=== PATIENT | male | born 1945 | race Caucasian/White ===

== ENCOUNTER → 2020-06-23 08:32 | Outpatient (BNVA) | payer MEDICARE, SELFPAY | PROVIDERS: PCP Internal Medicine; Visit Provider Internal Medicine | DX: Z95.2 Presence of prosthetic heart valve (principal); Z51.81 Encounter for therapeutic drug level monitoring; Z79.01 Long term (current) use of anticoagulants | CPT/HCPCS: 85610; 99211 ==

== ENCOUNTER 2020-06-25 12:04 | Outpatient (REF) | payer MEDICARE, SELFPAY ==
[2020-06-25 13:25] LABS: MANUAL DIFF FLAG NO
[2020-06-25 13:31] LABS: Basophils Percent Auto 0.4 % (0-2); Eosinophils Absolute Auto 0.3 X10*3/uL (0.0-0.4); Eosinophils Percent Auto 3.4 % (0-4); Hematocrit 48.7 % (42-52); Hemoglobin 14.9 g/dl (14.0-18.0); Imm Gran Abs Auto 0.03 X10*3/uL (0.00-0.03); Imm Gran Pct Auto 0.4 % (0.0-0.4); Lymphocytes Percent Auto 12.5 % (20-40); Mean Corpuscular HGB Conc 30.6 g/dl (31.0-36.0); Mean Corpuscular Hemoglobin 27.3 pg (27.0-33.0); Mean Corpuscular Volume 89.4 fL (80-98); Mean Platelet Volume 9.7 fL (9.4-12.4); Monocytes Absolute Auto 0.5 X10*3/uL (0.1-1.2); Monocytes Percent Auto 6.7 % (2-11); Neutrophils Absolute Auto 5.8 X10*3/uL (2.0-8.3); Neutrophils Percent Auto 76.6 % (45-73); Platelet Count 197 X10*3/uL (160-400); Red Blood Count 5.45 X10*6/uL (4.60-5.80); Red Cell Distribution Width 16.2 % (11.0-16.0); White Blood Count 7.6 X10*3/uL (4.8-10.8)
[2020-06-25 14:00] LABS: Alanine Aminotransferase 10 U/L (0-40); Albumin Level 3.8 g/dL (3.5-5.0); Alkaline Phosphatase 84 U/L (39-117); Anion Gap 11 (12-20); Aspartate Amino Transferase 16 U/L (5-37); Bilirubin Total 0.5 mg/dL (0.0-1.0); Blood Urea Nitrogen 23 mg/dL (9-16); Calcium 8.8 mg/dL (8.4-10.2); Carbon Dioxide 26 mmol/L (22-29); Chloride 102 mmol/L (96-108); Estimated Glomerular Filt Rate 45; Glucose Random 116 mg/dL (60-115); Potassium 4.6 mmol/l (3.3-5.1); Sodium 134 mmol/L (135-145); Total Protein 8.7 g/dL (6.5-8.0)
[2020-06-25 14:24] LABS: Free T4 (Free Thyroxine) 0.82 ng/dL (0.71-1.85)
[2020-06-25 14:30] LABS: Estimated Average Glucose 131 mg/dL; Hemoglobin A1c % 6.2 %
== END 2020-06-25 12:05 | disposition home or self-care (01) ==
LOC: HO.LAB 12:04
PROVIDERS: PCP Internal Medicine; Visit Provider Internal Medicine
DX: R60.0 Localized edema (principal); N18.9 Chronic kidney disease, unspecified; E11.9 Type 2 diabetes mellitus without complications
CPT/HCPCS: 36415; 80053; 83036; 84439; 85025

== ENCOUNTER → 2020-07-07 08:12 | Outpatient (BNVA) | payer MEDICARE, SELFPAY | PROVIDERS: PCP Internal Medicine; Visit Provider Internal Medicine | DX: Z95.2 Presence of prosthetic heart valve (principal); Z79.01 Long term (current) use of anticoagulants; Z51.81 Encounter for therapeutic drug level monitoring | CPT/HCPCS: 85610; 99211 ==

== ENCOUNTER → 2020-07-28 14:06 | Outpatient (BNVA) | payer MEDICARE, SELFPAY | PROVIDERS: PCP Internal Medicine; Referring Provider Internal Medicine; Visit Provider Internal Medicine Cardiovascular Disease | DX: I47.2 Ventricular tachycardia (principal); I25.10 Atherosclerotic heart disease of native coronary artery without angina pectoris; Z45.02 Encounter for adjustment and management of automatic implantable cardiac defibrillator; I25.5 Ischemic cardiomyopathy; I50.22 Chronic systolic (congestive) heart failure; I35.0 Nonrheumatic aortic (valve) stenosis; Z79.899 Other long term (current) drug therapy | CPT/HCPCS: 93005; 99212 ==

== ENCOUNTER → 2020-08-04 08:10 | Outpatient (BNVA) | payer MEDICARE, SELFPAY | PROVIDERS: PCP Internal Medicine; Visit Provider Internal Medicine | DX: Z95.2 Presence of prosthetic heart valve (principal); Z51.81 Encounter for therapeutic drug level monitoring; Z79.01 Long term (current) use of anticoagulants | CPT/HCPCS: 85610; 99211 ==

== ENCOUNTER → 2020-09-01 07:58 | Outpatient (BNVA) | payer MEDICARE, SELFPAY | PROVIDERS: PCP Internal Medicine; Visit Provider Internal Medicine | DX: Z95.2 Presence of prosthetic heart valve (principal); Z79.01 Long term (current) use of anticoagulants; Z51.81 Encounter for therapeutic drug level monitoring | CPT/HCPCS: 85610; 99211 ==

== ENCOUNTER → 2020-09-07 08:53 | Outpatient (BNVA) | payer MEDICARE, SELFPAY | PROVIDERS: PCP Internal Medicine; Referring Provider Internal Medicine; Visit Provider Internal Medicine Cardiovascular Disease | DX: I47.2 Ventricular tachycardia (principal); I25.5 Ischemic cardiomyopathy; I50.22 Chronic systolic (congestive) heart failure; Z79.899 Other long term (current) drug therapy; Z45.02 Encounter for adjustment and management of automatic implantable cardiac defibrillator | CPT/HCPCS: 99212 ==

== ENCOUNTER → 2020-09-27 08:19 | Outpatient (BNVA) | payer MEDICARE, BC, SELFPAY | PROVIDERS: PCP Internal Medicine; Visit Provider Internal Medicine | DX: Z95.2 Presence of prosthetic heart valve (principal); Z51.81 Encounter for therapeutic drug level monitoring; Z79.01 Long term (current) use of anticoagulants | CPT/HCPCS: 85610; 99211 ==

== ENCOUNTER → 2020-11-01 08:01 | Outpatient (BNVA) | payer MEDICARE, SELFPAY | PROVIDERS: PCP Internal Medicine; Visit Provider Internal Medicine | DX: Z95.2 Presence of prosthetic heart valve (principal); Z51.81 Encounter for therapeutic drug level monitoring; Z79.01 Long term (current) use of anticoagulants | CPT/HCPCS: 85610; 99211 ==

== ENCOUNTER → 2020-11-29 08:06 | Outpatient (BNVA) | payer MEDICARE, SELFPAY | PROVIDERS: PCP Internal Medicine; Visit Provider Internal Medicine | DX: Z95.2 Presence of prosthetic heart valve (principal); Z51.81 Encounter for therapeutic drug level monitoring; Z79.01 Long term (current) use of anticoagulants | CPT/HCPCS: 85610; 99211 ==

== ENCOUNTER 2020-12-22 09:07 | Outpatient (REF) | payer MEDICARE, BC, SELFPAY ==
[2020-12-22 10:31] LABS: MANUAL DIFF FLAG NO
[2020-12-22 10:58] LABS: Basophils Percent Auto 0.5 % (0-2); Eosinophils Absolute Auto 0.3 X10*3/uL (0.0-0.4); Eosinophils Percent Auto 4.3 % (0-4); Hemoglobin 15.6 g/dl (14.0-18.0); Imm Gran Abs Auto 0.03 X10*3/uL (0.00-0.03); Imm Gran Pct Auto 0.5 % (0.0-0.4); Lymphocytes Absolute Auto 0.9 X10*3/uL (1.2-4.9); Lymphocytes Percent Auto 14.1 % (20-40); Mean Corpuscular HGB Conc 31.2 g/dl (31.0-36.0); Mean Corpuscular Volume 89.6 fL (80-98); Monocytes Absolute Auto 0.5 X10*3/uL (0.1-1.2); Monocytes Percent Auto 7.3 % (2-11); Neutrophils Absolute Auto 4.8 X10*3/uL (2.0-8.3); Neutrophils Percent Auto 73.3 % (45-73); Platelet Count 189 X10*3/uL (160-400); Red Blood Count 5.58 X10*6/uL (4.60-5.80); Red Cell Distribution Width 14.7 % (11.0-16.0); White Blood Count 6.6 X10*3/uL (4.8-10.8)
[2020-12-22 11:07] LABS: Estimated Average Glucose 134 mg/dL; Hemoglobin A1c % 6.3 %
[2020-12-22 11:27] LABS: Alanine Aminotransferase 14 U/L (0-40); Albumin Level 3.7 g/dL (3.5-5.0); Alkaline Phosphatase 86 U/L (39-117); Anion Gap 11 (12-20); Aspartate Amino Transferase 21 U/L (5-37); Bilirubin Total 0.7 mg/dL (0.0-1.0); Blood Urea Nitrogen 22 mg/dL (9-16); Carbon Dioxide 24 mmol/L (22-29); Chloride 104 mmol/L (96-108); Cholesterol 210 mg/dL; Estimated Glomerular Filt Rate 41; Glucose Fasting 102 mg/dL (60-99); HDL Cholesterol 34 mg/dL; LDL Cholesterol Calculated 152 mg/dl; Potassium 5.2 mmol/L (3.3-5.1); Sodium 134 mmol/L (135-145); Total Protein 8.4 g/dL (6.5-8.0); Triglycerides 121 mg/dL
[2020-12-22 11:44] LABS: Creatinine Urine 117.27 mg/dL
[2020-12-22 12:00] LABS: Microalbum/Creatinine Ratio Ur 469.8 ug/mg cr
== END 2020-12-22 09:08 | disposition home or self-care (01) ==
LOC: HO.10HDL 09:07
PROVIDERS: Visit Provider Internal Medicine
DX: E11.22 Type 2 diabetes mellitus with diabetic chronic kidney disease (principal); N18.9 Chronic kidney disease, unspecified; E78.00 Pure hypercholesterolemia, unspecified; I42.9 Cardiomyopathy, unspecified
CPT/HCPCS: 36415; 80053; 80061; 82043; 83036; 85025

== ENCOUNTER 2020-12-30 12:19 | Outpatient (REF) | payer MEDICARE, BC, SELFPAY ==
[2020-12-30 13:25] LABS: MANUAL DIFF FLAG NO
[2020-12-30 13:29] LABS: Basophils Percent Auto 0.6 % (0-2); Eosinophils Absolute Auto 0.3 X10*3/uL (0.0-0.4); Eosinophils Percent Auto 4.8 % (0-4); Hematocrit 50.1 % (42-52); Hemoglobin 15.5 g/dl (14.0-18.0); Imm Gran Abs Auto 0.02 X10*3/uL (0.00-0.03); Imm Gran Pct Auto 0.3 % (0.0-0.4); Lymphocytes Absolute Auto 0.9 X10*3/uL (1.2-4.9); Lymphocytes Percent Auto 13.4 % (20-40); Mean Corpuscular HGB Conc 30.9 g/dl (31.0-36.0); Mean Corpuscular Hemoglobin 27.5 pg (27.0-33.0); Mean Corpuscular Volume 88.8 fL (80-98); Mean Platelet Volume 9.7 fL (9.4-12.4); Monocytes Absolute Auto 0.5 X10*3/uL (0.1-1.2); Monocytes Percent Auto 7.1 % (2-11); Neutrophils Absolute Auto 5.1 X10*3/uL (2.0-8.3); Neutrophils Percent Auto 73.8 % (45-73); Platelet Count 185 X10*3/uL (160-400); Red Blood Count 5.64 X10*6/uL (4.60-5.80); Red Cell Distribution Width 14.6 % (11.0-16.0); White Blood Count 6.9 X10*3/uL (4.8-10.8)
[2020-12-30 14:00] LABS: Alanine Aminotransferase 10 U/L (0-40); Albumin Level 3.7 g/dL (3.5-5.0); Alkaline Phosphatase 93 U/L (39-117); Anion Gap 13 (12-20); Aspartate Amino Transferase 20 U/L (5-37); Bilirubin Total 0.4 mg/dL (0.0-1.0); Blood Urea Nitrogen 25 mg/dL (9-16); Calcium 8.9 mg/dL (8.4-10.2); Carbon Dioxide 22 mmol/L (22-29); Chloride 106 mmol/L (96-108); Cholesterol 211 mg/dL; Estimated Glomerular Filt Rate 45; Glucose Random 103 mg/dL (60-115); Potassium 4.7 mmol/L (3.3-5.1); Sodium 136 mmol/L (135-145); Total Protein 8.6 g/dL (6.5-8.0)
[2020-12-30 14:02] LABS: Estimated Average Glucose 134 mg/dL; Hemoglobin A1c % 6.3 %
[2020-12-30 14:21] LABS: Free T4 (Free Thyroxine) 0.85 ng/dL (0.71-1.85); Thyroid Stimulating Hormone 3.99 uIU/mL (0.32-4.0)
[2020-12-30 14:24] LABS: Creatinine Urine 104.99 mg/dL; Microalbum/Creatinine Ratio Ur 460.9 ug/mg cr
== END 2020-12-30 12:20 | disposition home or self-care (01) ==
LOC: HO.10HDL 12:19
PROVIDERS: PCP Internal Medicine; Visit Provider Internal Medicine
DX: E11.22 Type 2 diabetes mellitus with diabetic chronic kidney disease (principal); N18.9 Chronic kidney disease, unspecified; I42.9 Cardiomyopathy, unspecified
CPT/HCPCS: 36415; 80053; 82043; 82465; 83036; 84439; 84443; 85025

== ENCOUNTER → 2021-01-03 07:55 | Outpatient (BNVA) | payer MEDICARE, BC, SELFPAY | PROVIDERS: PCP Internal Medicine; Visit Provider Internal Medicine | DX: Z95.2 Presence of prosthetic heart valve (principal); Z79.01 Long term (current) use of anticoagulants; Z51.81 Encounter for therapeutic drug level monitoring | CPT/HCPCS: 85610; 99211 ==

== ENCOUNTER → 2021-01-31 08:03 | Outpatient (BNVA) | payer MEDICARE, BC, SELFPAY | PROVIDERS: PCP Internal Medicine; Visit Provider Internal Medicine | DX: Z95.2 Presence of prosthetic heart valve (principal); Z51.81 Encounter for therapeutic drug level monitoring; Z79.01 Long term (current) use of anticoagulants | CPT/HCPCS: 85610; 99211 ==

== ENCOUNTER → 2021-02-28 08:01 | Outpatient (BNVA) | payer MEDICARE, BC, SELFPAY | PROVIDERS: PCP Internal Medicine; Visit Provider Internal Medicine | DX: Z95.2 Presence of prosthetic heart valve (principal); Z51.81 Encounter for therapeutic drug level monitoring; Z79.01 Long term (current) use of anticoagulants | CPT/HCPCS: 85610; 99211 ==

== ENCOUNTER → 2021-03-28 07:59 | Outpatient (BNVA) | payer MEDICARE, BC, SELFPAY | PROVIDERS: PCP Internal Medicine; Visit Provider Internal Medicine | DX: Z95.2 Presence of prosthetic heart valve (principal); Z51.81 Encounter for therapeutic drug level monitoring; Z79.01 Long term (current) use of anticoagulants | CPT/HCPCS: 85610; 99211 ==

== ENCOUNTER → 2021-04-27 07:57 | Outpatient (BNVA) | payer MEDICARE, BC, SELFPAY | PROVIDERS: PCP Internal Medicine; Visit Provider Internal Medicine | DX: Z95.2 Presence of prosthetic heart valve (principal); Z51.81 Encounter for therapeutic drug level monitoring; Z79.01 Long term (current) use of anticoagulants | CPT/HCPCS: 85610; 99211 ==

== ENCOUNTER → 2021-05-25 08:08 | Outpatient (BNVA) | payer MEDICARE, BC, SELFPAY | PROVIDERS: PCP Internal Medicine; Visit Provider Internal Medicine | DX: Z95.2 Presence of prosthetic heart valve (principal); Z19.1 Hormone sensitive malignancy status; Z79.01 Long term (current) use of anticoagulants | CPT/HCPCS: 85610; 99211 ==

== ENCOUNTER → 2021-06-22 08:13 | Outpatient (BNVA) | payer MEDICARE, BC, SELFPAY | PROVIDERS: PCP Internal Medicine; Visit Provider Internal Medicine | DX: Z95.2 Presence of prosthetic heart valve (principal); Z51.81 Encounter for therapeutic drug level monitoring; Z79.01 Long term (current) use of anticoagulants | CPT/HCPCS: 85610; 99211 ==

== ENCOUNTER → 2021-07-20 08:20 | Outpatient (BNVA) | payer MEDICARE, BC, SELFPAY | PROVIDERS: PCP Internal Medicine; Visit Provider Internal Medicine | DX: Z95.2 Presence of prosthetic heart valve (principal); Z51.81 Encounter for therapeutic drug level monitoring; Z79.01 Long term (current) use of anticoagulants | CPT/HCPCS: 85610; 99211 ==

== ENCOUNTER → 2021-08-17 08:01 | Outpatient (BNVA) | payer MEDICARE, BC, SELFPAY | PROVIDERS: PCP Internal Medicine; Visit Provider Internal Medicine | DX: Z95.2 Presence of prosthetic heart valve (principal); Z51.81 Encounter for therapeutic drug level monitoring; Z79.01 Long term (current) use of anticoagulants | CPT/HCPCS: 85610; 99211 ==

== ENCOUNTER → 2021-08-29 12:34 | Outpatient (BNVA) | payer MEDICARE, BC, SELFPAY | PROVIDERS: PCP Internal Medicine; Referring Provider Internal Medicine; Visit Provider Nurse Practitioner Family | DX: Z45.02 Encounter for adjustment and management of automatic implantable cardiac defibrillator (principal); I25.5 Ischemic cardiomyopathy; I50.22 Chronic systolic (congestive) heart failure; I47.2 Ventricular tachycardia; I25.10 Atherosclerotic heart disease of native coronary artery without angina pectoris; I35.0 Nonrheumatic aortic (valve) stenosis; Z95.1 Presence of aortocoronary bypass graft; Z79.01 Long term (current) use of anticoagulants | CPT/HCPCS: 99212 ==

== ENCOUNTER → 2021-09-14 07:59 | Outpatient (BNVA) | payer MEDICARE, BC, SELFPAY | PROVIDERS: PCP Internal Medicine; Visit Provider Internal Medicine | DX: Z95.2 Presence of prosthetic heart valve (principal); Z51.81 Encounter for therapeutic drug level monitoring; Z79.01 Long term (current) use of anticoagulants | CPT/HCPCS: 85610; 99211 ==

== ENCOUNTER 2021-09-21 13:02 | Observation (INO) | payer MEDICARE, BC, SELFPAY ==
--- NOTE | ~2021-09-21 | XR_ITS ---
EXAMINATION: XR CHEST CLINICAL INFORMATION: Syncope COMPARISON: Chest 07/24/2019 TECHNIQUE: 2 views of the chest were obtained. FINDINGS: The lungs are well-expanded with patchy opacity in the left lung base likely combination of parenchymal scarring and atelectasis unchanged since 07/24/2019. Rest of lungs are expanded. The heart size is borderline enlarged. There is increased vascularity but no charly congestion suspected. There are dual pacer electrodes in right atrium and right ventricle. No gross bony abnormality seen. XR/XR chest 2V IMPRESSION: Chronic left lower lobe parenchymal changes. No acute pneumonic process seen. Borderline cardiomegaly with prominent perivascular but no congestion. No change in dual pacer electrodes.
--- NOTE | ~2021-09-21 | CT_ITS ---
EXAMINATION: CT HEAD WITHOUT CONTRAST CLINICAL INFORMATION: Syncope. Rule out stroke. COMPARISON: None TECHNIQUE: Contiguous axial imaging was performed from the skull base to vertex without intravenous administration of contrast. This CT examination was performed using dose optimization techniques as appropriate, variously including the following: *Automated exposure control *Adjustment of mA and/or kV according to patient size (this includes techniques or standardized protocols for targeted exams where dose is matched to indication/reason for exam; i.e. extremities or head) *Use of iterative reconstruction technique DLP: 805 mGy-cm FINDINGS: There is no evidence of an extra-axial collection. There is no evidence of intra-axial or extra-axial hemorrhage. The ventricles and extra-axial CSF spaces are prominent compatible with generalized atrophy. There is nonspecific periventricular white matter disease. No mass, mass effect or infarct is seen. Review at bone windows is normal. No skull fracture is seen. Visualized paranasal sinuses, mastoid air cells and middle ears are clear. CT/CT head/brain wo con IMPRESSION: No acute intracranial findings. Nonspecific periventricular white matter disease and mild generalized atrophy. Findings were communicated to Dr. Zamudio by telephone on 07/22/2022 at 1:30 PM.
--- NOTE | ~2021-09-21 | CT_ITS ---
EXAMINATION: CT CHEST WITHOUT CONTRAST CLINICAL INFORMATION: Question of infiltrate COMPARISON: Chest radiograph earlier today September [address] chest 11/07/2018 TECHNIQUE: Multidetector volumetric CT imaging of the chest was done. Axial MIP volume rendering provided. Sagittal and coronal reformatted images were obtained. This CT examination was performed using dose optimization techniques as appropriate, variously including the following: *Automated exposure control *Adjustment of mA and/or kV according to patient size (this includes techniques or standardized protocols for targeted exams where dose is matched to indication/reason for exam; i.e. extremities or head) *Use of iterative reconstruction technique DLP: 322 mGy-cm FINDINGS: LUNGS: Again seen are chronic changes in the lungs with some subpleural reticular change and honeycombing along with some traction bronchiectasis most marked in the lower lobes. Compared to the prior study from 11/07/2018, findings have progressed minimally. No new areas of infiltrate are seen. No suspicious lung masses are present. MEDIASTINUM: Again seen is a left chest wall pacemaker. One lead is present in the right atria. The other extends medially across the midline with its tip in the right ventricle, but not at the apex. A third lead is epicardial in position. Unchanged calcification is present involving the pericardium. PLEURA: There is no pleural effusion. No pleural mass or thickening. AXILLA: No lymphadenopathy. UPPER ABDOMEN: Layering gallstones are present the largest measuring 1.6 cm. No evidence of cholecystitis. OSSEOUS STRUCTURES: Minimal degenerative changes present in the spine. No bony destructive lesions. CT/CT chest wo con IMPRESSION: Chronic pulmonary changes as described above. No acute new superimposed infiltrate is seen. Fleischner guidelines were followed.
--- NOTE | 2021-09-21 13:08 | ECG_ITS ---
Test Reason : Syncope Blood Pressure : / mmHG Vent. Rate : 080 BPM Atrial Rate : 080 BPM P-R Int : 000 ms QRS Dur : 164 ms QT Int : 468 ms P-R-T Axes : 052 -42 029 degrees QTc Int : 539 ms Ventricular-paced rhythm Probable sinus rhythm Abnormal ECG When compared with ECG of 11-JUN-2017 11:22, No significant changes seen Referred By: Mark Zamudio Electronically Signed By:MARISEL MERCADO
--- NOTE | 2021-09-21 13:09 | ED.GENADULT ---
HPI - General Adult General Chief complaint: Syncope Stated complaint: STROKE ALERT Time Seen by Provider: 09/21/21 13:07 Source: patient and old records reviewed History of Present Illness HPI narrative: Patient with a history of artificial heart valve on warfarin therapy, with ischemic cardiomyopathy, with nonsustained ventricular tachycardia, with history of coronary artery bypass graft surgery, and biventricular ICD. He presents today with syncopal episode. Unclear duration. He was apparently found at a bar by other patrons slumped over the bar and unresponsive. He was unresponsive on EMS arrival. Heart rate during the unresponsive episode was approximately 100 and paste. Blood pressure has been low for EMS with a maximum pressure of 100. Unknown blood pressure during unresponsive time. Per EMS he suddenly became normally responsive approximately 5 minutes after their arrival. No focal neuro deficits. The patient self denies complaints and states ?just get me out of here?. He has no prior admissions to this hospital. He denies chest pain or palpitations. He denies recent illness. Related Data Home Medications Medication Instructions Recorded Confirmed metoprolol succinate 25 mg 12.5 mg PO BEDTIME 09/21/21 09/21/21 tablet,extended release 24 hr warfarin 2.5 mg tablet 2.5 mg PO SUTUWETHFR@1800 09/21/21 09/21/21 warfarin 2.5 mg tablet 5 mg PO MOSA@1800 09/21/21 09/21/21 Previous Rx's Medication Instructions Recorded sacubitril 24 mg-valsartan 26 mg 1 tab PO BID 60 Days #120 tab 06/21/21 tablet Allergies Allergy/AdvReac Type Severity Reaction Status Date / Time indomethacin [From INDOCIN] Allergy Mild HEADACHES Verified 09/14/21 08:10 Review of Systems Constitutional: Comments: Denies weakness numbness or paresthesias. Cardiovascular: Comments: No chest pain or palpitations Respiratory: Comments: No dyspnea or cough Gastrointestinal: Comments: No nausea vomiting or diarrhea Musculoskeletal: Comments: No musculoskeletal injuries Integumentary/Breasts: Skin/Breast: Reports non-healing lesions Comments: No rash Neurologic: Comments: No focal neuro deficit FOR[facility]LY [facility], [facility] Past Medical History Medical History Aortic stenosis Biventricular ICD (implantable cardioverter-defibrillator) in place CAD (coronary artery disease) Chronic HFrEF (heart failure with reduced ejection fraction) CKD (chronic kidney disease) Diabetes mellitus Ischemic cardiomyopathy Surgical History History of appendectomy Hx of CABG Hx of knee surgery Hx of tonsillectomy S/P CABG x 1 Family History Family History Father Colon cancer Mother No problems noted. Social History Social History Alcohol intake: never Patient Tobacco Use Status: Never used Tobacco Use of substances other than those prescribed or required for medical reasons: No Advance Directives: Yes Advance Directives Information Provided: Yes Advance Directives on File: No Physical Exam Vital Signs: Vital Signs: Last Vital Signs Temp 97.6 F 09/21/21 16:20 Pulse 76 09/21/21 17:46 Resp 20 09/21/21 17:46 BP 100/58 L 09/21/21 17:46 Pulse Ox 98 09/21/21 16:20 BMI result Body Mass Index 33.9 Const: Other: Awake alert no acute distress Eyes: Other: Pupils equal round reactive to light. Extraocular muscles intact. Resp: Other: No respiratory distress. Clear and equal bilaterally Cardio: Other: Regular rate and rhythm GI: Other: Soft nontender nondistended Skin: Other: Warm pink and dry without rash Neuro: Other: Awake alert. Oriented x3. No focal neuro deficit. NIHSS score of 0 Cerebellar exam, [id number] is normal without ataxia. NIH Stroke Scale Internal: Initial- Upon Arrival Level of Consciousness: Alert Level of Consciousness Questions: Answers both questions correctly Level of Consciousness Commands: Performs both tasks correctly Best Gaze: Normal Visual: No visual loss Facial Palsy: Normal Motor Arm (Right): No drift Motor Arm (Left): No drift Motor Leg (Right): No drift Motor Leg (Left): No drift Limb Ataxia: Absent Sensory: Normal Best Language: No aphasia Dysarthia: Normal Extinction and Inattention: No abnormality Score: 0 Course Course Course Narrative: Syncope and patient with valvular disease on Coumadin with cardiomyopathy No evidence of focal neuro deficit or stroke. Dysrhythmia Hypotension Alcohol intoxication Anemia On monitor patient shows paced rhythm. Patient is hypotensive at 70/40 however. This is likely the etiology of his syncopal event. Will treat with IV fluids. 500 cc at a time as patient is at high risk for fluid overload. Would for source of hypotension such as dehydration and sepsis. No obvious infectious process clinically. Await labs 3:28 p.m. Chest x-ray shows no acute abnormalities. CBC shows normal white count and normal hemoglobin. Chemistry significant for creatinine of 1.64 which is close to patient's baseline. Lactic acid is 3.7 however. Troponin 1. Is 55.2. Eyes discussed case with his who is an RN. She states that he is close to his baseline but still slurring his speech and seemed more fatigued than normal. No prodromes prior to this event that she is aware of as he was in his usual state of health today. Await urinalysis. Source of hypotension still unclear. At the moment no evidence of infection or sepsis. 5:[address] Cordero. Bedside ultrasound shows somewhat diminished wall motion abnormalities with probable aortic stenosis. Formal ultrasound will be done as an inpatient. 6:[address] shows no obvious pneumonias. No other significant acute abnormalities. 7:38 p.m.. Urinalysis shows no signs of infection. Blood pressure has remained stable over the past hour. Will hospitalized for further treatment Repeat lactic acid of 2.5 showing some improvement. Medical Decision Making Lab Data Result diagrams: 09/21/21 14:16 09/21/21 14:05 Labs: Lab Results 09/21/21 09/21/21 09/21/21 Range/Units 14:05 14:16 14:16 WBC 7.0 (4.8-10.8) X10*3/uL RBC 5.11 (4.60-5.80) X10*6/uL Hgb 14.7 (14.0-18.0) g/dl Hct 46.7 (42.0-52.0) % MCV 91.4 (80.0-98.0) fL MCH 28.8 (27.0-33.0) pg MCHC 31.5 (31.0-36.0) g/dl RDW 14.3 (11.0-16.0) % Plt Count 164 (160-400) X10*3/uL MPV 9.8 (9.4-12.4) fL Immature Gran % (Auto) 0.3 (0.0-0.4) % Neut % (Auto) 80.4 H (45-73) % Lymph % (Auto) 9.7 L (20-40) % Lynn % (Auto) 7.0 (2-11) % Eos % (Auto) 2.3 (0-4) % Baso % (Auto) 0.3 (0-2) % Lymph # (Auto) 0.7 L (1.2-4.9) X10*3/uL Lynn # (Auto) 0.5 (0.1-1.2) X10*3/uL Eos # (Auto) 0.2 (0.0-0.4) X10*3/uL Baso # (Auto) 0.0 (0.0-0.2) X10*3/uL Abs Immat Gran (auto) 0.02 (0.00-0.03) X10*3/uL Absolute Neuts (auto) 5.6 (2.0-8.3) x10*3/uL Absolute Nucleated RBC 0.000 (0.0-0.012) X10*3/uL Nucleated RBC % (auto) 0.0 (0.0-0.2) /100WBC PT 33.5 H (9.9-13.0) SEC INR 2.9 H (0.9-1.1) D-Dimer High Sensitivty 490 NG/ML Sodium 135 (135-145) mmol/L Potassium 4.2 (3.3-5.1) mmol/L Chloride 108 (96-108) mmol/L Carbon Dioxide 18 L (22-29) mmol/L Anion Gap 13 (12-20) BUN 22 H (9-16) mg/dL Creatinine 1.64 H (0.5-1.4) mg/dL Estim Creat Clear Calc 40.7 Estimated GFR 41 Random Glucose 117 H (60-115) mg/dL Lactic Acid (0.5-2.0) mmol/L Lactic Acid F/U @ 2Hr (0.5-2.0) mmol/L Calcium 8.8 (8.4-10.2) mg/dL Total Bilirubin 0.6 (0.0-1.0) mg/dL AST 18 (5-37) U/L ALT 12 (0-40) U/L Alkaline Phosphatase 87 (39-117) U/L Ammonia (13-55) umol/L Troponin I High Sens (<3.5-35.0) ng/L Total Protein 8.1 H (6.5-8.0) g/dL Albumin 3.5 (3.5-5.0) g/dL Urine Color Urine Appearance Urine pH (5.0-8.0) Ur Specific Elton (1.005-1.025) Urine Protein (NEG-TRACE) MG/DL Urine Glucose (UA) (NEG) MG/DL Urine Ketones (NEG) MG/DL Urine Blood (NEG) Urine Nitrite (NEG) Ur Leukocyte Esterase (NEG) Urine RBC (0) /HPF Urine WBC (0-4) /HPF Ur Squamous Epith Cells /LPF Urine Bacteria /LPF Hyaline Casts /LPF Granular Casts /LPF Urine Mucus /LPF Urine Opiates Screen (Not Detect) Urine Fentanyl Screen (Not Detect) Ur Barbiturates Screen (Not Detect) Ur Phencyclidine Scrn (Not Detect) Ur Amphetamines Screen (Not Detect) U Benzodiazepines Scrn (Not Detect) Urine Cocaine Screen (Not Detect) U Marijuana (THC) Screen (Not Detect) Ethyl Alcohol mg/dL COVID-19 (DEEPAK) (Negative) COVID-19 Clin Com 09/21/21 09/21/21 09/21/21 Range/Units 14:16 14:16 14:16 WBC (4.8-10.8) X10*3/uL RBC (4.60-5.80) X10*6/uL Hgb (14.0-18.0) g/dl Hct (42.0-52.0) % MCV (80.0-98.0) fL MCH (27.0-33.0) pg MCHC (31.0-36.0) g/dl RDW (11.0-16.0) % Plt Count (160-400) X10*3/uL MPV (9.4-12.4) fL Immature Gran % (Auto) (0.0-0.4) % Neut % (Auto) (45-73) % Lymph % (Auto) (20-40) % Lynn % (Auto) (2-11) % Eos % (Auto) (0-4) % Baso % (Auto) (0-2) % Lymph # (Auto) (1.2-4.9) X10*3/uL Lynn # (Auto) (0.1-1.2) X10*3/uL Eos # (Auto) (0.0-0.4) X10*3/uL Baso # (Auto) (0.0-0.2) X10*3/uL Abs Immat Gran (auto) (0.00-0.03) X10*3/uL Absolute Neuts (auto) (2.0-8.3) x10*3/uL Absolute Nucleated RBC (0.0-0.012) X10*3/uL Nucleated RBC % (auto) (0.0-0.2) /100WBC PT (9.9-13.0) SEC INR (0.9-1.1) D-Dimer High Sensitivty NG/ML Sodium (135-145) mmol/L Potassium (3.3-5.1) mmol/L Chloride (96-108) mmol/L Carbon Dioxide (22-29) mmol/L Anion Gap (12-20) BUN (9-16) mg/dL Creatinine (0.5-1.4) mg/dL Estim Creat Clear Calc Estimated GFR Random Glucose (60-115) mg/dL Lactic Acid (0.5-2.0) mmol/L Lactic Acid F/U @ 2Hr (0.5-2.0) mmol/L Calcium (8.4-10.2) mg/dL Total Bilirubin (0.0-1.0) mg/dL AST (5-37) U/L ALT (0-40) U/L Alkaline Phosphatase (39-117) U/L Ammonia 33 (13-55) umol/L Troponin I High Sens 55.2 H (<3.5-35.0) ng/L Total Protein (6.5-8.0) g/dL Albumin (3.5-5.0) g/dL Urine Color Urine Appearance Urine pH (5.0-8.0) Ur Specific Elton (1.005-1.025) Urine Protein (NEG-TRACE) MG/DL Urine Glucose (UA) (NEG) MG/DL Urine Ketones (NEG) MG/DL Urine Blood (NEG) Urine Nitrite (NEG) Ur Leukocyte Esterase (NEG) Urine RBC (0) /HPF Urine WBC (0-4) /HPF Ur Squamous Epith Cells /LPF Urine Bacteria /LPF Hyaline Casts /LPF Granular Casts /LPF Urine Mucus /LPF Urine Opiates Screen (Not Detect) Urine Fentanyl Screen (Not Detect) Ur Barbiturates Screen (Not Detect) Ur Phencyclidine Scrn (Not Detect) Ur Amphetamines Screen (Not Detect) U Benzodiazepines Scrn (Not Detect) Urine Cocaine Screen (Not Detect) U Marijuana (THC) Screen (Not Detect) Ethyl Alcohol mg/dL COVID-19 (DEEPAK) Negative (Negative) COVID-19 Clin Com See Note 09/21/21 09/21/21 09/21/21 Range/Units 14:16 14:16 16:48 WBC (4.8-10.8) X10*3/uL RBC (4.60-5.80) X10*6/uL Hgb (14.0-18.0) g/dl Hct (42.0-52.0) % MCV (80.0-98.0) fL MCH (27.0-33.0) pg MCHC (31.0-36.0) g/dl RDW (11.0-16.0) % Plt Count (160-400) X10*3/uL MPV (9.4-12.4) fL Immature Gran % (Auto) (0.0-0.4) % Neut % (Auto) (45-73) % Lymph % (Auto) (20-40) % Lynn % (Auto) (2-11) % Eos % (Auto) (0-4) % Baso % (Auto) (0-2) % Lymph # (Auto) (1.2-4.9) X10*3/uL Lynn # (Auto) (0.1-1.2) X10*3/uL Eos # (Auto) (0.0-0.4) X10*3/uL Baso # (Auto) (0.0-0.2) X10*3/uL Abs Immat Gran (auto) (0.00-0.03) X10*3/uL Absolute Neuts (auto) (2.0-8.3) x10*3/uL Absolute Nucleated RBC (0.0-0.012) X10*3/uL Nucleated RBC % (auto) (0.0-0.2) /100WBC PT (9.9-13.0) SEC INR (0.9-1.1) D-Dimer High Sensitivty NG/ML Sodium (135-145) mmol/L Potassium (3.3-5.1) mmol/L Chloride (96-108) mmol/L Carbon Dioxide (22-29) mmol/L Anion Gap (12-20) BUN (9-16) mg/dL Creatinine (0.5-1.4) mg/dL Estim Creat Clear Calc Estimated GFR Random Glucose (60-115) mg/dL Lactic Acid 3.7 H* (0.5-2.0) mmol/L Lactic Acid F/U @ 2Hr 2.5 H* (0.5-2.0) mmol/L Calcium (8.4-10.2) mg/dL Total Bilirubin (0.0-1.0) mg/dL AST (5-37) U/L ALT (0-40) U/L Alkaline Phosphatase (39-117) U/L Ammonia (13-55) umol/L Troponin I High Sens (<3.5-35.0) ng/L Total Protein (6.5-8.0) g/dL Albumin (3.5-5.0) g/dL Urine Color Urine Appearance Urine pH (5.0-8.0) Ur Specific Elton (1.005-1.025) Urine Protein (NEG-TRACE) MG/DL Urine Glucose (UA) (NEG) MG/DL Urine Ketones (NEG) MG/DL Urine Blood (NEG) Urine Nitrite (NEG) Ur Leukocyte Esterase (NEG) Urine RBC (0) /HPF Urine WBC (0-4) /HPF Ur Squamous Epith Cells /LPF Urine Bacteria /LPF Hyaline Casts /LPF Granular Casts /LPF Urine Mucus /LPF Urine Opiates Screen (Not Detect) Urine Fentanyl Screen (Not Detect) Ur Barbiturates Screen (Not Detect) Ur Phencyclidine Scrn (Not Detect) Ur Amphetamines Screen (Not Detect) U Benzodiazepines Scrn (Not Detect) Urine Cocaine Screen (Not Detect) U Marijuana (THC) Screen (Not Detect) Ethyl Alcohol 54 mg/dL COVID-19 (DEEPAK) (Negative) COVID-19 Clin Com 09/21/21 09/21/21 Range/Units 19:03 19:03 WBC (4.8-10.8) X10*3/uL RBC (4.60-5.80) X10*6/uL Hgb (14.0-18.0) g/dl Hct (42.0-52.0) % MCV (80.0-98.0) fL MCH (27.0-33.0) pg MCHC (31.0-36.0) g/dl RDW (11.0-16.0) % Plt Count (160-400) X10*3/uL MPV (9.4-12.4) fL Immature Gran % (Auto) (0.0-0.4) % Neut % (Auto) (45-73) % Lymph % (Auto) (20-40) % Lynn % (Auto) (2-11) % Eos % (Auto) (0-4) % Baso % (Auto) (0-2) % Lymph # (Auto) (1.2-4.9) X10*3/uL Lynn # (Auto) (0.1-1.2) X10*3/uL Eos # (Auto) (0.0-0.4) X10*3/uL Baso # (Auto) (0.0-0.2) X10*3/uL Abs Immat Gran (auto) (0.00-0.03) X10*3/uL Absolute Neuts (auto) (2.0-8.3) x10*3/uL Absolute Nucleated RBC (0.0-0.012) X10*3/uL Nucleated RBC % (auto) (0.0-0.2) /100WBC PT (9.9-13.0) SEC INR (0.9-1.1) D-Dimer High Sensitivty NG/ML Sodium (135-145) mmol/L Potassium (3.3-5.1) mmol/L Chloride (96-108) mmol/L Carbon Dioxide (22-29) mmol/L Anion Gap (12-20) BUN (9-16) mg/dL Creatinine (0.5-1.4) mg/dL Estim Creat Clear Calc Estimated GFR Random Glucose (60-115) mg/dL Lactic Acid (0.5-2.0) mmol/L Lactic Acid F/U @ 2Hr (0.5-2.0) mmol/L Calcium (8.4-10.2) mg/dL Total Bilirubin (0.0-1.0) mg/dL AST (5-37) U/L ALT (0-40) U/L Alkaline Phosphatase (39-117) U/L Ammonia (13-55) umol/L Troponin I High Sens (<3.5-35.0) ng/L Total Protein (6.5-8.0) g/dL Albumin (3.5-5.0) g/dL Urine Color YELLOW Urine Appearance CLEAR Urine pH 6.0 (5.0-8.0) Ur Specific Elton 1.020 (1.005-1.025) Urine Protein 1+ H (NEG-TRACE) MG/DL Urine Glucose (UA) NEG (NEG) MG/DL Urine Ketones NEG (NEG) MG/DL Urine Blood TRACE (NEG) Urine Nitrite NEG (NEG) Ur Leukocyte Esterase NEG (NEG) Urine RBC 1-4 (0) /HPF Urine WBC 0-2 (0-4) /HPF Ur Squamous Epith Cells NONE /LPF Urine Bacteria TRACE /LPF Hyaline Casts 0-2 /LPF Granular Casts 0-2 /LPF Urine Mucus TRACE /LPF Urine Opiates Screen Not Detected (Not Detect) Urine Fentanyl Screen Not Detected (Not Detect) Ur Barbiturates Screen Not Detected (Not Detect) Ur Phencyclidine Scrn Not Detected (Not Detect) Ur Amphetamines Screen Not Detected (Not Detect) U Benzodiazepines Scrn Not Detected (Not Detect) Urine Cocaine Screen Not Detected (Not Detect) U Marijuana (THC) Screen Not Detected (Not Detect) Ethyl Alcohol mg/dL COVID-19 (DEEPAK) (Negative) COVID-19 Clin Com Critical Care Time Critical Care Time Critical Care Time: Yes Total Critical Care Time: 115 Attestation: Secondary to prolonged hypotension. Critical care time outside of separately billable procedures Discharge Plan Discharge Patient Disposition: Admitted As Inpatient Prescriptions: No Action sacubitril-valsartan 24-26 mg tablet 1 tab PO BID 60 Days Qty: 120 RF: 0 warfarin 2.5 mg tablet 5 mg PO MOSA@1800 RF: 0 warfarin 2.5 mg tablet 2.5 mg PO SUTUWETHFR@1800 RF: 0 metoprolol succinate 25 mg tablet extended release 24 hr 12.5 mg PO BEDTIME RF: 0
[2021-09-21] MEDS: 0.9 % Sodium Chloride 500 ML IV (13:15)
[2021-09-21 13:20] VITALS: BP 180/00; BP 78/35; PULSE 102; PULSE 78; RESP 16; TEMP 35.9; O2SAT 92; O2SAT 94; BMI 33.9
--- NOTE | 2021-09-21 13:52 | PHA.MEDREC ---
Pharmacy Consult ? Medication Reconciliation Pharmacy has completed the medication reconciliation. There are no remarkable issues for provider's attention. Libra Oconnell, [employer]
[2021-09-21 14:23] VITALS: PULSE 75; O2SAT 95
[2021-09-21 14:26] LABS: MANUAL DIFF FLAG NO
[2021-09-21 14:27] VITALS: BP 77/36; PULSE 77; RESP 15; O2SAT 95
[2021-09-21 14:27] LABS: Basophils Percent Auto 0.3 % (0-2); Eosinophils Absolute Auto 0.2 X10*3/uL (0.0-0.4); Eosinophils Percent Auto 2.3 % (0-4); Hematocrit 46.7 % (42.0-52.0); Hemoglobin 14.7 g/dl (14.0-18.0); Imm Gran Abs Auto 0.02 X10*3/uL (0.00-0.03); Imm Gran Pct Auto 0.3 % (0.0-0.4); Lymphocytes Absolute Auto 0.7 X10*3/uL (1.2-4.9); Lymphocytes Percent Auto 9.7 % (20-40); Mean Corpuscular HGB Conc 31.5 g/dl (31.0-36.0); Mean Corpuscular Hemoglobin 28.8 pg (27.0-33.0); Mean Corpuscular Volume 91.4 fL (80.0-98.0); Mean Platelet Volume 9.8 fL (9.4-12.4); Monocytes Absolute Auto 0.5 X10*3/uL (0.1-1.2); Neutrophils Absolute Auto 5.6 x10*3/uL (2.0-8.3); Neutrophils Percent Auto 80.4 % (45-73); Platelet Count 164 X10*3/uL (160-400); Red Blood Count 5.11 X10*6/uL (4.60-5.80); Red Cell Distribution Width 14.3 % (11.0-16.0)
[2021-09-21 14:30] LABS: Alanine Aminotransferase 12 U/L (0-40); Albumin Level 3.5 g/dL (3.5-5.0); Alkaline Phosphatase 87 U/L (39-117); Anion Gap 13 (12-20); Aspartate Amino Transferase 18 U/L (5-37); Bilirubin Total 0.6 mg/dL (0.0-1.0); Blood Urea Nitrogen 22 mg/dL (9-16); Calcium 8.8 mg/dL (8.4-10.2); Carbon Dioxide 18 mmol/L (22-29); Chloride 108 mmol/L (96-108); Creatinine Clr Calc Pharmacy 40.7; Estimated Glomerular Filt Rate 41; Glucose Random 117 mg/dL (60-115); Potassium 4.2 mmol/L (3.3-5.1); Sodium 135 mmol/L (135-145); Total Protein 8.1 g/dL (6.5-8.0)
[2021-09-21 14:32] LABS: Ammonia 33 umol/L (13-55)
[2021-09-21 14:34] LABS: D Dimer High Sensitivity 490 NG/ML
[2021-09-21 14:39] LABS: COVID-19 Test Negative (Negative); IDNOW Serial# 9DD0AD1C
--- NOTE | 2021-09-21 14:39 | PC.NURSE ---
pt received ns 500ml bolus.
[2021-09-21] MEDS: 0.9 % Sodium Chloride 1,000 ML 999 ML IV ×2 (14:40→17:45)
[2021-09-21 14:43] LABS: Ethanol 54 mg/dL
[2021-09-21 14:45] LABS: Lactic Acid 3.7 mmol/L (0.5-2.0)
[2021-09-21 14:47] LABS: Troponin-I High Sensitivity 55.2 ng/L (<3.5-35.0)
[2021-09-21 15:15] VITALS: BP 93/47; PULSE 81; RESP 14; O2SAT 94
--- NOTE | 2021-09-21 15:17 | PC.NURSE ---
dr. rothman with this rn spoke to pt's sylvia ([phone]) and she was updated by dr. rothman o pt's status.
[2021-09-21 15:50] LABS: INTERNATIONAL NORM RATIO 2.9 (0.9-1.1); Prothrombin Time 33.5 SEC (9.9-13.0)
[2021-09-21 16:20] VITALS: BP 96/52; PULSE 79; RESP 18; TEMP 36.4; O2SAT 98
[2021-09-21 16:22] LABS: Reflex Lactate? Lactic Acid Added
[2021-09-21 17:22] LABS: ~Lactic Acid-LAB USE ONLY 2.5 mmol/L (0.5-2.0)
[2021-09-21 17:46] VITALS: BP 100/58; PULSE 76; RESP 20
[2021-09-21 18:56] LABS: Reflex Lactate? 2 Y
[2021-09-21 19:12] LABS: Appearance Urine CLEAR; Color Urine YELLOW; Glucose Urine UA NEG (NEG); Leukocyte Esterase Urine NEG (NEG); Nitrite Urine NEG (NEG); UACC Culture Trigger NO; Urine Blood TRACE (NEG); Urine Ketones NEG (NEG); Urine Protein 1+ MG/DL (NEG-TRACE)
[2021-09-21 19:26] LABS: Amphetamine Screen Urine Not Detected (Not Detect); Barbiturates, Urine Not Detected (Not Detect); Benzodiazepines Screen Urine Not Detected (Not Detect); Cannabinoid Screen Urine Not Detected (Not Detect); Cocaine Screen Urine Not Detected (Not Detect); Fentanyl, urine Not Detected (Not Detect); Opiate Screen Urine Not Detected (Not Detect); Phencyclidine Screen Urine Not Detected (Not Detect)
[2021-09-21 19:30] LABS: Bacteria Urine TRACE /LPF; Mucus Urine TRACE /LPF; WBC Urine 0-2 /HPF (0-4)
[2021-09-21 19:31] LABS: Granular Casts Urine 0-2 /LPF; Hyaline Casts Urine 0-2 /LPF
[2021-09-21 19:40] LABS: ~Lactic Acid-LAB USE ONLY 1.7 mmol/L (0.5-2.0)
[2021-09-21 21:29] LABS: Troponin-I High Sensitivity 55.1 ng/L (<3.5-35.0)
--- NOTE | 2021-09-21 21:39 | PM.IMHP ---
History of Present Illness Date of Service: 09/21/21 Chief Complaint: Syncope 76-year-old male with past medical history of coronary artery disease status post CABG, and this VT, ischemic cardiomyopathy status post biventricular ICD, CKD, diabetes, aortic stenosis, CKD, who presents to the hospital with complaints of syncopal episode. Patient reports that he was at lunch at a restaurant [employer] are when after finishing his lunch he slumped over and was unconscious for multiple minutes. He does not remember what happened during the episode but reports that the next thing he remembers is waking up on the stretcher of EMS. Patient reports no prodromal symptoms including no chest pain, no dizziness, no palpitations, no shortness of breath, and reports no postictal symptoms. He denies having any previous similar episode. He has no headache, no change in vision, no chest pain, no abdominal pain nausea or vomiting, no diarrhea constipation, no urinary symptoms and no lower extremity edema. He reports that he was in his usual state of health prior to the incident. On arrival to the ED patient's vitals or significant for blood pressure of 78/35 with a heart rate of 78 but Improved after IV fluids. Labs are significant for WBC count of 7, hemoglobin of 14.7, PT of 33.5, INR of 2.9, creatinine of 1.64 which is around his baseline, lactic acid of 3.7 that improved with IV fluids, initial troponin of 55.2 with no delta on repeat, UA negative, UDS negative, COVID-19 negative. Alcohol level 54. Chest CT shows chronic pulmonary changes with no new superimposed infiltrate head CT shows no acute intracranial finding. Patient ICD was interrogated and found to no arrhythmia Review of Systems Review of Systems: Yes all other systems are reviewed and are negative [facility] Medical History Aortic stenosis Biventricular ICD (implantable cardioverter-defibrillator) in place CAD (coronary artery disease) Chronic HFrEF (heart failure with reduced ejection fraction) CKD (chronic kidney disease) Diabetes mellitus Ischemic cardiomyopathy Family History Father Colon cancer Mother No problems noted. Surgical History History of appendectomy Hx of CABG Hx of knee surgery Hx of tonsillectomy S/P CABG x 1 Social History Alcohol intake: never Patient Tobacco Use Status: Never used Tobacco Use of substances other than those prescribed or required for medical reasons: No Advance Directives: Yes Advance Directives Information Provided: Yes Advance Directives on File: No Meds Allergies Allergy/AdvReac Type Severity Reaction Status Date / Time indomethacin [From INDOCIN] Allergy Mild HEADACHES Verified 09/14/21 08:10 Home Medications Medication Instructions Recorded Confirmed Last Taken Type metoprolol succinate 25 mg 12.5 mg PO BEDTIME 09/21/21 09/21/21 09/20/21 History tablet,extended release 24 hr warfarin 2.5 mg tablet 2.5 mg PO SUTUWETHFR@1800 09/21/21 09/21/21 09/20/21 History warfarin 2.5 mg tablet 5 mg PO MOSA@1800 09/21/21 09/21/21 09/19/21 History Physical Exam Vital Signs and Narrative: Vital Signs: Last Vital Signs Temp 97.6 F 09/21/21 16:20 Pulse 76 09/21/21 17:46 Resp 20 09/21/21 17:46 BP 100/58 L 09/21/21 17:46 Pulse Ox 98 09/21/21 16:20 BMI result Body Mass Index 33.9 Const: General: cooperative and no acute distress Orientation/consciousness: patient oriented x3 Eyes: General: appearance normal, both eyes and all related structures Pupils: Equal, round and reactive pupils present Resp: Effort & Inspection: normal respiratory effort Auscultation: clear to auscultation bilaterally Cardio: Rate: regular rate Rhythm: regular rhythm GI: Palpation (GI): Soft to palpation Auscultation: normal bowel sounds Skin: General skin exam: no rashes or lesions noted Neuro: General: patient oriented x3 Cranial nerves: Yes Equal, round and reactive pupils present Cognition (Neuro): normal cognition Extrem: General: Yes normal to inspection and Yes no pedal edema Results Labs CBC and Chem 7: 09/21/21 14:16 09/21/21 14:05 Labs: Laboratory Results - last 24 hr 09/21/21 09/21/21 09/21/21 14:05 14:16 14:16 MCV 91.4 MCH 28.8 MCHC 31.5 RDW 14.3 Plt Count 164 MPV 9.8 Immature Gran % (Auto) 0.3 Neut % (Auto) 80.4 H Lymph % (Auto) 9.7 L [place] % (Auto) 7.0 Eos % (Auto) 2.3 Baso % (Auto) 0.3 Lymph # (Auto) 0.7 L [place] # (Auto) 0.5 Eos # (Auto) 0.2 Baso # (Auto) 0.0 Abs Immat Gran (auto) 0.02 Absolute Neuts (auto) 5.6 Absolute Nucleated RBC 0.000 Nucleated RBC % (auto) 0.0 PT 33.5 H INR 2.9 H D-Dimer High Sensitivty 490 Anion Gap 13 Estim Creat Clear Calc 40.7 Estimated GFR 41 Random Glucose 117 H Lactic Acid Lactic Acid F/U @ 2Hr Lactic Acid F/U @ 4Hr Calcium 8.8 Total Bilirubin 0.6 AST 18 ALT 12 Alkaline Phosphatase 87 Ammonia Troponin I High Sens Total Protein 8.1 H Albumin 3.5 Urine Color Urine Appearance Urine pH Ur Specific [place] Urine Protein Urine Glucose (UA) Urine Ketones Urine Blood Urine Nitrite Ur Leukocyte Esterase Urine RBC Urine WBC Ur Squamous Epith Cells Urine Bacteria Hyaline Casts Granular Casts Urine Mucus Urine Opiates Screen Urine Fentanyl Screen Ur Barbiturates Screen Ur Phencyclidine Scrn Ur Amphetamines Screen U Benzodiazepines Scrn Urine Cocaine Screen U Marijuana (THC) Screen Ethyl Alcohol COVID-19 ([place]) COVID-19 Clin Com 09/21/21 09/21/21 09/21/21 14:16 14:16 14:16 MCV MCH MCHC RDW Plt Count MPV Immature Gran % (Auto) Neut % (Auto) Lymph % (Auto) [place] % (Auto) Eos % (Auto) Baso % (Auto) Lymph # (Auto) [place] # (Auto) Eos # (Auto) Baso # (Auto) Abs Immat Gran (auto) Absolute Neuts (auto) Absolute Nucleated RBC Nucleated RBC % (auto) PT INR D-Dimer High Sensitivty Anion Gap Estim Creat Clear Calc Estimated GFR Random Glucose Lactic Acid Lactic Acid F/U @ 2Hr Lactic Acid F/U @ 4Hr Calcium Total Bilirubin AST ALT Alkaline Phosphatase Ammonia 33 Troponin I High Sens 55.2 H Total Protein Albumin Urine Color Urine Appearance Urine pH Ur Specific [place] Urine Protein Urine Glucose (UA) Urine Ketones Urine Blood Urine Nitrite Ur Leukocyte Esterase Urine RBC Urine WBC Ur Squamous Epith Cells Urine Bacteria Hyaline Casts Granular Casts Urine Mucus Urine Opiates Screen Urine Fentanyl Screen Ur Barbiturates Screen Ur Phencyclidine Scrn Ur Amphetamines Screen U Benzodiazepines Scrn Urine Cocaine Screen U Marijuana (THC) Screen Ethyl Alcohol COVID-19 ([place]) Negative COVID-19 Clin Com See Note 09/21/21 09/21/21 09/21/21 14:16 14:16 16:48 MCV MCH MCHC RDW Plt Count MPV Immature Gran % (Auto) Neut % (Auto) Lymph % (Auto) [place] % (Auto) Eos % (Auto) Baso % (Auto) Lymph # (Auto) [place] # (Auto) Eos # (Auto) Baso # (Auto) Abs Immat Gran (auto) Absolute Neuts (auto) Absolute Nucleated RBC Nucleated RBC % (auto) PT INR D-Dimer High Sensitivty Anion Gap Estim Creat Clear Calc Estimated GFR Random Glucose Lactic Acid 3.7 H* Lactic Acid F/U @ 2Hr 2.5 H* Lactic Acid F/U @ 4Hr Calcium Total Bilirubin AST ALT Alkaline Phosphatase Ammonia Troponin I High Sens Total Protein Albumin Urine Color Urine Appearance Urine pH Ur Specific [place] Urine Protein Urine Glucose (UA) Urine Ketones Urine Blood Urine Nitrite Ur Leukocyte Esterase Urine RBC Urine WBC Ur Squamous Epith Cells Urine Bacteria Hyaline Casts Granular Casts Urine Mucus Urine Opiates Screen Urine Fentanyl Screen Ur Barbiturates Screen Ur Phencyclidine Scrn Ur Amphetamines Screen U Benzodiazepines Scrn Urine Cocaine Screen U Marijuana (THC) Screen Ethyl Alcohol 54 COVID-19 ([place]) COVID-19 Clin Com 09/21/21 09/21/21 09/21/21 19:03 19:03 19:24 MCV MCH MCHC RDW Plt Count MPV Immature Gran % (Auto) Neut % (Auto) Lymph % (Auto) [place] % (Auto) Eos % (Auto) Baso % (Auto) Lymph # (Auto) [place] # (Auto) Eos # (Auto) Baso # (Auto) Abs Immat Gran (auto) Absolute Neuts (auto) Absolute Nucleated RBC Nucleated RBC % (auto) PT INR D-Dimer High Sensitivty Anion Gap Estim Creat Clear Calc Estimated GFR Random Glucose Lactic Acid Lactic Acid F/U @ 2Hr Lactic Acid F/U @ 4Hr 1.7 Calcium Total Bilirubin AST ALT Alkaline Phosphatase Ammonia Troponin I High Sens Total Protein Albumin Urine Color YELLOW Urine Appearance CLEAR Urine pH 6.0 Ur Specific [place] 1.020 Urine Protein 1+ H Urine Glucose (UA) NEG Urine Ketones NEG Urine Blood TRACE Urine Nitrite NEG Ur Leukocyte Esterase NEG Urine RBC 1-4 Urine WBC 0-2 Ur Squamous Epith Cells NONE Urine Bacteria TRACE Hyaline Casts 0-2 Granular Casts 0-2 Urine Mucus TRACE Urine Opiates Screen Not Detected Urine Fentanyl Screen Not Detected Ur Barbiturates Screen Not Detected Ur Phencyclidine Scrn Not Detected Ur Amphetamines Screen Not Detected U Benzodiazepines Scrn Not Detected Urine Cocaine Screen Not Detected U Marijuana (THC) Screen Not Detected Ethyl Alcohol COVID-19 ([place]) COVID-19 [employer] Com 09/21/21 21:03 MCV MCH MCHC RDW Plt Count MPV Immature Gran % (Auto) Neut % (Auto) Lymph % (Auto) [place] % (Auto) Eos % (Auto) Baso % (Auto) Lymph # (Auto) [place] # (Auto) Eos # (Auto) Baso # (Auto) Abs Immat Gran (auto) Absolute Neuts (auto) Absolute Nucleated RBC Nucleated RBC % (auto) PT INR D-Dimer High Sensitivty Anion Gap Estim Creat Clear Calc Estimated GFR Random Glucose Lactic Acid Lactic Acid F/U @ 2Hr Lactic Acid F/U @ 4Hr Calcium Total Bilirubin AST ALT Alkaline Phosphatase Ammonia Troponin I High Sens 55.1 H Total Protein Albumin Urine Color Urine Appearance Urine pH Ur Specific [place] Urine Protein Urine Glucose (UA) Urine Ketones Urine Blood Urine Nitrite Ur Leukocyte Esterase Urine RBC Urine WBC Ur Squamous Epith Cells Urine Bacteria Hyaline Casts Granular Casts Urine Mucus Urine Opiates Screen Urine Fentanyl Screen Ur Barbiturates Screen Ur Phencyclidine Scrn Ur Amphetamines Screen U Benzodiazepines Scrn Urine Cocaine Screen U Marijuana (THC) Screen Ethyl Alcohol COVID-19 ([place]) COVID-19 Clin Com Imaging Radiologist's Impressions: Impressions Head CT 09/21/21 13:23 IMPRESSION: No acute intracranial findings. Nonspecific periventricular white matter disease and mild generalized atrophy. Findings were communicated to Dr. Zamudio by telephone on 07/22/2022 at 1:30 PM. Chest X-Ray 09/21/21 14:52 IMPRESSION: Chronic left lower lobe parenchymal changes. No acute pneumonic process seen. Borderline cardiomegaly with prominent perivascular but no congestion. No change in dual pacer electrodes. Chest CT 09/21/21 18:16 IMPRESSION: Chronic pulmonary changes as described above. No acute new superimposed infiltrate is seen. Fleischner guidelines were followed. Assessment and Plan (1) Syncope: Qualifiers: Syncope type: unspecified Qualified Code(s): R55 - Syncope and collapse Status: Acute (2) Acute hypotension: Status: Acute (3) Lactic acidosis: Status: Acute (4) Dehydration: Status: Acute this is a 76-year-old male with past medical history of coronary artery disease status post CABG, CHF with ICD placement presents to the hospital after syncopal episode # syncope - most likely cardiac versus vasovagal in the setting of hypotension - patient had no prodromal or postictal symptoms - ICD was interrogated in the ED by [facility] and found no abnormality arrhythmia - patient will be admitted for observation - will obtain echocardiogram - and consult Cardiology # hypotension - most likely secondary to dehydration - no evidence of acute infection - has no leukocytosis, afebrile, UA negative, chest CT negative - improved with IV fluid - will continue with IV maintenance # lactic acidosis - resolved - most likely was related to hypotension # history of coronary artery disease status post CABG Continue metoprolol, Entresto # patient on all warfarin unclear etiology - therapeutic INR - will continue home dose # History of CHF - not in exacerbate - continue to monitor volume status DVT prophylaxis: warfarin Quality Stroke Does the patient have a stroke diagnosis?: No VTE Prior VTE?: No VTE Risk Level:: Medical - moderate - high VTE Device Contraindication: Treatment Not Indicated VTE Drug Contraindication: N/A - Med Ordered
--- NOTE | 2021-09-22 00:42 | CA_ITS ---
Transthoracic Echocardiogram Patient (Last, First, Middle): Eddie Mullen F Gender: Male Date of : 1945 Age: 76 Procedure Date: 09/22/2021 Procedure Type: Transthoracic Echocardiogram Location: ER Height: 167.64 cm Weight: 95.26 kg BSA: 2.04 m2 Heart Rate: bpm BP: 117 / 70 mmHg [employer] Technician: JOHN Referring MD: Casandra Obando MD Symptoms: Syncope Study Quality: Technically Difficult/Contrast ECG Rhythm: Ventriculary paced rhythm Conclusions: - The left ventricular systolic function is moderately decreased. The calculated ejection fraction is 32% by biplane method. - Even with contrast, wall motion difficult to assess. Basal to mid inferior wall, most of inferolateral wall as well as adjacent lateral wall appear akinetic. - There is severe aortic valve stenosis (paradoxical low-flow, low-gradient type). Findings Procedure Information Contrast agent, definity, is being given per protocol without apparent complications. Left Ventricle Normal left ventricular cavity size. There is mildly increased left ventricular wall thickness. The left ventricular systolic function is moderately decreased. The calculated ejection fraction is 32% by biplane method. E/E prime ratio is >15, consistent with elevated filling pressures. Evidence suggests grade II (moderate) diastolic dysfunction. Even with contrast, wall motion difficult to assess. Basal to mid inferior wall, most of inferolateral wall as well as adjacent lateral wall appear akinetic. Right Ventricle Normal right ventricular cavity size. There is low normal right ventricular systolic function. There is an ICD wire seen in the right ventricle. Atria The left atrium is moderately dilated. The right atrium is normal in size. Aortic Valve There is moderate calcification of the aortic valve. There is severe aortic valve stenosis. The peak aortic velocity is 2.99 m/s with a calculated peak gradient of 36 mmHg. The mean gradient is 21 mmHg. The aortic valve area is 0.84 cm2. There is no aortic valve regurgitation. Dimensionless index 0.21. Stroke volume index 29cc. Mitral Valve There is mild mitral annular calcification. There is trace mitral valve regurgitation. There is no mitral valve stenosis. Pulmonic Valve The pulmonic valve was not well visualized. Tricuspid Valve There is trace tricuspid valve regurgitation. The pulmonary artery systolic pressure is normal. Great Vessels The aorta was not well visualized. The aortic annulus is normal in size. Venous The inferior vena cava is normal in size and collapses greater than 50% with inspiration. Pericardium/Pleural There is no evidence of pericardial effusion. Prior Study Comparison Changes noted compared to prior study dated: 04/23/2020. Progression of aortic stenosis. Measurements 2D Linear Measurements IVSd: 1.10 0.6-0.9/0.6-1.0 cm LVIDd: 5.16 3.9-5.3/4.2-5.9 cm LVIDd Index: 2.53 2.4-3.2/2.2-3.1 cm/m2 LVIDs: 4.44 2.0-3.6 cm LVPWd: 1.10 0.7-1.1 cm Ao Root: 3.50 2.1-3.5 cm LA Diam: 5.40 2.7-3.8/3.0-4.0 cm LAIDs Index: 2.65 1.5-2.3 cm/m2 LV Mass: 271.75 67-162/88-224 g LV Mass Index: 133.21 43-95/49-115 g/m2 LVOT Diam: 2.20 3.0+(-)1.3 cm 2D Systolic Function EF 4C: 29.20 >55% EF 2C: 35.70 >55% EF BiP: 31.60 >55% Mitral Valve MV Pk E: 0.93 MV PK A: 0.80 MV Decel Time: 240.00 E/A: 1.20 E'Lateral: 5.33 E'Medial: 4.03 E/E' Med: 23.10 E/E' Lat: 17.40 PHT: 70.00 MVA PHT: 3.[address] [facility]: 3.87 Aortic Valve AoV Pk Nam: 2.99 AoV Mn Nam: 2.20 AoV VTI: 0.72 AoV Pk Grad: 36.00 Aov Mn Grad: 21.00 PAOLO Cont.VTI: 0.84 LVOT LVOT Pk Nam: 0.63 LVOT Mn Nam: 0.46 LVOT VTI: 0.16 LVOT Pk Grad: 2.00 LVOT Mn Grad: 1.00 LVOT Diam: 2.20 LVOT Area: 3.80 Diastolic Function MV Pk E: 0.93 MV Pk A: 0.80 E/A: 1.20 E'Medial: 4.03 E/E' Med: 23.10 E' Laterial: 5.33 E/E' Lat: 17.40 Right Ventricle TAPSE (mm): 1.75 TVS' Nam: 7.62 Tricuspid Valve TR Pk Nam: 1.82 TR Pk Grad: 13.00 RA Press: 3.00 RVSP: 16.00 Great Vessels Aorta Ao Root-2D: 3.50 2.0-3.7 cm Updated in Other Vendor System with Status of Final Cr Manuel MD electronically signed on 09/22/2021 12:23:40 PM with status of Final
[2021-09-22 00:56] VITALS: BP 117/70; PULSE 96; RESP 16; TEMP 36.6; O2SAT 97
[2021-09-22 06:28] VITALS: BP 120/70; PULSE 66; RESP 14; TEMP 36.6; O2SAT 99
[2021-09-22 07:56] LABS: MANUAL DIFF FLAG NO
[2021-09-22 08:03] LABS: Basophils Percent Auto 0.3 % (0-2); Eosinophils Absolute Auto 0.2 X10*3/uL (0.0-0.4); Eosinophils Percent Auto 2.6 % (0-4); Hemoglobin 14.7 g/dl (14.0-18.0); Imm Gran Abs Auto 0.02 X10*3/uL (0.00-0.03); Imm Gran Pct Auto 0.3 % (0.0-0.4); Lymphocytes Absolute Auto 0.9 X10*3/uL (1.2-4.9); Lymphocytes Percent Auto 11.9 % (20-40); Mean Corpuscular HGB Conc 31.3 g/dl (31.0-36.0); Mean Corpuscular Hemoglobin 28.6 pg (27.0-33.0); Mean Corpuscular Volume 91.4 fL (80.0-98.0); Monocytes Absolute Auto 0.6 X10*3/uL (0.1-1.2); Monocytes Percent Auto 7.9 % (2-11); Neutrophils Absolute Auto 5.9 x10*3/uL (2.0-8.3); Platelet Count 164 X10*3/uL (160-400); Red Blood Count 5.14 X10*6/uL (4.60-5.80); Red Cell Distribution Width 14.4 % (11.0-16.0); White Blood Count 7.6 X10*3/uL (4.8-10.8)
[2021-09-22 08:04] LABS: INTERNATIONAL NORM RATIO 2.9 (0.9-1.1); Prothrombin Time 33.7 SEC (9.9-13.0)
[2021-09-22 08:16] LABS: Anion Gap 9 (12-20); Blood Urea Nitrogen 18 mg/dL (9-16); Calcium 8.7 mg/dL (8.4-10.2); Carbon Dioxide 22 mmol/L (22-29); Chloride 112 mmol/L (96-108); Creatinine Clr Calc Pharmacy 47.4; Estimated Glomerular Filt Rate 49; Glucose Random 89 mg/dL (60-115); Potassium 4.6 mmol/L (3.3-5.1); Sodium 138 mmol/L (135-145)
[2021-09-22] MEDS: Sacubitril/Valsartan 24/26 1 TAB TABLET PO (08:24)
[2021-09-22] MEDS: 0.9 % Sodium Chloride Flush 3 ML SYRINGE IVFLUSH (08:25)
[2021-09-22 10:01] VITALS: BP 93/49; PULSE 83; RESP 14; O2SAT 96
--- NOTE | 2021-09-22 11:19 | PM.CNCAR ---
History of Present Illness History of Present Illness Date of Service: 09/22/21 Chief complaint: STROKE ALERT Narrative: This is a cardiology consultation regarding syncope. He is a patient DrShai Valladares. Recently seen our nurse practitioner in the office. Has multiple cardiac issues including coronary disease, history of bypass surgery, ischemic cardiomyopathy, Bi V ICD, aortic stenosis, NSVT among others. Per notes, he has chronic issues with shortness of breath. Otherwise it seems that he was fairly stable in seen in the office. This time, he was admitted because of syncopal episode. He was apparently sitting in a bar and had lunch. He also had benson but he has not had benson in many months. Then all of a sudden he remembers waking up on stretcher. He really does not remember what happened at all. Cannot recall if he had any syncopal episode or really what happened. However concurrently states he feels fine. No angina or shortness of breath or in fact anything cardiac related at all. Review of Systems Review of Systems: Yes all other systems are reviewed and are negative Cardiovascular: Cardiovascular: Reports as per HPI, Reports no additional cardiovascular complaints, Denies acrocyanosis, Denies cool extremities, Denies painful fingertips, Denies chest pain, Denies chest pain at rest, Denies diaphoresis, Denies syncope, Denies irregular heart rhythm, Denies claudication, Denies leg edema, Denies lightheadedness, Denies palpitations and Denies dyspnea Respiratory: Respiratory: Denies dyspnea Neurologic: Denies syncope Endocrine: Endocrine: Denies palpitations PMFSH Past Medical History Medical History Aortic stenosis Biventricular ICD (implantable cardioverter-defibrillator) in place CAD (coronary artery disease) Chronic HFrEF (heart failure with reduced ejection fraction) CKD (chronic kidney disease) Diabetes mellitus Ischemic cardiomyopathy Family History Family History Father Colon cancer Mother No problems noted. Surgical History Surgical History History of appendectomy Hx of CABG Hx of knee surgery Hx of tonsillectomy S/P CABG x 1 Social History Social History Alcohol intake: never Patient Tobacco Use Status: Never used Tobacco Use of substances other than those prescribed or required for medical reasons: No Advance Directives: Yes Advance Directives Information Provided: Yes Advance Directives on File: No Meds Allergies Allergy/AdvReac Type Severity Reaction Status Date / Time indomethacin [From INDOCIN] Allergy Mild HEADACHES Verified 09/14/21 08:10 Active Medications: Current Medications Acetaminophen (Acetaminophen 325 Mg Tablet) 650 mg PO Q6H PRN PRN Reason: Pain, Mild (Pain Scale 1-3) Docusate Sodium (Docusate Sodium 100 Mg Capsule) 100 mg PO DAILY PRN PRN Reason: Constipation Metoprolol Succinate (Metoprolol Succinate Er 12.5 Mg Halftab.Er.24h) 12.5 mg PO BEDTIME [facility]; Protocol Ondansetron HCl (Ondansetron Hcl 4 Mg/2 Ml Vial) 4 mg IVPUSH Q8H PRN PRN Reason: Nausea and Vomiting Sacubitril/Valsartan (Sacubitril/Valsartan 1 Tab Tablet) 1 tab PO BID [facility]; Protocol Last Admin: 09/22/21 08:24 Dose: 1 tab Documented by: Sodium Chloride (0.9 % Sodium Chloride Flush 3 Ml Syringe) 3 ml IVFLUSH [facility] Last Admin: 09/22/21 08:25 Dose: 3 ml Documented by: Warfarin Sodium (Warfarin Sodium 2.5 Mg Tablet) 2.5 mg PO SUTUWETHFR@1800 AMBER Warfarin Sodium (Warfarin Sodium 5 Mg Tablet) 5 mg PO MOSA@1800 [facility] Home Medications Medication Instructions Recorded Confirmed Last Taken Type metoprolol succinate 25 mg 12.5 mg PO BEDTIME 09/21/21 09/21/21 09/20/21 History tablet,extended release 24 hr warfarin 2.5 mg tablet 2.5 mg PO SUTUWETHFR@1800 09/21/21 09/21/21 09/20/21 History warfarin 2.5 mg tablet 5 mg PO MOSA@1800 09/21/21 09/21/21 09/19/21 History Physical Exam Vital Signs: Vital Signs: Last Vital Signs Temp 97.8 F 09/22/21 06:28 Pulse 83 09/22/21 10:01 Resp 14 09/22/21 10:01 BP 93/49 L 09/22/21 10:01 Pulse Ox 96 09/22/21 10:01 BMI result Body Mass Index 33.9 Const: General: no acute distress HENMT: Other: Unremarkable Neck: Neck: Yes normal visual inspection Chest: Chest palpation & inspection: normal inspection of the chest Resp: Auscultation: crackles (basal, R>L) and no wheezes Cardio: Palpation: normal PMI Heart sounds: S1 normal heart sound present, S2 normal heart sound present, no gallops, Murmur heart sound present (2/6 ANDREA aortic area. ) and no rubs GI: Palpation (GI): Soft to palpation Back/Spine/Pelvis: Other: unremarkable Skin: Lesions: other Neuro: Cranial nerves: Yes Other cranial nerve findings present Extrem: General: Yes pedal edema (1+) Psych: Mental Status: other Objective Labs and Meds Result diagrams: 09/22/21 07:24 09/22/21 07:24 Lab results: Laboratory Results - last 24 hr 09/21/21 09/21/21 09/21/21 14:05 14:16 14:16 WBC 7.0 RBC 5.11 Hgb 14.7 Hct 46.7 MCV 91.4 MCH 28.8 MCHC 31.5 RDW 14.3 Plt Count 164 MPV 9.8 Immature Gran % (Auto) 0.3 Neut % (Auto) 80.4 H Lymph % (Auto) 9.7 L [place] % (Auto) 7.0 Eos % (Auto) 2.3 Baso % (Auto) 0.3 Lymph # (Auto) 0.7 L [place] # (Auto) 0.5 Eos # (Auto) 0.2 Baso # (Auto) 0.0 Abs Immat Gran (auto) 0.02 Absolute Neuts (auto) 5.6 Absolute Nucleated RBC 0.000 Nucleated RBC % (auto) 0.0 PT 33.5 H INR 2.9 H D-Dimer High Sensitivty 490 Sodium 135 Potassium 4.2 Chloride 108 Carbon Dioxide 18 L Anion Gap 13 BUN 22 H Creatinine 1.64 H Estim Creat Clear Calc 40.7 Estimated GFR 41 Random Glucose 117 H Lactic Acid Lactic Acid F/U @ 2Hr Lactic Acid F/U @ 4Hr Calcium 8.8 Total Bilirubin 0.6 AST 18 ALT 12 Alkaline Phosphatase 87 Ammonia Troponin I High Sens Total Protein 8.1 H Albumin 3.5 Urine Color Urine Appearance Urine pH Ur Specific [place] Urine Protein Urine Glucose (UA) Urine Ketones Urine Blood Urine Nitrite Ur Leukocyte Esterase Urine RBC Urine WBC Ur Squamous Epith Cells Urine Bacteria Hyaline Casts Granular Casts Urine Mucus Urine Opiates Screen Urine Fentanyl Screen Ur Barbiturates Screen Ur Phencyclidine Scrn Ur Amphetamines Screen U Benzodiazepines Scrn Urine Cocaine Screen U Marijuana (THC) Screen Ethyl Alcohol COVID-19 ([place]) COVID-19 Clin Com 09/21/21 09/21/21 09/21/21 14:16 14:16 14:16 WBC RBC Hgb Hct MCV MCH MCHC RDW Plt Count MPV Immature Gran % (Auto) Neut % (Auto) Lymph % (Auto) [place] % (Auto) Eos % (Auto) Baso % (Auto) Lymph # (Auto) [place] # (Auto) Eos # (Auto) Baso # (Auto) Abs Immat Gran (auto) Absolute Neuts (auto) Absolute Nucleated RBC Nucleated RBC % (auto) PT INR D-Dimer High Sensitivty Sodium Potassium Chloride Carbon Dioxide Anion Gap BUN Creatinine Estim Creat Clear Calc Estimated GFR Random Glucose Lactic Acid Lactic Acid F/U @ 2Hr Lactic Acid F/U @ 4Hr Calcium Total Bilirubin AST ALT Alkaline Phosphatase Ammonia 33 Troponin I High Sens 55.2 H Total Protein Albumin Urine Color Urine Appearance Urine pH Ur Specific [place] Urine Protein Urine Glucose (UA) Urine Ketones Urine Blood Urine Nitrite Ur Leukocyte Esterase Urine RBC Urine WBC Ur Squamous Epith Cells Urine Bacteria Hyaline Casts Granular Casts Urine Mucus Urine Opiates Screen Urine Fentanyl Screen Ur Barbiturates Screen Ur Phencyclidine Scrn Ur Amphetamines Screen U Benzodiazepines Scrn Urine Cocaine Screen U Marijuana (THC) Screen Ethyl Alcohol COVID-19 ([place]) Negative COVID-19 Clin Com See Note 09/21/21 09/21/21 09/21/21 14:16 14:16 16:48 WBC RBC Hgb Hct MCV MCH MCHC RDW Plt Count MPV Immature Gran % (Auto) Neut % (Auto) Lymph % (Auto) [place] % (Auto) Eos % (Auto) Baso % (Auto) Lymph # (Auto) [place] # (Auto) Eos # (Auto) Baso # (Auto) Abs Immat Gran (auto) Absolute Neuts (auto) Absolute Nucleated RBC Nucleated RBC % (auto) PT INR D-Dimer High Sensitivty Sodium Potassium Chloride Carbon Dioxide Anion Gap BUN Creatinine Estim Creat Clear Calc Estimated GFR Random Glucose Lactic Acid 3.7 H* Lactic Acid F/U @ 2Hr 2.5 H* Lactic Acid F/U @ 4Hr Calcium Total Bilirubin AST ALT Alkaline Phosphatase Ammonia Troponin I High Sens Total Protein Albumin Urine Color Urine Appearance Urine pH Ur Specific [place] Urine Protein Urine Glucose (UA) Urine Ketones Urine Blood Urine Nitrite Ur Leukocyte Esterase Urine RBC Urine WBC Ur Squamous Epith Cells Urine Bacteria Hyaline Casts Granular Casts Urine Mucus Urine Opiates Screen Urine Fentanyl Screen Ur Barbiturates Screen Ur Phencyclidine Scrn Ur Amphetamines Screen U Benzodiazepines Scrn Urine Cocaine Screen U Marijuana (THC) Screen Ethyl Alcohol 54 COVID-19 ([place]) COVID-19 [place] 09/21/21 09/21/21 09/21/21 19:03 19:03 19:24 WBC RBC Hgb Hct MCV MCH MCHC RDW Plt Count MPV Immature Gran % (Auto) Neut % (Auto) Lymph % (Auto) [place] % (Auto) Eos % (Auto) Baso % (Auto) Lymph # (Auto) [place] # (Auto) Eos # (Auto) Baso # (Auto) Abs Immat Gran (auto) Absolute Neuts (auto) Absolute Nucleated RBC Nucleated RBC % (auto) PT INR D-Dimer High Sensitivty Sodium Potassium Chloride Carbon Dioxide Anion Gap BUN Creatinine Estim Creat Clear Calc Estimated GFR Random Glucose Lactic Acid Lactic Acid F/U @ 2Hr Lactic Acid F/U @ 4Hr 1.7 Calcium Total Bilirubin AST ALT Alkaline Phosphatase Ammonia Troponin I High Sens Total Protein Albumin Urine Color YELLOW Urine Appearance CLEAR Urine pH 6.0 Ur Specific [place] 1.020 Urine Protein 1+ H Urine Glucose (UA) NEG Urine Ketones NEG Urine Blood TRACE Urine Nitrite NEG Ur Leukocyte Esterase NEG Urine RBC 1-4 Urine WBC 0-2 Ur Squamous Epith Cells NONE Urine Bacteria TRACE Hyaline Casts 0-2 Granular Casts 0-2 Urine Mucus TRACE Urine Opiates Screen Not Detected Urine Fentanyl Screen Not Detected Ur Barbiturates Screen Not Detected Ur Phencyclidine Scrn Not Detected Ur Amphetamines Screen Not Detected U Benzodiazepines Scrn Not Detected Urine Cocaine Screen Not Detected U Marijuana (THC) Screen Not Detected Ethyl Alcohol COVID-19 ([place]) COVID-19 [place] 09/21/21 09/22/21 09/22/21 21:03 07:24 07:24 WBC 7.6 RBC 5.14 Hgb 14.7 Hct 47.0 MCV 91.4 MCH 28.6 MCHC 31.3 RDW 14.4 Plt Count 164 MPV 10.0 Immature Gran % (Auto) 0.3 Neut % (Auto) 77.0 H Lymph % (Auto) 11.9 L [place] % (Auto) 7.9 Eos % (Auto) 2.6 Baso % (Auto) 0.3 Lymph # (Auto) 0.9 L [place] # (Auto) 0.6 Eos # (Auto) 0.2 Baso # (Auto) 0.0 Abs Immat Gran (auto) 0.02 Absolute Neuts (auto) 5.9 Absolute Nucleated RBC 0.000 Nucleated RBC % (auto) 0.0 PT 33.7 H INR 2.9 H D-Dimer High Sensitivty Sodium Potassium Chloride Carbon Dioxide Anion Gap BUN Creatinine Estim Creat Clear Calc Estimated GFR Random Glucose Lactic Acid Lactic Acid F/U @ 2Hr Lactic Acid F/U @ 4Hr Calcium Total Bilirubin AST ALT Alkaline Phosphatase Ammonia Troponin I High Sens 55.1 H Total Protein Albumin Urine Color Urine Appearance Urine pH Ur Specific [place] Urine Protein Urine Glucose (UA) Urine Ketones Urine Blood Urine Nitrite Ur Leukocyte Esterase Urine RBC Urine WBC Ur Squamous Epith Cells Urine Bacteria Hyaline Casts Granular Casts Urine Mucus Urine Opiates Screen Urine Fentanyl Screen Ur Barbiturates Screen Ur Phencyclidine Scrn Ur Amphetamines Screen U Benzodiazepines Scrn Urine Cocaine Screen U Marijuana (THC) Screen Ethyl Alcohol COVID-19 ([place]) COVID-19 Clin Com 09/22/21 07:24 WBC RBC Hgb Hct MCV MCH MCHC RDW Plt Count MPV Immature Gran % (Auto) Neut % (Auto) Lymph % (Auto) [place] % (Auto) Eos % (Auto) Baso % (Auto) Lymph # (Auto) [place] # (Auto) Eos # (Auto) Baso # (Auto) Abs Immat Gran (auto) Absolute Neuts (auto) Absolute Nucleated RBC Nucleated RBC % (auto) PT INR D-Dimer High Sensitivty Sodium 138 Potassium 4.6 Chloride 112 H Carbon Dioxide 22 Anion Gap 9 L BUN 18 H Creatinine 1.41 H Estim Creat Clear Calc 47.4 Estimated GFR 49 Random Glucose 89 Lactic Acid Lactic Acid F/U @ 2Hr Lactic Acid F/U @ 4Hr Calcium 8.7 Total Bilirubin AST ALT Alkaline Phosphatase Ammonia Troponin I High Sens Total Protein Albumin Urine Color Urine Appearance Urine pH Ur Specific [place] Urine Protein Urine Glucose (UA) Urine Ketones Urine Blood Urine Nitrite Ur Leukocyte Esterase Urine RBC Urine WBC Ur Squamous Epith Cells Urine Bacteria Hyaline Casts Granular Casts Urine Mucus Urine Opiates Screen Urine Fentanyl Screen Ur Barbiturates Screen Ur Phencyclidine Scrn Ur Amphetamines Screen U Benzodiazepines Scrn Urine Cocaine Screen U Marijuana (THC) Screen Ethyl Alcohol COVID-19 ([place]) COVID-19 Clin Com ECG Interpretation: EKG shows ventricular paced rhythm. Underlying rhythm is probably sinus. Imaging Radiologist's impression: Impressions Head CT 09/21/21 13:23 IMPRESSION: No acute intracranial findings. Nonspecific periventricular white matter disease and mild generalized atrophy. Findings were communicated to Dr. Zamudio by telephone on 07/22/2022 at 1:30 PM. Chest X-Ray 09/21/21 14:52 IMPRESSION: Chronic left lower lobe parenchymal changes. No acute pneumonic process seen. Borderline cardiomegaly with prominent perivascular but no congestion. No change in dual pacer electrodes. Chest CT 09/21/21 18:16 IMPRESSION: Chronic pulmonary changes as described above. No acute new superimposed infiltrate is seen. Fleischner guidelines were followed. Assessment and Plan (1) Syncope: Qualifiers: Syncope type: unspecified Qualified Code(s): R55 - Syncope and collapse Status: Acute (2) Ischemic cardiomyopathy: Status: Acute (3) Aortic stenosis: Qualifiers: Cardiac valve disease etiology: nonrheumatic Qualified Code(s): I35.0 - Nonrheumatic aortic (valve) stenosis Status: Acute (4) Biventricular ICD (implantable cardioverter-defibrillator) in place: Status: Acute (5) Hx of CABG: Status: Acute Etiology for syncope could be vasovagal as it happened while sitting and after alcohol use/benson. Less likely is cardiogenic as ICD check had been unrevealing and aortic stenosis generally causes exertional syncope. Laboratory data reviewed. Chronic kidney disease noted. Creatinine is 1.4. High sensitivity troponins are 55.[address] chest reported to have chronic pulmonary changes but nothing acute. It seems that ICD has been interrogated and does not show any acute findings. In the last echocardiogram, had moderate stenosis based on notes. We need to repeat this and see if he indeed has severe aortic stenosis. Otherwise, likely no further inpatient cardiac testing at this time. Procedures Date of Service Date of Service: 09/22/21
--- NOTE | 2021-09-22 12:29 | MHC.CM.PN ---
Addendum entered by Niki Serrano 09/22/21 15:31: PT CLEARED TO DC HOME TODAY WITH NO SERVICES. FAMILY TO TRANSPORT Original Note: PT REPORTS HE LIVES WITH HIS AND IS INDEPENDENT WITH CARE PT DENIES USING DME OR HOME/COMMUNITY SERVICES PT CONFIRMS HIS PCP IS DANIELA CLAYTON AND SAYS HE HAS A HCP AT HOME. COPY REQUESTED. IMM DELIVERED, ORIGINAL GIVEN TO PT, COPY SENT TO [facility] CURRENT DC PLAN IS HOME WITH NO SERVICES FAMILY TO TRANSPORT
[2021-09-22 14:16] VITALS: BP 134/59; PULSE 82; RESP 19; O2SAT 92
--- NOTE | 2021-09-22 14:34 | P.DS_ITS ---
DS: Providers Provider Date of Service: 09/22/21 Date of admission: 09/21/21 21:38 Date of discharge: 09/22/21 Primary care physician: Sundeep Macdonald MD Consults: 09/22/21 00:42 Consult to Cardiology Routine Consulting Provider: Cr Manuel Reason for consultation: Syncope with extensive cardiac hx Has provider been notified: No Attending physician on discharge: Vladislav Portillo Discharging clinician: Betina Baird DS: Diagnosis Discharge Diagnosis (1) Syncope: Status: Acute (2) Ischemic cardiomyopathy: Status: Acute (3) Aortic stenosis: Status: Acute (4) Biventricular ICD (implantable cardioverter-defibrillator) in place: Status: Acute (5) Hx of CABG: Status: Acute DS: Summary Hospital Course Hospital Course: From H&P on day of admission 76-year-old male with past medical history of coronary artery disease status post CABG, and this VT, ischemic cardiomyopathy status post? biventricular ICD, CKD, diabetes, aortic stenosis, CKD, who presents to the hospital with complaints of syncopal episode.? Patient reports that he was at lunch at a restaurant insulin are when after finishing his lunch he slumped over and was unconscious for multiple minutes.? He does not remember what happened during the episode but reports that the next thing he remembers is waking up on the stretcher of EMS.? Patient reports no prodromal symptoms in cluding no chest pain, no dizziness, no palpitations, no shortness of breath, and reports no postictal symptoms.? He denies having any previous similar episode.? He has no headache, no change in vision, no chest pain, no abdominal pain nausea or vomiting, no diarrhea constipation, no urinary symptoms and no lower extremity edema.? He reports that he was in his usual state of health prior to the incident.? On arrival to the ED patient's vitals? or significant for blood pressure of 78/35 with a heart rate of 78 but ? Improved after IV fluids.? Labs are significant for WBC count of 7, hemoglobin of? 14.7, PT of 33.5, INR of 2.9, creatinine of 1.64 which is around his baseline, lactic acid of 3.7 that improved with IV fluids, initial troponin of 55.2 with no delta on repeat, UA negative, UDS negative, COVID-19 negative.? Alcohol level 54. Chest CT shows chronic pulmonary changes with no new superimposed infiltrate head CT shows no acute intracranial finding. Patient ICD was interrogated and found to no arrhythmia Syncope. Patient was admitted to telemetry. His ICD was interrogated in the ED and was found to be in working order. EKG with paced rhythm. Patient had echocardiogram which showed severe aortic stenosis. No reccurent episodes of unresponsiveness, no chest pain. Cardiac enzymes somewhat elevated at 55.5, but no delta on repeat. Patient was seen in consultation by Cardiology, can be discharged home with plan for outpatient evaluation for TAVR. BP initally low but responded to IVF. Lactic acidosis likely related to hypotension. No evidence of infection, chest CT, UA negative for acute infection. covid negative CKD3. creatinine at baseline. Time Spent with Patient Time attestation: Total time spent providing and/or coordinating discharge services: Discharge coordination time: Greater than 30 minutes Quality: Stroke Does the patient have a stroke diagnosis?: No Physical Exam Vital Signs: Vital Signs: Last Vital Signs Temp 97.8 F 09/22/21 06:28 Pulse 71 09/22/21 14:16 Resp 18 09/22/21 14:16 BP 138/67 09/22/21 14:16 Pulse Ox 96 09/22/21 10:01 BMI result Body Mass Index 33.9 Const: Nutritional Appearance: well nourished Orientation/consciousness: patient oriented x3 HENMT: Head: Yes normocephalic and Yes atraumatic Eyes: Sclerae: sclerae normal Chest: Other: well healed sternotomy scar Resp: Other: fine crackles right base Effort & Inspection: normal respiratory effort and no respiratory distress Cardio: Rate: regular rate Rhythm: regular rhythm Heart sounds: Murmur heart sound present GI: Palpation (GI): Soft to palpation and nontender Neuro: General: patient oriented x3 Cranial nerves: Yes CN's II-XII intact bilaterally and Yes Bilaterally intact EOM present Extrem: Other: no leg edema, b/l lower extremity chronic skin changes, dry skin DS: Data Data Completed and Pending Labs on day of discharge: Laboratory Results - last 24 hr 09/21/21 09/21/21 09/21/21 14:16 14:16 14:16 WBC RBC Hgb Hct MCV MCH MCHC RDW Plt Count MPV Immature Gran % (Auto) Neut % (Auto) Lymph % (Auto) [place] % (Auto) Eos % (Auto) Baso % (Auto) Lymph # (Auto) [place] # (Auto) Eos # (Auto) Baso # (Auto) Abs Immat Gran (auto) Absolute Neuts (auto) Absolute Nucleated RBC Nucleated RBC % (auto) PT 33.5 H INR 2.9 H D-Dimer High Sensitivty 490 Sodium Potassium Chloride Carbon Dioxide Anion Gap BUN Creatinine Estim Creat Clear Calc Estimated GFR Random Glucose Lactic Acid Lactic Acid F/U @ 2Hr Lactic Acid F/U @ 4Hr Calcium Troponin I High Sens 55.2 H Urine Color Urine Appearance Urine pH Ur Specific [place] Urine Protein Urine Glucose (UA) Urine Ketones Urine Blood Urine Nitrite Ur Leukocyte Esterase Urine RBC Urine WBC Ur Squamous Epith Cells Urine Bacteria Hyaline Casts Granular Casts Urine Mucus Urine Opiates Screen Urine Fentanyl Screen Ur Barbiturates Screen Ur Phencyclidine Scrn Ur Amphetamines Screen U Benzodiazepines Scrn Urine Cocaine Screen U Marijuana (THC) Screen Ethyl Alcohol COVID-19 ([place]) Negative COVID-[employer] See Note 09/21/21 09/21/21 09/21/21 14:16 14:16 16:48 WBC RBC Hgb Hct MCV MCH MCHC RDW Plt Count MPV Immature Gran % (Auto) Neut % (Auto) Lymph % (Auto) [place] % (Auto) Eos % (Auto) Baso % (Auto) Lymph # (Auto) [place] # (Auto) Eos # (Auto) Baso # (Auto) Abs Immat Gran (auto) Absolute Neuts (auto) Absolute Nucleated RBC Nucleated RBC % (auto) PT INR D-Dimer High Sensitivty Sodium Potassium Chloride Carbon Dioxide Anion Gap BUN Creatinine Estim Creat Clear Calc Estimated GFR Random Glucose Lactic Acid 3.7 H* Lactic Acid F/U @ 2Hr 2.5 H* Lactic Acid F/U @ 4Hr Calcium Troponin I High Sens Urine Color Urine Appearance Urine pH Ur Specific [place] Urine Protein Urine Glucose (UA) Urine Ketones Urine Blood Urine Nitrite Ur Leukocyte Esterase Urine RBC Urine WBC Ur Squamous Epith Cells Urine Bacteria Hyaline Casts Granular Casts Urine Mucus Urine Opiates Screen Urine Fentanyl Screen Ur Barbiturates Screen Ur Phencyclidine Scrn Ur Amphetamines Screen U Benzodiazepines Scrn Urine Cocaine Screen U Marijuana (THC) Screen Ethyl Alcohol 54 COVID-19 ([place]) COVID-[employer] 09/21/21 09/21/21 09/21/21 19:03 19:03 19:24 WBC RBC Hgb Hct MCV MCH MCHC RDW Plt Count MPV Immature Gran % (Auto) Neut % (Auto) Lymph % (Auto) [place] % (Auto) Eos % (Auto) Baso % (Auto) Lymph # (Auto) [place] # (Auto) Eos # (Auto) Baso # (Auto) Abs Immat Gran (auto) Absolute Neuts (auto) Absolute Nucleated RBC Nucleated RBC % (auto) PT INR D-Dimer High Sensitivty Sodium Potassium Chloride Carbon Dioxide Anion Gap BUN Creatinine Estim Creat Clear Calc Estimated GFR Random Glucose Lactic Acid Lactic Acid F/U @ 2Hr Lactic Acid F/U @ 4Hr 1.7 Calcium Troponin I High Sens Urine Color YELLOW Urine Appearance CLEAR Urine pH 6.0 Ur Specific [place] 1.020 Urine Protein 1+ H Urine Glucose (UA) NEG Urine Ketones NEG Urine Blood TRACE Urine Nitrite NEG Ur Leukocyte Esterase NEG Urine RBC 1-4 Urine WBC 0-2 Ur Squamous Epith Cells NONE Urine Bacteria TRACE Hyaline Casts 0-2 Granular Casts 0-2 Urine Mucus TRACE Urine Opiates Screen Not Detected Urine Fentanyl Screen Not Detected Ur Barbiturates Screen Not Detected Ur Phencyclidine Scrn Not Detected Ur Amphetamines Screen Not Detected U Benzodiazepines Scrn Not Detected Urine Cocaine Screen Not Detected U Marijuana (THC) Screen Not Detected Ethyl Alcohol COVID-19 ([place]) COVID-19 [facility] [employer] 09/21/21 09/22/21 09/22/21 21:03 07:24 07:24 WBC 7.6 RBC 5.14 Hgb 14.7 Hct 47.0 MCV 91.4 MCH 28.6 MCHC 31.3 RDW 14.4 Plt Count 164 MPV 10.0 Immature Gran % (Auto) 0.3 Neut % (Auto) 77.0 H Lymph % (Auto) 11.9 L [place] % (Auto) 7.9 Eos % (Auto) 2.6 Baso % (Auto) 0.3 Lymph # (Auto) 0.9 L [place] # (Auto) 0.6 Eos # (Auto) 0.2 Baso # (Auto) 0.0 Abs Immat Gran (auto) 0.02 Absolute Neuts (auto) 5.9 Absolute Nucleated RBC 0.000 Nucleated RBC % (auto) 0.0 PT 33.7 H INR 2.9 H D-Dimer High Sensitivty Sodium Potassium Chloride Carbon Dioxide Anion Gap BUN Creatinine Estim Creat Clear Calc Estimated GFR Random Glucose Lactic Acid Lactic Acid F/U @ 2Hr Lactic Acid F/U @ 4Hr Calcium Troponin I High Sens 55.1 H Urine Color Urine Appearance Urine pH Ur Specific [place] Urine Protein Urine Glucose (UA) Urine Ketones Urine Blood Urine Nitrite Ur Leukocyte Esterase Urine RBC Urine WBC Ur Squamous Epith Cells Urine Bacteria Hyaline Casts Granular Casts Urine Mucus Urine Opiates Screen Urine Fentanyl Screen Ur Barbiturates Screen Ur Phencyclidine Scrn Ur Amphetamines Screen U Benzodiazepines Scrn Urine Cocaine Screen U Marijuana (THC) Screen Ethyl Alcohol COVID-19 ([place]) COVID-19 [employer] 09/22/21 07:24 WBC RBC Hgb Hct MCV MCH MCHC RDW Plt Count MPV Immature Gran % (Auto) Neut % (Auto) Lymph % (Auto) [place] % (Auto) Eos % (Auto) Baso % (Auto) Lymph # (Auto) [place] # (Auto) Eos # (Auto) Baso # (Auto) Abs Immat Gran (auto) Absolute Neuts (auto) Absolute Nucleated RBC Nucleated RBC % (auto) PT INR D-Dimer High Sensitivty Sodium 138 Potassium 4.6 Chloride 112 H Carbon Dioxide 22 Anion Gap 9 L BUN 18 H Creatinine 1.41 H Estim Creat Clear Calc 47.4 Estimated GFR 49 Random Glucose 89 Lactic Acid Lactic Acid F/U @ 2Hr Lactic Acid F/U @ 4Hr Calcium 8.7 Troponin I High Sens Urine Color Urine Appearance Urine pH Ur Specific [place] Urine Protein Urine Glucose (UA) Urine Ketones Urine Blood Urine Nitrite Ur Leukocyte Esterase Urine RBC Urine WBC Ur Squamous Epith Cells Urine Bacteria Hyaline Casts Granular Casts Urine Mucus Urine Opiates Screen Urine Fentanyl Screen Ur Barbiturates Screen Ur Phencyclidine Scrn Ur Amphetamines Screen U Benzodiazepines Scrn Urine Cocaine Screen U Marijuana (THC) Screen Ethyl Alcohol COVID-19 ([place]) COVID-19 [employer] Discharge Plan Discharge Patient Disposition: Home, Self-Care Discharge Diagnosis: syncope severe aortic stenosis Referrals: Sundeep Macdonald MD [Primary Care Provider] - 1 Week Cr Manuel MD [Physician] - 1 Week Discharge Medications: Continued sacubitril-valsartan 24-26 mg tablet 1 tab PO BID 60 Days Qty: 120 RF: 0 warfarin 2.5 mg tablet 5 mg PO MOSA@1800 RF: 0 warfarin 2.5 mg tablet 2.5 mg PO SUTUWETHFR@1800 RF: 0 metoprolol succinate 25 mg tablet extended release 24 hr 12.5 mg PO BEDTIME RF: 0 Activity on Discharge: No heavy lifting Stand Alone Forms: Patient Portal Discharge page Care Plan Goals: see below Health Concerns: syncope severe aortic stenosis Plan of Treatment: Call to schedule follow up appointment with cardiology for evaluation of aortic valve replacement limit physical activity until follow up with cardiology return to ED with chest pain or recurrent episodes of syncope Assessment: see discharge summary
--- NOTE | 2021-09-22 17:25 | PC.NURSE ---
pt medically cleared for discharge. discharge instruction reviewed with pt. pt alert and oriented, vss, denies pain. pt brought to hospital entrance via wheelchair by this typewriter repairer. pt picked up by his .
== END 2021-09-22 17:25 | disposition home or self-care (01) ==
LOC: HO.ED 19:40 → HO.EDOVER 21:48
PROVIDERS: Admitting Provider Internal Medicine; Emergency Provider Emergency Medicine; PCP Internal Medicine; Visit Provider Physician Assistant Medical
DX: R55 Syncope and collapse (principal); I95.9 Hypotension, unspecified; E87.2 Acidosis; E86.0 Dehydration; I25.5 Ischemic cardiomyopathy; I35.0 Nonrheumatic aortic (valve) stenosis; I25.10 Atherosclerotic heart disease of native coronary artery without angina pectoris; I13.0 Hypertensive heart and chronic kidney disease with heart failure and stage 1 through stage 4 chronic kidney disease, or unspecified chronic kidney disease; N18.9 Chronic kidney disease, unspecified; I50.22 Chronic systolic (congestive) heart failure; R90.82 White matter disease, unspecified; D64.9 Anemia, unspecified; F10.129 Alcohol abuse with intoxication, unspecified; Y90.2 Blood alcohol level of 40-59 mg/100 ml; Z20.822 Contact with and (suspected) exposure to COVID-19; Z95.1 Presence of aortocoronary bypass graft; Z95.810 Presence of automatic (implantable) cardiac defibrillator; Z88.8 Allergy status to other drugs, medicaments and biological substances; Z79.01 Long term (current) use of anticoagulants; Z79.899 Other long term (current) drug therapy
CPT/HCPCS: 36415; 51798; 70450; 71046; 71250; 80048; 80053; 80307; 81001; 82077; 82140; 83605; 84484; 85025; 85379; 85610; 87040; 87635; 93005; 93306; 96361; 96374; 99205; 99219; 99285; 99291; 99292; Q9957

== ENCOUNTER → 2021-09-26 12:45 | Outpatient (BNVA) | payer MEDICARE, BC, SELFPAY | PROVIDERS: PCP Internal Medicine; Referring Provider Internal Medicine; Visit Provider Internal Medicine Cardiovascular Disease | DX: Z45.02 Encounter for adjustment and management of automatic implantable cardiac defibrillator (principal); I35.0 Nonrheumatic aortic (valve) stenosis; I50.22 Chronic systolic (congestive) heart failure; I25.10 Atherosclerotic heart disease of native coronary artery without angina pectoris | CPT/HCPCS: 99212 ==

== ENCOUNTER → 2021-10-04 10:31 | Outpatient (REF) | payer MEDICARE, BC, SELFPAY ==
--- NOTE | 2021-10-04 11:02 | CA_ITS ---
Acquisition Time: 2021-10-04 11:11:51 Total Exercise Time: 00:16:44 Test Indications: aortic stenosis, syncope Medications: see chart Protocol: DOBUTAMINE Max HR: 127 BPM 88% of Pred: 143 BPM Max BP: 108/058 mmHG Max Work Load: 1.0 METS Pharamcological stress test with Dobutamine infusion per protocol with echocardiogram images obtained at 5 mcg, 10mcg and 20mcg/ kg/min, without anginal symptoms, with isolated PVC, with mild stable hypotension throughout test, with brisk rise in heart rate during infusion at 20mcg, with nondiagnostic EKG for ischemia. Definity contrast used. Recovered for 18 minutes, until vital signs back to baseline. Test reviewed with Dr Nelson. Referred By: Tre Nelson Overread By: FANY PERALTA
== END ==
LOC: HO.CARD 10:31
PROVIDERS: Visit Provider Internal Medicine Cardiovascular Disease
DX: I35.0 Nonrheumatic aortic (valve) stenosis (principal)
CPT/HCPCS: 93351; J1250; Q9957

== ENCOUNTER → 2021-10-10 08:06 | Outpatient (BNVA) | payer MEDICARE, BC, SELFPAY | PROVIDERS: PCP Internal Medicine; Visit Provider Internal Medicine | DX: Z95.2 Presence of prosthetic heart valve (principal); Z51.81 Encounter for therapeutic drug level monitoring; Z79.01 Long term (current) use of anticoagulants | CPT/HCPCS: 85610; 99211 ==

== ENCOUNTER → 2021-10-18 10:33 | Outpatient (REF) | payer MEDICARE, BC, SELFPAY ==
--- NOTE | 2021-10-18 10:37 | CA_ITS ---
Acquisition Time: 2021-10-18 11:31:20 Total Exercise Time: 00:16:02 Test Indications: sob, syncope Medications: see chart Protocol: DOBUTAMINE Max HR: 121 BPM 84% of Pred: 143 BPM Max BP: 118/076 mmHG Max Work Load: 1.0 METS Pharmacological stres test with Dobutamine infusion per protocol, over 16 min to max dose of 20mcg/kg/min, without anginal symptoms, with isolated PVC, with normotensive response to infusion, with nondiagnostic EKG for ischemia. Echo images obtained by tech at baseline, at Dobutamine doses of 5 mcq, 10mcq and 20mcg . Recovery uneventful with vital signs back to baseline at test end. Test reviewed with Dr Marquez. Referred By: Tre Nelson Overread By: FANY PERALTA
== END ==
LOC: HO.CARD 10:33
PROVIDERS: Visit Provider Internal Medicine Cardiovascular Disease
DX: I50.22 Chronic systolic (congestive) heart failure (principal); I47.2 Ventricular tachycardia; I25.10 Atherosclerotic heart disease of native coronary artery without angina pectoris
CPT/HCPCS: 93351; J1250; Q9957

== ENCOUNTER → 2021-10-20 13:50 | Outpatient (BNVA) | payer MEDICARE, BC, SELFPAY | PROVIDERS: PCP Internal Medicine; Visit Provider Internal Medicine Cardiovascular Disease | DX: I35.0 Nonrheumatic aortic (valve) stenosis (principal); I50.22 Chronic systolic (congestive) heart failure; I25.10 Atherosclerotic heart disease of native coronary artery without angina pectoris | CPT/HCPCS: Q3014 ==

== ENCOUNTER → 2021-11-07 08:13 | Outpatient (BNVA) | payer MEDICARE, BC, SELFPAY | PROVIDERS: PCP Internal Medicine; Visit Provider Internal Medicine | DX: Z95.2 Presence of prosthetic heart valve (principal); Z51.81 Encounter for therapeutic drug level monitoring; Z79.01 Long term (current) use of anticoagulants | CPT/HCPCS: 85610; 99211 ==

== ENCOUNTER → 2021-11-21 08:05 | Outpatient (BNVA) | payer MEDICARE, BC, SELFPAY | PROVIDERS: PCP Internal Medicine; Visit Provider Internal Medicine | DX: Z95.2 Presence of prosthetic heart valve (principal); Z51.81 Encounter for therapeutic drug level monitoring; Z79.01 Long term (current) use of anticoagulants | CPT/HCPCS: 85610 ==

== ENCOUNTER → 2021-12-19 08:01 | Outpatient (BNVA) | payer MEDICARE, BC, SELFPAY | PROVIDERS: PCP Internal Medicine; Visit Provider Internal Medicine | DX: Z95.2 Presence of prosthetic heart valve (principal); Z51.81 Encounter for therapeutic drug level monitoring; Z79.01 Long term (current) use of anticoagulants | CPT/HCPCS: 85610; 99211 ==

== ENCOUNTER → 2021-12-22 13:47 | Outpatient (BNVA) | payer MEDICARE, BC, SELFPAY | PROVIDERS: PCP Internal Medicine; Referring Provider Internal Medicine; Visit Provider Internal Medicine Cardiovascular Disease | DX: I35.0 Nonrheumatic aortic (valve) stenosis (principal); I50.22 Chronic systolic (congestive) heart failure; Z79.01 Long term (current) use of anticoagulants | CPT/HCPCS: 99212 ==

== ENCOUNTER → 2022-01-02 08:17 | Outpatient (BNVA) | payer MEDICARE, BC, SELFPAY | PROVIDERS: PCP Internal Medicine; Visit Provider Internal Medicine | DX: Z95.2 Presence of prosthetic heart valve (principal); Z79.01 Long term (current) use of anticoagulants; Z51.81 Encounter for therapeutic drug level monitoring | CPT/HCPCS: 85610; 99211 ==

== ENCOUNTER → 2022-01-23 08:04 | Outpatient (BNVA) | payer MEDICARE, BC, SELFPAY | PROVIDERS: PCP Internal Medicine; Visit Provider Internal Medicine | DX: Z95.2 Presence of prosthetic heart valve (principal); Z79.01 Long term (current) use of anticoagulants; Z51.81 Encounter for therapeutic drug level monitoring | CPT/HCPCS: 85610; 99211 ==

== ENCOUNTER → 2022-02-16 08:25 | Outpatient (BNVA) | payer MEDICARE, BC, SELFPAY | PROVIDERS: PCP Internal Medicine; Visit Provider Internal Medicine | DX: Z95.2 Presence of prosthetic heart valve (principal); Z79.01 Long term (current) use of anticoagulants; Z51.81 Encounter for therapeutic drug level monitoring | CPT/HCPCS: 85610; 99211 ==

== ENCOUNTER → 2022-02-23 08:05 | Outpatient (BNVA) | payer MEDICARE, BC, SELFPAY | PROVIDERS: PCP Internal Medicine; Visit Provider Internal Medicine | DX: Z95.2 Presence of prosthetic heart valve (principal); Z79.01 Long term (current) use of anticoagulants; Z51.81 Encounter for therapeutic drug level monitoring | CPT/HCPCS: 85610; 99211 ==

== ENCOUNTER → 2022-02-27 12:29 | Outpatient (BNVA) | payer MEDICARE, BC, SELFPAY | PROVIDERS: PCP Internal Medicine; Referring Provider Internal Medicine; Visit Provider Internal Medicine Cardiovascular Disease | DX: Z45.02 Encounter for adjustment and management of automatic implantable cardiac defibrillator (principal); I50.22 Chronic systolic (congestive) heart failure; I35.0 Nonrheumatic aortic (valve) stenosis; I25.10 Atherosclerotic heart disease of native coronary artery without angina pectoris | CPT/HCPCS: 99212 ==

== ENCOUNTER 2022-03-02 09:38 | Outpatient (REF) | payer MEDICARE, BC, SELFPAY ==
[2022-03-02 10:39] LABS: Anion Gap 11 (12-20); Blood Urea Nitrogen 15 mg/dL (9-16); Calcium 8.4 mg/dL (8.4-10.2); Carbon Dioxide 22 mmol/L (22-29); Chloride 105 mmol/L (96-108); Estimated Glomerular Filt Rate 44; Glucose Random 137 mg/dL (60-115); Potassium 4.3 mmol/L (3.3-5.1); Sodium 134 mmol/L (135-145)
[2022-03-02 10:42] LABS: B Type Natriuretic Peptide 285 pg/mL (<100)
== END 2022-03-02 09:39 | disposition home or self-care (01) ==
LOC: HO.LAB 09:38
PROVIDERS: PCP Internal Medicine; Visit Provider Internal Medicine Cardiovascular Disease
DX: I50.22 Chronic systolic (congestive) heart failure (principal)
CPT/HCPCS: 36415; 80048; 83880

== ENCOUNTER → 2022-03-09 13:38 | Outpatient (BNVA) | payer MEDICARE, BC, SELFPAY | PROVIDERS: PCP Internal Medicine; Visit Provider Internal Medicine | DX: Z95.2 Presence of prosthetic heart valve (principal); Z51.81 Encounter for therapeutic drug level monitoring; Z79.01 Long term (current) use of anticoagulants | CPT/HCPCS: 85610; 99211 ==

== ENCOUNTER 2022-03-23 08:09 | Outpatient (REF) | payer MEDICARE, BC, SELFPAY ==
[2022-03-23 09:38] LABS: B Type Natriuretic Peptide 218 pg/mL (<100)
== END 2022-03-23 08:10 | disposition home or self-care (01) ==
LOC: HO.LAB 08:09
PROVIDERS: Absent Provider Internal Medicine Cardiovascular Disease; PCP Internal Medicine; Visit Provider Internal Medicine
DX: Z95.2 Presence of prosthetic heart valve (principal); I47.2 Ventricular tachycardia; I25.10 Atherosclerotic heart disease of native coronary artery without angina pectoris; I50.22 Chronic systolic (congestive) heart failure; Z51.81 Encounter for therapeutic drug level monitoring; Z79.01 Long term (current) use of anticoagulants
CPT/HCPCS: 36415; 83880; 85610; 99211

== ENCOUNTER → 2022-03-29 13:07 | Outpatient (BNVA) | payer MEDICARE, BC, SELFPAY | PROVIDERS: PCP Internal Medicine; Referring Provider Internal Medicine; Visit Provider Internal Medicine Cardiovascular Disease | DX: I50.22 Chronic systolic (congestive) heart failure (principal); I35.0 Nonrheumatic aortic (valve) stenosis; Z95.2 Presence of prosthetic heart valve; Z79.899 Other long term (current) drug therapy | CPT/HCPCS: 99212 ==

== ENCOUNTER → 2022-04-13 07:55 | Outpatient (BNVA) | payer MEDICARE, BC, SELFPAY | PROVIDERS: PCP Internal Medicine; Visit Provider Internal Medicine | DX: Z95.2 Presence of prosthetic heart valve (principal); Z79.01 Long term (current) use of anticoagulants; Z51.81 Encounter for therapeutic drug level monitoring | CPT/HCPCS: 85610; 99211 ==

== ENCOUNTER → 2022-04-19 09:09 | Outpatient (BNVA) | payer MEDICARE, BC, SELFPAY | PROVIDERS: PCP Internal Medicine; Visit Provider Internal Medicine | DX: Z95.2 Presence of prosthetic heart valve (principal); Z79.01 Long term (current) use of anticoagulants; Z51.81 Encounter for therapeutic drug level monitoring | CPT/HCPCS: 85610; 99211 ==

== ENCOUNTER → 2022-05-02 09:00 | Outpatient (BNVA) | payer MEDICARE, BC, SELFPAY | PROVIDERS: PCP Internal Medicine; Visit Provider Internal Medicine | DX: Z95.2 Presence of prosthetic heart valve (principal); Z79.01 Long term (current) use of anticoagulants; Z51.81 Encounter for therapeutic drug level monitoring | CPT/HCPCS: 85610; 99211 ==

== ENCOUNTER 2022-05-11 12:46 | Outpatient (RCR) | payer MEDICARE, BC, SELFPAY ==
[2022-05-11 12:25] VITALS: BP 110/58; BP 128/72; BMI 33.4
--- NOTE | 2022-05-11 14:44 | MHC.CR.ITI ---
[address] [phone] F: [phone] Please see additional notes from [facility] Initial Assessment/ITP Cardiac Rehab Initial Assessment/ITP Start: 04/18/22 09:01 Freq: Status: Active Protocol: Activity Type Activity Date Activity User E-sign Co-sign Detail Recorded Client Recorded Date Recorded By Document 05/11/22 12:25 CHE [id number] 05/11/22 12:35 CHE 05/11/22 12:25 Cardiac Rehab ITP Initial [Excercise] -Plant Physiologist Required No -Preferred Language Jamaican -Number of sessions approved 36 -Diagnosis CHF EF < or = 35% I50.9 -Other Diagnosis AORTIC STENOSIS , ICD, CAD, HFrEF, DM II, -Comments HX CABG (2015), ISCHEMIC CARDIOMYOPATHY, DONNIE, HTN, HDL EXERTIONAL DYSPNEA [Functional Assessment] -6 Min Walk (distance in ft) 600 -METS Achieved 1.87 -Resting HR 83 -Resting BP 110/58 -Resting SpO2 91 -Exercise HR 111 -Exercise BP 128/72 -Exercise SpO2 88 -RPE 15 -Dyspnea Yes: WITH EXERTION -ECG Summary 100% PACED -Comments BIVETRICULAR ICD [Pre Rehab] -Pre Rehab Home Exercise Yes -Mode WALK -Exercise Minutes/Day 5 MINUTES -Exercise Days/Week 5 -Intensity LIGHT -Comments ONLY ABLE TO WALK SHORT DISTANCES, -Risk Stratification: Intermediate Functional Risk Participants capacity < 5-6 METs,Mild to moderate depressed LV function (EF 31 -49%) -Fall Risk No -Assistive Devices None -Comments VERY DECONDITIONED. UDSED TO BE AN AVID GOLFER [Exercise Plan] [Intervention] -Exercise Prescription NuStep, Recumbent Bike, Recumbent Elliptical, Rower,Treadmill ,UBE,Upright Bike,Weights -Duration Intensity 36 Sessions -Frequency 2-3x/week -Angina with Exercise No [Exercise Education] -Exercise Education Exercise orientation, Exercise safety ,Home exercise, RPE,Self pulse checking,Signs and symptoms, Warmup/cooldown -Date Completed 05/11/22 -Initials JA -Education Summary AT INTAKE AND ONGOING DEMONSTRATES ACCURATE SELF PULSE CHECKS AWARE OF EQUIPMEWNT AND USE THIS IS 3RD TIME IN CR [Exercise Goals] -Exercise Most Days of the Week Yes -Exercise 30-45 mins/day Yes -Target HR Range +20 - +30 beats above resting -Target RPE range 11-13 -Increase METS next 30 days 0.5-1.0 METS Every two weeks -METs goal by Discharge 5 METS [Nutrition] [Hyperlipidemia] -Hyperlipidemia Yes -Are lab results available Yes -Lipid Draw Date 12/30/20 -Total Cholesterol 211 -LDL 152 -HDL 34 -Tryglycerides 121 [Diabetes] -Diabetes Type 2 -Are lab results available Yes -Fasting Glucose 102 -Date 12/30/20 -HbA1C 6.30 -Date 12/30/20 -Monitors Glucose No [Weight Management] -Height 5 ft 6 in -Weight 94 kg -BMI 33.4 -Recommended Diet REG LOW SALT, LOW SATURATED FAT -Comments GIVEN DASH DIET AND READING NUTRITIONAL LABELS HANDOUTS [Drug/Alchohol Use] -Drug/Alcohol Use No -Comment VERY RARE COCKTAIL / USED TO DRINK BUT HAS NOT DRANK IN YEARS [Nutritional Screen (Rate Your Plate)] -Score 46 -Interpretation of Score THERE ARE WAYS TO IMPROVE NUTRITIONAL STATUS -Comments WILL FOLLOW/ DASH DIET HANDOUT GIVEN [Nutrition Plan] [Intervention] -Referral(s) Not Applicable [Nutrition Education] -Nutrition Education Diabetes and excercise, Hydration, Nutrition, Reading food labels,Signs and symptoms of Hypo/Hyper- glycemia -Date Completed 05/11/22 -Initials JA -Education Summary AT INTAKE AND ONGOING [Nutrition Goals] -Goals BMI < 25, Fasting BG 80- 120 mg/dL,HDL > 40,LDL < 70, Total CHOL < 200 -Weight goal 200 [Psycho/Social] -Stage of Change Maintenance -Learning Barriers None -Occupation 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 -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 -PHQ9 Score 4 -Interpretation of Score LOW RISK FOR DEPRESSION -Plan of Action/Follow-up WILL FOLLOW -Comments DENIES DEPRESSION/ SI -Patient Self-Reports Depression No -Family Support Lives with spouse/others [Psycho/Social Plan] [Intervention] -Referral(s) No consult needed [Psycho/Social Education] -Psycho/Social Education Advanced directives, Coping techniques, Depression and CAD,Positive support system, Relaxation Techniques, Reviewed PHQ9 Score w/pt, Sexuality and CAD,Signs and symptoms of CAD ,Stress management -Date Completed 05/11/22 -Initials JA -Education Summary TO MANAGE STRESS LEAVES SITUATION/ IGNORES WATCHES TV , USED TO DO SATINED GLASS CRAFTING [Psycho/Social Goals] -Goals Manage/reduce stress [Other Core Comp] [Risk Factors] -Risk Factors Diabetes, Dyslipidemia, Hypertension, Obesity [Hypertension] -Hypertention Yes -Resting BP: 110/58 [Tobacco Use] -Patient Tobacco Use Status Former Tobacco user -Tobacco use type Cigar -Patient Interested in Nicotine No Replacement -Comments HAS NOT SMOKED SINCE 1994 [Heart Failure] -Heart Failure Yes -EF% 32 -NYHF Class III -Dyspnea at Rest No -Dyspnea with Exercise Yes -Last Hospitalization 03/31 -Comments STATES VERY DYSPNEAIC AFTER VERY LITTLE EXERTION [Other Core Comp Plan] [Intervention] -Referral(s) Not Applicable [Other Core Comp Education] -Other Core Comp Education HF Disease progression, Medication compliance,Risk factor modifications, RPD Scale/SOB management, Understanding hypertension -Date Completed 05/11/22 -Initials JA -Education Summary AT INTAKE AND ONGOING [Other Core Comp Goals] -Goals Improve dyspnea ,Manage risk factors,Manage signs and symptoms of CHF ,Medication compliance, Resting BP < 130/80,Tobacco cessation,Not Applicable [Medication Plan] [Intervention] -Medications METFORMIN 500 MG DAILY @ HS COUMADIN PER PROTOCOL VALSARTAN 40 MG BID -Compliance Patient reports compliance w/ prescribed meds [Medication Education] -Education Importance of medication compliance, Medication purpose, Medication schedule, Medication side effects -Date Completed 05/11/22 -Initials JA -Education Summary AWARE OF MEDICATION SCHJEDULE, PURPOSES AND MONITORING PARAMETERS [Medication Goals] -Goals Adherence to medication compliance [Treatment Times] -Rehab Services with ECG Monitor -Time 1300 -End Time 5014
[2022-06-01 08:43] VITALS: BP 90/52; BMI 33.4
--- NOTE | 2022-06-01 11:19 | MHC.CR.ITR ---
[address] [phone] F: [phone] Please see additional notes from [facility] Reassessment/ITP Cardiac Rehab Reassessment/ITP Start: 04/18/22 09:01 Freq: Status: Active Protocol: Activity Type Activity Date Activity User E-sign Co-sign Detail Recorded Client Recorded Date Recorded By Document 06/01/22 08:43 CHE Desktop 06/01/22 11:16 CHE 06/01/22 08:43 Cardiac Rehab Reassessment/ITP [Exercise] -Trust Vault Clerk Required No -Preferred Language Yi -Progress Note Type 30-Day Note -Total Sessions Attended 4 -Comments HX CABG (2015), ISCHEMIC CARDIOMYOPATHY, DONNIE, HTN, HDL, EXERTIONAL DYSPNEA HAS TOLERATED WORKOUTS FOT TOTAL 30-35 MINUTES. PLANNING TO INCREASE DURATION OF EXERCUSE ALTERNATING WITH INCREAE IDINTESITY [Functional Assessment] -ECG Summary 100% PACED -Home-Based Rehab Pt approved for home-based exercise -Comments WALKS DAILY FOR SHORT DISTANCES ( STATES 5 MINUTES A DAY) STATES LIMITED BY EXHERTIONAL DYSPNEA. -Fall Risk No [Exercise Plan] [Intervention] -Exercise Prescription NuStep, Recumbent Bike, Recumbent Elliptical, Rower,Treadmill ,UBE,Upright Bike,Weights -Duration Intensity 36 Sessions -Exercise Minutes/Day 30 -Exercise Days/Week 5 -Angina with Exercise No -Peak METs 4 [Home Exercise] -Mode WALKS -Frequency DAILY -Intensity LIGHT -Comments STATES CAN TOLERATE 5 MINUTES OF WALKING BEFORE EXPERIENCING EXHERTIONAL DYSPNEA ENCOURAGED TO ADD SHORT PERIODS OF WALKING EVENTAULLT EXTENDING TOLERANCE. [Exercise Education] -Exercise Education Exercise orientation, Exercise safety ,Home exercise, RPE,Self pulse checking,Signs and symptoms, Warmup/cooldown -Date Completed 05/11/22 -Initials JA -Education Summary AT INTAKE AND ONGOING DEMONSTRATES ACCURATE SELF PULSE CHECKS AWARE OF EQUIPMEWNT AND USE THIS IS 3RD TIME IN CR [Exercise Goals] -Exercise Most Days of the Week Yes -Exercise 30-45 mins/day Yes -Target HR Range +20 - +30 beats above resting -Target RPE range 11-13 -Increase METS next 30 days 0.5-1.0 METS Every two weeks -METs goal by Discharge 5 METS [Nutrition] [Hyperlipidemia] -Are lab results available Yes -Hyperlipidemia Yes -Comments 12/30/20 CHOLESTEROL- 211 TRYGLYCERIDES- 121 LDL- 153 HDL- 34 [Diabetes] -Diabetes Type 2 -Fasting Glucose 102 -Date 12/30/20 -HbA1C 6.30 -Date 12/30/20 -Comments STATES DOES NOT CHECK POC BG [Weight Management] -Weight 94 kg -BMI 33.4 -Comments GIVEN DASH DIET AND READING NUTRITIONAL LABELS HANDOUTS WEIGHT UNCHANGED [Drug/Alchohol Use] -Drug/Alcohol Use No -Comment 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 ALSO DENIES HAVING EXPERIENCED S/S OF HYPO/ HYPERGLYCEMIA [Nutrition Goals] -Goals BMI < 25, Fasting BG 80- 120 mg/dL,HDL > 40,LDL < 70, Total CHOL < 200 -Weight goal 200 [Psycho/Social] -Stage of Change Maintenance -Occupation Retired -PHQ9 Score 4 -Interpretation of Score LOW RISK FOR DEPRESSION -Plan of Action/Follow-up WILL FOLLOW -Patient Self-Reports Depression No -Comments DENIES DEPRESSION/ SI [Psycho/Social Plan] [Intervention] -Attended No consult needed [Psycho/Social Education] -Psycho/Social Education Advanced directives, Coping techniques, Depression and CAD,Positive support system, Relaxation Techniques, Reviewed PHQ9 Score w/pt, Sexuality and CAD,Signs and symptoms of CAD ,Stress management -Date Completed 05/11/22 -Initials JA -Education Summary TO MANAGE STRESS LEAVES SITUATION/ IGNORES WATCHES TV , 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 [Psycho/Social Goals] -Goals Manage/reduce stress [Other Core Comp] [Hypertension] -Hypertention Yes -Resting BP: 90/52 -Medication Changes No [Tobacco Use] -Change in Use No -Comments HAS NOT SMOKED SINCE 1994 [Heart Failure] -Heart Failure Yes -Dyspnea at Rest No -Dyspnea with Exercise Yes -Comments STATES VERY DYSPNEAIC AFTER VERY LITTLE EXERTION (ABOUT 5 MINUTES IS STATED LEVEL OF ENDURANCE) [Other Core Comp Plan] [Intervention] -Attended Not Applicable [Other Core Comp Education] -Other Core Comp Education HF Disease progression, Medication compliance,Risk factor modifications, RPD Scale/SOB management, Understanding hypertension -Date Completed 05/11/22 -Initials JA -Education Summary AT INTAKE AND ONGOING DENIES QUESTIONS/ CONCERNS. STATES REMAINS MED COMPLIANT AND GOOD UNDERSTANDING OF DYSPNEA SCALE [Other Core Comp Goals] -Goals Improve dyspnea ,Manage risk factors,Manage signs and symptoms of CHF ,Medication compliance, Resting BP < 130/80,Tobacco cessation,Not Applicable [Medication Plan] [Intervention] -Medications METFORMIN 500 MG DAILY @ HS COUMADIN PER PROTOCOL VALSARTAN 40 MG BID -Compliance Patient reports compliance w/ prescribed meds [Medication Education] -Education Importance of medication compliance, Medication purpose, Medication schedule, Medication side effects -Date Completed 05/11/22 -Initials JA -Education Summary AWARE OF MEDICATION SCHJEDULE, PURPOSES AND MONITORING PARAMETERS [Medication Goals] -Goals Adherence to medication compliance
[2022-07-04 06:51] VITALS: BP 90/52; BMI 33.4
--- NOTE | 2022-07-04 06:54 | MHC.CR.ITR ---
[address] [phone] F: [phone] Please see additional notes from [facility] Cardiac Rehab Reassessment/ITP Start: 04/18/22 09:01 Freq: Status: Active Protocol: Activity Type Activity Date Activity User E-sign Co-sign Detail Recorded Client Recorded Date Recorded By Document 07/04/22 06:51 CHE [id number] 07/04/22 06:54 CHE 07/04/22 06:51 Cardiac Rehab Reassessment/ITP [Exercise] -Overhead Worker Required No -Preferred Language Kinyarwanda -Progress Note Type 60-Day Note -Total Sessions Attended 4 -Comments HX CABG (2015), ISCHEMIC CARDIOMYOPATHY, DONNIE, HTN, HDL, EXERTIONAL DYSPNEA Shabbir has not attended CR since 06/02/22. He has had experience dyspnea w/ SPO2 as low as 86. PCP aware. no further orders. [Functional Assessment] -ECG Summary 100% PACED -Home-Based Rehab Pt approved for home-based exercise -Comments WALKS DAILY FOR SHORT DISTANCES ( STATES 5 MINUTES A DAY) STATES LIMITED BY EXHERTIONAL DYSPNEA. -Fall Risk No [Exercise Plan] [Intervention] -Exercise Prescription NuStep, Recumbent Bike, Recumbent Elliptical, Rower,Treadmill ,UBE,Upright Bike,Weights -Duration Intensity 36 Sessions -Exercise Minutes/Day 30 -Exercise Days/Week 5 -Angina with Exercise No -Peak METs 4 [Home Exercise] -Mode WALKS -Frequency DAILY -Intensity LIGHT -Comments STATES CAN TOLERATE 5 MINUTES OF WALKING BEFORE EXPERIENCING EXHERTIONAL DYSPNEA ENCOURAGED TO ADD SHORT PERIODS OF WALKING EVENTAULLT EXTENDING TOLERANCE. [Exercise Education] -Exercise Education Exercise orientation, Exercise safety ,Home exercise, RPE,Self pulse checking,Signs and symptoms, Warmup/cooldown -Date Completed 05/11/22 -Initials JA -Education Summary AT INTAKE AND ONGOING DEMONSTRATES ACCURATE SELF PULSE CHECKS AWARE OF EQUIPMEWNT AND USE THIS IS 3RD TIME IN CR [Exercise Goals] -Exercise Most Days of the Week Yes -Exercise 30-45 mins/day Yes -Target HR Range +20 - +30 beats above resting -Target RPE range 11-13 -Increase METS next 30 days 0.5-1.0 METS Every two weeks -METs goal by Discharge 5 METS [Nutrition] [Hyperlipidemia] -Are lab results available Yes -Hyperlipidemia Yes -Comments 12/30/20 CHOLESTEROL- 211 TRYGLYCERIDES- 121 LDL- 153 HDL- 34 [Diabetes] -Diabetes Type 2 -Fasting Glucose 102 -Date 12/30/20 -HbA1C 6.30 -Date 12/30/20 -Comments STATES DOES NOT CHECK POC BG [Weight Management] -Weight 94 kg -BMI 33.4 -Comments GIVEN DASH DIET AND READING NUTRITIONAL LABELS HANDOUTS WEIGHT UNCHANGED [Drug/Alchohol Use] -Drug/Alcohol Use No -Comment 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 ALSO DENIES HAVING EXPERIENCED S/S OF HYPO/ HYPERGLYCEMIA [Nutrition Goals] -Goals BMI < 25, Fasting BG 80- 120 mg/dL,HDL > 40,LDL < 70, Total CHOL < 200 -Weight goal 200 [Psycho/Social] -Stage of Change Maintenance -Occupation Retired -PHQ9 Score 4 -Interpretation of Score LOW RISK FOR DEPRESSION -Plan of Action/Follow-up WILL FOLLOW -Patient Self-Reports Depression No -Comments DENIES DEPRESSION/ SI [Psycho/Social Plan] [Intervention] -Attended No consult needed [Psycho/Social Education] -Psycho/Social Education Advanced directives, Coping techniques, Depression and CAD,Positive support system, Relaxation Techniques, Reviewed PHQ9 Score w/pt, Sexuality and CAD,Signs and symptoms of CAD ,Stress management -Date Completed 05/11/22 -Initials JA -Education Summary TO MANAGE STRESS LEAVES SITUATION/ IGNORES WATCHES TV , 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 [Psycho/Social Goals] -Goals Manage/reduce stress [Other Core Comp] [Hypertension] -Hypertention Yes -Resting BP: 90/52 -Medication Changes No [Tobacco Use] -Change in Use No -Comments HAS NOT SMOKED SINCE 1994 [Heart Failure] -Heart Failure Yes -Dyspnea at Rest No -Dyspnea with Exercise Yes -Comments STATES VERY DYSPNEAIC AFTER VERY LITTLE EXERTION (ABOUT 5 MINUTES IS STATED LEVEL OF ENDURANCE) [Other Core Comp Plan] [Intervention] -Attended Not Applicable [Other Core Comp Education] -Other Core Comp Education HF Disease progression, Medication compliance,Risk factor modifications, RPD Scale/SOB management, Understanding hypertension -Date Completed 05/11/22 -Initials JA -Education Summary AT INTAKE AND ONGOING DENIES QUESTIONS/ CONCERNS. STATES REMAINS MED COMPLIANT AND GOOD UNDERSTANDING OF DYSPNEA SCALE [Other Core Comp Goals] -Goals Improve dyspnea ,Manage risk factors,Manage signs and symptoms of CHF ,Medication compliance, Resting BP < 130/80,Tobacco cessation,Not Applicable [Medication Plan] [Intervention] -Medications METFORMIN 500 MG DAILY @ HS COUMADIN PER PROTOCOL VALSARTAN 40 MG BID -Compliance Patient reports compliance w/ prescribed meds [Medication Education] -Education Importance of medication compliance, Medication purpose, Medication schedule, Medication side effects -Date Completed 05/11/22 -Initials JA -Education Summary AWARE OF MEDICATION SCHJEDULE, PURPOSES AND MONITORING PARAMETERS [Medication Goals] -Goals Adherence to medication compliance
[2022-07-31 12:35] VITALS: BP 90/52; BMI 33.4
--- NOTE | 2022-07-31 12:37 | MHC.CR.ITR ---
[address] [phone] F: [phone] Please see additional notes from [facility]P Cardiac Rehab Reassessment/ITP Start: 04/18/22 09:01 Freq: Status: Active Protocol: Activity Type Activity Date Activity User E-sign Co-sign Detail Recorded Client Recorded Date Recorded By Document 07/31/22 12:35 CHE Desktop 07/31/22 12:37 CHE 07/31/22 12:35 Cardiac Rehab Reassessment/ITP [Exercise] -Web Portal Developer Required No -Preferred Language Setswana -Progress Note Type 60-Day Note -Total Sessions Attended 5 -Comments HX CABG (2015), ISCHEMIC CARDIOMYOPATHY, DONNIE, HTN, HDL, EXERTIONAL DYSPNEA Shabbir has not attended CR since 06/02/22. at last contact (07/06/22) stated has to have pacemaker replaced and awaiting medical clearance to return to CR [Functional Assessment] -ECG Summary 100% PACED -Home-Based Rehab Pt approved for home-based exercise -Comments WALKS DAILY FOR SHORT DISTANCES ( STATES 5 MINUTES A DAY) STATES LIMITED BY EXHERTIONAL DYSPNEA. -Fall Risk No [Exercise Plan] [Intervention] -Exercise Prescription NuStep, Recumbent Bike, Recumbent Elliptical, Rower,Treadmill ,UBE,Upright Bike,Weights -Duration Intensity 36 Sessions -Exercise Minutes/Day 30 -Exercise Days/Week 5 -Angina with Exercise No -Peak METs 4 [Home Exercise] -Mode WALKS -Frequency DAILY -Intensity LIGHT -Comments STATES CAN TOLERATE 5 MINUTES OF WALKING BEFORE EXPERIENCING EXHERTIONAL DYSPNEA ENCOURAGED TO ADD SHORT PERIODS OF WALKING EVENTAULLT EXTENDING TOLERANCE. [Exercise Education] -Exercise Education Exercise orientation, Exercise safety ,Home exercise, RPE,Self pulse checking,Signs and symptoms, Warmup/cooldown -Date Completed 05/11/22 -Initials JA -Education Summary AT INTAKE AND ONGOING DEMONSTRATES ACCURATE SELF PULSE CHECKS AWARE OF EQUIPMEWNT AND USE THIS IS 3RD TIME IN CR [Exercise Goals] -Exercise Most Days of the Week Yes -Exercise 30-45 mins/day Yes -Target HR Range +20 - +30 beats above resting -Target RPE range 11-13 -Increase METS next 30 days 0.5-1.0 METS Every two weeks -METs goal by Discharge 5 METS [Nutrition] [Hyperlipidemia] -Are lab results available Yes -Hyperlipidemia Yes -Comments 12/30/20 CHOLESTEROL- 211 TRYGLYCERIDES- 121 LDL- 153 HDL- 34 [Diabetes] -Diabetes Type 2 -Fasting Glucose 102 -Date 12/30/20 -HbA1C 6.30 -Date 12/30/20 -Comments STATES DOES NOT CHECK POC BG [Weight Management] -Weight 94 kg -BMI 33.4 -Comments GIVEN DASH DIET AND READING NUTRITIONAL LABELS HANDOUTS WEIGHT UNCHANGED [Drug/Alchohol Use] -Drug/Alcohol Use No -Comment 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 ALSO DENIES HAVING EXPERIENCED S/S OF HYPO/ HYPERGLYCEMIA [Nutrition Goals] -Goals BMI < 25, Fasting BG 80- 120 mg/dL,HDL > 40,LDL < 70, Total CHOL < 200 -Weight goal 200 [Psycho/Social] -Stage of Change Maintenance -Occupation Retired -PHQ9 Score 4 -Interpretation of Score LOW RISK FOR DEPRESSION -Plan of Action/Follow-up WILL FOLLOW -Patient Self-Reports Depression No -Comments DENIES DEPRESSION/ SI [Psycho/Social Plan] [Intervention] -Attended No consult needed [Psycho/Social Education] -Psycho/Social Education Advanced directives, Coping techniques, Depression and CAD,Positive support system, Relaxation Techniques, Reviewed PHQ9 Score w/pt, Sexuality and CAD,Signs and symptoms of CAD ,Stress management -Date Completed 05/11/22 -Initials JA -Education Summary TO MANAGE STRESS LEAVES SITUATION/ IGNORES WATCHES TV , 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 [Psycho/Social Goals] -Goals Manage/reduce stress [Other Core Comp] [Hypertension] -Hypertention Yes -Resting BP: 90/52 -Medication Changes No [Tobacco Use] -Change in Use No -Comments HAS NOT SMOKED SINCE 1994 [Heart Failure] -Heart Failure Yes -Dyspnea at Rest No -Dyspnea with Exercise Yes -Comments STATES VERY DYSPNEAIC AFTER VERY LITTLE EXERTION (ABOUT 5 MINUTES IS STATED LEVEL OF ENDURANCE) [Other Core Comp Plan] [Intervention] -Attended Not Applicable [Other Core Comp Education] -Other Core Comp Education HF Disease progression, Medication compliance,Risk factor modifications, RPD Scale/SOB management, Understanding hypertension -Date Completed 05/11/22 -Initials JA -Education Summary AT INTAKE AND ONGOING DENIES QUESTIONS/ CONCERNS. STATES REMAINS MED COMPLIANT AND GOOD UNDERSTANDING OF DYSPNEA SCALE [Other Core Comp Goals] -Goals Improve dyspnea ,Manage risk factors,Manage signs and symptoms of CHF ,Medication compliance, Resting BP < 130/80,Tobacco cessation,Not Applicable [Medication Plan] [Intervention] -Medications METFORMIN 500 MG DAILY @ HS COUMADIN PER PROTOCOL VALSARTAN 40 MG BID -Compliance Patient reports compliance w/ prescribed meds [Medication Education] -Education Importance of medication compliance, Medication purpose, Medication schedule, Medication side effects -Date Completed 05/11/22 -Initials JA -Education Summary AWARE OF MEDICATION SCHJEDULE, PURPOSES AND MONITORING PARAMETERS [Medication Goals] -Goals Adherence to medication compliance
[2022-08-28 11:41] VITALS: BP 90/52; BMI 33.4
--- NOTE | 2022-08-28 11:42 | MHC.CR.ITR ---
[address] [phone] F: [phone] Please see additional notes from [facility] Reassessment/ITP Cardiac Rehab Reassessment/ITP Start: 04/18/22 09:01 Freq: Status: Active Protocol: Activity Type Activity Date Activity User E-sign Co-sign Detail Recorded Client Recorded Date Recorded By Document 08/28/22 11:41 CHE Desktop 08/28/22 11:42 CHE 08/28/22 11:41 Cardiac Rehab Reassessment/ITP [Exercise] -Meat Curer Required No -Preferred Language Hebrew -Progress Note Type 120-Day Note -Total Sessions Attended 5 -Comments HX CABG (2015), ISCHEMIC CARDIOMYOPATHY, DONNIE, HTN, HDL, EXERTIONAL DYSPNEA Shabbir has not attended CR since 06/02/22. at last contact (07/06/22) stated has to have pacemaker replaced and awaiting medical clearance to return to CR [Functional Assessment] -ECG Summary 100% PACED -Home-Based Rehab Pt approved for home-based exercise -Comments WALKS DAILY FOR SHORT DISTANCES ( STATES 5 MINUTES A DAY) STATES LIMITED BY EXHERTIONAL DYSPNEA. -Fall Risk No [Exercise Plan] [Intervention] -Exercise Prescription NuStep, Recumbent Bike, Recumbent Elliptical, Rower,Treadmill ,UBE,Upright Bike,Weights -Duration Intensity 36 Sessions -Exercise Minutes/Day 30 -Exercise Days/Week 5 -Angina with Exercise No -Peak METs 4 [Home Exercise] -Mode WALKS -Frequency DAILY -Intensity LIGHT -Comments STATES CAN TOLERATE 5 MINUTES OF WALKING BEFORE EXPERIENCING EXHERTIONAL DYSPNEA ENCOURAGED TO ADD SHORT PERIODS OF WALKING EVENTAULLT EXTENDING TOLERANCE. [Exercise Education] -Exercise Education Exercise orientation, Exercise safety ,Home exercise, RPE,Self pulse checking,Signs and symptoms, Warmup/cooldown -Date Completed 05/11/22 -Initials JA -Education Summary AT INTAKE AND ONGOING DEMONSTRATES ACCURATE SELF PULSE CHECKS AWARE OF EQUIPMEWNT AND USE THIS IS 3RD TIME IN CR [Exercise Goals] -Exercise Most Days of the Week Yes -Exercise 30-45 mins/day Yes -Target HR Range +20 - +30 beats above resting -Target RPE range 11-13 -Increase METS next 30 days 0.5-1.0 METS Every two weeks -METs goal by Discharge 5 METS [Nutrition] [Hyperlipidemia] -Are lab results available Yes -Hyperlipidemia Yes -Comments 12/30/20 CHOLESTEROL- 211 TRYGLYCERIDES- 121 LDL- 153 HDL- 34 [Diabetes] -Diabetes Type 2 -Fasting Glucose 102 -Date 12/30/20 -HbA1C 6.30 -Date 12/30/20 -Comments STATES DOES NOT CHECK POC BG [Weight Management] -Weight 94 kg -BMI 33.4 -Comments GIVEN DASH DIET AND READING NUTRITIONAL LABELS HANDOUTS WEIGHT UNCHANGED [Drug/Alchohol Use] -Drug/Alcohol Use No -Comment 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 ALSO DENIES HAVING EXPERIENCED S/S OF HYPO/ HYPERGLYCEMIA [Nutrition Goals] -Goals BMI < 25, Fasting BG 80- 120 mg/dL,HDL > 40,LDL < 70, Total CHOL < 200 -Weight goal 200 [Psycho/Social] -Stage of Change Maintenance -Occupation Retired -PHQ9 Score 4 -Interpretation of Score LOW RISK FOR DEPRESSION -Plan of Action/Follow-up WILL FOLLOW -Patient Self-Reports Depression No -Comments DENIES DEPRESSION/ SI [Psycho/Social Plan] [Intervention] -Attended No consult needed [Psycho/Social Education] -Psycho/Social Education Advanced directives, Coping techniques, Depression and CAD,Positive support system, Relaxation Techniques, Reviewed PHQ9 Score w/pt, Sexuality and CAD,Signs and symptoms of CAD ,Stress management -Date Completed 05/11/22 -Initials JA -Education Summary TO MANAGE STRESS LEAVES SITUATION/ IGNORES WATCHES TV , 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 [Psycho/Social Goals] -Goals Manage/reduce stress [Other Core Comp] [Hypertension] -Hypertention Yes -Resting BP: 90/52 -Medication Changes No [Tobacco Use] -Change in Use No -Comments HAS NOT SMOKED SINCE 1994 [Heart Failure] -Heart Failure Yes -Dyspnea at Rest No -Dyspnea with Exercise Yes -Comments STATES VERY DYSPNEAIC AFTER VERY LITTLE EXERTION (ABOUT 5 MINUTES IS STATED LEVEL OF ENDURANCE) [Other Core Comp Plan] [Intervention] -Attended Not Applicable [Other Core Comp Education] -Other Core Comp Education HF Disease progression, Medication compliance,Risk factor modifications, RPD Scale/SOB management, Understanding hypertension -Date Completed 05/11/22 -Initials JA -Education Summary AT INTAKE AND ONGOING DENIES QUESTIONS/ CONCERNS. STATES REMAINS MED COMPLIANT AND GOOD UNDERSTANDING OF DYSPNEA SCALE [Other Core Comp Goals] -Goals Improve dyspnea ,Manage risk factors,Manage signs and symptoms of CHF ,Medication compliance, Resting BP < 130/80,Tobacco cessation,Not Applicable [Medication Plan] [Intervention] -Medications METFORMIN 500 MG DAILY @ HS COUMADIN PER PROTOCOL VALSARTAN 40 MG BID -Compliance Patient reports compliance w/ prescribed meds [Medication Education] -Education Importance of medication compliance, Medication purpose, Medication schedule, Medication side effects -Date Completed 05/11/22 -Initials JA -Education Summary AWARE OF MEDICATION SCHJEDULE, PURPOSES AND MONITORING PARAMETERS [Medication Goals] -Goals Adherence to medication compliance
[2022-10-05 09:06] VITALS: BP 90/52; BMI 33.4
--- NOTE | 2022-10-05 09:10 | MHC.CR.ITR ---
[address] [phone] F: [phone] Please see additional notes from [facility] Reassessment/ITP Cardiac Rehab Reassessment/ITP Start: 04/18/22 09:01 Freq: Status: Active Protocol: Activity Type Activity Date Activity User E-sign Co-sign Detail Recorded Client Recorded Date Recorded By Document 10/05/22 09:06 CHE [id number] 10/05/22 09:10 CHE 10/05/22 09:06 Cardiac Rehab Reassessment/ITP [Exercise] -Lead Material Handler Required No -Preferred Language Korean -Total Sessions Attended 5 -Comments This is Shabbir's 150 day note. 09/07 wellness call placed. Mailbox full. unable to leave messages HX CABG (2015), ISCHEMIC CARDIOMYOPATHY, DONNIE, HTN, HDL, EXERTIONAL DYSPNEA Shabbir has not attended CR since 06/02/22. at last contact (07/06/22) stated has to have pacemaker replaced and awaiting medical clearance to return to CR [Functional Assessment] -ECG Summary 100% PACED -Home-Based Rehab Pt approved for home-based exercise -Comments WALKS DAILY FOR SHORT DISTANCES ( STATES 5 MINUTES A DAY) STATES LIMITED BY EXHERTIONAL DYSPNEA. -Fall Risk No [Exercise Plan] [Intervention] -Exercise Prescription NuStep, Recumbent Bike, Recumbent Elliptical, Rower,Treadmill ,UBE,Upright Bike,Weights -Duration Intensity 36 Sessions -Exercise Minutes/Day 30 -Exercise Days/Week 5 -Angina with Exercise No -Peak METs 4 [Home Exercise] -Mode WALKS -Frequency DAILY -Intensity LIGHT -Comments STATES CAN TOLERATE 5 MINUTES OF WALKING BEFORE EXPERIENCING EXHERTIONAL DYSPNEA ENCOURAGED TO ADD SHORT PERIODS OF WALKING EVENTAULLT EXTENDING TOLERANCE. [Exercise Education] -Exercise Education Exercise orientation, Exercise safety ,Home exercise, RPE,Self pulse checking,Signs and symptoms, Warmup/cooldown -Date Completed 05/11/22 -Initials JA -Education Summary AT INTAKE AND ONGOING DEMONSTRATES ACCURATE SELF PULSE CHECKS AWARE OF EQUIPMEWNT AND USE THIS IS 3RD TIME IN CR [Exercise Goals] -Exercise Most Days of the Week Yes -Exercise 30-45 mins/day Yes -Target HR Range +20 - +30 beats above resting -Target RPE range 11-13 -Increase METS next 30 days 0.5-1.0 METS Every two weeks -METs goal by Discharge 5 METS [Nutrition] [Hyperlipidemia] -Are lab results available Yes -Hyperlipidemia Yes -Comments 12/30/20 CHOLESTEROL- 211 TRYGLYCERIDES- 121 LDL- 153 HDL- 34 [Diabetes] -Diabetes Type 2 -Fasting Glucose 102 -Date 12/30/20 -HbA1C 6.30 -Date 12/30/20 -Comments STATES DOES NOT CHECK POC BG [Weight Management] -Weight 94 kg -BMI 33.4 -Comments GIVEN DASH DIET AND READING NUTRITIONAL LABELS HANDOUTS WEIGHT UNCHANGED [Drug/Alchohol Use] -Drug/Alcohol Use No -Comment 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 ALSO DENIES HAVING EXPERIENCED S/S OF HYPO/ HYPERGLYCEMIA [Nutrition Goals] -Goals BMI < 25, Fasting BG 80- 120 mg/dL,HDL > 40,LDL < 70, Total CHOL < 200 -Weight goal 200 [Psycho/Social] -Stage of Change Maintenance -Occupation Retired -PHQ9 Score 4 -Interpretation of Score LOW RISK FOR DEPRESSION -Plan of Action/Follow-up WILL FOLLOW -Patient Self-Reports Depression No -Comments DENIES DEPRESSION/ SI [Psycho/Social Plan] [Intervention] -Attended No consult needed [Psycho/Social Education] -Psycho/Social Education Advanced directives, Coping techniques, Depression and CAD,Positive support system, Relaxation Techniques, Reviewed PHQ9 Score w/pt, Sexuality and CAD,Signs and symptoms of CAD ,Stress management -Date Completed 05/11/22 -Initials JA -Education Summary TO MANAGE STRESS LEAVES SITUATION/ IGNORES WATCHES TV , 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 [Psycho/Social Goals] -Goals Manage/reduce stress [Other Core Comp] [Hypertension] -Hypertention Yes -Resting BP: 90/52 -Medication Changes No [Tobacco Use] -Change in Use No -Comments HAS NOT SMOKED SINCE 1994 [Heart Failure] -Heart Failure Yes -Dyspnea at Rest No -Dyspnea with Exercise Yes -Comments STATES VERY DYSPNEAIC AFTER VERY LITTLE EXERTION (ABOUT 5 MINUTES IS STATED LEVEL OF ENDURANCE) [Other Core Comp Plan] [Intervention] -Attended Not Applicable [Other Core Comp Education] -Other Core Comp Education HF Disease progression, Medication compliance,Risk factor modifications, RPD Scale/SOB management, Understanding hypertension -Date Completed 05/11/22 -Initials VIDA -Education Summary AT INTAKE AND ONGOING DENIES QUESTIONS/ CONCERNS. STATES REMAINS MED COMPLIANT AND GOOD UNDERSTANDING OF DYSPNEA SCALE [Other Core Comp Goals] -Goals Improve dyspnea ,Manage risk factors,Manage signs and symptoms of CHF ,Medication compliance, Resting BP < 130/80,Tobacco cessation,Not Applicable [Medication Plan] [Intervention] -Medications METFORMIN 500 MG DAILY @ HS COUMADIN PER PROTOCOL VALSARTAN 40 MG BID -Compliance Patient reports compliance w/ prescribed meds [Medication Education] -Education Importance of medication compliance, Medication purpose, Medication schedule, Medication side effects -Date Completed 05/11/22 -Initials VIDA -Education Summary AWARE OF MEDICATION SCHJEDULE, PURPOSES AND MONITORING PARAMETERS [Medication Goals] -Goals Adherence to medication compliance
[2022-11-06 12:46] VITALS: BP 110/58; BP 128/72; BP 90/52; BMI 33.4
--- NOTE | 2022-11-06 12:48 | MHC.CR.ITD ---
[address] [phone] F: [phone] Please see additional notes from [facility] Discharge/ITP Cardiac Rehab Discharge/ITP Start: 04/18/22 09:01 Freq: Status: Active Protocol: Activity Type Activity Date Activity User E-sign Co-sign Detail Recorded Client Recorded Date Recorded By Document 11/06/22 12:46 CHE Desktop 11/06/22 12:47 CHE 11/06/22 12:46 Cardiac Rehab Discharge/ITP [Exercise] -Tobacco Dipper Required No -Preferred Language Swiss -Total Sessions Attended 5 -Comments This is Shabbir's discharge note. He has not attended CR since 06/02/2209/07 wellness call placed. Mailbox full. unable to leave messages HX CABG (2015), ISCHEMIC CARDIOMYOPATHY, DONNIE, HTN, HDL, EXERTIONAL DYSPNEA at last contact (07/06/22) stated has to have pacemaker replaced and awaiting medical clearance to return to [facility] [Functional Assessment] -6 Min Walk (distance in ft) 600 -METS Achieved 1.87 -Resting HR 83 -Resting BP 110/58 -Resting SpO2 91 -Exercise HR 111 -Exercise BP 128/72 -RPE 15 -ECG Summary 100% PACED -Fall Risk No [Exercise Plan] [Intervention] -Exercise Prescription NuStep, Recumbent Bike, Recumbent Elliptical, Rower,Treadmill ,UBE,Upright Bike,Weights -Duration Intensity 36 Sessions -Exercise Minutes/Day 30 -Exercise Days/Week 5 -Angina with Exercise No -Peak METs 4 [Home Exercise] -Mode WALKS -Frequency DAILY -Intensity LIGHT -Comments STATES CAN TOLERATE 5 MINUTES OF WALKING BEFORE EXPERIENCING EXHERTIONAL DYSPNEA ENCOURAGED TO ADD SHORT PERIODS OF WALKING EVENTAULLT EXTENDING TOLERANCE. [Exercise Education] -Exercise Education Exercise orientation, Exercise safety ,Home exercise, RPE,Self pulse checking,Signs and symptoms, Warmup/cooldown -Date Completed 05/11/22 -Initials JA -Education Summary AT INTAKE AND ONGOING DEMONSTRATES ACCURATE SELF PULSE CHECKS AWARE OF EQUIPMEWNT AND USE THIS IS 3RD TIME IN CR [Exercise Goals] -Exercise Most Days of the Week Yes -Exercise 30-45 mins/day Yes -Target HR Range +20 - +30 beats above resting -Target RPE range 11-13 -Increase METS next 30 days 0.5-1.0 METS Every two weeks -METs goal by Discharge 5 METS [Nutrition] [Hyperlipidemia] -Are lab results available Yes -Hyperlipidemia Yes -Lipid Draw Date 12/30/20 -Total Cholesterol 211 -LDL 152 -HDL 34 -Tryglycerides 121 -Comments 12/30/20 CHOLESTEROL- 211 TRYGLYCERIDES- 121 LDL- 153 HDL- 34 [Diabetes] -Diabetes Type 2 -Fasting Glucose 102 -Date 12/30/20 -HbA1C 6.30 -Date 12/30/20 -Comments STATES DOES NOT CHECK POC BG [Weight Management] -Weight 94 kg -BMI 33.4 -Comments GIVEN DASH DIET AND READING NUTRITIONAL LABELS HANDOUTS WEIGHT UNCHANGED [Drug/Alchohol Use] -Drug/Alcohol Use No -Comment 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 ALSO DENIES HAVING EXPERIENCED S/S OF HYPO/ HYPERGLYCEMIA [Nutrition Goals] -Goals BMI < 25, Fasting BG 80- 120 mg/dL,HDL > 40,LDL < 70, Total CHOL < 200 -Weight goal 200 [Psycho/Social] -Stage of Change Maintenance -Occupation Retired -PHQ9 Score 4 -Interpretation of Score LOW RISK FOR DEPRESSION -Plan of Action/Follow-up WILL FOLLOW -Patient Self-Reports Depression No -Comments DENIES DEPRESSION/ SI [Psycho/Social Plan] [Intervention] -Attended No consult needed [Psycho/Social Education] -Psycho/Social Education Advanced directives, Coping techniques, Depression and CAD,Positive support system, Relaxation Techniques, Reviewed PHQ9 Score w/pt, Sexuality and CAD,Signs and symptoms of CAD ,Stress management -Date Completed 05/11/22 -Initials JA -Education Summary TO MANAGE STRESS LEAVES SITUATION/ IGNORES WATCHES TV , 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 [Psycho/Social Goals] -Goals Manage/reduce stress [Other Core Comp] [Hypertension] -Hypertention Yes -Resting BP: 90/52 -Medication Changes No [Tobacco Use] -Change in Use No -Comments HAS NOT SMOKED SINCE 1994 [Heart Failure] -Dyspnea at Rest No -Dyspnea with Exercise Yes -Comments STATES VERY DYSPNEAIC AFTER VERY LITTLE EXERTION (ABOUT 5 MINUTES IS STATED LEVEL OF ENDURANCE) [Other Core Comp Plan] [Intervention] -Attended Not Applicable [Other Core Comp Education] -Other Core Comp Education HF Disease progression, Medication compliance,Risk factor modifications, RPD Scale/SOB management, Understanding hypertension -Date Completed 05/11/22 -Initials JA -Education Summary AT INTAKE AND ONGOING DENIES QUESTIONS/ CONCERNS. STATES REMAINS MED COMPLIANT AND GOOD UNDERSTANDING OF DYSPNEA SCALE [Other Core Comp Goals] -Goals Improve dyspnea ,Manage risk factors,Manage signs and symptoms of CHF ,Medication compliance, Resting BP < 130/80,Tobacco cessation,Not Applicable [Medication Plan] [Intervention] -Medications METFORMIN 500 MG DAILY @ HS COUMADIN PER PROTOCOL VALSARTAN 40 MG BID -Compliance Patient reports compliance w/ prescribed meds [Medication Education] -Education Importance of medication compliance, Medication purpose, Medication schedule, Medication side effects -Date Completed 05/11/22 -Initials JA -Education Summary AWARE OF MEDICATION SCHJEDULE, PURPOSES AND MONITORING PARAMETERS [Medication Goals] -Goals Adherence to medication compliance
== END 2022-11-17 11:06 | disposition home or self-care (01) ==
LOC: HO.CR 12:46
PROVIDERS: PCP Internal Medicine; Visit Provider Internal Medicine Cardiovascular Disease
DX: I50.22 Chronic systolic (congestive) heart failure (principal); Z95.2 Presence of prosthetic heart valve
CPT/HCPCS: 93798

== ENCOUNTER → 2022-05-29 08:06 | Outpatient (BNVA) | payer MEDICARE, BC, SELFPAY ==
[2022-05-19 11:07] VITALS: BP 110/58; BP 128/72; BMI 33.4
== END ==
PROVIDERS: PCP Internal Medicine; Visit Provider Internal Medicine
DX: Z45.02 Encounter for adjustment and management of automatic implantable cardiac defibrillator (principal); I50.22 Chronic systolic (congestive) heart failure; I35.0 Nonrheumatic aortic (valve) stenosis; I25.10 Atherosclerotic heart disease of native coronary artery without angina pectoris; R09.02 Hypoxemia; Z95.2 Presence of prosthetic heart valve; Z79.01 Long term (current) use of anticoagulants; Z51.81 Encounter for therapeutic drug level monitoring
CPT/HCPCS: 85610; 99211; 99212

== ENCOUNTER → 2022-06-01 14:08 | Outpatient (BNVA) | payer MEDICARE, BC, SELFPAY ==
[2022-05-29 14:41] VITALS: BP 110/58; BP 128/72
[2022-06-01 08:43] VITALS: BP 90/52; BMI 33.4
== END ==
PROVIDERS: PCP Internal Medicine; Visit Provider Internal Medicine Pulmonary Disease
DX: J84.9 Interstitial pulmonary disease, unspecified (principal); Z99.81 Dependence on supplemental oxygen
CPT/HCPCS: 94618; 99202

== ENCOUNTER → 2022-06-23 09:22 | Outpatient (BNVA) | payer MEDICARE, BC, SELFPAY ==
[2022-06-23 09:30] VITALS: BP 110/58; BP 128/72; BP 90/52; BMI 33.4
== END ==
PROVIDERS: PCP Internal Medicine; Visit Provider Internal Medicine
DX: Z95.2 Presence of prosthetic heart valve (principal); Z51.81 Encounter for therapeutic drug level monitoring; Z79.01 Long term (current) use of anticoagulants
CPT/HCPCS: 85610; 99211

== ENCOUNTER → 2022-07-06 08:12 | Outpatient (BNVA) | payer MEDICARE, BC, SELFPAY ==
[2022-06-23 09:30] VITALS: BP 110/58; BP 128/72; BP 90/52; BMI 33.4
== END ==
PROVIDERS: PCP Internal Medicine; Visit Provider Internal Medicine
DX: Z95.2 Presence of prosthetic heart valve (principal); Z79.01 Long term (current) use of anticoagulants; Z51.81 Encounter for therapeutic drug level monitoring
CPT/HCPCS: 85610; 99211

== ENCOUNTER → 2022-07-13 08:06 | Outpatient (BNVA) | payer MEDICARE, BC, SELFPAY ==
[2022-06-23 09:30] VITALS: BP 110/58; BP 128/72; BP 90/52; BMI 33.4
== END ==
PROVIDERS: PCP Internal Medicine; Visit Provider Internal Medicine
DX: Z95.2 Presence of prosthetic heart valve (principal); Z79.01 Long term (current) use of anticoagulants; Z51.81 Encounter for therapeutic drug level monitoring
CPT/HCPCS: 85610; 99211

== ENCOUNTER → 2022-07-17 08:21 | Outpatient (BNVA) | payer MEDICARE, BC, SELFPAY ==
[2022-06-23 09:30] VITALS: BP 110/58; BP 128/72; BP 90/52; BMI 33.4
== END ==
PROVIDERS: PCP Internal Medicine; Visit Provider Internal Medicine
DX: Z95.2 Presence of prosthetic heart valve (principal); Z79.01 Long term (current) use of anticoagulants; Z51.81 Encounter for therapeutic drug level monitoring
CPT/HCPCS: 85610; 99211

== ENCOUNTER → 2022-08-14 08:03 | Outpatient (BNVA) | payer MEDICARE, BC, SELFPAY ==
[2022-06-23 09:30] VITALS: BP 110/58; BP 128/72; BP 90/52; BMI 33.4
== END ==
PROVIDERS: PCP Internal Medicine; Visit Provider Internal Medicine
DX: Z95.2 Presence of prosthetic heart valve (principal); Z79.01 Long term (current) use of anticoagulants; Z51.81 Encounter for therapeutic drug level monitoring
CPT/HCPCS: 85610; 99211

== ENCOUNTER → 2022-08-30 12:56 | Outpatient (BNVA) | payer MEDICARE, BC, SELFPAY ==
[2022-06-23 09:30] VITALS: BP 110/58; BP 128/72; BP 90/52; BMI 33.4
== END ==
PROVIDERS: PCP Internal Medicine; Visit Provider Internal Medicine Cardiovascular Disease
DX: I50.22 Chronic systolic (congestive) heart failure (principal); I25.10 Atherosclerotic heart disease of native coronary artery without angina pectoris; I35.0 Nonrheumatic aortic (valve) stenosis; Z79.01 Long term (current) use of anticoagulants; Z45.02 Encounter for adjustment and management of automatic implantable cardiac defibrillator
CPT/HCPCS: 99212

== ENCOUNTER → 2022-08-31 12:41 | Outpatient (BNVA) | payer MEDICARE, BC, SELFPAY ==
[2022-08-30 13:42] VITALS: BP 110/58; BP 128/72; BP 90/52; BMI 33.4
== END ==
PROVIDERS: PCP Internal Medicine; Visit Provider Internal Medicine Pulmonary Disease
DX: J84.9 Interstitial pulmonary disease, unspecified (principal); Z99.81 Dependence on supplemental oxygen
CPT/HCPCS: 94618; 99212

== ENCOUNTER → 2022-09-12 08:02 | Outpatient (BNVA) | payer MEDICARE, BC, SELFPAY ==
[2022-08-30 13:42] VITALS: BP 110/58; BP 128/72; BP 90/52; BMI 33.4
== END ==
PROVIDERS: PCP Internal Medicine; Visit Provider Internal Medicine
DX: Z95.2 Presence of prosthetic heart valve (principal); Z79.01 Long term (current) use of anticoagulants; Z51.81 Encounter for therapeutic drug level monitoring
CPT/HCPCS: 85610; 99211

== ENCOUNTER → 2022-10-10 08:15 | Outpatient (BNVA) | payer MEDICARE, BC, SELFPAY ==
[2022-08-30 13:42] VITALS: BP 110/58; BP 128/72; BP 90/52; BMI 33.4
== END ==
PROVIDERS: PCP Internal Medicine; Visit Provider Internal Medicine
DX: Z95.2 Presence of prosthetic heart valve (principal); Z79.01 Long term (current) use of anticoagulants; Z51.81 Encounter for therapeutic drug level monitoring
CPT/HCPCS: 85610; 99211

== ENCOUNTER 2022-11-09 08:57 | Outpatient (REF) | payer MEDICARE, BC, SELFPAY ==
[2022-08-30 13:42] VITALS: BP 110/58; BP 128/72; BP 90/52; BMI 33.4
[2022-11-09 09:41] LABS: Prothrombin Time 71.3 SEC (10.0-13.1)
[2022-11-09 09:49] LABS: INTERNATIONAL NORM RATIO 5.8 (0.9-1.1)
== END 2022-11-09 08:58 | disposition home or self-care (01) ==
LOC: HO.LAB 08:57
PROVIDERS: PCP Internal Medicine; Visit Provider Internal Medicine
DX: Z13.89 Encounter for screening for other disorder (principal)
CPT/HCPCS: 36415; 85610; 99211

== ENCOUNTER 2022-11-09 09:28 | Outpatient (REF) | payer MEDICARE, BC, SELFPAY ==
[2022-08-30 13:42] VITALS: BP 110/58; BP 128/72; BP 90/52; BMI 33.4
--- NOTE | ~2022-11-09 | CT_ITS ---
EXAMINATION: CT CHEST WITHOUT CONTRAST CLINICAL INFORMATION: Interstitial pulmonary disease. COMPARISON: 09/21/2021 and 11/07/2018. TECHNIQUE: Multidetector volumetric CT imaging of the chest was done. Axial MIP volume rendering provided. Sagittal and coronal reformatted images were obtained. 3 thin cut expiratory views performed at different levels. This CT examination was performed using dose optimization techniques as appropriate, variously including the following: *Automated exposure control *Adjustment of mA and/or kV according to patient size (this includes techniques or standardized protocols for targeted exams where dose is matched to indication/reason for exam; i.e. extremities or head) *Use of iterative reconstruction technique DLP: 206 mGy-cm FINDINGS: LUNGS: The central airways are patent. No suspicious lung nodules are identified. There is bronchial wall thickening seen bilaterally with cylindrical bronchiectasis. There is reticulation and honeycombing and within the lingula where there also appears to be some atelectatic change. There is loss of left lung volume with chronic pleural-parenchymal scarring. Peripherally in the right upper lobe medially and posteriorly, within the right lower lobe posterior medially, there are some changes of centrilobular emphysema seen bilaterally. There are scattered sub-4 mm densities present bilaterally. There is no significant progression dating back to study of 11/07/2018. There are bilateral regions of air trapping present however motion artifact limits evaluation for this. Air trapping is seen in the upper lobes bilaterally. MEDIASTINUM: The heart is enlarged. There is pericardial calcification present without pericardial effusion. There are transcutaneous and transvenous pacemaker leads present. There are aortic valve and mitral annular calcifications present. No occlusive aortic arch disease is identified. No thoracic aortic aneurysm. There are some prominent mediastinal lymph nodes measuring up to 1 cm in diameter in the right paratracheal region. I cannot rule out right hilar lymphadenopathy on this study without IV contrast. CORONARY ARTERY CALCIFICATION: Present. PLEURA: No pleural effusion is identified. There is chronic pleural-parenchymal scarring seen most prominent at the left lung base. AXILLA: No lymphadenopathy. UPPER ABDOMEN: There is cholelithiasis present without evidence of acute cholecystitis. OSSEOUS STRUCTURES: No suspicious destructive bony lesion identified. Status post median sternotomy. CT/CT chest wo IV con IMPRESSION: Stable findings of emphysematous change, bronchial wall thickening, cylindrical bronchiectasis, and interstitial fibrosis peripherally. Chronic pleural-parenchymal scarring with diminished left lung volume. The heart is enlarged with pericardial calcifications and vascular calcifications as described. Mildly prominent mediastinal lymph nodes. Cholelithiasis without evidence of acute cholecystitis. Fleischner guidelines were followed.
== END 2022-11-09 09:29 | disposition home or self-care (01) ==
LOC: HO.CT 09:28
PROVIDERS: PCP Internal Medicine; Visit Provider Internal Medicine Pulmonary Disease
DX: J84.9 Interstitial pulmonary disease, unspecified (principal); Z95.2 Presence of prosthetic heart valve; Z51.81 Encounter for therapeutic drug level monitoring; Z79.01 Long term (current) use of anticoagulants
CPT/HCPCS: 36415; 71250; 85610; 99211

== ENCOUNTER 2022-11-10 14:27 | Outpatient (REF) | payer MEDICARE, SELFPAY, BC ==
[2022-08-30 13:42] VITALS: BP 110/58; BP 128/72; BP 90/52; BMI 33.4
--- NOTE | 2022-11-10 15:00 | PFT_ITS ---
Forced vital capacity 51%, FEV1 57%, FEV1/FVC ratio is 79. BTC31-48 74% and MVV 44%. Post bronchodilator therapy, there is no significant change. Total lung capacity 45% and residual volume also 45%. Diffusion capacity 25%. CONCLUSION: This is the picture of a severe restrictive pulmonary disorder. There is no evidence of obstructive airway disorder and also no response to bronchodilator therapy. MD PRASHANT Wheat/MODL / [id number]
== END 2022-11-10 14:28 | disposition home or self-care (01) ==
LOC: HO.RESP 14:27
PROVIDERS: PCP Internal Medicine; Visit Provider Internal Medicine Pulmonary Disease
DX: J84.9 Interstitial pulmonary disease, unspecified (principal)
CPT/HCPCS: 94060; 94727; 94729

== ENCOUNTER → 2022-11-13 08:08 | Outpatient (BNVA) | payer BC, MEDICARE, SELFPAY ==
[2022-08-30 13:42] VITALS: BP 110/58; BP 128/72; BP 90/52; BMI 33.4
== END ==
PROVIDERS: PCP Internal Medicine; Visit Provider Internal Medicine
DX: Z95.2 Presence of prosthetic heart valve (principal); Z51.81 Encounter for therapeutic drug level monitoring; Z79.01 Long term (current) use of anticoagulants
CPT/HCPCS: 85610; 99211

== ENCOUNTER → 2022-11-15 08:47 | Outpatient (BNVA) | payer BC, MEDICARE, SELFPAY ==
[2022-08-30 13:42] VITALS: BP 110/58; BP 128/72; BP 90/52; BMI 33.4
== END ==
PROVIDERS: PCP Internal Medicine; Visit Provider Internal Medicine Pulmonary Disease
DX: Z13.89 Encounter for screening for other disorder (principal)

== ENCOUNTER → 2022-11-22 08:03 | Outpatient (BNVA) | payer BC, MEDICARE, SELFPAY ==
[2022-11-06 12:46] VITALS: BP 110/58; BP 128/72; BP 90/52; BMI 33.4
== END ==
PROVIDERS: PCP Internal Medicine; Visit Provider Internal Medicine
DX: Z95.2 Presence of prosthetic heart valve (principal); Z51.81 Encounter for therapeutic drug level monitoring; Z79.01 Long term (current) use of anticoagulants
CPT/HCPCS: 85610; 99211

== ENCOUNTER → 2022-11-27 08:01 | Outpatient (BNVA) | payer BC, MEDICARE, SELFPAY ==
[2022-11-06 12:46] VITALS: BP 110/58; BP 128/72; BP 90/52; BMI 33.4
== END ==
PROVIDERS: PCP Internal Medicine; Visit Provider Internal Medicine
DX: Z95.2 Presence of prosthetic heart valve (principal); Z51.81 Encounter for therapeutic drug level monitoring; Z79.01 Long term (current) use of anticoagulants
CPT/HCPCS: 85610; 99211

== ENCOUNTER → 2022-12-04 08:22 | Outpatient (BNVA) | payer BC, MEDICARE, SELFPAY ==
[2022-11-06 12:46] VITALS: BP 110/58; BP 128/72; BP 90/52; BMI 33.4
== END ==
PROVIDERS: PCP Internal Medicine; Visit Provider Internal Medicine
DX: Z95.2 Presence of prosthetic heart valve (principal); Z51.81 Encounter for therapeutic drug level monitoring; Z79.01 Long term (current) use of anticoagulants
CPT/HCPCS: 85610; 99211

== ENCOUNTER → 2022-12-18 07:59 | Outpatient (BNVA) | payer BC, MEDICARE, SELFPAY | PROVIDERS: PCP Internal Medicine; Visit Provider Internal Medicine | DX: Z95.2 Presence of prosthetic heart valve (principal); Z51.81 Encounter for therapeutic drug level monitoring; Z79.01 Long term (current) use of anticoagulants | CPT/HCPCS: 85610; 99211 ==

== ENCOUNTER → 2022-12-22 09:22 | Outpatient (REF) | payer MEDICARE, BC, SELFPAY ==
--- NOTE | 2022-12-22 09:25 | CA_ITS ---
Transthoracic Echocardiogram Patient (Last, First, Middle): Eddie Mullen F Gender: Male Date of : 1945 Age: 77 Procedure Date: 12/22/2022 Procedure Type: Transthoracic Echocardiogram Location: OP Height: 170.18 cm Weight: 89.81 kg BSA: 2.01 m2 Heart Rate: bpm BP: 122 / 60 mmHg Repairer Wood Furniture: Referring MD: Tre Nelson MD Battery Starter: Tre Nelson MD Symptoms: I35.0 - Nonrheumatic aortic (valve) stenosis Study Quality: Adequate w Contrast ECG Rhythm: Ventriculary paced rhythm Conclusions: - 1. Severe LV systolic dysfunction with LVEF of 20-25% with regional wall motion abnormality consistent with ischemic cardiomyopathy with impaired relaxation filling pattern and elevated filling pressures 2. Severely dilated left atrium 3. Severe low-flow aortic stenosis 4. Normal RV systolic pressure 5. No gross pericardial effusion Findings Left Ventricle Normal left ventricular cavity size. There is mildly increased left ventricular wall thickness. The left ventricular systolic function is severely decreased. The visually estimated ejection fraction is between 20 25%. There is evidence of regional wall motion abnormalities. Spectral Doppler is indicative of an impaired relaxation filling pattern. Elevated filling pressures. E/E prime ratio is >15, consistent with elevated filling pressures. Wall Motion Rest Echo Findings The anteroseptal wall, the apical inferior, basal anterior, and mid anterior segments are hypokinetic. The inferoseptal wall, the apex, apical anterior, basal inferior, mid inferior, and apical lateral segments are akinetic. All other scored wall segments showed normal motion. Right Ventricle Mildly increased right ventricular cavity size. There is normal right ventricular systolic function. There is an ICD wire seen in the right ventricle. Atria The left atrium is severely dilated. There is no evidence of interatrial shunt. The right atrium is mildly dilated. Aortic Valve There is moderate calcification of the aortic valve. There is moderate thickening of the aortic valve. There is severe aortic valve stenosis. The peak aortic gradient is 36 mmHg.The mean gradient is 21 mmHg. The aortic valve area is 0.74 cm2. There is no aortic valve regurgitation. Dimensionless index is 0.25 consistent with severe aortic stenosis. Findings suggestive of low-flow severe aortic stenosis Mitral Valve There is mild anterior and posterior mitral leaflet thickening. There is mild mitral annular calcification. There is no mitral valve regurgitation. There is no mitral valve stenosis. Pulmonic Valve The pulmonic valve was not well visualized. Tricuspid Valve Normal tricuspid valve structure. There is mild tricuspid valve regurgitation. The right ventricular systolic pressure is normal. The right ventricular systolic pressure is 16 mmHg. Normal right atrial pressure. There is no evidence of pulmonary hypertension. Great Vessels All visible segments of the aorta are normal in size. The pulmonary artery was not well visualized. Venous The inferior vena cava is normal in size and collapses greater than 50% with inspiration. Pericardium/Pleural There is no evidence of pericardial effusion. Prior Study Comparison Changes noted compared to prior study dated: 09/22/2021. LV ejection measured to be lower on this study Measurements 2D Linear Measurements IVSd: 1.34 0.6-0.9/0.6-1.0 cm LVIDd: 4.00 3.9-5.3/4.2-5.9 cm LVIDd Index: 1.99 2.4-3.2/2.2-3.1 cm/m2 LVIDs: 2.71 2.0-3.6 cm LVPWd: 1.38 0.7-1.1 cm Ao Root: 3.40 2.1-3.5 cm LA Diam: 4.60 2.7-3.8/3.0-4.0 cm LAIDs Index: 2.29 1.5-2.3 cm/m2 LV Mass: 249.04 67-162/88-224 g LV Mass Index: 123.90 43-95/49-115 g/m2 LVOT Diam: 2.00 3.0+(-)1.3 cm 2D Systolic Function EF 4C: 19.90 >55% EF 2C: 34.20 >55% EF BiP: 25.40 >55% Mitral Valve MV Pk E: 0.84 MV PK A: 1.11 MV Decel Time: 195.00 E/A: 0.80 E'Lateral: 5.11 E'Medial: 4.13 E/E' Med: 20.20 E/E' Lat: 16.40 PHT: 57.00 MVA PHT: 3.86 Decel Upson: 4.29 Aortic Valve AoV Pk Nam: 3.00 AoV Mn Nam: 2.12 AoV VTI: 0.74 AoV Pk Grad: 36.00 Aov Mn Grad: 21.00 PAOLO Cont.VTI: 0.74 LVOT LVOT Pk Nam: 0.64 LVOT Mn Nam: 0.42 LVOT VTI: 0.17 LVOT Pk Grad: 2.00 LVOT Mn Grad: 1.00 LVOT Diam: 2.00 LVOT Area: 3.14 Diastolic Function MV Pk E: 0.84 MV Pk A: 1.11 E/A: 0.80 E'Medial: 4.13 E/E' Med: 20.20 E' Laterial: 5.11 E/E' Lat: 16.40 Right Ventricle TAPSE (mm): 19.00 TVS' Nam: 7.00 Tricuspid Valve TR Pk Nam: 1.82 TR Pk Grad: 13.00 RA Press: 3.00 RVSP: 16.00 Great Vessels Aorta Ao Root-2D: 3.40 2.0-3.7 cm Ao Asc: 3.30 2.1-3.4 cm Pulmonary Valve PV Pk Nam: 0.72 Peak PV Grad: 2.00 Updated in Other Vendor System with Status of Final Tre Nelson MD electronically signed on 12/23/2022 12:16:10 PM with status of Final
== END ==
LOC: HO.CARD 09:22
PROVIDERS: PCP Internal Medicine; Visit Provider Internal Medicine Cardiovascular Disease
DX: I35.0 Nonrheumatic aortic (valve) stenosis (principal)
CPT/HCPCS: 93306; Q9957

== ENCOUNTER → 2023-01-01 07:59 | Outpatient (BNVA) | payer BC, MEDICARE, SELFPAY | PROVIDERS: PCP Internal Medicine; Visit Provider Internal Medicine | DX: Z95.2 Presence of prosthetic heart valve (principal); Z51.81 Encounter for therapeutic drug level monitoring; Z79.01 Long term (current) use of anticoagulants | CPT/HCPCS: 85610; 99211 ==

== ENCOUNTER → 2023-01-30 08:03 | Outpatient (BNVA) | payer MEDICARE, BC, SELFPAY | PROVIDERS: PCP Internal Medicine; Visit Provider Internal Medicine | DX: Z51.81 Encounter for therapeutic drug level monitoring (principal); Z79.01 Long term (current) use of anticoagulants; Z95.2 Presence of prosthetic heart valve | CPT/HCPCS: 85610; 99211 ==

== ENCOUNTER → 2023-02-26 08:09 | Outpatient (BNVA) | payer MEDICARE, BC, SELFPAY | PROVIDERS: PCP Internal Medicine; Visit Provider Internal Medicine | DX: Z51.81 Encounter for therapeutic drug level monitoring (principal); Z79.01 Long term (current) use of anticoagulants; Z95.2 Presence of prosthetic heart valve | CPT/HCPCS: 85610; 99211 ==

== ENCOUNTER → 2023-03-12 08:02 | Outpatient (BNVA) | payer MEDICARE, BC, SELFPAY ==
[2023-02-27 13:29] VITALS: BP 110/58; BP 128/72; BP 90/52; BMI 33.4
== END ==
PROVIDERS: PCP Internal Medicine; Visit Provider Internal Medicine
DX: Z95.2 Presence of prosthetic heart valve (principal); Z51.81 Encounter for therapeutic drug level monitoring; Z79.01 Long term (current) use of anticoagulants
CPT/HCPCS: 85610; 99211

== ENCOUNTER → 2023-04-03 23:59 | Outpatient (BNV) | payer MEDICARE, BC, SELFPAY ==
[2023-02-27 13:29] VITALS: BP 110/58; BP 128/72; BP 90/52; BMI 33.4
--- NOTE | 2023-04-11 14:49 | MHC.OFFVIS ---
Intake Intake Visit Reasons: Remote HF Monitoring- [employer] Allergies indomethacin [From INDOCIN] Allergy (Mild, Verified 03/12/23 08:08) HEADACHES [facility] Medical History (Updated 11/15/22 @ 09:29 by Mike Collins MD) Aortic stenosis Biventricular ICD (implantable cardioverter-defibrillator) in place CAD (coronary artery disease) Chronic HFrEF (heart failure with reduced ejection fraction) CKD (chronic kidney disease) Diabetes mellitus Ischemic cardiomyopathy Surgical History History of appendectomy Hx of CABG Hx of knee surgery Hx of tonsillectomy S/P CABG x 1 Family History Father Colon cancer Mother No problems noted. 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 Heart failure parameters are within normal range [id number] Cardiac Device Interrogation, cardio physiologic monitor Procedure code (CPT) selection complete Coding Level of Care Code Procedure Only Diagnoses CPT Codes Cardiac Device Check - Cardiac Device 15: [id number] Cardiac Device Interrogation, cardio physiologic monitor ([id number])
== END ==
PROVIDERS: PCP Internal Medicine; Visit Provider Internal Medicine Cardiovascular Disease
DX: I50.22 Chronic systolic (congestive) heart failure (principal); Z95.810 Presence of automatic (implantable) cardiac defibrillator
CPT/HCPCS: 93297

== ENCOUNTER → 2023-04-03 23:59 | Outpatient (BNV) | payer MEDICARE, BC, SELFPAY ==
[2023-02-27 13:29] VITALS: BP 110/58; BP 128/72; BP 90/52; BMI 33.4
--- NOTE | 2023-04-11 14:51 | A.OFFVIS_ITS ---
Intake Intake Visit Reasons: Remote ICD Check- [employer] Allergies indomethacin [From INDOCIN] Allergy (Mild, Verified 03/12/23 08:08) HEAD[facility]ES [facility] Medical History (Updated 11/15/22 @ 09:29 by Mike Collins MD) Aortic stenosis Biventricular ICD (implantable cardioverter-defibrillator) in place CAD (coronary artery disease) Chronic HFrEF (heart failure with reduced ejection fraction) CKD (chronic kidney disease) Diabetes mellitus Ischemic cardiomyopathy Surgical History History of appendectomy Hx of CABG Hx of knee surgery Hx of tonsillectomy S/P CABG x 1 Family History Father Colon cancer Mother No problems noted. 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 ICD function is adequate [id number] Cardiac Interrogation, implant defibrillator w/interim Procedure code (CPT) selection complete Coding Level of Care Code Procedure Only Diagnoses CPT Codes Cardiac Device Check - Cardiac Device 13: [id number] Cardiac Interrogation, implant defibrillator w/interim ([id number])
== END ==
PROVIDERS: PCP Internal Medicine; Visit Provider Internal Medicine Cardiovascular Disease
DX: I47.20 Ventricular tachycardia, unspecified (principal); Z95.810 Presence of automatic (implantable) cardiac defibrillator
CPT/HCPCS: 93295

== ENCOUNTER 2023-04-13 08:06 | Outpatient (AMB) | payer BC, MEDICARE, SELFPAY ==
[2023-02-27 13:29] VITALS: BP 110/58; BP 128/72; BP 90/52; BMI 33.4
[2023-04-13 08:14] LABS: ~PT, ~INR - Anti Coag Clinic 1.7 (0.9-1.1)
--- NOTE | 2023-04-13 08:16 | MHC.OFFVISCO ---
Intake Intake Visit Reasons: Anticoagulation Allergies indomethacin [From INDOCIN] Allergy (Mild, Verified 04/13/23 08:06) HEADACHES Medication List - Last Reconciled 04/13/23 by Malissa Licona RN ammonium lactate 12% 1 appl topical BID bumetanide 2 mg PO DAILY 90 days empagliflozin (Jardiance) 10 mg PO DAILY metoprolol succinate ER 12.5 mg (1/2 x 25 mg) PO BID 90 days spironolactone (Aldactone) 12.5 mg (1/2 x 25 mg) PO DAILY valsartan (Diovan) 40 mg PO BID 90 days warfarin See Protocol 2.5 mg orally Take 1 -2 tablets daily as directed by anticoagulation clinic; 90 days Nursing Note INR: 1.7 in therapeutic range - has a cold, was on vacation in [place], may have had more greens, had emergen-C ( may have lowered the INR) Medications and supplements reviewed No changes in health, diet, medications, or supplements, Denies any signs and symptoms of bleeding or bruising or clotting. Bleeding, bruising, clotting discussed Nutritional guidance given Dose: 5mg x 1 day/ 2.5mg x 6 days F/U INR: 2 weeks Patient verbalizes understanding of instructions given Anti-Coag Initial Assessment Social Hx Patient Tobacco Use Status: Former Tobacco user Tobacco use type: Cigar alcohol intake: never Coding Level of Care Code Est Patient Level 1 Diagnoses Current use of anticoagulant therapy Z79.01 Results AMB INR Fingerstick AMB INR Fingerstick 1.7 Last Edit by Malissa Licona RN on 04/13/23 08:13 interfacing issues Assessment & Plan Assessment & Plan (1) Current use of anticoagulant therapy: Code(s): Z79.01 - senior care (current) use of 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
== END 2023-04-13 08:18 | disposition home or self-care (01) ==
LOC: HO.ACS 08:06
PROVIDERS: PCP Internal Medicine; Visit Provider Internal Medicine
DX: Z79.01 Long term (current) use of anticoagulants (principal)

== ENCOUNTER → 2023-04-13 08:06 | Outpatient (BNVA) | payer MEDICARE, BC, SELFPAY ==
[2023-02-27 13:29] VITALS: BP 110/58; BP 128/72; BP 90/52; BMI 33.4
== END ==
PROVIDERS: PCP Internal Medicine; Visit Provider Internal Medicine
DX: Z51.81 Encounter for therapeutic drug level monitoring (principal); Z79.01 Long term (current) use of anticoagulants; Z95.2 Presence of prosthetic heart valve
CPT/HCPCS: 85610; 99211

== ENCOUNTER 2023-04-27 07:58 | Outpatient (AMB) | payer BC, MEDICARE, SELFPAY ==
[2023-02-27 13:29] VITALS: BP 110/58; BP 128/72; BP 90/52; BMI 33.4
[2023-04-27 08:09] LABS: Prothrombin Time Whole Bld POC 29.3 sec (11.1-13.5); ~PT, ~INR - Anti Coag Clinic 2.4 (0.9-1.1)
--- NOTE | 2023-04-27 08:16 | MHC.OFFVISCO ---
Intake Intake Visit Reasons: Anticoagulation Allergies indomethacin [From INDOCIN] Allergy (Mild, Verified 04/13/23 08:06) HEADACHES Nursing Note INR: 2.4 in therapeutic range Medications and supplements reviewed No changes in health, diet, medications, or supplements, Denies any signs and symptoms of bleeding or bruising or clotting. Bleeding, bruising, clotting discussed Nutritional guidance given Dose: 2.5MG DAILY F/U INR: 1 MONTH Patient verbalizes understanding of instructions given Anti-Coag Initial Assessment Social Hx Patient Tobacco Use Status: Former Tobacco user Tobacco use type: Cigar alcohol intake: never Coding Level of Care Code Est Patient Level 1 Diagnoses Current use of anticoagulant therapy Z79.01 Assessment & Plan Assessment & Plan (1) Current use of anticoagulant therapy: Code(s): Z79.01 - senior living (current) use of 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
== END 2023-04-27 08:20 | disposition home or self-care (01) ==
LOC: HO.ACS 07:58
PROVIDERS: PCP Internal Medicine; Visit Provider Internal Medicine
DX: Z79.01 Long term (current) use of anticoagulants (principal)

== ENCOUNTER → 2023-04-27 07:58 | Outpatient (BNVA) | payer MEDICARE, BC, SELFPAY ==
[2023-02-27 13:29] VITALS: BP 110/58; BP 128/72; BP 90/52; BMI 33.4
== END ==
PROVIDERS: PCP Internal Medicine; Visit Provider Internal Medicine
DX: Z95.2 Presence of prosthetic heart valve (principal); Z51.81 Encounter for therapeutic drug level monitoring; Z79.01 Long term (current) use of anticoagulants
CPT/HCPCS: 85610; 99211

== ENCOUNTER 2023-04-30 11:49 | Outpatient (AMB) | payer MEDICARE, BC, SELFPAY ==
[2023-02-27 13:29] VITALS: BP 110/58; BP 128/72; BP 90/52; BMI 33.4
[2023-04-30 13:14] VITALS: BP 114/60; PULSE 70; BMI 31.5
--- NOTE | 2023-04-30 13:14 | MHC.OFFVIS ---
Intake Vital Signs 04/30/23 13:14 Height 5 ft 6 in Weight 195 lb BMI 31.5 BP 114/60 Blood Pressure Location Lt brachial Position Sitting Pulse 70 Intake Visit Reasons: follow-up with pacer check Allergies indomethacin [From INDOCIN] Allergy (Mild, Verified 04/30/23 13:23) HEADACHES HPI HPI Comments History of Present Illness Details Shabbir comes for follow-up. Continues to remain symptomatic with NYHA class 3 symptoms. However denies hospitalization in the last 6 months. No orthopnea, PND, leg edema. Says that he has to go to the bathroom a lot of diuretics. No lightheadedness, syncope. No palpitations, ICD discharge. Tolerating all his medications well. [facility] Medical History (Updated 04/30/23 @ 13:36 by Tre Nelson MD) Aortic stenosis Biventricular ICD (implantable cardioverter-defibrillator) in place CAD (coronary artery disease) Chronic HFrEF (heart failure with reduced ejection fraction) CKD (chronic kidney disease) Diabetes mellitus Ischemic cardiomyopathy Surgical History History of appendectomy Hx of CABG Hx of knee surgery Hx of tonsillectomy S/P CABG x 1 Family History Father Colon cancer Mother No problems noted. Social History Alcohol intake: never Patient Tobacco Use Status: Former Tobacco user Tobacco use type: Cigar Current occupational status: retired Review of Systems ENT Reports dizziness Card Denies chest pain, Denies chest pain at rest, Denies chest pain with activity, Denies rapid heart rate, Denies pedal edema, Denies edema, Denies leg edema, Denies lightheadedness, Denies palpitations, Denies dyspnea, Denies dyspnea on exertion and Denies orthopnea Resp Denies cough, Denies dyspnea and Denies dyspnea on exertion GI Denies hematochezia and Denies change in stool character Musc Denies abnormal gait, Reports limited range of motion, Reports muscle cramps, Denies muscle weakness, Denies numbness, Denies radiating pain into limb, Denies stiffness and Denies tingling Neuro Denies abnormal gait, Reports dizziness, Denies numbness and Denies tingling Endo Denies palpitations Physical Exam Const General: cooperative, comfortable, alert and awake Nutritional Appearance: obese Orientation/consciousness: patient oriented x3 Limitations: no limitations HEENT Head: Yes normocephalic and Yes atraumatic Eyes General: appearance normal, both eyes and all related structures Neck Neck: Yes trachea midline, Yes supple and Yes no JVD Chest Chest palpation & inspection: normal inspection of the chest and other (Well-healed sternotomy scar) Resp Effort & Inspection: normal respiratory effort Auscultation: crackles (Coarse) on the right at the base, no rales, no rhonchi, no wheezes and diminished lung sounds Cardio Palpation: abnormal PMI displaced PMI Rate: regular rate Rhythm: regular rhythm Heart sounds: S1 normal heart sound present, S2 normal heart sound present, Murmur heart sound present systolic late, decrescendo, crescendo, soft and at the right sternal border and Other heart sounds present (S4) GI Auscultation: normal bowel sounds Skin General skin exam: no rashes or lesions noted and ecchymosis Neuro General: patient oriented x3 and no focal motor deficits Extrem General: Yes no clubbing, cyanosis or edema Psych Appearance: grossly normal Office Procedures Cardiac Device Check Cardiac Device Check Details: Biventricular Biotronik ICD in place. Programmed in DDDR at 70 beats per minute. One episode of nonsustained VT and atrial tachycardia noted. Bi V pacing greater than 99% of the time. Heart failure markers were elevated in February, started on Bumex therapy. Since then no hospitalization and heart failure markers have normalized. Bi V pacing thresholds adequate. Atrial ventricular sensing is adequate. Battery life is excellent [id number] Cardiac Device Check, multi lead implantable defibrillator Procedure code (CPT) selection complete EKG Details: EKG shows normal sinus rhythm with biventricular pacing [id number], Complete Assessment & Plan Assessment & Plan (1) Chronic HFrEF (heart failure with reduced ejection fraction): Code(s): I50.22 - Chronic systolic (congestive) heart failure Plan: Patient with heart failure with reduced ejection fraction with severe ischemic cardiomyopathy status post Bi V ICD. Clinically appears to be euvolemic and well compensated on current diuretic dose. Importance of diuretic regimen was discussed. Daily weight monitoring avoidance of salt loading was discussed will continue monitor for heart failure remotely are the device. He does have class 3 symptoms. Currently on neurohormonal modulation with metoprolol, valsartan, spironolactone as well as Jardiance. Cannot tolerate further up titration in meds due to low blood pressure. Has been followed by heart failure clinic at [facility]. (2) Aortic stenosis: Code(s): I35.0 - Nonrheumatic aortic (valve) stenosis Qualifiers: Cardiac valve disease etiology: nonrheumatic Qualified Code(s): I35.0 - Nonrheumatic aortic (valve) stenosis Plan: Aortic stenosis by echocardiogram the severe range. Has been evaluated by a transcatheter valve team at [facility] and felt not to be a good candidate for valve replacement or may not benefit from valve replacement. Continue to monitor clinically. Continue current diuretic regimen. Continue aggressive risk factor modification. (3) CAD (coronary artery disease): Code(s): I25.10 - Atherosclerotic heart disease of [place] coronary artery without angina pectoris Plan: CAD status post myocardial infarction and coronary artery bypass grafting. Clinically doing well with no symptoms of angina. Continue low-dose aspirin therapy for life. Continue high-intensity statin therapy with target goal LDL less than 70 mg/dL. No symptoms of angina at current point in time. (4) Biventricular ICD (implantable cardioverter-defibrillator) in place: Code(s): Z95.810 - Presence of automatic (implantable) cardiac defibrillator Plan: Bi V ICD in place, working well. Reprogrammed for adequate function. Will follow remotely. Will follow up in the clinic in 6 months time. Thank you for allowing me to partake in his care Coding Level of Care Code Est Pt Level 4 (75489) Diagnoses Chronic HFrEF (heart failure with reduced ejection fraction) I50.22 Aortic stenosis I35.0 Cardiac valve disease etiology: nonrheumatic CAD (coronary artery disease) I25.10 Biventricular ICD (implantable cardioverter-defibrillator) in place Z95.810 CPT Codes Cardiac Device Check - Cardiac Device 6: 20304-XP Cardiac Device Check, multi lead implantable defibrillator ([id number]) EKG - CPT: 73243-[id number], Complete ([id number])
== END 2023-04-30 13:38 | disposition home or self-care (01) ==
PROVIDERS: PCP Internal Medicine; Referring Provider Internal Medicine; Visit Provider Internal Medicine Cardiovascular Disease
DX: I50.22 Chronic systolic (congestive) heart failure (principal); I35.0 Nonrheumatic aortic (valve) stenosis; I25.10 Atherosclerotic heart disease of native coronary artery without angina pectoris; Z95.810 Presence of automatic (implantable) cardiac defibrillator
CPT/HCPCS: 93284; 99214

== ENCOUNTER → 2023-04-30 11:49 | Outpatient (BNVA) | payer MEDICARE, BC, SELFPAY ==
[2023-02-27 13:29] VITALS: BP 110/58; BP 128/72; BP 90/52; BMI 33.4
== END ==
PROVIDERS: PCP Internal Medicine; Referring Provider Internal Medicine; Visit Provider Internal Medicine Cardiovascular Disease
DX: I50.22 Chronic systolic (congestive) heart failure (principal); I35.0 Nonrheumatic aortic (valve) stenosis; I25.10 Atherosclerotic heart disease of native coronary artery without angina pectoris; Z45.02 Encounter for adjustment and management of automatic implantable cardiac defibrillator; Z79.82 Long term (current) use of aspirin; Z79.899 Other long term (current) drug therapy
CPT/HCPCS: 93005

== ENCOUNTER → 2023-05-08 23:59 | Outpatient (BNV) | payer MEDICARE, BC, SELFPAY ==
[2023-04-30 13:34] VITALS: BP 110/58; BP 128/72; BP 90/52; BMI 33.4
--- NOTE | 2023-05-10 11:13 | MHC.OFFVIS ---
Intake Intake Visit Reasons: remote HF monitoring- [employer] Allergies indomethacin [From INDOCIN] Allergy (Mild, Verified 04/30/23 13:23) HEADACHES [facility] Medical History (Updated 04/30/23 @ 13:36 by Tre Nelson MD) Aortic stenosis Biventricular ICD (implantable cardioverter-defibrillator) in place CAD (coronary artery disease) Chronic HFrEF (heart failure with reduced ejection fraction) CKD (chronic kidney disease) Diabetes mellitus Ischemic cardiomyopathy Surgical History History of appendectomy Hx of CABG Hx of knee surgery Hx of tonsillectomy S/P CABG x 1 Family History Father Colon cancer Mother No problems noted. Social History Alcohol intake: never Patient Tobacco Use Status: Former Tobacco user Tobacco use type: Cigar Current occupational status: retired Office Procedures Cardiac Device Check Cardiac Device Check Details: Remote heart failure report generated 05/08/2023. Heart failure parameters are stable [id number] Cardiac Device Interrogation, cardio physiologic monitor Procedure code (CPT) selection complete Coding Level of Care Code Procedure Only Diagnoses CPT Codes Cardiac Device Check - Cardiac Device 15: 86651-[id number] Cardiac Device Interrogation, cardio physiologic monitor ([id number])
== END ==
PROVIDERS: PCP Internal Medicine; Visit Provider Internal Medicine Cardiovascular Disease
DX: I50.22 Chronic systolic (congestive) heart failure (principal); Z95.810 Presence of automatic (implantable) cardiac defibrillator
CPT/HCPCS: 93297

== ENCOUNTER 2023-05-17 12:38 | Outpatient (AMB) | payer MEDICARE, BC, SELFPAY ==
[2023-04-30 13:34] VITALS: BP 110/58; BP 128/72; BP 90/52; BMI 33.4
[2023-05-17 13:07] VITALS: BP 94/57; PULSE 72; O2SAT 94; BMI 32.7
--- NOTE | 2023-05-17 13:07 | A.OFFVIS_ITS ---
Intake Vital Signs 05/17/23 13:07 Height 5 ft 6 in Weight 202 lb 13.204 oz BMI 32.7 BP 94/57 L Blood Pressure Location Lt brachial Position Sitting Pulse 72 Pulse Source Doppler Pulse Oximetry (%) 94 Oxygen Delivery Method Room Air Intake Visit Reasons: Hypoxia Allergies indomethacin [From INDOCIN] Allergy (Mild, Verified 05/17/23 13:11) HEADACHES HPI Hypoxia HPI Details 78-year-old gentleman, former 10-15 pack -year smoker, quit 55 years ago, with underlying history of an aortic stenosis, not a candidate for valve replacement, systolic congestive heart failure, participating in cardiac rehab now followed for chronic hypoxic respiratory failure and mild interstitial lung disease.? Supplemental oxygen dependent, though suboptimal compliant with it. He denies any pulmonary related concerns at this time, particularly dyspnea on exertion. [facility] Medical History (Updated 04/30/23 @ 13:36 by Tre Nelson MD) Aortic stenosis CKD (chronic kidney disease) Diabetes mellitus CAD (coronary artery disease) Biventricular ICD (implantable cardioverter-defibrillator) in place Chronic HFrEF (heart failure with reduced ejection fraction) Ischemic cardiomyopathy Surgical History S/P CABG x 1 Hx of tonsillectomy Hx of CABG History of appendectomy Hx of knee surgery Family History Father Colon cancer Mother No problems noted. Social History (Reviewed 05/17/23 @ 13:11 by Candelaria Martin REPLACED BY [facility]) Alcohol intake: never Patient Tobacco Use Status: Former Tobacco user Tobacco use type: Cigar Current occupational status: retired Review of Systems Const Denies daytime sleepiness, Denies excessive sweating, Denies fatigue, Denies fever(s), Denies lethargy, Denies malaise, Denies night sweats, Denies snoring and Denies weight loss Eyes Denies blurry vision and Denies itchy eyes ENT Denies nasal congestion, Denies post nasal drip, Denies sinus pain, Denies sinus pressure and Denies other ( Thrush) Card Denies chest pain, Denies pedal edema, Denies dyspnea, Denies orthopnea and Denies paroxysmal nocturnal dyspnea Resp Denies cough, Denies hemoptysis, Denies excessive phlegm production, Denies dyspnea, Denies snoring and Denies wheezing GI Denies abdominal pain and Denies heartburn Musc Denies myalgias, Denies arthralgias and Denies joint swelling Skin/Breast Denies rash Neuro Denies memory loss and Denies seizure-like activity Psych Denies abnormal sleep pattern, Denies anxiety and Denies memory loss Endo Denies excessive sweating, Denies fatigue and Denies heat intolerance Rudolph/Lymph Denies easy bruising Aller/Immun Denies itchy eyes, Denies seasonal rhinorrhea and Denies wheezing Physical Exam Vital Signs: Last Vital Signs Pulse 72 05/17/23 13:07 BP 94/57 L 05/17/23 13:07 Pulse Ox 94 05/17/23 13:07 Oxygen Delivery Method Room Air 05/17/23 13:07 BMI result Body Mass Index 32.7 Const General: no acute distress and alert Nutritional Appearance: obese Orientation/consciousness: Other orientation findings ( oriented) HEENT Head: Yes atraumatic Eyes General: appearance normal, both eyes and all related structures Sclerae: sclerae normal EOM: EOMs intact bilaterally Neck Neck: Yes supple Lymphatic: no lymphadenopathy noted Resp Effort & Inspection: normal respiratory effort and no use of accessory muscles Auscultation: clear to auscultation bilaterally Cardio Rate: regular rate Rhythm: regular rhythm Heart sounds: no gallops, no murmurs and no rubs Skin General skin exam: other ( warm) Extrem General: No clubbing, No cyanosis and Yes edema (1+ bilateral) Assessment & Plan Assessment & Plan (1) Supplemental oxygen dependent: Code(s): Z99.81 - Dependence on supplemental oxygen (2) ILD (interstitial lung disease): Code(s): J84.9 - Interstitial pulmonary disease, unspecified (3) Pulmonary emphysema: Code(s): J43.9 - Emphysema, unspecified Plan Combined emphysema and pulmonary fibrosis. Patient continues on supplemental oxygen, though suboptimally compliant. Patient has been encouraged chemo compliant with his supplemental oxygen. He is essentially asymptomatic at this time. Continue to monitor clinically. Coding Level of Care Code Est Pt Level 4 (15762) Diagnoses Supplemental oxygen dependent Z99.81 ILD (interstitial lung disease) J84.9 Pulmonary emphysema J43.9
== END 2023-05-17 13:26 | disposition home or self-care (01) ==
PROVIDERS: PCP Internal Medicine; Visit Provider Internal Medicine Pulmonary Disease
DX: Z99.81 Dependence on supplemental oxygen (principal); J84.9 Interstitial pulmonary disease, unspecified; J43.9 Emphysema, unspecified
CPT/HCPCS: 99214

== ENCOUNTER → 2023-05-17 12:38 | Outpatient (BNVA) | payer MEDICARE, BC, SELFPAY ==
[2023-04-30 13:34] VITALS: BP 110/58; BP 128/72; BP 90/52; BMI 33.4
== END ==
PROVIDERS: PCP Internal Medicine; Visit Provider Internal Medicine Pulmonary Disease
DX: J43.9 Emphysema, unspecified (principal); J84.9 Interstitial pulmonary disease, unspecified; Z99.81 Dependence on supplemental oxygen
CPT/HCPCS: 99212

== ENCOUNTER 2023-05-25 08:03 | Outpatient (AMB) | payer MEDICARE, BC, SELFPAY ==
[2023-04-30 13:34] VITALS: BP 110/58; BP 128/72; BP 90/52; BMI 33.4
[2023-05-25 08:15] LABS: Prothrombin Time Whole Bld POC 40.5 sec (11.1-13.5); ~PT, ~INR - Anti Coag Clinic 3.4 (0.9-1.1)
--- NOTE | 2023-05-25 08:20 | MHC.OFFVISCO ---
Intake Intake Visit Reasons: Anticoagulation Allergies indomethacin [From INDOCIN] Allergy (Mild, Verified 05/25/23 08:09) HEADACHES Medication List - Last Reconciled 05/25/23 by Jeanine Owen, RN ammonium lactate 12% 1 appl topical BID bumetanide 2 mg PO DAILY 90 days empagliflozin (Jardiance) 10 mg PO DAILY metoprolol succinate ER 12.5 mg (1/2 x 25 mg) PO BID 90 days spironolactone (Aldactone) 12.5 mg (1/2 x 25 mg) PO DAILY valsartan (Diovan) 40 mg PO BID 90 days warfarin See Protocol 2.5 mg orally Take 1 -2 tablets daily as directed by anticoagulation clinic; 90 days Nursing Note Amb to ACS feeling well Medications and supplements reviewed No changes in health, diet, medications, or supplements Denies any unusual signs and symptoms of bruising, bleeding Denies any new Chest pain, SOB, or clotting INR: 3.4 above therapeutic range, ?diet Nutritional guidance given: balance greens and reds in diet, be consistent, sts not a big green eater Dose: decrease warfarin today to 1.25mg then resume usual dosing 2.5mg daily tomorrow; F/U INR: 2 weeks Patient verbalizes understanding of instructions given with accurate read back/ teach back of dosing Anti-Coag Initial Assessment Social Hx Patient Tobacco Use Status: Former Tobacco user Tobacco use type: Cigar alcohol intake: never Coding Level of Care Code Est Patient Level 1 Diagnoses Current use of anticoagulant therapy Z79.01 Time Spent (min) 15 Assessment & Plan Assessment & Plan (1) Current use of anticoagulant therapy: Code(s): Z79.01 - penitentiary (current) use of 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
== END 2023-05-25 08:24 | disposition home or self-care (01) ==
LOC: HO.ACS 08:03
PROVIDERS: PCP Internal Medicine; Visit Provider Internal Medicine
DX: Z79.01 Long term (current) use of anticoagulants (principal)

== ENCOUNTER → 2023-05-25 08:03 | Outpatient (BNVA) | payer MEDICARE, BC, SELFPAY ==
[2023-04-30 13:34] VITALS: BP 110/58; BP 128/72; BP 90/52; BMI 33.4
== END ==
PROVIDERS: PCP Internal Medicine; Visit Provider Internal Medicine
DX: Z95.2 Presence of prosthetic heart valve (principal); Z79.01 Long term (current) use of anticoagulants; Z51.81 Encounter for therapeutic drug level monitoring
CPT/HCPCS: 85610; 99211

== ENCOUNTER 2023-06-07 08:01 | Outpatient (REF) | payer MEDICARE, BC, SELFPAY ==
[2023-04-30 13:34] VITALS: BP 110/58; BP 128/72; BP 90/52; BMI 33.4
--- NOTE | ~2023-06-07 | XR_ITS ---
EXAMINATION: XR CHEST CLINICAL INFORMATION: Abnormal chest x-ray. Shortness of breath. COMPARISON: Previous chest x-ray most recent September [address] most recent November 2022 TECHNIQUE: 2 views of the chest were obtained. FINDINGS: The cardiac silhouette is slightly enlarged but stable. Hilar and mediastinal contours are otherwise unremarkable. There are left subclavian pacemaker AICD devices that appear unchanged. There are increased interstitial markings suggestive of interstitial lung disease, greatest at the lung bases. There is bronchiectasis at the lung bases. There is scarring or chronic subsegmental atelectasis at the left lung base. There is chronic left pleural thickening that is unchanged. No pleural effusion. No pneumothorax. Median sternotomy wires. Mild degenerative changes of the spine. XR/XR chest 2V IMPRESSION: Stable chest x-ray exam. Interstitial lung disease, chronic subsegmental atelectasis or scarring at the left lung base and left pleural thickening similar to previous chest x-ray exams.
[2023-06-07 08:19] LABS: MANUAL DIFF FLAG NO
[2023-06-07 08:48] LABS: Basophils Percent Auto 0.6 % (0-2); Eosinophils Absolute Auto 0.4 X10*3/uL (0.0-0.4); Eosinophils Percent Auto 6.2 % (0-4); Hemoglobin 13.7 g/dl (14.0-18.0); Imm Gran Abs Auto 0.04 X10*3/uL (0.00-0.03); Imm Gran Pct Auto 0.6 % (0.0-0.4); Lymphocytes Absolute Auto 1.1 X10*3/uL (1.2-4.9); Lymphocytes Percent Auto 15.6 % (20-40); Mean Corpuscular HGB Conc 31.9 g/dl (31.0-36.0); Mean Corpuscular Hemoglobin 28.4 pg (27.0-33.0); Mean Corpuscular Volume 89.2 fL (80.0-98.0); Mean Platelet Volume 9.9 fL (9.4-12.4); Monocytes Absolute Auto 0.5 X10*3/uL (0.1-1.2); Monocytes Percent Auto 7.7 % (2-11); Neutrophils Absolute Auto 4.8 x10*3/uL (2.0-8.3); Neutrophils Percent Auto 69.3 % (45-73); Platelet Count 172 X10*3/uL (160-400); Red Blood Count 4.82 X10*6/uL (4.60-5.80); Red Cell Distribution Width 14.5 % (11.0-16.0); White Blood Count 6.9 X10*3/uL (4.8-10.8)
[2023-06-07 09:22] LABS: Alanine Aminotransferase 11 U/L (0-40); Albumin Level 3.8 g/dL (3.5-5.0); Alkaline Phosphatase 86 U/L (39-117); Anion Gap 13 (12-20); Aspartate Amino Transferase 19 U/L (5-37); Bilirubin Total 0.5 mg/dL (0.0-1.0); Blood Urea Nitrogen 53 mg/dL (9-16); Calcium 9.4 mg/dL (8.4-10.2); Carbon Dioxide 21 mmol/L (22-29); Chloride 106 mmol/L (96-108); Cholesterol 209 mg/dL (<200); Estimated Glomerular Filt Rate 27; Glucose Fasting 95 mg/dL (60-99); HDL Cholesterol 32 mg/dL (>40); LDL Cholesterol Calculated 155 mg/dL (<100); Potassium 4.7 mmol/L (3.3-5.1); Sodium 135 mmol/L (135-145); Total Protein 9.2 g/dL (6.5-8.0); Triglycerides 113 mg/dL (<150)
[2023-06-07 09:39] LABS: Prostate Specific Antigen Scr 0.82 ng/mL (<0.05-4.0)
[2023-06-07 09:51] LABS: Estimated Average Glucose 131 mg/dL; Hemoglobin A1c % 6.2 % (<6.0)
[2023-06-07 11:14] LABS: Creatinine Urine 190.11 mg/dL; Microalbum/Creatinine Ratio Ur 19.4 ug/mg cr (<30)
== END 2023-06-07 08:02 | disposition home or self-care (01) ==
LOC: HO.LAB 08:01
PROVIDERS: PCP Internal Medicine; Visit Provider Internal Medicine
DX: Z12.5 Encounter for screening for malignant neoplasm of prostate (principal); E11.9 Type 2 diabetes mellitus without complications; E78.00 Pure hypercholesterolemia, unspecified; I42.9 Cardiomyopathy, unspecified; N18.9 Chronic kidney disease, unspecified; R06.02 Shortness of breath
CPT/HCPCS: 36415; 71046; 80053; 80061; 82043; 82570; 83036; 84153; 85025

== ENCOUNTER 2023-06-11 08:01 | Outpatient (AMB) | payer MEDICARE, BC, SELFPAY ==
[2023-04-30 13:34] VITALS: BP 110/58; BP 128/72; BP 90/52; BMI 33.4
[2023-06-11 08:11] LABS: ~PT, ~INR - Anti Coag Clinic 2.6 (0.9-1.1)
--- NOTE | 2023-06-11 08:15 | MHC.OFFVISCO ---
Intake Intake Visit Reasons: Anticoagulation Allergies indomethacin [From INDOCIN] Allergy (Mild, Verified 05/25/23 08:09) HEADACHES Medication List - Last Reconciled 06/11/23 by Malissa Licona, RN ammonium lactate 12% 1 appl topical BID bumetanide 2 mg PO DAILY 90 days empagliflozin (Jardiance) 10 mg PO DAILY metoprolol succinate ER 12.5 mg (1/2 x 25 mg) PO BID 90 days spironolactone (Aldactone) 12.5 mg (1/2 x 25 mg) PO DAILY valsartan (Diovan) 40 mg PO BID 90 days warfarin See Protocol 2.5 mg orally Take 1 -2 tablets daily as directed by anticoagulation clinic; 90 days Nursing Note INR: 2.6 in therapeutic range Medications and supplements reviewed No changes in health, diet, medications, or supplements, Denies any signs and symptoms of bleeding or bruising or clotting. Bleeding, bruising, clotting discussed Nutritional guidance given Dose: 2.5mg daily F/U INR: 4 weeks Patient verbalizes understanding of instructions given Anti-Coag Initial Assessment Social Hx Patient Tobacco Use Status: Former Tobacco user Tobacco use type: Cigar alcohol intake: never Coding Level of Care Code Est Patient Level 1 Diagnoses Current use of anticoagulant therapy Z79.01 Assessment & Plan Assessment & Plan (1) Current use of anticoagulant therapy: Code(s): Z79.01 - halfway (current) use of 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
== END 2023-06-11 08:19 | disposition home or self-care (01) ==
LOC: HO.ACS 08:01
PROVIDERS: PCP Internal Medicine; Visit Provider Internal Medicine
DX: Z79.01 Long term (current) use of anticoagulants (principal)

== ENCOUNTER → 2023-06-11 08:01 | Outpatient (BNVA) | payer MEDICARE, BC, SELFPAY ==
[2023-04-30 13:34] VITALS: BP 110/58; BP 128/72; BP 90/52; BMI 33.4
== END ==
PROVIDERS: PCP Internal Medicine; Visit Provider Internal Medicine
DX: Z95.2 Presence of prosthetic heart valve (principal); Z51.81 Encounter for therapeutic drug level monitoring; Z79.01 Long term (current) use of anticoagulants
CPT/HCPCS: 85610; 99211

== ENCOUNTER → 2023-06-12 23:59 | Outpatient (BNV) | payer MEDICARE, BC, SELFPAY ==
[2023-04-30 13:34] VITALS: BP 110/58; BP 128/72; BP 90/52; BMI 33.4
--- NOTE | 2023-06-12 14:15 | A.OFFVIS_ITS ---
Intake Intake Visit Reasons: Remote HF Monitoring- [employer] Allergies indomethacin [From INDOCIN] Allergy (Mild, Verified 05/25/23 08:09) HEADACHES [facility] Medical History (Updated 04/30/23 @ 13:36 by Tre Nelson MD) Aortic stenosis CKD (chronic kidney disease) Diabetes mellitus CAD (coronary artery disease) Biventricular ICD (implantable cardioverter-defibrillator) in place Chronic HFrEF (heart failure with reduced ejection fraction) Ischemic cardiomyopathy Surgical History S/P CABG x 1 Hx of tonsillectomy Hx of CABG History of appendectomy Hx of knee surgery Family History Father Colon cancer Mother No problems noted. Social History Alcohol intake: never Patient Tobacco Use Status: Former Tobacco user Tobacco use type: Cigar Current occupational status: retired Office Procedures Cardiac Device Check Cardiac Device Check Details: Remote heart failure report generated 06/12/2023. Heart failure parameters are stable [id number] Cardiac Device Interrogation, cardio physiologic monitor Procedure code (CPT) selection complete Coding Level of Care Code Procedure Only CPT Codes Cardiac Device Check - Cardiac Device 15: 37364-[id number] Cardiac Device Interrogation, cardio physiologic monitor ([id number])
== END ==
PROVIDERS: PCP Internal Medicine; Visit Provider Internal Medicine Cardiovascular Disease
DX: I50.22 Chronic systolic (congestive) heart failure (principal); Z95.810 Presence of automatic (implantable) cardiac defibrillator
CPT/HCPCS: 93297

== ENCOUNTER 2023-07-09 08:03 | Outpatient (AMB) | payer MEDICARE, BC, SELFPAY ==
[2023-04-30 13:34] VITALS: BP 110/58; BP 128/72; BP 90/52; BMI 33.4
--- NOTE | 2023-07-09 08:08 | MHC.OFFVISCO ---
Intake Intake Visit Reasons: Anticoagulation Allergies indomethacin [From INDOCIN] Allergy (Mild, Verified 07/09/23 08:04) HEADACHES Medication List - Last Reconciled 07/09/23 by Niki Solano RN ammonium lactate 12% 1 appl topical BID bumetanide 2 mg PO DAILY 90 days empagliflozin (Jardiance) 10 mg PO DAILY metoprolol succinate ER 12.5 mg (1/2 x 25 mg) PO BID 90 days spironolactone (Aldactone) 12.5 mg (1/2 x 25 mg) PO DAILY valsartan (Diovan) 40 mg PO BID 90 days warfarin 2.5 - 5 mg (1 - 2 x 2.5 mg) PO DAILY Nursing Note INR: 2.9- in therapeutic range of 2-3 Medications and supplements reviewed- no changes No changes in health, diet, medications, or supplements, Denies any signs and symptoms of bleeding or bruising or clotting. Bleeding, bruising, clotting discussed Nutritional guidance given Dose: 2.5mg x 7 F/U INR: 4 weeks Patient verbalizes understanding of instructions given Anti-Coag Initial Assessment Social Hx Patient Tobacco Use Status: Former Tobacco user Tobacco use type: Cigar alcohol intake: never Coding Level of Care Code Est Patient Level 1 Diagnoses Current use of anticoagulant therapy Z79.01 Results AMB INR Fingerstick AMB INR Fingerstick 2.9 Last Edit by Niki Solano RN on 07/09/23 08:09 Assessment & Plan Assessment & Plan (1) Current use of anticoagulant therapy: Code(s): Z79.01 - termination clerk (current) use of 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
[2023-07-09 08:09] LABS: Prothrombin Time Whole Bld POC 34.4 sec (11.1-13.5); ~PT, ~INR - Anti Coag Clinic 2.9 (0.9-1.1)
== END 2023-07-09 08:13 | disposition home or self-care (01) ==
LOC: HO.ACS 08:03
PROVIDERS: PCP Internal Medicine; Visit Provider Internal Medicine
DX: Z79.01 Long term (current) use of anticoagulants (principal)

== ENCOUNTER → 2023-07-09 08:03 | Outpatient (BNVA) | payer MEDICARE, BC, SELFPAY ==
[2023-04-30 13:34] VITALS: BP 110/58; BP 128/72; BP 90/52; BMI 33.4
== END ==
PROVIDERS: PCP Internal Medicine; Visit Provider Internal Medicine
DX: Z95.2 Presence of prosthetic heart valve (principal); Z79.01 Long term (current) use of anticoagulants; Z51.81 Encounter for therapeutic drug level monitoring
CPT/HCPCS: 85610; 99211

== ENCOUNTER → 2023-07-17 23:59 | Outpatient (BNV) | payer MEDICARE, BC, SELFPAY ==
[2023-04-30 13:34] VITALS: BP 110/58; BP 128/72; BP 90/52; BMI 33.4
--- NOTE | 2023-07-18 15:47 | MHC.OFFVIS ---
Intake Intake Visit Reasons: Remote HF Monitoring- [place] Allergies indomethacin [From INDOCIN] Allergy (Mild, Verified 07/09/23 08:04) HEADACHES PFS Medical History (Updated 04/30/23 @ 13:36 by Tre Nelson MD) Aortic stenosis CKD (chronic kidney disease) Diabetes mellitus CAD (coronary artery disease) Biventricular ICD (implantable cardioverter-defibrillator) in place Chronic HFrEF (heart failure with reduced ejection fraction) Ischemic cardiomyopathy Surgical History S/P CABG x 1 Hx of tonsillectomy Hx of CABG History of appendectomy Hx of knee surgery Family History Father Colon cancer Mother No problems noted. Social History Alcohol intake: never Patient Tobacco Use Status: Former Tobacco user Tobacco use type: Cigar Current occupational status: retired Office Procedures Cardiac Device Check Cardiac Device Check Details: Remote heart failure report generated 07/17/2023. Heart failure parameters are stable [id number] Cardiac Device Interrogation, cardio physiologic monitor Procedure code (CPT) selection complete Coding Level of Care Code Procedure Only CPT Codes Cardiac Device Check - Cardiac Device 15: [id number] Cardiac Device Interrogation, cardio physiologic monitor ([id number])
== END ==
PROVIDERS: PCP Internal Medicine; Visit Provider Internal Medicine Cardiovascular Disease
DX: I50.22 Chronic systolic (congestive) heart failure (principal); Z95.810 Presence of automatic (implantable) cardiac defibrillator
CPT/HCPCS: 93297

== ENCOUNTER 2023-08-06 07:44 | Outpatient (AMB) | payer MEDICARE, BC, SELFPAY ==
[2023-04-30 13:34] VITALS: BP 110/58; BP 128/72; BP 90/52; BMI 33.4
[2023-08-06 07:48] LABS: Prothrombin Time Whole Bld POC 39.3 sec (11.1-13.5); ~PT, ~INR - Anti Coag Clinic 3.3 (0.9-1.1)
--- NOTE | 2023-08-06 07:50 | MHC.OFFVISCO ---
Intake Intake Visit Reasons: Anticoagulation Allergies indomethacin [From INDOCIN] Allergy (Mild, Verified 08/06/23 07:44) HEADACHES Medication List - Last Reconciled 08/06/23 by Malissa Licona, RN ammonium lactate 12% 1 appl topical BID bumetanide 2 mg PO DAILY 90 days empagliflozin (Jardiance) 10 mg PO DAILY metoprolol succinate ER 12.5 mg (1/2 x 25 mg) PO BID 90 days spironolactone (Aldactone) 12.5 mg (1/2 x 25 mg) PO DAILY valsartan (Diovan) 40 mg PO BID 90 days warfarin 2.5 - 5 mg See Protocol PO DAILY Nursing Note INR: 3.3 ALMOST therapeutic range Medications and supplements reviewed No changes in health, diet, medications, or supplements, Denies any signs and symptoms of bleeding or bruising or clotting. Bleeding, bruising, clotting discussed Nutritional guidance given - COOKED [place] WILL LOWER YOUR INR MORE Dose: KEEP SAME 2.5MG DAILY F/U INR: 4 WEEKS Patient verbalizes understanding of instructions given Anti-Coag Initial Assessment Social Hx Patient Tobacco Use Status: Former Tobacco user Tobacco use type: Cigar alcohol intake: never Coding Level of Care Code Est Patient Level 1
== END 2023-08-06 07:53 | disposition home or self-care (01) ==
LOC: HO.ACS 07:44
PROVIDERS: PCP Internal Medicine; Visit Provider Internal Medicine
DX: Z79.01 Long term (current) use of anticoagulants (principal)

== ENCOUNTER → 2023-08-06 07:44 | Outpatient (BNVA) | payer MEDICARE, BC, SELFPAY ==
[2023-04-30 13:34] VITALS: BP 110/58; BP 128/72; BP 90/52; BMI 33.4
== END ==
PROVIDERS: PCP Internal Medicine; Visit Provider Internal Medicine
DX: Z95.2 Presence of prosthetic heart valve (principal); Z79.01 Long term (current) use of anticoagulants; Z51.81 Encounter for therapeutic drug level monitoring
CPT/HCPCS: 85610; 99211

== ENCOUNTER → 2023-08-21 23:59 | Outpatient (BNV) | payer MEDICARE, BC, SELFPAY ==
[2023-04-30 13:34] VITALS: BP 110/58; BP 128/72; BP 90/52; BMI 33.4
--- NOTE | 2023-08-22 13:19 | A.OFFVIS_ITS ---
Intake Intake Visit Reasons: Remote ICD Check- [employer] Allergies indomethacin [From INDOCIN] Allergy (Mild, Verified 08/06/23 07:44) HEADACHES PFS Medical History (Updated 04/30/23 @ 13:36 by Tre Nelson MD) Aortic stenosis CKD (chronic kidney disease) Diabetes mellitus CAD (coronary artery disease) Biventricular ICD (implantable cardioverter-defibrillator) in place Chronic HFrEF (heart failure with reduced ejection fraction) Ischemic cardiomyopathy Surgical History S/P CABG x 1 Hx of tonsillectomy Hx of CABG History of appendectomy Hx of knee surgery Family History Father Colon cancer Mother No problems noted. Social History Alcohol intake: never Patient Tobacco Use Status: Former Tobacco user Tobacco use type: Cigar Current occupational status: retired Office Procedures Cardiac Device Check Cardiac Device Check Details: Remote ICD report generated 08/21/2023. ICD function is adequate. Bi V pacing 100% of the time [id number] Cardiac Interrogation, implant defibrillator w/interim Procedure code (CPT) selection complete Assessment & Plan Assessment & Plan (1) Biventricular ICD (implantable cardioverter-defibrillator) in place: Code(s): Z95.810 - Presence of automatic (implantable) cardiac defibrillator Plan: See above Coding Level of Care Code Procedure Only Diagnoses Biventricular ICD (implantable cardioverter-defibrillator) in place Z95.810 CPT Codes Cardiac Device Check - Cardiac Device 13: [id number] Cardiac Interrogation, implant defibrillator w/interim ([id number])
== END ==
PROVIDERS: PCP Internal Medicine; Visit Provider Internal Medicine Cardiovascular Disease
DX: I50.22 Chronic systolic (congestive) heart failure (principal); Z95.810 Presence of automatic (implantable) cardiac defibrillator
CPT/HCPCS: 93295

== ENCOUNTER → 2023-08-21 23:59 | Outpatient (BNV) | payer MEDICARE, BC, SELFPAY ==
[2023-04-30 13:34] VITALS: BP 110/58; BP 128/72; BP 90/52; BMI 33.4
--- NOTE | 2023-08-22 13:17 | A.OFFVIS_ITS ---
Intake Intake Visit Reasons: Remote HF Monitoring- [employer] Allergies indomethacin [From INDOCIN] Allergy (Mild, Verified 08/06/23 07:44) HEADACHES PFS Medical History (Updated 04/30/23 @ 13:36 by Tre Nelson MD) Aortic stenosis CKD (chronic kidney disease) Diabetes mellitus CAD (coronary artery disease) Biventricular ICD (implantable cardioverter-defibrillator) in place Chronic HFrEF (heart failure with reduced ejection fraction) Ischemic cardiomyopathy Surgical History S/P CABG x 1 Hx of tonsillectomy Hx of CABG History of appendectomy Hx of knee surgery Family History Father Colon cancer Mother No problems noted. Social History Alcohol intake: never Patient Tobacco Use Status: Former Tobacco user Tobacco use type: Cigar Current occupational status: retired Office Procedures Cardiac Device Check Cardiac Device Check Details: Remote heart failure report generated 08/21/2023. Heart failure markers elevated. Will follow-up with patient clinically [id number] Cardiac Device Interrogation, cardio physiologic monitor Procedure code (CPT) selection complete Assessment & Plan Assessment & Plan (1) Biventricular ICD (implantable cardioverter-defibrillator) in place: Code(s): Z95.810 - Presence of automatic (implantable) cardiac defibrillator Plan: See above Coding Level of Care Code Procedure Only Diagnoses Biventricular ICD (implantable cardioverter-defibrillator) in place Z95.810 CPT Codes Cardiac Device Check - Cardiac Device 15: 30437-[id number] Cardiac Device Interrogation, cardio physiologic monitor ([id number])
== END ==
PROVIDERS: PCP Internal Medicine; Visit Provider Internal Medicine Cardiovascular Disease
DX: I50.22 Chronic systolic (congestive) heart failure (principal); Z95.810 Presence of automatic (implantable) cardiac defibrillator
CPT/HCPCS: 93297

== ENCOUNTER 2023-08-23 11:46 | Outpatient (REF) | payer MEDICARE, BC, SELFPAY ==
[2023-04-30 13:34] VITALS: BP 110/58; BP 128/72; BP 90/52; BMI 33.4
[2023-08-23 13:43] LABS: Alanine Aminotransferase 8 U/L (0-40); Albumin Level 3.8 g/dL (3.5-5.0); Alkaline Phosphatase 89 U/L (39-117); Anion Gap 12 (12-20); Aspartate Amino Transferase 18 U/L (5-37); Bilirubin Total 0.4 mg/dL (0.0-1.0); Blood Urea Nitrogen 37 mg/dL (9-16); Calcium 9.3 mg/dL (8.4-10.2); Carbon Dioxide 22 mmol/L (22-29); Chloride 102 mmol/L (96-108); Estimated Glomerular Filt Rate 35; Glucose Random 88 mg/dL (60-115); Potassium 4.5 mmol/L (3.3-5.1); Sodium 131 mmol/L (135-145); Total Protein 9.3 g/dL (6.5-8.0)
[2023-08-23 13:49] LABS: Basophils Percent Auto 0.4 % (0-2); Eosinophils Absolute Auto 0.4 X10*3/uL (0.0-0.4); Eosinophils Percent Auto 5.3 % (0-4); Hematocrit 43.3 % (42.0-52.0); Hemoglobin 13.6 g/dl (14.0-18.0); Imm Gran Abs Auto 0.03 X10*3/uL (0.00-0.03); Imm Gran Pct Auto 0.4 % (0.0-0.4); Lymphocytes Absolute Auto 0.9 X10*3/uL (1.2-4.9); Lymphocytes Percent Auto 13.5 % (20-40); MANUAL DIFF FLAG NO; Mean Corpuscular HGB Conc 31.4 g/dl (31.0-36.0); Mean Corpuscular Hemoglobin 28.3 pg (27.0-33.0); Mean Platelet Volume 9.8 fL (9.4-12.4); Monocytes Absolute Auto 0.6 X10*3/uL (0.1-1.2); Monocytes Percent Auto 8.1 % (2-11); Neutrophils Absolute Auto 4.9 x10*3/uL (2.0-8.3); Neutrophils Percent Auto 72.3 % (45-73); Platelet Count 182 X10*3/uL (160-400); Red Blood Count 4.81 X10*6/uL (4.60-5.80); Red Cell Distribution Width 14.3 % (11.0-16.0); White Blood Count 6.8 X10*3/uL (4.8-10.8)
[2023-08-23 14:07] LABS: Estimated Average Glucose 126 mg/dL
== END 2023-08-23 11:47 | disposition home or self-care (01) ==
LOC: HO.10HDL 11:46
PROVIDERS: Visit Provider Internal Medicine
DX: I42.9 Cardiomyopathy, unspecified (principal); N18.9 Chronic kidney disease, unspecified; E11.9 Type 2 diabetes mellitus without complications
CPT/HCPCS: 36415; 80053; 83036; 85025

== ENCOUNTER 2023-08-30 08:04 | Outpatient (AMB) | payer MEDICARE, BC, SELFPAY ==
[2023-04-30 13:34] VITALS: BP 110/58; BP 128/72; BP 90/52; BMI 33.4
[2023-08-30 08:15] LABS: Prothrombin Time Whole Bld POC 47.2 sec (11.1-13.5); ~PT, ~INR - Anti Coag Clinic 3.9 (0.9-1.1)
--- NOTE | 2023-08-30 08:20 | MHC.OFFVISCO ---
Intake Intake Visit Reasons: Anticoagulation Allergies indomethacin [From INDOCIN] Allergy (Mild, Verified 08/30/23 08:10) HEADACHES Medication List - Last Reconciled 08/30/23 by Jeanine Owen RN ammonium lactate 12% 1 appl topical BID bumetanide 2 mg PO DAILY 90 days bumetanide 1 mg PO DAILY PRN empagliflozin (Jardiance) 10 mg PO DAILY metoprolol succinate ER 12.5 mg (1/2 x 25 mg) PO BID 90 days spironolactone (Aldactone) 12.5 mg (1/2 x 25 mg) PO DAILY valsartan (Diovan) 40 mg PO BID 90 days warfarin 2.5 - 5 mg See Protocol PO DAILY Nursing Note Amb to ACS feeling ok, noted MARY Medications and supplements reviewed No changes in health, diet, medications, or supplements Denies any unusual signs and symptoms of bruising, bleeding Denies any new Chest pain, SOB, or clotting INR: 3.9 above therapeutic range and has been trending over range or top of range, not a green eater per pt Nutritional guidance given: try to balance greens and reds in diet Dose: hold warfarin today then decrease weekly next week to 2.5mg x 6 days (vs 7days) and 1.25mg on Wednesdays; F/U INR: 2 weeks Patient verbalizes understanding of instructions given with accurate read back/ teach back of dosing Anti-Coag Initial Assessment Social Hx Patient Tobacco Use Status: Former Tobacco user Tobacco use type: Cigar alcohol intake: never Questionnaires HAS-BLED Does the patient had uncontrolled Hypertension?: No Does the patient have renal disease?: No Does the patient have liver disease?: No Does the patient have a history of stroke?: No Has the patient had major bleeding or predisposition to bleeding?: No Does the patient have labile INRs?: Yes Is the patient over 65 years of age?: Yes Is the patient on medications that gives them a predisposition to bleeding?: Yes Does the patient use alcohol?: No HAS-BLED Score: 3 CHADSVASC Age: 75 or over Gender: Male Does the patient have a history of CHF?: Yes Does the patient have a history of Hypertension?: Yes Does the patient have a history of Stroke/TIA/Thromboembolism?: Yes Does the patient have a history of Vascular Disease (prior MT, PAD or aortic plaque)?: Yes Does the patient have a history of Diabetes?: Yes CHADS VACS Score: 8 Valerie Prediction Score Rsk VTE Active Cancer: No Previous VTE, excluding superficial vein thrombosis: Yes Reduced mobility: No Already known Thrombophilic Condition: Yes With-in last month Trauma and/or Surgery: No Elderly 70 year or older: Yes Heart and/or Respiratory Failure: Yes Acute Myocardial infarction and/or Ischemic Stroke: Yes Acute Infection and/or Rheumatologic Disorder: No Obesity (BMI 30 or greater): No Ongoing Hormonal Treatment: No Score: 9 Valerie Score less than 4; Low Risk of VTE Valerie Score 4 or greater; High Risk of VTE Coding Level of Care Code Est Patient Level 1 Diagnoses Current use of anticoagulant therapy Z79.01 Time Spent (min) 15 Assessment & Plan Assessment & Plan (1) Current use of anticoagulant therapy: Code(s): 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
== END 2023-08-30 11:02 | disposition home or self-care (01) ==
LOC: HO.ACS 08:04
PROVIDERS: PCP Internal Medicine; Visit Provider Internal Medicine
DX: Z79.01 Long term (current) use of anticoagulants (principal)

== ENCOUNTER → 2023-08-30 08:04 | Outpatient (BNVA) | payer MEDICARE, BC, SELFPAY ==
[2023-04-30 13:34] VITALS: BP 110/58; BP 128/72; BP 90/52; BMI 33.4
== END ==
PROVIDERS: PCP Internal Medicine; Visit Provider Internal Medicine
DX: Z95.2 Presence of prosthetic heart valve (principal); Z51.81 Encounter for therapeutic drug level monitoring; Z79.01 Long term (current) use of anticoagulants
CPT/HCPCS: 85610; 99211

== ENCOUNTER 2023-09-12 08:04 | Outpatient (AMB) | payer MEDICARE, BC, SELFPAY ==
[2023-04-30 13:34] VITALS: BP 110/58; BP 128/72; BP 90/52; BMI 33.4
[2023-09-12 08:14] LABS: Prothrombin Time Whole Bld POC 20.5 sec (11.1-13.5); ~PT, ~INR - Anti Coag Clinic 1.7 (0.9-1.1)
--- NOTE | 2023-09-12 08:20 | MHC.OFFVISCO ---
Intake Intake Visit Reasons: Anticoagulation Allergies indomethacin [From INDOCIN] Allergy (Mild, Verified 09/12/23 08:09) HEADACHES Medication List - Last Reconciled 09/12/23 by Evy Resendiz, RN ammonium lactate 12% 1 appl topical BID bumetanide 2 mg PO DAILY 90 days bumetanide 1 mg PO DAILY PRN empagliflozin (Jardiance) 10 mg PO DAILY metoprolol succinate ER 12.5 mg (1/2 x 25 mg) PO BID 90 days spironolactone (Aldactone) 12.5 mg (1/2 x 25 mg) PO DAILY valsartan 40 mg PO BID warfarin 2.5 - 5 mg See Protocol PO DAILY Nursing Note NO MISSED DOSES,CP,SOB,DIET CHANGES OR SX OF BLEEDING. PT.STATES THAT BUMEX IS INCREASED TO 3MGM DAILY RECENTLY. BOOSTER DOSE TODAY HEN RESUME PREV.DOSE OF 2.5MGM DAILY AND FOLLOW-UP IN 2 WEEKS. NO GREESN 2 DAYS GOOD UNDERSTANDING OF DOSING INSTR,.VERB. 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
== END 2023-09-12 08:22 | disposition home or self-care (01) ==
LOC: HO.ACS 08:04
PROVIDERS: PCP Internal Medicine; Visit Provider Internal Medicine
DX: Z79.01 Long term (current) use of anticoagulants (principal)

== ENCOUNTER → 2023-09-12 08:04 | Outpatient (BNVA) | payer MEDICARE, BC, SELFPAY ==
[2023-04-30 13:34] VITALS: BP 110/58; BP 128/72; BP 90/52; BMI 33.4
== END ==
PROVIDERS: PCP Internal Medicine; Visit Provider Internal Medicine
DX: Z95.2 Presence of prosthetic heart valve (principal); Z51.81 Encounter for therapeutic drug level monitoring; Z79.01 Long term (current) use of anticoagulants
CPT/HCPCS: 85610; 99211

== ENCOUNTER → 2023-09-25 23:59 | Outpatient (BNV) | payer MEDICARE, BC, SELFPAY ==
[2023-04-30 13:34] VITALS: BP 110/58; BP 128/72; BP 90/52; BMI 33.4
--- NOTE | 2023-09-26 13:02 | A.OFFVIS_ITS ---
Intake Intake Visit Reasons: Remote HF Monitoring- [facility] Allergies indomethacin [From INDOCIN] Allergy (Mild, Verified 09/12/23 08:09) HEADACHES PFS Medical History (Updated 04/30/23 @ 13:36 by Tre Nelson MD) Aortic stenosis CKD (chronic kidney disease) Diabetes mellitus CAD (coronary artery disease) Biventricular ICD (implantable cardioverter-defibrillator) in place Chronic HFrEF (heart failure with reduced ejection fraction) Ischemic cardiomyopathy Surgical History S/P CABG x 1 Hx of tonsillectomy Hx of CABG History of appendectomy Hx of knee surgery Family History Father Colon cancer Mother No problems noted. Social History Alcohol intake: never Patient Tobacco Use Status: Former Tobacco user Tobacco use type: Cigar Current occupational status: retired Office Procedures Cardiac Device Check Cardiac Device Check Details: Remote heart failure report generated 09/25/2023. Heart failure parameters are normal [id number] Cardiac Device Interrogation, cardio physiologic monitor Procedure code (CPT) selection complete Assessment & Plan Assessment & Plan (1) Biventricular ICD (implantable cardioverter-defibrillator) in place: Code(s): Z95.810 - Presence of automatic (implantable) cardiac defibrillator Plan: See above Coding Level of Care Code Procedure Only Diagnoses Biventricular ICD (implantable cardioverter-defibrillator) in place Z95.810 CPT Codes Cardiac Device Check - Cardiac Device 15: [id number] Cardiac Device Interrogation, cardio physiologic monitor ([id number])
== END ==
PROVIDERS: PCP Internal Medicine; Visit Provider Internal Medicine Cardiovascular Disease
DX: I50.22 Chronic systolic (congestive) heart failure (principal); Z95.810 Presence of automatic (implantable) cardiac defibrillator
CPT/HCPCS: 93297

== ENCOUNTER 2023-10-01 07:59 | Outpatient (AMB) | payer MEDICARE, BC, SELFPAY ==
[2023-04-30 13:34] VITALS: BP 110/58; BP 128/72; BP 90/52; BMI 33.4
[2023-10-01 08:09] LABS: Prothrombin Time Whole Bld POC 46.3 sec (11.1-13.5); ~PT, ~INR - Anti Coag Clinic 3.9 (0.9-1.1)
--- NOTE | 2023-10-01 08:18 | MHC.OFFVISCO ---
Intake Intake Visit Reasons: Anticoagulation Allergies indomethacin [From INDOCIN] Allergy (Mild, Verified 10/01/23 08:02) HEADACHES Medication List - Last Reconciled 10/01/23 by Jeanine Owen, RN ammonium lactate 12% 1 appl topical BID bumetanide 2 mg PO DAILY 90 days bumetanide 1 mg PO DAILY PRN empagliflozin (Jardiance) 10 mg PO DAILY metoprolol succinate ER 12.5 mg (1/2 x 25 mg) PO BID 90 days spironolactone (Aldactone) 12.5 mg (1/2 x 25 mg) PO DAILY valsartan 40 mg PO BID warfarin 2.5 - 5 mg See Protocol PO DAILY Nursing Note Amb to ACS feeling well Medications and supplements reviewed No changes in health, diet, medications, or supplements Denies any unusual signs and symptoms of bruising, bleeding Denies any new Chest pain, SOB, or clotting INR: 3.9 above therapeutic range Nutritional guidance given: greens today, increase weekly greens, no reds today then balance greens and reds in diet Dose: decrease dose today to 1.25mg then resume usual dosing; 2.5mg daily (last visit INR low, had been trending top of range and over visit 08/30 dosing decrease after a hold and then below range results) F/U INR: 2 weeks Patient verbalizes understanding of instructions given with accurate read back/ teach back of dosing Anti-Coag Initial Assessment Social Hx Patient Tobacco Use Status: Former Tobacco user Tobacco use type: Cigar alcohol intake: never Coding Level of Care Code Est Patient Level 1 Diagnoses Current use of anticoagulant therapy Z79.01 Time Spent (min) 15 Assessment & Plan Assessment & Plan (1) Current use of anticoagulant therapy: Code(s): 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
== END 2023-10-01 08:31 | disposition home or self-care (01) ==
LOC: HO.ACS 07:59
PROVIDERS: PCP Internal Medicine; Visit Provider Internal Medicine
DX: Z79.01 Long term (current) use of anticoagulants (principal)

== ENCOUNTER → 2023-10-01 07:59 | Outpatient (BNVA) | payer MEDICARE, BC, SELFPAY ==
[2023-04-30 13:34] VITALS: BP 110/58; BP 128/72; BP 90/52; BMI 33.4
== END ==
PROVIDERS: PCP Internal Medicine; Visit Provider Internal Medicine
DX: Z95.2 Presence of prosthetic heart valve (principal); Z79.01 Long term (current) use of anticoagulants; Z51.81 Encounter for therapeutic drug level monitoring
CPT/HCPCS: 85610; 99211

== ENCOUNTER 2023-10-09 07:01 | Outpatient (REF) | payer MEDICARE, BC, SELFPAY ==
[2023-04-30 13:34] VITALS: BP 110/58; BP 128/72; BP 90/52; BMI 33.4
--- NOTE | ~2023-10-09 | CT_ITS ---
EXAMINATION: CT CHEST WITHOUT CONTRAST CLINICAL INFORMATION: Residual pulmonary disease COMPARISON: 11/09/2022 TECHNIQUE: Multidetector volumetric CT imaging of the chest was done. Axial MIP volume rendering provided. Sagittal and coronal reformatted images were obtained. This CT examination was performed using dose optimization techniques as appropriate, variously including the following: *Automated exposure control *Adjustment of mA and/or kV according to patient size (this includes techniques or standardized protocols for targeted exams where dose is matched to indication/reason for exam; i.e. extremities or head) *Use of iterative reconstruction technique DLP: 230 mGy-cm FINDINGS: RUBBER AND POUNDER: There are increased interstitial markings linear scarring in the left lower lobe. Patient is status post median sternotomy and there is pacemaker with leads over the right atrium and ventricle. LUNGS: There is no interval change in an appearance of mild bronchial wall thickening and bronchiectasis in the lower lobes, as well stable reticulation and honeycombing in lingula, right upper lobe and loss of volume of the left lung with pleural base scarring. There are no lung nodules or consolidations. No evidence of groundglass opacities. Ill-defined densities are consistent with the appearance of atelectasis in the dependent portion of both lungs. Central airways are patent. MEDIASTINUM: There is mild mediastinal lymphadenopathy with pretracheal lymph nodes measured 0.9 x 1.0 cm, 1.3 x 0.9 cm aortopulmonary window lymph node measured 0.8 cm There is no hilar lymphadenopathy. CORONARY ARTERY CALCIFIC There is mild cardiomegaly. There is no no pericardial effusion but calcifications seen in the pericardium. There are calcifications in the mitral and aortic valves. Coronary artery calcifications present. PLEURA: There is no pleural effusion. No pleural mass or thickening. AXILLA: No lymphadenopathy. There is mild bilateral gynecomastia. UPPER ABDOMEN: There is choledocholithiasis and small hiatal hernia. OSSEOUS STRUCTURES: Patient is status post median sternotomy. No lytic or blastic lesions seen. CT/CT chest wo IV con IMPRESSION: Unremarkable examination. Fleischner guidelines were followed.
== END 2023-10-09 07:02 | disposition home or self-care (01) ==
LOC: HO.CT 07:01
PROVIDERS: PCP Internal Medicine; Visit Provider Internal Medicine Pulmonary Disease
DX: J84.9 Interstitial pulmonary disease, unspecified (principal)
CPT/HCPCS: 71250

== ENCOUNTER 2023-10-15 08:00 | Outpatient (AMB) | payer MEDICARE, BC, SELFPAY ==
[2023-04-30 13:34] VITALS: BP 110/58; BP 128/72; BP 90/52; BMI 33.4
[2023-10-15 08:08] LABS: ~PT, ~INR - Anti Coag Clinic 2.1 (0.9-1.1)
--- NOTE | 2023-10-15 08:10 | MHC.OFFVISCO ---
Intake Intake Visit Reasons: Anticoagulation Allergies indomethacin [From INDOCIN] Allergy (Mild, Verified 10/01/23 08:02) HEADACHES Medication List - Last Reconciled 10/15/23 by Malissa Licona, RN ammonium lactate 12% 1 appl topical BID bumetanide 2 mg PO DAILY 90 days bumetanide 1 mg PO DAILY PRN empagliflozin (Jardiance) 10 mg PO DAILY metoprolol succinate ER 12.5 mg (1/2 x 25 mg) PO BID 90 days spironolactone (Aldactone) 12.5 mg (1/2 x 25 mg) PO DAILY valsartan 40 mg PO BID warfarin 2.5 - 5 mg See Protocol PO DAILY Nursing Note INR: 2.1 in therapeutic range Medications and supplements reviewed No changes in health, diet, medications, or supplements, Denies any signs and symptoms of bleeding or bruising or clotting. 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
== END 2023-10-15 08:13 | disposition home or self-care (01) ==
LOC: HO.ACS 08:00
PROVIDERS: PCP Internal Medicine; Visit Provider Internal Medicine
DX: Z79.01 Long term (current) use of anticoagulants (principal)

== ENCOUNTER → 2023-10-15 08:00 | Outpatient (BNVA) | payer MEDICARE, BC, SELFPAY ==
[2023-04-30 13:34] VITALS: BP 110/58; BP 128/72; BP 90/52; BMI 33.4
== END ==
PROVIDERS: PCP Internal Medicine; Visit Provider Internal Medicine
DX: Z95.2 Presence of prosthetic heart valve (principal); Z51.81 Encounter for therapeutic drug level monitoring; Z79.01 Long term (current) use of anticoagulants
CPT/HCPCS: 85610; 99211

== ENCOUNTER 2023-10-30 12:37 | Outpatient (AMB) | payer MEDICARE, BC, SELFPAY ==
[2023-04-30 13:34] VITALS: BP 110/58; BP 128/72; BP 90/52; BMI 33.4
--- NOTE | 2023-10-30 13:17 | MHC.OFFVIS ---
Intake Vital Signs 10/30/23 13:18 Height 5 ft 6 in Weight 202 lb 13.204 oz BMI 32.7 BP 85/60 L Blood Pressure Location Lt brachial Position Sitting Pulse 72 Intake Visit Reasons: 6 mth f/up [facility] Intake Note: 6 month follow-up after [employer] c/o sob Research Methods Instructor Required: No Allergies indomethacin [From INDOCIN] Allergy (Mild, Verified 10/01/23 08:02) HEADACHES Medication List - Last Reconciled 10/30/23 by Tre Nelson MD ammonium lactate 12% 1 appl topical BID bumetanide 2 mg PO DAILY 90 days bumetanide 1 mg PO DAILY PRN empagliflozin (Jardiance) 10 mg PO DAILY metoprolol succinate ER 12.5 mg (1/2 x 25 mg) PO BID 90 days spironolactone (Aldactone) 12.5 mg (1/2 x 25 mg) PO DAILY valsartan 40 mg PO BID warfarin 2.5 - 5 mg See Protocol PO DAILY HPI HPI Comments History of Present Illness Details Shabbir comes for follow-up. He is significantly limited exercise activity and has significant exertional shortness of breath. He has been diagnosed with interstitial lung disease and been advised oxygen therapy but he says he has not using it as it does not help him. He denies any orthopnea, PND, leg edema. Denies any lightheadedness, syncope. He has been taking all his medications. No bleeding issues or neurologic events. Comes for ICD check. [facility] Medical History Aortic stenosis CKD (chronic kidney disease) Diabetes mellitus CAD (coronary artery disease) Biventricular ICD (implantable cardioverter-defibrillator) in place Chronic HFrEF (heart failure with reduced ejection fraction) Ischemic cardiomyopathy Surgical History S/P CABG x 1 Hx of tonsillectomy Hx of CABG History of appendectomy Hx of knee surgery Family History Father Colon cancer Mother No problems noted. Social History Alcohol intake: never Patient Tobacco Use Status: Former Tobacco user Tobacco use type: Cigar Current occupational status: retired Review of Systems Const Denies chills, Denies fatigue, Denies fever(s), Denies frequent falls, Denies weakness, Denies weight gain and Denies weight loss ENT Denies dizziness Card Denies chest pain, Denies leg edema, Denies lightheadedness, Denies palpitations, Denies dyspnea, Denies dyspnea on exertion, Denies orthopnea and Denies other (loss of consciousness) Resp Denies cough, Denies dyspnea and Denies dyspnea on exertion GI Denies hematochezia and Denies change in stool character Musc Denies abnormal gait, Denies muscle weakness, Denies numbness, Denies radiating pain into limb and Denies tingling Neuro Denies abnormal gait, Denies dizziness, Denies frequent falls, Denies numbness, Denies tingling and Denies weakness Endo Denies fatigue and Denies palpitations Physical Exam Vital Signs: Last Vital Signs Pulse 72 10/30/23 13:18 BP 85/60 L 10/30/23 13:18 BMI result Body Mass Index 32.7 Const General: cooperative, comfortable, alert and awake Nutritional Appearance: obese Orientation/consciousness: patient oriented x3 Limitations: no limitations HEENT Head: Yes normocephalic and Yes atraumatic Eyes General: appearance normal, both eyes and all related structures Neck Neck: Yes trachea midline, Yes supple and Yes no JVD Chest Chest palpation & inspection: normal inspection of the chest and other (Well-healed sternotomy scar) Resp Effort & Inspection: normal respiratory effort Auscultation: crackles (Coarse) on the right at the base, no rales, no rhonchi, no wheezes and diminished lung sounds Cardio Palpation: abnormal PMI displaced PMI Rate: regular rate Rhythm: regular rhythm Heart sounds: S1 normal heart sound present, S2 normal heart sound present, Murmur heart sound present systolic late, decrescendo, crescendo, soft and at the right sternal border and Other heart sounds present (S4) GI Auscultation: normal bowel sounds Skin General skin exam: no rashes or lesions noted and ecchymosis Neuro General: patient oriented x3 and no focal motor deficits Extrem General: Yes no clubbing, cyanosis or edema Psych Appearance: grossly normal Office Procedures Cardiac Device Check Cardiac Device Check Details: Biventricular [employer] ICD in place. Programmed in DDDR at 60 beats per minute. Bi V pacing 100% of the time. Battery life is excellent at 70 years. Right atrial pacing thresholds are stable. RV pacing thresholds excellent. LV pacing thresholds, due to epicardial leads elevated expected. Pacing lead impedance and shock lead impedance is stable. Atrial sensing is excellent. Few episodes of atrial tachycardia noted. [id number] Cardiac Device Check, multi lead implantable defibrillator Procedure code (CPT) selection complete Assessment & Plan Assessment & Plan (1) Chronic HFrEF (heart failure with reduced ejection fraction): Code(s): I50.22 - Chronic systolic (congestive) heart failure Plan: Heart failure with reduced ejection fraction with significant LV systolic dysfunction secondary ischemic cardiomyopathy with marked limitation to exercise activity with multiple comorbidities including advanced age, frailty and deconditioning, chronic respiratory failure related to pulmonary parenchymal disease, chronic kidney disease, aortic stenosis. Patient is clinically appearing euvolemic and well compensated. Noted low blood pressure which is suggestive of low stroke volume. Advised to stop spironolactone therapy. Patient is not currently seeing heart failure specialist in [place] as he says it does not help. Continue other neurohormonal modulation. Daily weight monitoring avoidance of salt loading was discussed. He has been felt not to be a good candidate for transcatheter aortic valve replacement by the valve team in [place]. (2) Biventricular ICD (implantable cardioverter-defibrillator) in place: Code(s): Z95.810 - Presence of automatic (implantable) cardiac defibrillator Plan: Bi V ICD in place, working well. Reprogrammed of adequate function. Follow remotely for heart failure as well as device monitoring. Follow up in the clinic in 6 months time. (3) Aortic stenosis: Code(s): I35.0 - Nonrheumatic aortic (valve) stenosis Qualifiers: Cardiac valve disease etiology: nonrheumatic Qualified Code(s): I35.0 - Nonrheumatic aortic (valve) stenosis Plan: Aortic stenosis which appears to be severe although felt that he has poor contractile reserve and not a candidate for transcatheter aortic valve replacement. Continue to monitor clinically. Poor prognosis was discussed with him. (4) CAD (coronary artery disease): Code(s): I25.10 - Atherosclerotic heart disease of koi coronary artery without angina pectoris Plan: CAD status post single-vessel coronary bypass grafting with infarcted myocardial segment. No recurrent symptoms of angina. Currently on warfarin therapy. Not on statin therapy by patient's choice. Will follow up in the clinic in 6 months time, sooner p.r.n.. Thank you for allowing me to partake in his care Coding Level of Care Code Est Pt Level 4 (00948) Diagnoses Chronic HFrEF (heart failure with reduced ejection fraction) I50.22 Biventricular ICD (implantable cardioverter-defibrillator) in place Z95.810 Nonrheumatic aortic valve stenosis I35.0 Cardiac valve disease etiology: nonrheumatic CAD (coronary artery disease) I25.10 CPT Codes Cardiac Device Check - Cardiac Device 6: [id number] Cardiac Device Check, multi lead implantable defibrillator ([id number])
[2023-10-30 13:18] VITALS: BP 85/60; PULSE 72; BMI 32.7
== END 2023-10-30 13:49 | disposition home or self-care (01) ==
PROVIDERS: PCP Internal Medicine; Visit Provider Internal Medicine Cardiovascular Disease
DX: I50.22 Chronic systolic (congestive) heart failure (principal); Z95.810 Presence of automatic (implantable) cardiac defibrillator; I35.0 Nonrheumatic aortic (valve) stenosis; I25.10 Atherosclerotic heart disease of native coronary artery without angina pectoris
CPT/HCPCS: 93284; 99214

== ENCOUNTER → 2023-10-30 12:37 | Outpatient (BNVA) | payer BC, MEDICARE, SELFPAY ==
[2023-04-30 13:34] VITALS: BP 110/58; BP 128/72; BP 90/52; BMI 33.4
== END ==
PROVIDERS: PCP Internal Medicine; Visit Provider Internal Medicine Cardiovascular Disease

== ENCOUNTER 2023-11-05 07:59 | Outpatient (AMB) | payer BC, MEDICARE, SELFPAY ==
[2023-10-30 13:42] VITALS: BP 110/58; BP 128/72; BP 90/52; BMI 33.4
[2023-11-05 08:08] LABS: Prothrombin Time Whole Bld POC 30.4 sec (11.1-13.5); ~PT, ~INR - Anti Coag Clinic 2.5 (0.9-1.1)
--- NOTE | 2023-11-05 08:11 | MHC.OFFVISCO ---
Intake Intake Visit Reasons: Anticoagulation Allergies indomethacin [From INDOCIN] Allergy (Mild, Verified 11/05/23 08:01) HEADACHES Medication List - Last Reconciled 11/05/23 by Malissa Licona, RN ammonium lactate 12% 1 appl topical BID bumetanide 2 mg PO DAILY 90 days bumetanide 1 mg PO DAILY PRN empagliflozin (Jardiance) 10 mg PO DAILY metoprolol succinate ER 12.5 mg (1/2 x 25 mg) PO BID 90 days valsartan 40 mg PO BID warfarin 2.5 - 5 mg See Protocol PO DAILY Nursing Note INR: 2.5 in therapeutic range Medications and supplements reviewed No changes in health, diet, medications, or supplements, Denies any signs and symptoms of bleeding or bruising or clotting. Bleeding, bruising, clotting discussed Nutritional guidance given Dose: 2.5MG DAILY F/U INR: 3 WEEKS Patient verbalizes understanding of instructions given Anti-Coag Initial Assessment Social Hx Patient Tobacco Use Status: Former Tobacco user Tobacco use type: Cigar alcohol intake: never Coding Level of Care Code Est Patient Level 1 Diagnoses Current use of anticoagulant therapy Z79.01 Assessment & Plan Assessment & Plan (1) Current use of anticoagulant therapy: Code(s): Z79.01 - retirement (current) use of 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
== END 2023-11-05 08:13 | disposition home or self-care (01) ==
LOC: HO.ACS 07:59
PROVIDERS: PCP Internal Medicine; Visit Provider Internal Medicine
DX: Z79.01 Long term (current) use of anticoagulants (principal)

== ENCOUNTER → 2023-11-05 07:59 | Outpatient (BNVA) | payer MEDICARE, BC, SELFPAY ==
[2023-10-30 13:42] VITALS: BP 110/58; BP 128/72; BP 90/52; BMI 33.4
== END ==
PROVIDERS: PCP Internal Medicine; Visit Provider Internal Medicine
DX: Z95.2 Presence of prosthetic heart valve (principal); Z51.81 Encounter for therapeutic drug level monitoring; Z79.01 Long term (current) use of anticoagulants
CPT/HCPCS: 85610; 99211

== ENCOUNTER 2023-11-22 10:07 | Outpatient (REF) | payer MEDICARE, BC, SELFPAY ==
[2023-10-30 13:42] VITALS: BP 110/58; BP 128/72; BP 90/52; BMI 33.4
[2023-11-22 11:21] LABS: Estimated Average Glucose 128 mg/dL; Hemoglobin A1C 149.8099 umol/L; Hemoglobin A1c % 6.1 % (<6.0); Total Hemoglobin (HGBA1C) 3445.1139 umol/L
[2023-11-22 11:39] LABS: Anion Gap 13 (12-20); Blood Urea Nitrogen 36 mg/dL (9-16); Calcium 9.1 mg/dL (8.4-10.2); Carbon Dioxide 25 mmol/L (22-29); Chloride 102 mmol/L (96-108); Estimated Glomerular Filt Rate 28; Glucose Random 108 mg/dL (60-115); Magnesium 1.7 mg/dL (1.6-2.6); Potassium 4.6 mmol/L (3.3-5.1); Sodium 135 mmol/L (135-145)
== END 2023-11-22 10:08 | disposition home or self-care (01) ==
LOC: HO.10HDL 10:07
PROVIDERS: Visit Provider Internal Medicine
DX: E11.9 Type 2 diabetes mellitus without complications (principal); I50.9 Heart failure, unspecified; N18.9 Chronic kidney disease, unspecified; I42.9 Cardiomyopathy, unspecified
CPT/HCPCS: 36415; 80048; 83036; 83735

== ENCOUNTER 2023-11-26 08:04 | Outpatient (AMB) | payer BC, MEDICARE, SELFPAY ==
[2023-10-30 13:42] VITALS: BP 110/58; BP 128/72; BP 90/52; BMI 33.4
[2023-11-26 08:11] LABS: Prothrombin Time Whole Bld POC 26.9 sec (11.1-13.5); ~PT, ~INR - Anti Coag Clinic 2.2 (0.9-1.1)
--- NOTE | 2023-11-26 08:15 | MHC.OFFVISCO ---
Intake Intake Visit Reasons: Anticoagulation Allergies indomethacin [From INDOCIN] Allergy (Mild, Verified 11/26/23 08:05) HEADACHES Medication List - Last Reconciled 11/26/23 by Malissa Licona RN ammonium lactate 12% 1 appl topical BID bumetanide 1 mg PO DAILY PRN bumetanide 3mg daily orally daily; This is a pill to prevent fluid retention and congestive heart failure exacerbation. empagliflozin (Jardiance) 10 mg PO DAILY metoprolol succinate ER 12.5 mg (1/2 x 25 mg) PO BID 90 days valsartan 40 mg PO BID warfarin 2.5 - 5 mg See Protocol PO DAILY Nursing Note INR: 2.2 in therapeutic range Medications and supplements reviewed No changes in health, diet, medications, or supplements, Denies any signs and symptoms of bleeding or bruising or clotting. Bleeding, bruising, clotting discussed Nutritional guidance given Dose: 2.5MG DAILY F/U INR: 3 WEEKS Patient verbalizes understanding of instructions given Anti-Coag Initial Assessment Social Hx Patient Tobacco Use Status: Former Tobacco user Tobacco use type: Cigar alcohol intake: never Coding Level of Care Code Est Patient Level 1 Diagnoses Current use of anticoagulant therapy Z79.01 Assessment & Plan Assessment & Plan (1) Current use of anticoagulant therapy: Code(s): Z79.01 - snf (current) use of 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 Medications: Changed From bumetanide This is a pill to prevent fluid retention and congestive heart failure exacerbation. 2 mg PO DAILY 90 days 90 tabs 2RF To bumetanide 3mg daily orally daily; This is a pill to prevent fluid retention and congestive heart failure exacerbation.
== END 2023-11-26 08:16 | disposition home or self-care (01) ==
LOC: HO.ACS 08:04
PROVIDERS: PCP Internal Medicine; Visit Provider Internal Medicine
DX: Z79.01 Long term (current) use of anticoagulants (principal)

== ENCOUNTER → 2023-11-26 08:04 | Outpatient (BNVA) | payer MEDICARE, BC, SELFPAY ==
[2023-10-30 13:42] VITALS: BP 110/58; BP 128/72; BP 90/52; BMI 33.4
== END ==
PROVIDERS: PCP Internal Medicine; Visit Provider Internal Medicine
DX: Z95.2 Presence of prosthetic heart valve (principal); Z51.81 Encounter for therapeutic drug level monitoring; Z79.01 Long term (current) use of anticoagulants
CPT/HCPCS: 85610; 99211

== ENCOUNTER 2023-12-18 07:57 | Outpatient (AMB) | payer BC, MEDICARE, SELFPAY ==
[2023-10-30 13:42] VITALS: BP 110/58; BP 128/72; BP 90/52; BMI 33.4
[2023-12-18 08:07] LABS: Prothrombin Time Whole Bld POC 41.9 sec (11.1-13.5); ~PT, ~INR - Anti Coag Clinic 3.5 (0.9-1.1)
--- NOTE | 2023-12-18 08:15 | MHC.OFFVISCO ---
Intake Intake Visit Reasons: Anticoagulation Allergies indomethacin [From INDOCIN] Allergy (Mild, Verified 12/18/23 08:00) HEADACHES Medication List - Last Reconciled 12/18/23 by Jeanine Anderson, SINDI ammonium lactate 12% 1 appl topical BID bumetanide 1 mg PO DAILY PRN bumetanide 3mg daily orally daily; This is a pill to prevent fluid retention and congestive heart failure exacerbation. empagliflozin (Jardiance) 10 mg PO DAILY metoprolol succinate ER 12.5 mg (1/2 x 25 mg) PO BID valsartan 40 mg PO BID warfarin 2.5 - 5 mg See Protocol PO DAILY Nursing Note INR 3.5? out of therapeutic range of 2-3 Medications and supplements reviewed: no changes Patient status: feels well, no change Medications or supplements: no change Diet: pt states he has been off his diet and not consistent Denies any signs and symptoms of bleeding or clotting or unusual bruising Bleeding, bruising, clotting discussed Nutritional guidance given: to have a serving of greens today and tomorrow Dose: decrease today's dose to 1.25mg (2.5mg) then resume usual dosing of 2.5mg daily F/U INR Date : 2 weeks?? Patient verbalizing understanding of instructions given. 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
== END 2023-12-18 08:18 | disposition home or self-care (01) ==
LOC: HO.ACS 07:57
PROVIDERS: PCP Internal Medicine; Visit Provider Internal Medicine
DX: Z79.01 Long term (current) use of anticoagulants (principal)

== ENCOUNTER → 2023-12-18 07:57 | Outpatient (BNVA) | payer MEDICARE, BC, SELFPAY ==
[2023-10-30 13:42] VITALS: BP 110/58; BP 128/72; BP 90/52; BMI 33.4
== END ==
PROVIDERS: PCP Internal Medicine; Visit Provider Internal Medicine
DX: Z95.2 Presence of prosthetic heart valve (principal); Z51.81 Encounter for therapeutic drug level monitoring; Z79.01 Long term (current) use of anticoagulants
CPT/HCPCS: 85610; 99211

== ENCOUNTER 2024-01-01 07:56 | Outpatient (AMB) | payer BC, MEDICARE, SELFPAY ==
[2023-10-30 13:42] VITALS: BP 110/58; BP 128/72; BP 90/52; BMI 33.4
[2024-01-01 08:11] LABS: Prothrombin Time Whole Bld POC 52.7 sec (11.1-13.5); ~PT, ~INR - Anti Coag Clinic 4.4 (0.9-1.1)
--- NOTE | 2024-01-01 08:18 | MHC.OFFVISCO ---
Intake Intake Visit Reasons: Anticoagulation Allergies indomethacin [From INDOCIN] Allergy (Mild, Verified 01/01/24 08:06) HEADACHES Medication List - Last Reconciled 01/01/24 by Jeanine Anderson, RN ammonium lactate 12% 1 appl topical BID bumetanide 3mg daily orally daily; This is a pill to prevent fluid retention and congestive heart failure exacerbation. bumetanide 1 mg PO DAILY PRN empagliflozin (Jardiance) 10 mg PO DAILY metoprolol succinate ER 12.5 mg (1/2 x 25 mg) PO BID valsartan 40 mg PO BID warfarin 2.5 - 5 mg See Protocol PO DAILY Nursing Note INR 4.4? out of therapeutic range of 2-3 Medications and supplements reviewed Patient status: well Medications or supplements: no changes Diet: same Denies any signs and symptoms of bleeding or clotting or unusual bruising Bleeding, bruising, clotting discussed Nutritional guidance given: to review the food list given. Discussed at length various foods [facility]) to lower the INR Dose: Hold today's dose, then 1.25mg (2.5mg) then resume usual dose of 2.5mg daily F/U INR Date : 1 week?? Patient verbalizing understanding of instructions given. 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
== END 2024-01-01 08:27 | disposition home or self-care (01) ==
LOC: HO.ACS 07:56
PROVIDERS: PCP Internal Medicine; Visit Provider Internal Medicine
DX: Z79.01 Long term (current) use of anticoagulants (principal)

== ENCOUNTER → 2024-01-01 07:56 | Outpatient (BNVA) | payer MEDICARE, BC, SELFPAY ==
[2023-10-30 13:42] VITALS: BP 110/58; BP 128/72; BP 90/52; BMI 33.4
== END ==
PROVIDERS: PCP Internal Medicine; Visit Provider Internal Medicine
DX: Z95.2 Presence of prosthetic heart valve (principal); Z51.81 Encounter for therapeutic drug level monitoring; Z79.01 Long term (current) use of anticoagulants
CPT/HCPCS: 85610; 99211

== ENCOUNTER → 2024-01-08 07:57 | Outpatient (BNVA) | payer MEDICARE, BC, SELFPAY ==
[2023-10-30 13:42] VITALS: BP 110/58; BP 128/72; BP 90/52; BMI 33.4
== END ==
PROVIDERS: PCP Internal Medicine; Visit Provider Internal Medicine
DX: Z95.2 Presence of prosthetic heart valve (principal); Z51.81 Encounter for therapeutic drug level monitoring; Z79.01 Long term (current) use of anticoagulants
CPT/HCPCS: 85610; 99211

== ENCOUNTER → 2024-01-08 23:59 | Outpatient (BNV) | payer MEDICARE, BC, SELFPAY ==
[2023-10-30 13:42] VITALS: BP 110/58; BP 128/72; BP 90/52; BMI 33.4
--- NOTE | 2024-01-10 14:38 | MHC.OFFVIS ---
Intake Visit Reasons: Remote HF monitoring- Pavel Scient Allergies indomethacin [From INDOCIN] Allergy (Mild, Verified 01/08/24 08:26) HEADACHES PFSH Medical History Aortic stenosis CKD (chronic kidney disease) Diabetes mellitus CAD (coronary artery disease) Biventricular ICD (implantable cardioverter-defibrillator) in place Chronic HFrEF (heart failure with reduced ejection fraction) Ischemic cardiomyopathy Surgical History S/P CABG x 1 Hx of tonsillectomy Hx of CABG History of appendectomy Hx of knee surgery Family History Father Colon cancer Mother No problems noted. 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 Heart failure parameters are stable [id number] Cardiac Device Interrogation, cardio physiologic monitor Procedure code (CPT) selection complete Results AMB INR Fingerstick AMB INR Fingerstick 3.7 Last Edit by Malissa Licona RN on 01/08/24 08:34 MANUAL ENTRY - INTREFACING ONGOING FAILURE Assessment & Plan Assessment & Plan (1) Biventricular ICD (implantable cardioverter-defibrillator) in place: Code(s): Z95.810 - Presence of automatic (implantable) cardiac defibrillator Category: Medical Plan: See above Coding Level of Care Code Procedure Only Diagnoses Biventricular ICD (implantable cardioverter-defibrillator) in place Z95.810 CPT Codes Cardiac Device Check - Cardiac Device 15: [id number] Cardiac Device Interrogation, cardio physiologic monitor ([id number])
== END ==
PROVIDERS: PCP Internal Medicine; Visit Provider Internal Medicine Cardiovascular Disease
DX: Z45.02 Encounter for adjustment and management of automatic implantable cardiac defibrillator (principal)
CPT/HCPCS: 93297

== ENCOUNTER → 2024-01-08 23:59 | Outpatient (BNV) | payer MEDICARE, BC, SELFPAY ==
[2023-10-30 13:42] VITALS: BP 110/58; BP 128/72; BP 90/52; BMI 33.4
--- NOTE | 2024-01-10 14:37 | MHC.OFFVIS ---
Intake Visit Reasons: Remote ICD check- Pavel Scient Allergies indomethacin [From INDOCIN] Allergy (Mild, Verified 01/08/24 08:26) HEADACHES PFSH Medical History Aortic stenosis CKD (chronic kidney disease) Diabetes mellitus CAD (coronary artery disease) Biventricular ICD (implantable cardioverter-defibrillator) in place Chronic HFrEF (heart failure with reduced ejection fraction) Ischemic cardiomyopathy Surgical History S/P CABG x 1 Hx of tonsillectomy Hx of CABG History of appendectomy Hx of knee surgery Family History Father Colon cancer Mother No problems noted. 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 ICD function is adequate. Bi V pacing 100% of the time [id number] Cardiac Interrogation, implant defibrillator w/interim Procedure code (CPT) selection complete Results AMB INR Fingerstick AMB INR Fingerstick 3.7 Last Edit by Malissa Licona RN on 01/08/24 08:34 MANUAL ENTRY - INTREFACING ONGOING FAILURE Assessment & Plan Assessment & Plan (1) Biventricular ICD (implantable cardioverter-defibrillator) in place: Code(s): Z95.810 - Presence of automatic (implantable) cardiac defibrillator Category: Medical Plan: See above Coding Level of Care Code Procedure Only Diagnoses Biventricular ICD (implantable cardioverter-defibrillator) in place Z95.810 CPT Codes Cardiac Device Check - Cardiac Device 13: [id number] Cardiac Interrogation, implant defibrillator w/interim ([id number])
== END ==
PROVIDERS: PCP Internal Medicine; Visit Provider Internal Medicine Cardiovascular Disease
DX: Z45.02 Encounter for adjustment and management of automatic implantable cardiac defibrillator (principal)
CPT/HCPCS: 93295

== ENCOUNTER 2024-01-24 08:00 | Outpatient (AMB) | payer MEDICARE, BC, SELFPAY ==
[2023-10-30 13:42] VITALS: BP 110/58; BP 128/72; BP 90/52; BMI 33.4
--- NOTE | 2024-01-24 08:16 | MHC.OFFVISCO ---
Intake Intake Visit Reasons: Anticoagulation Allergies indomethacin [From INDOCIN] Allergy (Mild, Verified 01/24/24 08:03) HEADACHES Medication List - Last Reconciled 01/24/24 by Jeanine Anderson RN ammonium lactate 12% 1 appl topical BID bumetanide 3mg daily orally daily; This is a pill to prevent fluid retention and congestive heart failure exacerbation. bumetanide 1 mg PO DAILY PRN empagliflozin (Jardiance) 10 mg PO DAILY metoprolol succinate ER 12.5 mg (1/2 x 25 mg) PO BID valsartan 40 mg PO BID warfarin 2.5 - 5 mg See Protocol PO DAILY Nursing Note INR 3.3?out of therapeutic range of 2-3 Medications and supplements reviewed: no changes Patient status: pt states he feels well Medications or supplements: no change Diet: usual diet for pt Denies any signs and symptoms of bleeding or clotting or unusual bruising Bleeding, bruising, clotting discussed Nutritional guidance given: to have greens today Dose: 1.25mg X2 days and 2.5mg X 5 days F/U INR Date : 1 week?? Patient verbalizing understanding of instructions given. 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
[2024-01-24 08:40] LABS: Prothrombin Time Whole Bld POC 39.6 sec (11.1-13.5); ~PT, ~INR - Anti Coag Clinic 3.3 (0.9-1.1)
== END 2024-01-24 08:28 | disposition home or self-care (01) ==
LOC: HO.ACS 08:01
PROVIDERS: PCP Internal Medicine; Visit Provider Internal Medicine
DX: Z79.01 Long term (current) use of anticoagulants (principal)

== ENCOUNTER → 2024-01-24 08:00 | Outpatient (BNVA) | payer MEDICARE, BC, SELFPAY ==
[2023-10-30 13:42] VITALS: BP 110/58; BP 128/72; BP 90/52; BMI 33.4
== END ==
PROVIDERS: PCP Internal Medicine; Visit Provider Internal Medicine
DX: Z95.2 Presence of prosthetic heart valve (principal); Z51.81 Encounter for therapeutic drug level monitoring; Z79.01 Long term (current) use of anticoagulants
CPT/HCPCS: 85610; 99211

== ENCOUNTER 2024-01-31 08:20 | Outpatient (AMB) | payer MEDICARE, BC, SELFPAY ==
[2023-10-30 13:42] VITALS: BP 110/58; BP 128/72; BP 90/52; BMI 33.4
[2024-01-31 08:24] LABS: Prothrombin Time Whole Bld POC 22.7 sec (11.1-13.5); ~PT, ~INR - Anti Coag Clinic 1.9 (0.9-1.1)
--- NOTE | 2024-01-31 08:24 | MHC.OFFVISCO ---
Intake Intake Visit Reasons: Anticoagulation Allergies indomethacin [From INDOCIN] Allergy (Mild, Verified 01/31/24 08:20) HEADACHES Medication List - Last Reconciled 01/31/24 by Niki Solano RN ammonium lactate 12% 1 appl topical BID bumetanide 3mg daily orally daily; This is a pill to prevent fluid retention and congestive heart failure exacerbation. bumetanide 1 mg PO DAILY PRN empagliflozin (Jardiance) 10 mg PO DAILY metoprolol succinate ER 12.5 mg (1/2 x 25 mg) PO BID valsartan 40 mg PO BID warfarin 2.5 - 5 mg See Protocol PO DAILY Nursing Note INR 1.9-? out of therapeutic range of 2-3 Medications and supplements reviewed Patient status: no c.o Medications or supplements: no changes Diet: appetite fair Denies any signs and symptoms of bleeding or clotting or unusual bruising Bleeding, bruising, clotting discussed Nutritional guidance given: no greens for 2 days, eat reds to raise Dose: 2.5mg x 6, 1.25mg x 1 F/U INR Date : 1 week? Patient verbalizing understanding of instructions given. Anti-Coag Initial Assessment Social Hx Patient Tobacco Use Status: Former Tobacco user Tobacco use type: Cigar alcohol intake: never Coding Level of Care Code Est Patient Level 1 Diagnoses Current use of anticoagulant therapy Z79.01 Assessment & Plan Assessment & Plan (1) Current use of anticoagulant therapy: Code(s): Z79.01 - senior care (current) use of 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
== END 2024-01-31 08:31 | disposition home or self-care (01) ==
LOC: HO.ACS 08:20
PROVIDERS: PCP Internal Medicine; Visit Provider Internal Medicine
DX: Z79.01 Long term (current) use of anticoagulants (principal)

== ENCOUNTER → 2024-01-31 08:20 | Outpatient (BNVA) | payer MEDICARE, BC, SELFPAY ==
[2023-10-30 13:42] VITALS: BP 110/58; BP 128/72; BP 90/52; BMI 33.4
== END ==
PROVIDERS: PCP Internal Medicine; Visit Provider Internal Medicine
DX: Z95.2 Presence of prosthetic heart valve (principal); Z79.01 Long term (current) use of anticoagulants; Z51.81 Encounter for therapeutic drug level monitoring
CPT/HCPCS: 85610; 99211

== ENCOUNTER 2024-02-07 08:01 | Outpatient (AMB) | payer MEDICARE, BC, SELFPAY ==
[2023-10-30 13:42] VITALS: BP 110/58; BP 128/72; BP 90/52; BMI 33.4
--- NOTE | 2024-02-07 08:27 | MHC.OFFVISCO ---
Intake Intake Visit Reasons: Anticoagulation Allergies indomethacin [From INDOCIN] Allergy (Mild, Verified 01/31/24 08:20) HEADACHES Medication List - Last Reconciled 02/07/24 by Jeanine Anderson, SNIDI ammonium lactate 12% 1 appl topical BID bumetanide 3mg daily orally daily; This is a pill to prevent fluid retention and congestive heart failure exacerbation. bumetanide 1 mg PO DAILY PRN empagliflozin (Jardiance) 10 mg PO DAILY metoprolol succinate ER 12.5 mg (1/2 x 25 mg) PO BID valsartan 40 mg PO BID warfarin 2.5 - 5 mg See Protocol PO DAILY Nursing Note INR: 3.0 in therapeutic range of 2-3 Medications and supplements reviewed: no changes No changes in health, diet, medications, or supplements, Denies any signs and symptoms of bleeding or bruising or clotting. 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
[2024-02-07 08:28] LABS: Prothrombin Time Whole Bld POC 36.3 sec (11.1-13.5)
== END 2024-02-07 08:38 | disposition home or self-care (01) ==
LOC: HO.ACS 08:01
PROVIDERS: PCP Internal Medicine; Visit Provider Internal Medicine
DX: Z79.01 Long term (current) use of anticoagulants (principal)

== ENCOUNTER → 2024-02-07 08:01 | Outpatient (BNVA) | payer MEDICARE, BC, SELFPAY ==
[2023-10-30 13:42] VITALS: BP 110/58; BP 128/72; BP 90/52; BMI 33.4
== END ==
PROVIDERS: PCP Internal Medicine; Visit Provider Internal Medicine
DX: Z95.2 Presence of prosthetic heart valve (principal); Z79.01 Long term (current) use of anticoagulants; Z51.81 Encounter for therapeutic drug level monitoring
CPT/HCPCS: 85610; 99211

== ENCOUNTER → 2024-02-12 23:59 | Outpatient (BNV) | payer MEDICARE, BC, SELFPAY ==
[2023-10-30 13:42] VITALS: BP 110/58; BP 128/72; BP 90/52; BMI 33.4
--- NOTE | 2024-02-12 13:42 | MHC.OFFVIS ---
Intake Visit Reasons: Remote HF Monitoring- Pavel Scient Allergies indomethacin [From INDOCIN] Allergy (Mild, Verified 01/31/24 08:20) HEADACHES PFSH Medical History Aortic stenosis CKD (chronic kidney disease) Diabetes mellitus CAD (coronary artery disease) Biventricular ICD (implantable cardioverter-defibrillator) in place Chronic HFrEF (heart failure with reduced ejection fraction) Ischemic cardiomyopathy Surgical History S/P CABG x 1 Hx of tonsillectomy Hx of CABG History of appendectomy Hx of knee surgery Family History Father Colon cancer Mother No problems noted. 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 Heart failure parameters are stable [id number] Cardiac Device Interrogation, pacemaker Procedure code (CPT) selection complete Assessment & Plan Assessment & Plan (1) Biventricular ICD (implantable cardioverter-defibrillator) in place: Code(s): Z95.810 - Presence of automatic (implantable) cardiac defibrillator Category: Medical Plan: See above Coding Level of Care Code Procedure Only Diagnoses Biventricular ICD (implantable cardioverter-defibrillator) in place Z95.810 CPT Codes Cardiac Device Check - Cardiac Device 12: [id number] Cardiac Device Interrogation, pacemaker ([id number])
== END ==
PROVIDERS: PCP Internal Medicine; Visit Provider Internal Medicine Cardiovascular Disease
DX: Z45.02 Encounter for adjustment and management of automatic implantable cardiac defibrillator (principal)
CPT/HCPCS: 93297

== ENCOUNTER → 2024-02-14 08:11 | Outpatient (BNVA) | payer MEDICARE, BC, SELFPAY ==
[2023-10-30 13:42] VITALS: BP 110/58; BP 128/72; BP 90/52; BMI 33.4
== END ==
PROVIDERS: PCP Internal Medicine; Visit Provider Internal Medicine
DX: Z95.2 Presence of prosthetic heart valve (principal); Z79.01 Long term (current) use of anticoagulants; Z51.81 Encounter for therapeutic drug level monitoring
CPT/HCPCS: 85610; 99211

== ENCOUNTER 2024-02-29 08:01 | Outpatient (AMB) | payer MEDICARE, BC, SELFPAY ==
[2023-10-30 13:42] VITALS: BP 110/58; BP 128/72; BP 90/52; BMI 33.4
--- NOTE | 2024-02-29 08:30 | MHC.OFFVISCO ---
Intake Intake Visit Reasons: Anticoagulation Allergies indomethacin [From INDOCIN] Allergy (Mild, Verified 02/29/24 08:25) HEADACHES Medication List - Last Reconciled 02/29/24 by Niki Solano RN albuterol sulfate 2.5 mg inhalation BID PRN ammonium lactate 12% 1 appl topical BID bumetanide 3mg daily orally daily; This is a pill to prevent fluid retention and congestive heart failure exacerbation. bumetanide 1 mg PO DAILY PRN empagliflozin (Jardiance) 10 mg PO DAILY metoprolol succinate ER 12.5 mg (1/2 x 25 mg) PO BID umeclidinium-vilanterol 62.5-25 mcg/actuation (Anoro Ellipta) 1 ea inhalation DAILY valsartan 40 mg PO BID warfarin 2.5 - 5 mg See Protocol PO DAILY Nursing Note INR: 2.5- in therapeutic range of 2-3 Medications and supplements reviewed- no changes No changes in health, diet, medications, or supplements, Denies any signs and symptoms of bleeding or bruising or clotting. 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
[2024-02-29 08:31] LABS: Prothrombin Time Whole Bld POC 29.6 sec (11.1-13.5); ~PT, ~INR - Anti Coag Clinic 2.5 (0.9-1.1)
== END 2024-02-29 08:37 | disposition home or self-care (01) ==
LOC: HO.ACS 08:01
PROVIDERS: PCP Internal Medicine; Visit Provider Internal Medicine
DX: Z79.01 Long term (current) use of anticoagulants (principal)

== ENCOUNTER → 2024-02-29 08:01 | Outpatient (BNVA) | payer MEDICARE, BC, SELFPAY ==
[2023-10-30 13:42] VITALS: BP 110/58; BP 128/72; BP 90/52; BMI 33.4
== END ==
PROVIDERS: PCP Internal Medicine; Visit Provider Internal Medicine
DX: Z95.2 Presence of prosthetic heart valve (principal); Z79.01 Long term (current) use of anticoagulants; Z51.81 Encounter for therapeutic drug level monitoring
CPT/HCPCS: 85610; 99211

== ENCOUNTER 2024-03-04 10:23 | Emergency (ER) | payer MEDICARE, BC, SELFPAY ==
[2023-10-30 13:42] VITALS: BP 110/58; BP 128/72; BP 90/52; BMI 33.4
--- NOTE | 2024-03-04 | ECG_ITS ---
Test Reason : SOB Blood Pressure : / mmHG Vent. Rate : 086 BPM Atrial Rate : 086 BPM P-R Int : 000 ms QRS Dur : 184 ms QT Int : 460 ms P-R-T Axes : 000 -41 024 degrees QTc Int : 550 ms Ventricular-paced rhythm Abnormal ECG When compared with ECG of 21-SEP-2021 13:35, Vent. rate has increased BY 6 BPM Referred By: Generic ED Physician Electronically Signed By:VANDANA PAYAN MD
--- NOTE | ~2024-03-04 | XR_ITS ---
EXAMINATION: XR CHEST CLINICAL INFORMATION: Patient states she went for physical this morning and the doctor brought him over here for low blood pressure. Shortness of breath. COMPARISON: 10/09/2023 CT chest. 06/07/2023 radiograph chest. TECHNIQUE: 2 views of the chest were obtained. FINDINGS: There is no gross pneumothorax. Dextroscoliosis of the thoracolumbar spine with multilevel degenerative changes. Redemonstration of left subclavian pacemaker/AICD devices which appear to be similar in position. Median sternotomy. Stable cardiomediastinal silhouette. Degenerative changes in the thoracic spine. Redemonstration of increased bilateral diffuse interstitial opacities, lower lobe predominant. Redemonstration of bibasilar bronchiectasis. Persistent predominantly left basilar linear opacities are characteristic of scar or subsegmental atelectasis. Similar chronic left pleural thickening. Stable blunting of the posterior sulcus may be related to pleural thickening or small pleural effusion. XR/XR chest 2V IMPRESSION: 1. Similar appearance of lungs. 2. Redemonstration of increased bilateral diffuse interstitial opacities, lower lobe predominant. Redemonstration of bibasilar bronchiectasis. Persistent predominantly left basilar linear opacities are characteristic of scar or subsegmental atelectasis. Similar chronic left pleural thickening. Stable blunting of the posterior sulcus may be related to pleural thickening or small pleural effusion This study was presented today March 04, 2024 for interpretation. STAT results provided at this time as requested by referring provider.
[2024-03-04 10:37] VITALS: BP 85/54; PULSE 81; RESP 20; TEMP 36.6; O2SAT 96; BMI 30.1
[2024-03-04 10:59] LABS: MANUAL DIFF FLAG NO
[2024-03-04 11:02] LABS: Basophils Percent Auto 0.4 % (0-2); Eosinophils Absolute Auto 0.4 X10*3/uL (0.0-0.4); Eosinophils Percent Auto 4.8 % (0-4); Hematocrit 40.3 % (42.0-52.0); Imm Gran Abs Auto 0.04 X10*3/uL (0.00-0.03); Imm Gran Pct Auto 0.5 % (0.0-0.4); Lymphocytes Absolute Auto 0.8 X10*3/uL (1.2-4.9); Lymphocytes Percent Auto 10.4 % (20-40); Mean Corpuscular HGB Conc 32.3 g/dl (31.0-36.0); Mean Corpuscular Volume 86.7 fL (80.0-98.0); Mean Platelet Volume 9.6 fL (9.4-12.4); Monocytes Absolute Auto 0.4 X10*3/uL (0.1-1.2); Monocytes Percent Auto 5.9 % (2-11); Neutrophils Absolute Auto 5.9 x10*3/uL (2.0-8.3); Platelet Count 150 X10*3/uL (160-400); Red Blood Count 4.65 X10*6/uL (4.60-5.80); Red Cell Distribution Width 14.6 % (11.0-16.0); White Blood Count 7.5 X10*3/uL (4.8-10.8)
[2024-03-04 11:18] LABS: Alanine Aminotransferase 12 U/L (0-40); Albumin Level 3.5 g/dL (3.5-5.0); Alkaline Phosphatase 86 U/L (39-117); Anion Gap 17 (12-20); Aspartate Amino Transferase 24 U/L (5-37); Bilirubin Total 0.5 mg/dL (0.0-1.0); Blood Urea Nitrogen 34 mg/dL (9-16); Carbon Dioxide 21 mmol/L (22-29); Chloride 102 mmol/L (96-108); Creatinine Clr Calc Pharmacy 28.4; Estimated Glomerular Filt Rate 30; Glucose Random 99 mg/dL (60-115); Potassium 4.5 mmol/L (3.3-5.1); Sodium 135 mmol/L (135-145); Total Protein 8.6 g/dL (6.5-8.0)
[2024-03-04 11:19] LABS: B Type Natriuretic Peptide 776 pg/mL (<100)
[2024-03-04 11:29] LABS: Troponin-I High Sensitivity 141.7 ng/L (<3.5-35.0)
[2024-03-04 11:39] LABS: Influenza A PCR NEGATIVE (Negative); Influenza B PCR NEGATIVE (Negative); Resp Syncy Virus RNA Qual PCR NEGATIVE (Negative); SARS COV2 PCR INHOUSE NEGATIVE (Negative)
--- NOTE | 2024-03-04 11:52 | ED_ITS ---
HPI - General Adult General Chief complaint: General Medical Stated complaint: SOB, cardiomyopathy Time Seen by Provider: 03/04/24 11:20 Source: patient and old records reviewed Mode of arrival: ambulatory Limitations: no limitations History of Present Illness ED Provider: SHELLEY FINNEY narrative: 79 yo male with PMH of CHF, PPM/ICD, ILD, CAD, aortic stenosis, NSVT, on coumadin he comes in states he was at routine physical by PCP and they check his BP and it was low. He notes no chest pain, GIB symptoms, fevers, no increased swelling. He has no new med changes. He does not increased shortness of breath but he states his doctor is aware. I explained to him his lab findings and need for xray and repeat lab work and he states he doesn't want to be in the ER he is fine and wants to leave AMA - he is alert and oriented x 3 he is not confused and he can repeat my concerns back to me. MD complaint: low BP Onset (ago): unknown Radiation: non-radiation Severity: mild Relieving factors: none Exacerbating factors: none Associated symptoms: shortness of breath Treatments prior to arrival: none Related Data Home Medications ?Medication ?Instructions ?Recorded ?Confirmed ammonium lactate 12 % topical cream 1 appl topical BID 07/17/22 02/14/24 albuterol sulfate 2.5 mg/3 mL 2.5 mg inhalation BID PRN wheezing 02/14/24 02/14/24 (0.083 %) solution for nebulization umeclidinium 62.5 mcg-vilanterol 1 ea inhalation DAILY 02/14/24 02/14/24 25 mcg/actuation powdr for inhalation (Anoro Ellipta) Previous Rx's ?Medication ?Instructions ?Recorded empagliflozin 10 mg tablet 10 mg PO DAILY #30 tabs 03/29/22 (Jardiance) warfarin 2.5 mg tablet 2.5 - 5 mg PO DAILY #180 tabs 06/26/23 valsartan 40 mg tablet 40 mg PO BID #180 tabs 09/05/23 metoprolol succinate 25 mg 12.5 mg (1/2 x 25 mg) PO BID #90 11/30/23 tablet,extended release 24 hr tabs bumetanide 1 mg tablet 1 mg PO DAILY PRN edema #30 tabs 12/27/23 bumetanide 2 mg tablet See Rx Instructions PO DAILY #90 03/03/24 tabs Allergies Allergy/AdvReac Type Severity Reaction Status Date / Time indomethacin [From INDOCIN] Allergy Mild HEADACHES Verified 03/04/24 10:41 Review of Systems 2 Review of Systems: Constitutional : No Fever, No Chills ENT/Mouth : No sore throat, No Rhinorrhea, No Swallowing Difficulty Eyes: No Eye Pain, No Swelling, No Redness Cardiovascular : No Chest Pain, positive SOB, No Orthopnea, no Edema Respiratory : No Cough, No Sputum, No Wheezing, positive dyspnea Gastrointestinal : No Nausea, No Vomiting, No Diarrhea, No abdominal Pain, No Hematochezia, No Melena Genitourinary : No Dysuria, No Urinary Frequency, No Hematuria Musculoskeletal : No joint pain, No Myalgias Skin : No Skin Lesions, No rash Neuro : No Weakness, No Numbness, No Dizziness, No Headache Psych : No Anxiety/Panic, No Depression All other systems reviewed and are negative PMFSH Past Medical History Attestation statement: The following information was validated with the patient. Source: old records reviewed Medical History Aortic stenosis CKD (chronic kidney disease) Diabetes mellitus CAD (coronary artery disease) Biventricular ICD (implantable cardioverter-defibrillator) in place Chronic HFrEF (heart failure with reduced ejection fraction) Ischemic cardiomyopathy Surgical History S/P CABG x 1 Hx of tonsillectomy Hx of CABG History of appendectomy Hx of knee surgery Family History Family History Father Colon cancer Mother No problems noted. Social History Social History Alcohol intake: never Patient Tobacco Use Status: Former Tobacco user Tobacco use type: Cigar Advance Directives: Yes Advance Directives Information Provided: Yes Advance Directives on File: No Do you have a plan to hurt others: No Plan Current occupational status: retired Physical Exam ED Vital Signs: Vital Signs - 24 hr 03/04/24 10:37 Temperature 97.8 F Pulse Rate 81 Respiratory Rate 20 Blood Pressure 85/54 L Pulse Oximetry 96 Oxygen Delivery Method Room Air BMI result Body Mass Index 30.1 Appearance: Alert. Oriented X3. No acute distress. Eyes: Pupils equal, round and reactive to light. ENT: Pharynx normal. atraumatic Neck: Normal inspection. Neck supple. CVS: Normal heart rate and rhythm. Pulses normal. Respiratory: No respiratory distress. Breath sounds normal. Abdomen: Soft and nontender. Skin: Skin warm and dry. Normal skin color. Normal skin turgor. Extremities: trace ankle pitting lower extremity edema. No calf ttp Neuro: Oriented X 3. No motor deficit. No sensory deficit. Medical Decision Making Medical Decision Making [facility] Narrative: 79 yo male with PMH of CHF, PPM/ICD, ILD, CAD, aortic stenosis, NSVT, on coumadin he comes in with low BP but now on recheck 104/54 by me. Labs done showing elevated trop and BNP I explained this to him and he doesn't want to stay. I explained concern for CHF, heart attack requiring further workup but he refuses. He is up and walking to the bathroom and denies dizziness. He will not allow further testing. He is alert and oriented x 3 not confused is aware of my concerns but I cannot get him to stay. Differential Diagnosis Differential Diagnoses: The differential diagnosis associated with the presentation includes CHF, NSTEMI, cardiac failure Admission/Observation Consideration of admission/observation: Escalation of care including admission/observation considered patient refuses Lab Data [facility] Lab Attestation statement: I reviewed the patient's lab results. 03/04/24 10:55 03/04/24 10:55 Labs: Lab Results 03/04/24 Range/Units 10:55 WBC 7.5 (4.8-10.8) X10*3/uL RBC 4.65 (4.60-5.80) X10*6/uL Hgb 13.0 L (14.0-18.0) g/dl Hct 40.3 L (42.0-52.0) % MCV 86.7 (80.0-98.0) fL MCH 28.0 (27.0-33.0) pg MCHC 32.3 (31.0-36.0) g/dl RDW 14.6 (11.0-16.0) % Plt Count 150 L (160-400) X10*3/uL MPV 9.6 (9.4-12.4) fL Immature Gran % (Auto) 0.5 H (0.0-0.4) % Neut % (Auto) 78.0 H (45-73) % Lymph % (Auto) 10.4 L (20-40) % [place] % (Auto) 5.9 (2-11) % Eos % (Auto) 4.8 H (0-4) % Baso % (Auto) 0.4 (0-2) % Lymph # (Auto) 0.8 L (1.2-4.9) X10*3/uL [place] # (Auto) 0.4 (0.1-1.2) X10*3/uL Eos # (Auto) 0.4 (0.0-0.4) X10*3/uL Baso # (Auto) 0.0 (0.0-0.2) X10*3/uL Abs Immat Gran (auto) 0.04 H (0.00-0.03) X10*3/uL Absolute Neuts (auto) 5.9 (2.0-8.3) x10*3/uL Absolute Nucleated RBC 0.000 (0.0-0.012) X10*3/uL Nucleated RBC % (auto) 0.0 (0.0-0.2) /100WBC Sodium 135 (135-145) mmol/L Potassium 4.5 (3.3-5.1) mmol/L Chloride 102 (96-108) mmol/L Carbon Dioxide 21 L (22-29) mmol/L Anion Gap 17 (12-20) BUN 34 H (9-16) mg/dL Creatinine 2.11 H (0.5-1.4) mg/dL Estim Creat Clear Calc 28.4 Estimated GFR 30 Random Glucose 99 (60-115) mg/dL Calcium 9.0 (8.4-10.2) mg/dL Total Bilirubin 0.5 (0.0-1.0) mg/dL AST 24 (5-37) U/L ALT 12 (0-40) U/L Alkaline Phosphatase 86 (39-117) U/L Troponin I High Sens 141.7 H* (<3.5-35.0) ng/L B-Natriuretic Peptide 776 H (<100) pg/mL Total Protein 8.6 H (6.5-8.0) g/dL Albumin 3.5 (3.5-5.0) g/dL Influenza Type A (PCR) NEGATIVE (Negative) Influenza Type B (PCR) NEGATIVE (Negative) RSV RNA Qual (PCR) NEGATIVE (Negative) SARS-CoV-2 RNA (RT-PCR) NEGATIVE (Negative) Independent Interpretation I performed an independent interpretation of an: EKG Interpretation: Rate: 86 Rhythm: v paced [place]: left wide QRS complex. ST T wave :no TE, inverted t waves aVF, flat t wave III qTC: 550 prior studies: no change 2021 The study has been interpreted contemporaneously by me. . External Record Review External record reviewed: Inpatient record Discharge Plan Discharge Clinical Impression: Elevated troponin, Increasing shortness of breath, Hypotension Patient Disposition: Left Against Medical Advice Instructions: Hypotension (ED), Shortness of Breath (ED), Against Medical Advice (ED) Additional Instructions: your labs for your heart failure and possible heart attack were abnormal your blood pressure was low it was advised you stay but you refused further workup. you can come back at any time you are putting yourself at risk of or disability by leaving. Prescriptions: No Action warfarin 2.5 mg tablet 2.5 - 5 mg PO DAILY Qty: 180 3RF Protocol: Dose Management Condition: Sunday (Week One) Dose/Route: 1.25 mg Instruction: 0.5 x 2.5 mg tablets Condition: Sunday Dose/Route: 2.5 mg Instruction: 1 x 2.5 mg tablet Condition: Sunday Dose/Route: 2.5 mg Instruction: 1 x 2.5 mg tablet Condition: Sunday Dose/Route: 2.5 mg Instruction: 1 x 2.5 mg tablet Condition: Dose/Route: 2.5 mg Instruction: 1 x 2.5 mg tablet Condition: Sunday Dose/Route: 2.5 mg Instruction: 1 x 2.5 mg tablet Condition: Sunday Dose/Route: 2.5 mg Instruction: 1 x 2.5 mg tablet Condition: Sunday (Week Two) Dose/Route: 1.25 mg Instruction: 0.5 x 2.5 mg tablets Condition: Sunday Dose/Route: 2.5 mg Instruction: 1 x 2.5 mg tablet Condition: Sunday Dose/Route: 2.5 mg Instruction: 1 x 2.5 mg tablet Condition: Sunday Dose/Route: 2.5 mg Instruction: 1 x 2.5 mg tablet Condition: Dose/Route: 2.5 mg Instruction: 1 x 2.5 mg tablet Condition: Sunday Dose/Route: 2.5 mg Instruction: 1 x 2.5 mg tablet Condition: Sunday Dose/Route: 2.5 mg Instruction: 1 x 2.5 mg tablet Protocol Text: Adjustment Start Date: Sunday02/29/24 INR Value: 2.5 INR Date: 02/29/24 Recheck Date: 03/14/24 Additional Instructions: cont same dosing call with any changes in medications or any new medications valsartan 40 mg tablet 40 mg PO BID Qty: 180 3RF metoprolol succinate 25 mg tablet extended release 24 hr 12.5 mg PO BID Qty: 90 3RF bumetanide 1 mg tablet 1 mg PO DAILY PRN (Reason: edema) Qty: 30 2RF Rx Instructions: TAKE ONE TABLET IN ADDITION TO 2MG NEEDED FOR FLUID RETENTION bumetanide 2 mg tablet See Rx Instructions PO DAILY Qty: 90 2RF Patient Comments: i take 3mg daily now Rx Instructions: 3mg daily orally daily; This is a pill to prevent fluid retention and congestive heart failure exacerbation. Jardiance 10 mg tablet 10 mg PO DAILY Qty: 30 1RF ammonium lactate 12 % cream 1 appl topical BID albuterol sulfate 2.5 mg /3 mL (0.083 %) solution for nebulization 2.5 mg inhalation BID PRN (Reason: wheezing) Anoro Ellipta 62.5-25 mcg/actuation blister with device 1 ea inhalation DAILY Print Language: Latvian
[2024-03-04 12:05] VITALS: BP 85/54; PULSE 81; RESP 20; TEMP 36.6; O2SAT 96
== END 2024-03-04 12:05 | disposition left against medical advice (07) ==
PROVIDERS: Emergency Provider Emergency Medicine; PCP Internal Medicine
DX: R06.02 Shortness of breath (principal); I95.9 Hypotension, unspecified; R07.89 Other chest pain; R79.89 Other specified abnormal findings of blood chemistry; I25.10 Atherosclerotic heart disease of native coronary artery without angina pectoris; Z79.01 Long term (current) use of anticoagulants; Z79.899 Other long term (current) drug therapy; Z03.818 Encounter for observation for suspected exposure to other biological agents ruled out
CPT/HCPCS: 0241U; 71046; 80053; 83880; 84484; 85025; 93005; 99283

== ENCOUNTER → 2024-03-04 11:02 | Outpatient (BNV) | payer MEDICARE, BC, SELFPAY ==
[2023-10-30 13:42] VITALS: BP 110/58; BP 128/72; BP 90/52; BMI 33.4
== END ==
PROVIDERS: Emergency Provider Emergency Medicine; PCP Internal Medicine; Visit Provider Internal Medicine Cardiovascular Disease
DX: R06.02 Shortness of breath (principal)
CPT/HCPCS: 93010

== ENCOUNTER 2024-03-17 08:03 | Outpatient (AMB) | payer MEDICARE, BC, SELFPAY ==
[2023-10-30 13:42] VITALS: BP 110/58; BP 128/72; BP 90/52; BMI 33.4
[2024-03-17 08:26] LABS: Prothrombin Time Whole Bld POC 23.9 sec (11.1-13.5)
--- NOTE | 2024-03-17 08:31 | MHC.OFFVISCO ---
Intake Intake Visit Reasons: Anticoagulation Allergies indomethacin [From INDOCIN] Allergy (Mild, Verified 03/17/24 08:21) HEADACHES Medication List - Last Reconciled 03/17/24 by Jeanine Anderson RN albuterol sulfate 2.5 mg inhalation BID PRN ammonium lactate 12% 1 appl topical BID bumetanide 1 mg PO DAILY PRN bumetanide 3mg daily orally daily; This is a pill to prevent fluid retention and congestive heart failure exacerbation. empagliflozin (Jardiance) 10 mg PO DAILY metoprolol succinate ER 12.5 mg (1/2 x 25 mg) PO BID umeclidinium-vilanterol 62.5-25 mcg/actuation (Anoro Ellipta) 1 ea inhalation DAILY valsartan 40 mg PO BID warfarin 2.5 - 5 mg See Protocol PO DAILY Nursing Note INR: 2.0 in therapeutic range of 2-3 Medications and supplements reviewed No changes in health, diet, medications, or supplements, Denies any signs and symptoms of bleeding or bruising or clotting. Bleeding, bruising, clotting discussed Nutritional guidance given to avoid greens today and have a serving of foods from the list that raises the INR. Dose: 2.5mg X 6 days and 1.25mg X 1 day F/U INR: 2 weeks Patient verbalizes understanding of instructions given Anti-Coag Initial Assessment Social Hx Patient Tobacco Use Status: Former Tobacco user Tobacco use type: Cigar alcohol intake: never Coding Level of Care Code Est Patient Level 1 Diagnoses Current use of anticoagulant therapy Z79.01 Assessment & Plan Assessment & Plan (1) Current use of anticoagulant therapy: Code(s): Z79.01 - penitentiary (current) use of 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
== END 2024-03-17 08:34 | disposition home or self-care (01) ==
LOC: HO.ACS 08:03
PROVIDERS: PCP Internal Medicine; Visit Provider Internal Medicine
DX: Z79.01 Long term (current) use of anticoagulants (principal)

== ENCOUNTER → 2024-03-17 08:03 | Outpatient (BNVA) | payer MEDICARE, BC, SELFPAY ==
[2023-10-30 13:42] VITALS: BP 110/58; BP 128/72; BP 90/52; BMI 33.4
== END ==
PROVIDERS: PCP Internal Medicine; Visit Provider Internal Medicine
DX: Z95.2 Presence of prosthetic heart valve (principal); Z51.81 Encounter for therapeutic drug level monitoring; Z79.01 Long term (current) use of anticoagulants
CPT/HCPCS: 85610; 99211

== ENCOUNTER → 2024-03-18 23:59 | Outpatient (BNV) | payer MEDICARE, BC, SELFPAY ==
[2023-10-30 13:42] VITALS: BP 110/58; BP 128/72; BP 90/52; BMI 33.4
--- NOTE | 2024-03-28 15:22 | MHC.OFFVIS ---
Intake Visit Reasons: Remote ICD check- [employer] Allergies indomethacin [From INDOCIN] Allergy (Mild, Verified 03/17/24 08:21) HEADACHES PFSH Medical History Aortic stenosis CKD (chronic kidney disease) Diabetes mellitus CAD (coronary artery disease) Biventricular ICD (implantable cardioverter-defibrillator) in place Chronic HFrEF (heart failure with reduced ejection fraction) Ischemic cardiomyopathy Surgical History S/P CABG x 1 Hx of tonsillectomy Hx of CABG History of appendectomy Hx of knee surgery Family History Father Colon cancer Mother No problems noted. Social History Alcohol intake: never Patient Tobacco Use Status: Former Tobacco user Tobacco use type: Cigar Current occupational status: retired Office Procedures Cardiac Device Check Cardiac Device Check Details: Remote ICD report generated 03/18/2024. ICD function is adequate. Bi V pacing 99% of the time [id number] Cardiac Interrogation, implant defibrillator w/interim Procedure code (CPT) selection complete Assessment & Plan Assessment & Plan (1) Biventricular ICD (implantable cardioverter-defibrillator) in place: Code(s): Z95.810 - Presence of automatic (implantable) cardiac defibrillator Category: Medical Plan: See above Coding Level of Care Code Procedure Only Diagnoses Biventricular ICD (implantable cardioverter-defibrillator) in place Z95.810 CPT Codes Cardiac Device Check - Cardiac Device 13: [id number] Cardiac Interrogation, implant defibrillator w/interim ([id number])
== END ==
PROVIDERS: PCP Internal Medicine; Visit Provider Internal Medicine Cardiovascular Disease
DX: Z45.02 Encounter for adjustment and management of automatic implantable cardiac defibrillator (principal)
CPT/HCPCS: 93295

== ENCOUNTER → 2024-03-18 23:59 | Outpatient (BNV) | payer MEDICARE, BC, SELFPAY ==
[2023-10-30 13:42] VITALS: BP 110/58; BP 128/72; BP 90/52; BMI 33.4
--- NOTE | 2024-03-28 15:20 | MHC.OFFVIS ---
Intake Visit Reasons: Remote HF Monitoring- [employer] Allergies indomethacin [From INDOCIN] Allergy (Mild, Verified 03/17/24 08:21) HEADACHES PFSH Medical History Aortic stenosis CKD (chronic kidney disease) Diabetes mellitus CAD (coronary artery disease) Biventricular ICD (implantable cardioverter-defibrillator) in place Chronic HFrEF (heart failure with reduced ejection fraction) Ischemic cardiomyopathy Surgical History S/P CABG x 1 Hx of tonsillectomy Hx of CABG History of appendectomy Hx of knee surgery Family History Father Colon cancer Mother No problems noted. Social History Alcohol intake: never Patient Tobacco Use Status: Former Tobacco user Tobacco use type: Cigar Current occupational status: retired Office Procedures Cardiac Device Check Cardiac Device Check Details: Remote ICD report generated 03/18/2024. I was requested to read this report today. Shows elevated heart failure readings. Will follow-up with patient clinically [id number] Cardiac Device Interrogation, cardio physiologic monitor Procedure code (CPT) selection complete Assessment & Plan Assessment & Plan (1) Biventricular ICD (implantable cardioverter-defibrillator) in place: Code(s): Z95.810 - Presence of automatic (implantable) cardiac defibrillator Category: Medical Plan: See above Coding Level of Care Code Procedure Only Diagnoses Biventricular ICD (implantable cardioverter-defibrillator) in place Z95.810 CPT Codes Cardiac Device Check - Cardiac Device 15: [id number] Cardiac Device Interrogation, cardio physiologic monitor ([id number])
== END ==
PROVIDERS: PCP Internal Medicine; Visit Provider Internal Medicine Cardiovascular Disease
DX: I50.9 Heart failure, unspecified (principal); Z95.810 Presence of automatic (implantable) cardiac defibrillator
CPT/HCPCS: 93297

== ENCOUNTER 2024-03-31 07:56 | Outpatient (AMB) | payer MEDICARE, BC, SELFPAY ==
[2023-10-30 13:42] VITALS: BP 110/58; BP 128/72; BP 90/52; BMI 33.4
[2024-03-31 08:21] LABS: Prothrombin Time Whole Bld POC 18.4 sec (11.1-13.5); ~PT, ~INR - Anti Coag Clinic 1.5 (0.9-1.1)
--- NOTE | 2024-03-31 08:29 | MHC.OFFVISCO ---
Intake Intake Visit Reasons: Anticoagulation Allergies indomethacin [From INDOCIN] Allergy (Mild, Verified 03/31/24 08:15) HEADACHES Medication List - Last Reconciled 03/31/24 by Malissa Licona RN albuterol sulfate 2.5 mg inhalation BID PRN ammonium lactate 12% 1 appl topical BID bumetanide 3mg daily orally daily; This is a pill to prevent fluid retention and congestive heart failure exacerbation. bumetanide 1 mg PO DAILY PRN empagliflozin (Jardiance) 10 mg PO DAILY metoprolol succinate ER 12.5 mg (1/2 x 25 mg) PO BID umeclidinium-vilanterol 62.5-25 mcg/actuation (Anoro Ellipta) 1 ea inhalation DAILY valsartan 40 mg PO BID warfarin 2.5 - 5 mg See Protocol PO DAILY Nursing Note INR 1.5 out of therapeutic range Medications and supplements reviewed Patient status: MISSED A DOSE AND HAD TOO MANY GREENS, ALSO ON NEW INHALERS THAT HE STARTED IN FEBRUARY Medications or supplements: NONE SINCE LAST VISIT Diet: GOOD Denies any signs and symptoms of bleeding or clotting or unusual bruising Bleeding, bruising, clotting discussed Nutritional guidance given: AVOID GREENS X 3 DAYS, EAT ORANGE OR REDS OR ONION AND GARLICE TO HELP RAISE THE INR TODAY Dose: 5MG TODAY THEN RESUME 1.25MG SUN AND 2.5MG X 6 DAYS F/U INR Date : 3 DAYS ?? GO TO ER WITH ANY STROKE OR CLOTTING SYMPTOMS Patient verbalizing understanding of instructions given. T/C TO PCP WHEN OFFICE OPENS FOR LOW INR 0845: spoke with Savanah to convey msg to PCP with read back Anti-Coag Initial Assessment Social Hx Patient Tobacco Use Status: Former Tobacco user Tobacco use type: Cigar alcohol intake: never Coding Level of Care Code Est Patient Level 1 Diagnoses Current use of anticoagulant therapy Z79.01 Results AMB INR Fingerstick AMB INR Fingerstick 1.5 Last Edit by Malissa Licona RN on 03/31/24 08:22 MANUAL ENTRY Assessment & Plan Assessment & Plan (1) Current use of anticoagulant therapy: Code(s): Z79.01 - [facility] (current) use of 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
== END 2024-03-31 08:31 | disposition home or self-care (01) ==
LOC: HO.ACS 07:56
PROVIDERS: PCP Internal Medicine; Visit Provider Internal Medicine
DX: Z79.01 Long term (current) use of anticoagulants (principal)

== ENCOUNTER → 2024-03-31 07:56 | Outpatient (BNVA) | payer MEDICARE, BC, SELFPAY ==
[2023-10-30 13:42] VITALS: BP 110/58; BP 128/72; BP 90/52; BMI 33.4
== END ==
PROVIDERS: PCP Internal Medicine; Visit Provider Internal Medicine
DX: Z95.2 Presence of prosthetic heart valve (principal); Z79.01 Long term (current) use of anticoagulants; Z51.81 Encounter for therapeutic drug level monitoring
CPT/HCPCS: 85610; 99211

== ENCOUNTER 2024-04-03 08:00 | Outpatient (AMB) | payer MEDICARE, BC, SELFPAY ==
[2023-10-30 13:42] VITALS: BP 110/58; BP 128/72; BP 90/52; BMI 33.4
[2024-04-03 08:15] LABS: Prothrombin Time Whole Bld POC 23.9 sec (11.1-13.5)
--- NOTE | 2024-04-03 08:19 | MHC.OFFVISCO ---
Intake Intake Visit Reasons: Anticoagulation Allergies indomethacin [From INDOCIN] Allergy (Mild, Verified 04/03/24 08:09) HEADACHES Medication List - Last Reconciled 04/03/24 by Malissa Licona RN albuterol sulfate 2.5 mg inhalation BID PRN ammonium lactate 12% 1 appl topical BID bumetanide 3mg daily orally daily; This is a pill to prevent fluid retention and congestive heart failure exacerbation. bumetanide 1 mg PO DAILY PRN empagliflozin (Jardiance) 10 mg PO DAILY metoprolol succinate ER 12.5 mg (1/2 x 25 mg) PO BID umeclidinium-vilanterol 62.5-25 mcg/actuation (Anoro Ellipta) 1 ea inhalation DAILY valsartan 40 mg PO BID warfarin 2.5 - 5 mg See Protocol PO DAILY Nursing Note INR: 2.0 in therapeutic range Medications and supplements reviewed No changes in health, diet, medications, or supplements, Denies any signs and symptoms of bleeding or bruising or clotting. 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
== END 2024-04-03 08:25 | disposition home or self-care (01) ==
LOC: HO.ACS 08:00
PROVIDERS: PCP Internal Medicine; Visit Provider Internal Medicine
DX: Z79.01 Long term (current) use of anticoagulants (principal)

== ENCOUNTER → 2024-04-03 08:00 | Outpatient (BNVA) | payer MEDICARE, BC, SELFPAY ==
[2023-10-30 13:42] VITALS: BP 110/58; BP 128/72; BP 90/52; BMI 33.4
== END ==
PROVIDERS: PCP Internal Medicine; Visit Provider Internal Medicine
DX: Z95.2 Presence of prosthetic heart valve (principal); Z79.01 Long term (current) use of anticoagulants; Z51.81 Encounter for therapeutic drug level monitoring
CPT/HCPCS: 85610; 99211

== ENCOUNTER 2024-04-17 07:59 | Outpatient (AMB) | payer MEDICARE, BC, SELFPAY ==
[2023-10-30 13:42] VITALS: BP 110/58; BP 128/72; BP 90/52; BMI 33.4
[2024-04-17 08:06] LABS: Prothrombin Time Whole Bld POC 31.6 sec (11.1-13.5); ~PT, ~INR - Anti Coag Clinic 2.6 (0.9-1.1)
--- NOTE | 2024-04-17 08:10 | MHC.OFFVISCO ---
Intake Intake Visit Reasons: Anticoagulation Allergies indomethacin [From INDOCIN] Allergy (Mild, Verified 04/17/24 08:00) HEADACHES Medication List - Last Reconciled 04/17/24 by Malissa Licona RN albuterol sulfate 2.5 mg inhalation BID PRN ammonium lactate 12% 1 appl topical BID bumetanide 3mg daily orally daily; This is a pill to prevent fluid retention and congestive heart failure exacerbation. bumetanide 1 mg PO DAILY PRN empagliflozin (Jardiance) 10 mg PO DAILY metoprolol succinate ER 12.5 mg (1/2 x 25 mg) PO BID umeclidinium-vilanterol 62.5-25 mcg/actuation (Anoro Ellipta) 1 ea inhalation DAILY valsartan 40 mg PO BID warfarin 2.5 - 5 mg See Protocol PO DAILY Nursing Note INR: 2.6 in therapeutic range Medications and supplements reviewed No changes in health, diet, medications, or supplements, Denies any signs and symptoms of bleeding or bruising or clotting. Bleeding, bruising, clotting discussed Nutritional guidance given Dose: 1.25MG X 1 DAY/ 2.5MG X 6 DAYS F/U INR: 3 WEEK Patient verbalizes understanding of instructions given Anti-Coag Initial Assessment Social Hx Patient Tobacco Use Status: Former Tobacco user Tobacco use type: Cigar alcohol intake: never Coding Level of Care Code Est Patient Level 1 Diagnoses Current use of anticoagulant therapy Z79.01 Assessment & Plan Assessment & Plan (1) Current use of anticoagulant therapy: Code(s): Z79.01 - penitentiary (current) use of 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
== END 2024-04-17 08:11 | disposition home or self-care (01) ==
LOC: HO.ACS 07:59
PROVIDERS: PCP Internal Medicine; Visit Provider Internal Medicine
DX: Z79.01 Long term (current) use of anticoagulants (principal)

== ENCOUNTER → 2024-04-17 07:59 | Outpatient (BNVA) | payer MEDICARE, BC, SELFPAY ==
[2023-10-30 13:42] VITALS: BP 110/58; BP 128/72; BP 90/52; BMI 33.4
== END ==
PROVIDERS: PCP Internal Medicine; Visit Provider Internal Medicine
DX: Z95.2 Presence of prosthetic heart valve (principal); Z79.01 Long term (current) use of anticoagulants; Z51.81 Encounter for therapeutic drug level monitoring
CPT/HCPCS: 85610; 99211

== ENCOUNTER → 2024-04-22 23:59 | Outpatient (BNV) | payer MEDICARE, BC, SELFPAY ==
[2023-10-30 13:42] VITALS: BP 110/58; BP 128/72; BP 90/52; BMI 33.4
--- NOTE | 2024-04-28 08:52 | MHC.OFFVIS ---
Intake Visit Reasons: Remote HF check- [employer] Allergies indomethacin [From INDOCIN] Allergy (Mild, Verified 04/17/24 08:00) HEADACHES PFSH Medical History Aortic stenosis CKD (chronic kidney disease) Diabetes mellitus CAD (coronary artery disease) Biventricular ICD (implantable cardioverter-defibrillator) in place Chronic HFrEF (heart failure with reduced ejection fraction) Ischemic cardiomyopathy Surgical History S/P CABG x 1 Hx of tonsillectomy Hx of CABG History of appendectomy Hx of knee surgery Family History Father Colon cancer Mother No problems noted. Social History Alcohol intake: never Patient Tobacco Use Status: Former Tobacco user Tobacco use type: Cigar Current occupational status: retired Office Procedures Cardiac Device Check Cardiac Device Check Details: Remote heart failure report generated 04/22/2024. Heart failure parameters are within normal limits [id number] Cardiac Device Interrogation, cardio physiologic monitor Procedure code (CPT) selection complete Assessment & Plan Assessment & Plan (1) Biventricular ICD (implantable cardioverter-defibrillator) in place: Code(s): Z95.810 - Presence of automatic (implantable) cardiac defibrillator Category: Medical Plan: See above Coding Level of Care Code Procedure Only Diagnoses Biventricular ICD (implantable cardioverter-defibrillator) in place Z95.810 CPT Codes Cardiac Device Check - Cardiac Device 15: [id number] Cardiac Device Interrogation, cardio physiologic monitor ([id number])
== END ==
PROVIDERS: PCP Internal Medicine; Visit Provider Internal Medicine Cardiovascular Disease
DX: Z45.02 Encounter for adjustment and management of automatic implantable cardiac defibrillator (principal)
CPT/HCPCS: 93297

== ENCOUNTER 2024-04-28 11:40 | Outpatient (AMB) | payer MEDICARE, BC, SELFPAY ==
[2023-10-30 13:42] VITALS: BP 110/58; BP 128/72; BP 90/52; BMI 33.4
[2024-04-28 12:52] VITALS: BP 95/64; PULSE 72; BMI 30.1
--- NOTE | 2024-04-28 12:52 | A.OFFVIS_ITS ---
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 bumetanide 1 mg PO DAILY PRN empagliflozin (Jardiance) 10 mg PO DAILY metoprolol succinate ER 12.5 mg (1/2 x 25 mg) PO BID umeclidinium-vilanterol 62.5-25 mcg/actuation (Anoro Ellipta) 1 ea inhalation DAILY valsartan 40 mg PO BID warfarin 2.5 - 5 mg See Protocol PO DAILY HPI Comments Details: Shabbir comes for follow-up. He continues to be significantly exertional short of breath, NYHA class 2 to 3. He said he gets short of breath walking to his mailbox. Does not exercise much. Takes all his medication. No lightheadedness, syncope. No orthopnea, PND, leg edema. No exertional chest pain. Denies any palpitations, lightheadedness, syncope, ICD discharge. He said last week he was significantly short of breath but this improved on its own without change in his diuretic therapy although his ICD remote monitoring showed elevated filling pressures. Recent ICD monitoring for heart failure shown normalized filling pressures. [facility] Medical History (Updated 04/28/24 @ 13:46 by Tre Nelson MD) Biventricular ICD (implantable cardioverter-defibrillator) in place Aortic stenosis CKD (chronic kidney disease) Diabetes mellitus CAD (coronary artery disease) Chronic HFrEF (heart failure with reduced ejection fraction) Ischemic cardiomyopathy Surgical History S/P CABG x 1 Hx of tonsillectomy Hx of CABG History of appendectomy Hx of knee surgery Family History Father Colon cancer Mother No problems noted. Social History Alcohol intake: never Patient Tobacco Use Status: Former Tobacco user Tobacco use type: Cigar Current occupational status: retired Review of Systems Const Denies chills, Denies fatigue, Denies fever(s), Denies frequent falls, Denies weakness, Denies weight gain and Denies weight loss ENT Denies dizziness Card Denies chest pain, Denies leg edema, Denies lightheadedness, Denies palpitations, Denies dyspnea and Denies dyspnea on exertion Resp Denies cough, Denies dyspnea and Denies dyspnea on exertion GI Denies hematochezia Musc Denies abnormal gait, Denies muscle weakness, Denies numbness, Denies radiating pain into limb and Denies tingling Neuro Denies abnormal gait, Denies dizziness, Denies frequent falls, Denies numbness, Denies tingling and Denies weakness Endo Denies fatigue and Denies palpitations Physical Exam Vital Signs: Last Vital Signs Pulse 72 04/28/24 12:52 BP 95/64 04/28/24 12:52 BMI result Body Mass Index 30.1 Const General: cooperative, comfortable, alert and awake Nutritional Appearance: obese Orientation/consciousness: patient oriented x3 Limitations: no limitations HEENT Head: Yes normocephalic and Yes atraumatic Eyes General: appearance normal, both eyes and all related structures Neck Neck: Yes trachea midline, Yes supple and Yes no JVD Chest Chest palpation & inspection: normal inspection of the chest and other (Well- healed sternotomy scar) Resp Effort & Inspection: normal respiratory effort Auscultation: crackles (Coarse) on the right at the base, no rales, no rhonchi, no wheezes and diminished lung sounds Cardio Palpation: abnormal PMI displaced PMI Rate: regular rate Rhythm: regular rhythm Heart sounds: S1 normal heart sound present, S2 normal heart sound present, Murmur heart sound present systolic late, decrescendo, crescendo, soft and at the right sternal border and Other heart sounds present (S4) GI Auscultation: normal bowel sounds Skin General skin exam: no rashes or lesions noted and ecchymosis Neuro General: patient oriented x3 and no focal motor deficits Extrem General: Yes no clubbing, cyanosis or edema Psych Appearance: grossly normal Office Procedures Cardiac Device Check Cardiac Device Check Details: Biventricular [employer] ICD in place. Bi V pacing 100% of the time. Battery life is excellent. Right atrial and RV sensing is excellent. Atrial and biventricular pacing thresholds adequate. Pacing shock lead impedance is stable. Few episodes of nonsustained ventricular tachycardia noted [id number] Cardiac Device Check, multi lead implantable defibrillator Procedure code (CPT) selection complete Assessment & Plan Assessment & Plan (1) Chronic HFrEF (heart failure with reduced ejection fraction): Code(s): I50.22 - Chronic systolic (congestive) heart failure Category: Medical Plan: Heart failure with reduced ejection fraction with severely reduced LV systolic function related to significant ischemic cardiomyopathy limiting symptoms although no overt signs of heart failure. Oral as poor tolerance of neurohormonal modulation with low blood pressure. Continue current low-dose metoprolol and Diovan therapy. Continue current diuretic regimen. Continue Jardiance therapy. Heart failure management discussed. Encouraged to increase activity level as tolerated. Suggested phase 2 cardiac rehabilitation although he said he has tried that in the past. Overall prognosis is limited. (2) Biventricular ICD (implantable cardioverter-defibrillator) in place: Code(s): Z95.810 - Presence of automatic (implantable) cardiac defibrillator Category: Medical Plan: Biventricular ICD in place, working well. Reprogrammed for adequate function. Will follow remotely for heart failure as well as device function. Follow up in the clinic in 6 months time. (3) Aortic stenosis: Code(s): I35.0 - Nonrheumatic aortic (valve) stenosis Category: Medical Qualifiers: Cardiac valve disease etiology: nonrheumatic Qualified Code(s): I35.0 - Nonrheumatic aortic (valve) stenosis Plan: Echocardiogram suggestive of severe low-flow aortic stenosis consistent with severe LV systolic dysfunction with possible limited contractile reserve. Has been seen in [facility] for possible transcatheter aortic valve replacement although was not considered to be a candidate for the same. Currently continue to monitor clinically. Overall prognosis again guarded from that perspective. Continue warfarin therapy (4) CAD (coronary artery disease): Code(s): I25.10 - Atherosclerotic heart disease of [place] coronary artery without angina pectoris Category: Medical Plan: CAD with prior inferior NE with two-vessel coronary hypertrophic bypass grafting with pericardiectomy leading to LAD territory infarct with severely reduced LV ejection fraction leading to Bi V ICD. Continues to have symptoms related to it. Continue high-intensity statin therapy. Currently on warfarin therapy for anticoagulation. Continue to pursue LDL below 70 mg/dL. Follow up in the clinic in 6 months time, sooner p.r.n.. Thank you for allowing me to partake in his care Coding Level of Care Code Est Pt Level 4 (64426) Diagnoses Chronic HFrEF (heart failure with reduced ejection fraction) I50.22 Biventricular ICD (implantable cardioverter-defibrillator) in place Z95.810 Nonrheumatic aortic valve stenosis I35.0 Cardiac valve disease etiology: nonrheumatic CAD (coronary artery disease) I25.10 CPT Codes Cardiac Device Check - Cardiac Device 6: [id number] Cardiac Device Check, multi lead implantable defibrillator ([id number])
== END 2024-04-28 13:12 | disposition home or self-care (01) ==
PROVIDERS: PCP Internal Medicine; Visit Provider Internal Medicine Cardiovascular Disease
DX: I50.22 Chronic systolic (congestive) heart failure (principal); Z95.810 Presence of automatic (implantable) cardiac defibrillator; I35.0 Nonrheumatic aortic (valve) stenosis; I25.10 Atherosclerotic heart disease of native coronary artery without angina pectoris
CPT/HCPCS: 93284; 99214

== ENCOUNTER → 2024-04-28 11:40 | Outpatient (BNVA) | payer BC, MEDICARE, SELFPAY ==
[2023-10-30 13:42] VITALS: BP 110/58; BP 128/72; BP 90/52; BMI 33.4
== END ==
PROVIDERS: PCP Internal Medicine; Visit Provider Internal Medicine Cardiovascular Disease

== ENCOUNTER 2024-05-08 08:00 | Outpatient (AMB) | payer MEDICARE, BC, SELFPAY ==
[2024-04-28 13:10] VITALS: BP 110/58; BP 128/72; BP 90/52; BMI 33.4
[2024-05-08 08:15] LABS: Prothrombin Time Whole Bld POC 41.8 sec (11.1-13.5); ~PT, ~INR - Anti Coag Clinic 3.5 (0.9-1.1)
--- NOTE | 2024-07-11 11:29 | MHC.OFFVISCO ---
Intake Intake Visit Reasons: Anticoagulation Allergies indomethacin [From INDOCIN] Allergy (Mild, Verified 06/30/24 12:13) HEADACHES Nursing Note pt seen by RN Tarsha ADAMS note and coding charge be added for the date of 05/08/24 - for some reason the note and code was canceled and not re-entered It was an in office visit INR 3.5 out of therapeutic range Medications and supplements reviewed She decreased the dose x 1 day to 1.25mg on then pt resumed usual dose 1.25mg sunday/ 2.5mg x 6 days F/U INR Date : 2 weeks ?? Patient verbalizing understanding of instructions given. Anti-Coag Initial Assessment Social Hx Patient Tobacco Use Status: Former Tobacco user Tobacco use type: Cigar alcohol intake: never Coding Level of Care Code Est Patient Level 1 Diagnoses Current use of anticoagulant therapy Z79.01 Results AMB INR Fingerstick AMB INR Fingerstick 3.5 Last Edit by Jeanine Anderson RN on 05/08/24 08:17 interface delay Assessment & Plan Assessment & Plan (1) Current use of anticoagulant therapy: Code(s): Z79.01 - alf (current) use of 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
== END 2024-05-08 08:28 | disposition home or self-care (01) ==
LOC: HO.ACS 08:00
PROVIDERS: PCP Internal Medicine; Visit Provider Internal Medicine
DX: Z79.01 Long term (current) use of anticoagulants (principal)

== ENCOUNTER → 2024-05-08 08:00 | Outpatient (BNVA) | payer MEDICARE, BC, SELFPAY ==
[2024-04-28 13:10] VITALS: BP 110/58; BP 128/72; BP 90/52; BMI 33.4
== END ==
PROVIDERS: PCP Internal Medicine; Visit Provider Internal Medicine
DX: Z95.2 Presence of prosthetic heart valve (principal); Z79.01 Long term (current) use of anticoagulants; Z51.81 Encounter for therapeutic drug level monitoring
CPT/HCPCS: 85610; 99211

== ENCOUNTER 2024-05-23 14:11 | Inpatient (IN) | payer MEDICARE, BC, SELFPAY ==
[2024-04-28 13:10] VITALS: BP 110/58; BP 128/72; BP 90/52; BMI 33.4
[2024-05-23] VITALS (9 sets, daily range): BP systolic 90–114; BP diastolic 46–62; PULSE 80–91; RESP 15–24; TEMP 36.4–36.9; O2SAT 92–100; BMI 29.5
--- NOTE | ~2024-05-23 | CT_ITS ---
EXAMINATION: CT ABDOMEN AND PELVIS WITHOUT CONTRAST CLINICAL INFORMATION: Left lower quadrant pain, question mass COMPARISON: None available. TECHNIQUE: Multidetector volumetric imaging was performed from the superior aspect of the liver through the pubic symphysis. Sagittal and coronal reformatted images were obtained on the technologist's workstation. This CT examination was performed using dose optimization techniques as appropriate, variously including the following: *Automated exposure control *Adjustment of mA and/or kV according to patient size (this includes techniques or standardized protocols for targeted exams where dose is matched to indication/reason for exam; i.e. extremities or head) *Use of iterative reconstruction technique DLP: 1016 mGy-cm FINDINGS: LUNG BASES: Partial imaging of extensive fibrotic changes with cyst small cystic changes at the right base associated with thickening of the lateral septal lines and traction bronchiolectasis. Appearance favors chronic interstitial lung disease. The central lesion grossly. LIVER, GALLBLADDER, AND BILIARY TREE: The liver is normal in size, shape, and attenuation. No focal hepatic lesion or biliary ductal dilatation is present. Multiple gallstones without acute inflammatory changes. PANCREAS: Unremarkable. SPLEEN: Unremarkable. ADRENAL GLANDS: Unremarkable. KIDNEYS AND URETERS: Multiple renal cortical cysts. No hydronephrosis. Nonspecific minor perinephric stranding. BLADDER: Small bladder diverticulum Dome of bladder. GASTROINTESTINAL TRACT: The left colon is incarcerated into a left inguinal hernia partially imaged. No obstruction. This is only partially imaged. No small bowel pathology. Cecal base is unremarkable. There is a peripherally calcified focus measuring 16 mm within the right lower quadrant related to previous fat necrosis. ABDOMINAL WALL: As above. LYMPH NODES: Normal. VASCULAR: Severe atherosclerosis. There is early diffuse on dilatation of the infrarenal abdominal aorta measuring up to 2.7 cm. Dense atherosclerotic calcifications. PELVIC VISCERA: Unremarkable. OSSEOUS STRUCTURES: Compression fracture of the L4 vertebral body of moderate severity involving the anterior column only. This looks relatively recent and correlation with the pathology indicated. CT/CT abdomen pelvis wo IV con IMPRESSION: 1. Incarcerated left inguinal hernia partially imaged. No obstruction. This likely corresponds to the clinical finding. Surgical assessment recommended. 2. Incidental gallstones. 3. Severe atherosclerosis. 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 Recommend follow-up every 3 years. 4. L4 compression fracture as above. Fleischner guidelines were followed. Electronically signed by: Virgil Alanis MD 05/23/2024 06:11 PM EDT RP
--- NOTE | 2024-05-23 14:28 | ECG_ITS ---
Test Reason : nausea Blood Pressure : / mmHG Vent. Rate : 078 BPM Atrial Rate : 078 BPM P-R Int : 104 ms QRS Dur : 182 ms QT Int : 466 ms P-R-T Axes : 000 -40 031 degrees QTc Int : 531 ms Atrial-sensed ventricular-paced rhythm Abnormal ECG When compared with ECG of 04-MAR-2024 11:02, Vent. rate has decreased BY 8 BPM Referred By: Karen Sanders Electronically Signed By:FADIA JOYA
[2024-05-23 14:45] LABS: Basophils Percent Auto 0.5 % (0-2); Eosinophils Absolute Auto 0.3 X10*3/uL (0.0-0.4); Eosinophils Percent Auto 3.7 % (0-4); Hemoglobin 12.6 g/dl (14.0-18.0); Imm Gran Abs Auto 0.03 X10*3/uL (0.00-0.03); Imm Gran Pct Auto 0.3 % (0.0-0.4); Lymphocytes Absolute Auto 0.6 X10*3/uL (1.2-4.9); Lymphocytes Percent Auto 6.4 % (20-40); MANUAL DIFF FLAG NO; Mean Corpuscular HGB Conc 33.2 g/dl (31.0-36.0); Mean Corpuscular Hemoglobin 28.6 pg (27.0-33.0); Mean Corpuscular Volume 86.2 fL (80.0-98.0); Mean Platelet Volume 9.6 fL (9.4-12.4); Monocytes Absolute Auto 0.5 X10*3/uL (0.1-1.2); Monocytes Percent Auto 5.2 % (2-11); Neutrophils Absolute Auto 7.2 x10*3/uL (2.0-8.3); Neutrophils Percent Auto 83.9 % (45-73); Platelet Count 177 X10*3/uL (160-400); Red Blood Count 4.41 X10*6/uL (4.60-5.80); Red Cell Distribution Width 15.1 % (11.0-16.0); White Blood Count 8.6 X10*3/uL (4.8-10.8)
[2024-05-23 14:55] LABS: Lactic Acid 1.2 mmol/L (0.5-2.0)
--- NOTE | 2024-05-23 15:01 | ED.ABDPAIN ---
HPI - Abdominal Pain General Chief Complaint: Abdominal Pain Stated Complaint: LLQ pain, vomiting, hx hernia Time Seen by Provider: 05/23/24 14:25 Source: patient, family, EMS, RN notes reviewed and old records reviewed Mode of arrival: EMS Limitations: no limitations History of Present Illness ED Provider: Asa Sanders PA-C HPI narrative: 79-year-old male with history of interstitial lung disease on p.r.n.oxygen, COPD, aortic stenosis, HFrEF (20%), ischemic cardiomyopathy s/p BiV ICD, NSVT, CKD, DM who presents to the ER from home for evaluation of acute onset of left lower quadrant, left inguinal abdominal pain along with recurrent nausea and vomiting that started at 10:30 this morning. Patient reports having a normal, formed bowel movement at 10:00 today, did not require straining or pushing, and about 30 minutes later he developed severe sudden onset pain in the left inguinal region. He reports it feels similar to when he had the inguinal hernia on the right side. He has had at least 6 episodes of vomiting since then. Patient states the pain is a 9.5/10. Denies any chest pain or shortness of breath. No fever or chills. MD elicited complaint: abdominal pain Pertinent past history: other (inguinal hernia) Onset (ago): hour(s) (4) Pain Consistency: constant Location: LLQ Severity: severe Pain scale (0-10): 9 Quality: sharp Radiation: other (groin) Exacerbating factors: movement and other (palpation, vomiting) Relieving factors: nothing Context: history of similar episodes Associated symptoms: nausea and vomiting Related Data Home Medications ?Medication ?Instructions ?Recorded ?Confirmed ammonium lactate 12 % topical cream 1 appl topical BID 07/17/22 05/23/24 albuterol sulfate 2.5 mg/3 mL 2.5 mg inhalation BID PRN wheezing 02/14/24 05/23/24 (0.083 %) solution for nebulization umeclidinium 62.5 mcg-vilanterol 1 ea inhalation DAILY 02/14/24 05/23/24 25 mcg/actuation powdr for inhalation (Anoro Ellipta) warfarin 2.5 mg tablet 1.25 mg PO DARLING 05/23/24 05/23/24 warfarin 2.5 mg tablet 2.5 mg PO MOTUWETHFRSA 05/23/24 05/23/24 Previous Rx's ?Medication ?Instructions ?Recorded empagliflozin 10 mg tablet 10 mg PO DAILY #30 tabs 03/29/22 (Jardiance) valsartan 40 mg tablet 40 mg PO BID #180 tabs 09/05/23 metoprolol succinate 25 mg 12.5 mg (1/2 x 25 mg) PO BID #90 11/30/23 tablet,extended release 24 hr tabs bumetanide 2 mg tablet See Rx Instructions PO DAILY #90 03/03/24 tabs bumetanide 1 mg tablet 1 mg PO DAILY PRN edema #30 tabs 03/24/24 Allergies Allergy/AdvReac Type Severity Reaction Status Date / Time indomethacin [From INDOCIN] Allergy Mild HEADACHES Verified 05/23/24 14:23 Review of Systems Review of Systems Yes all other systems are reviewed and are negative [facility] Past Medical History Medical History Biventricular ICD (implantable cardioverter-defibrillator) in place Aortic stenosis CKD (chronic kidney disease) Diabetes mellitus CAD (coronary artery disease) Chronic HFrEF (heart failure with reduced ejection fraction) Ischemic cardiomyopathy Surgical History S/P CABG x 1 Hx of tonsillectomy Hx of CABG History of appendectomy Hx of knee surgery Family History Family History Father Colon cancer Mother No problems noted. Social History Social History Household Members: Spouse Do you presently have visiting nurse or other home services: No Alcohol intake: never Patient Tobacco Use Status: Former Tobacco user Tobacco use type: Cigar Smoked in Last 30 Days: No Use of substances other than those prescribed or required for medical reasons: No Currently Displaying Signs/Symptoms of Drug Intoxication Withdrawal: No Do you feel safe in your current relationship?: Yes Advance Directives: No Advance Directives Information Provided: No Do you have a plan to hurt others: No Plan Nutrition Risks: No Nutritional Risk service: Yes Current occupational status: retired Physical Exam ED Vital Signs: Vital Signs - 24 hr 05/23/24 14:18 05/23/24 14:29 05/23/24 15:02 Temperature 97.5 F 97.5 F Pulse Rate 81 81 Respiratory Rate 18 18 20 Blood Pressure 107/53 L 107/53 L Pulse Oximetry 93 93 Oxygen Delivery Method Nasal Cannula Nasal Cannula Oxygen Flow Rate 4 05/23/24 16:48 05/23/24 18:00 05/23/24 20:00 Temperature 97.8 F 97.9 F 97.6 F Pulse Rate 91 91 83 Respiratory Rate 17 17 20 Blood Pressure 103/61 107/62 107/52 L Pulse Oximetry 96 95 100 Oxygen Delivery Method Nasal Cannula Nasal Cannula Nasal Cannula Oxygen Flow Rate 4 4 4 BMI result Body Mass Index 29.5 Appearance: Alert, elderly, male on O2. Oriented X3. Appears uncomfortable, kyphotic Head: normocephalic, atraumatic. Eyes: Pupils equal, round and reactive to light. ENT: Pharynx normal. No tonsillar swelling or exudate. Neck: Normal inspection. Neck supple. +JVD CVS: Normal heart rate and rhythm. Pulses normal. Respiratory: No respiratory distress. Breath sounds normal. Abdomen: Softly distneded with tenderness in the left lower quadrant, palpable, tender mass in the left inguinal region that is large, no overlying skin changes, decreased but present +BS x4 Skin: Skin warm and dry. Normal skin color. Normal skin turgor. No rashes. Extremities: No lower extremity edema. No joint swelling. Neuro/psych: Oriented X 3. No motor deficit. No sensory deficit. CN II-XII intact. Normal speech and cognition. Procedures Procedure Narrative Procedure Narrative: Left inguinal hernia reduction by Dr. Loco Patient was given Dilaudid 1 mg IV and 0.5 mg IV, ice for groin pain. Ice was placed on his left groin area for 20 minutes. Patient was then placed in Trendelenburg and with significant pressure I was able to reduce the hernia. The patient had immediate relief of his pain after the hernia was reduced. Course Course Course Narrative: 4:30 p.m., May 23, 2024 received sign-out with the patient in stable condition pending imaging results. CT results are pending at this time. Labs demonstrate mild hyponatremia, hyperkalemia at 5.5 as well as increased BUN and creatinine. Given these findings, patient will likely need to be brought in the hospital for further evaluation and management. Patient tolerated gentle IV fluids. 7:00 p.m. patient resting comfortably at this time. Reassessment at this time, abdomen is soft and nontender. The left inguinal hernia remains reduced. He does have tenderness in this region but there is no erythema. 7:30 p.m. message to [facility] for transfer of care due to the patient's increased BUN and creatinine. Patient will continue to be monitored. Also discussed with Dr. Loco. 7:[address] Honeycutt, surgery, regarding patient's CT and hospital admission. Medical Decision Making Medical Decision Making [facility] Narrative: 79-year-old male with complicated medical history including ILD on p.r.n. oxygen, heart failure with reduced EF, EF 20% status post ICD, CKD, aortic stenosis, on Coumadin who presents to the ER for evaluation of acute onset left inguinal abdominal pain along with recurrent vomiting that started 10:30 today. There is a palpable tender hernia on examination. Concern for obstruction, incarcerated vs strangulated hernia. IV dilaudid ordered. Unable to lay flat for prolonged time due to SOB and pain. Will reassess. CT scan ordered and is pending. Patient is confirmed DNR/DNI. signed out to Kenan KRISHNAMURTHY who will f/u CT read and determine dispo. Differential Diagnosis Differential Diagnoses: The differential diagnosis associated with the presentation includes Incarcerated inguinal hernia, strangulated inguinal hernia, bowel obstruction Admission/Observation Consideration of admission/observation: Escalation of care including admission/observation considered Consult Healthcare Provider Management of the patient was discussed with: Online Facilitator aware of patient pending CT Lab Data [facility] Lab Attestation statement: I reviewed the patient's lab results. DEISY on CKD 05/23/24 14:33 05/24/24 06:39 Labs: Lab Results 05/23/24 05/23/24 05/23/24 Range/Units 14:33 15:03 17:43 WBC 8.6 (4.8-10.8) X10*3/uL RBC 4.41 L (4.60-5.80) X10*6/uL Hgb 12.6 L (14.0-18.0) g/dl Hct 38.0 L (42.0-52.0) % MCV 86.2 (80.0-98.0) fL MCH 28.6 (27.0-33.0) pg MCHC 33.2 (31.0-36.0) g/dl RDW 15.1 (11.0-16.0) % Plt Count 177 (160-400) X10*3/uL MPV 9.6 (9.4-12.4) fL Immature Gran % (Auto) 0.3 (0.0-0.4) % Neut % (Auto) 83.9 H (45-73) % Lymph % (Auto) 6.4 L (20-40) % [place] % (Auto) 5.2 (2-11) % Eos % (Auto) 3.7 (0-4) % Baso % (Auto) 0.5 (0-2) % Lymph # (Auto) 0.6 L (1.2-4.9) X10*3/uL [place] # (Auto) 0.5 (0.1-1.2) X10*3/uL Eos # (Auto) 0.3 (0.0-0.4) X10*3/uL Baso # (Auto) 0.0 (0.0-0.2) X10*3/uL Abs Immat Gran (auto) 0.03 (0.00-0.03) X10*3/uL Absolute Neuts (auto) 7.2 (2.0-8.3) x10*3/uL Absolute Nucleated RBC 0.000 (0.0-0.012) X10*3/uL Nucleated RBC % (auto) 0.0 (0.0-0.2) /100WBC Sodium 133 L (135-145) mmol/L Potassium 5.5 H D (3.3-5.1) mmol/L Chloride 104 (96-108) mmol/L Carbon Dioxide 20 L (22-29) mmol/L Anion Gap 15 (12-20) BUN 72 H (9-16) mg/dL Creatinine 3.47 H (0.5-1.4) mg/dL Estim Creat Clear Calc 17.7 Estimated GFR 17 Random Glucose 114 (60-115) mg/dL Lactic Acid 1.2 (0.5-2.0) mmol/L Calcium 8.4 D (8.4-10.2) mg/dL Magnesium 1.8 (1.6-2.6) mg/dL Total Bilirubin 0.3 (0.0-1.0) mg/dL Direct Bilirubin 0.1 (0.0-0.5) mg/dL AST 23 (5-37) U/L ALT 9 (0-40) U/L Alkaline Phosphatase 89 (39-117) U/L Total Protein 7.8 (6.5-8.0) g/dL Albumin 3.4 L (3.5-5.0) g/dL Urine Color Urine Appearance Urine pH (5.0-9.0) Ur Specific [place] (1.005-1.025) Urine Protein (Neg-Trace) mg/dL Urine Glucose (UA) (Negative) mg/dL Urine Ketones (Negative) mg/dL Urine Blood (Negative) Urine Nitrite (Negative) Ur Leukocyte Esterase (Negative) Blood Type A Positive Antibody Screen NEGATIVE 05/23/24 05/23/24 Range/Units 17:56 20:03 WBC (4.8-10.8) X10*3/uL RBC (4.60-5.80) X10*6/uL Hgb (14.0-18.0) g/dl Hct (42.0-52.0) % MCV (80.0-98.0) fL MCH (27.0-33.0) pg MCHC (31.0-36.0) g/dl RDW (11.0-16.0) % Plt Count (160-400) X10*3/uL MPV (9.4-12.4) fL Immature Gran % (Auto) (0.0-0.4) % Neut % (Auto) (45-73) % Lymph % (Auto) (20-40) % [place] % (Auto) (2-11) % Eos % (Auto) (0-4) % Baso % (Auto) (0-2) % Lymph # (Auto) (1.2-4.9) X10*3/uL [place] # (Auto) (0.1-1.2) X10*3/uL Eos # (Auto) (0.0-0.4) X10*3/uL Baso # (Auto) (0.0-0.2) X10*3/uL Abs Immat Gran (auto) (0.00-0.03) X10*3/uL Absolute Neuts (auto) (2.0-8.3) x10*3/uL Absolute Nucleated RBC (0.0-0.012) X10*3/uL Nucleated RBC % (auto) (0.0-0.2) /100WBC Sodium 133 L (135-145) mmol/L Potassium 6.1 H* (3.3-5.1) mmol/L Chloride 105 (96-108) mmol/L Carbon Dioxide 19 L (22-29) mmol/L Anion Gap 15 (12-20) BUN 69 H (9-16) mg/dL Creatinine 3.25 H (0.5-1.4) mg/dL Estim Creat Clear Calc 18.9 Estimated GFR 18 Random Glucose 85 (60-115) mg/dL Lactic Acid 1.0 (0.5-2.0) mmol/L Calcium 8.4 (8.4-10.2) mg/dL Magnesium (1.6-2.6) mg/dL Total Bilirubin (0.0-1.0) mg/dL Direct Bilirubin (0.0-0.5) mg/dL AST (5-37) U/L ALT (0-40) U/L Alkaline Phosphatase (39-117) U/L Total Protein (6.5-8.0) g/dL Albumin (3.5-5.0) g/dL Urine Color Yellow Urine Appearance Clear Urine pH 5.5 (5.0-9.0) Ur Specific [place] 1.010 (1.005-1.025) Urine Protein Negative (Neg-Trace) mg/dL Urine Glucose (UA) Negative (Negative) mg/dL Urine Ketones Negative (Negative) mg/dL Urine Blood Negative (Negative) Urine Nitrite Negative (Negative) Ur Leukocyte Esterase Negative (Negative) Blood Type Antibody Screen Independent Interpretation I performed an independent interpretation of an: EKG and CT Scan Interpretation: large hernia in left inguinal canal, no significant air fluid levels to suggest obstruction Radiology Impression Discussion of test interpretation with radiology: I have reviewed the radiologist's reading. Radiologist Impression: [address] [address] [address] Scan Report Signed Patient: Eddie Mullen MR#: [id number] : 1945 Acct:[id number] Age/Sex: 79 / M ADM Date: 05/23/24 Loc: HO.ED Attending Dr: Ordering Physician: Karen Sanders Date of Service: 05/23/24 Procedure(s): CT abdomen pelvis wo IV con Accession Number(s): [id number] cc: Sundeep Macdonald MD; Karen Sanders~ EXAMINATION: CT ABDOMEN AND PELVIS WITHOUT CONTRAST CLINICAL INFORMATION: Left lower quadrant pain, question mass COMPARISON: None available. TECHNIQUE: Multidetector volumetric imaging was performed from the superior aspect of the liver through the pubic symphysis. Sagittal and coronal reformatted images were obtained on the technologist's workstation. This CT examination was performed using dose optimization techniques as appropriate, variously including the following: *Automated exposure control *Adjustment of mA and/or kV according to patient size (this includes techniques or standardized protocols for targeted exams where dose is matched to indication/reason for exam; i.e. extremities or head) *Use of iterative reconstruction technique DLP: 1016 mGy-cm FINDINGS: LUNG BASES: Partial imaging of extensive fibrotic changes with cyst small cystic changes at the right base associated with thickening of the lateral septal lines and traction bronchiolectasis. Appearance favors chronic interstitial lung disease. The central lesion grossly. LIVER, GALLBLADDER, AND BILIARY TREE: The liver is normal in size, shape, and attenuation. No focal hepatic lesion or biliary ductal dilatation is present. Multiple gallstones without acute inflammatory changes. PANCREAS: Unremarkable. SPLEEN: Unremarkable. ADRENAL GLANDS: Unremarkable. KIDNEYS AND URETERS: Multiple renal cortical cysts. No hydronephrosis. Nonspecific minor perinephric stranding. BLADDER: Small bladder diverticulum Dome of bladder. GASTROINTESTINAL TRACT: The left colon is incarcerated into a left inguinal hernia partially imaged. No obstruction. This is only partially imaged. No small bowel pathology. Cecal base is unremarkable. There is a peripherally calcified focus measuring 16 mm within the right lower quadrant related to previous fat necrosis. ABDOMINAL WALL: As above. LYMPH NODES: Normal. VASCULAR: Severe atherosclerosis. There is early diffuse on dilatation of the infrarenal abdominal aorta measuring up to 2.7 cm. Dense atherosclerotic calcifications. PELVIC VISCERA: Unremarkable. OSSEOUS STRUCTURES: Compression fracture of the L4 vertebral body of moderate severity involving the anterior column only. This looks relatively recent and correlation with the pathology indicated. CT/CT abdomen pelvis wo IV con IMPRESSION: 1. Incarcerated left inguinal hernia partially imaged. No obstruction. This likely corresponds to the clinical finding. Surgical assessment recommended. 2. Incidental gallstones. 3. Severe atherosclerosis. 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 Recommend follow-up every 3 years. 4. L4 compression fracture as above. Fleischner guidelines were followed. Electronically signed by: Virgil Alanis MD 05/23/2024 06:11 PM EDT RP Dictated By: Virgil Alanis MD Signed By: <Electronically signed by Virgil Alanis MD in OV> 05/23/24 1811 DD/ 1558 TD/TT: 05/23/24 1642 Temperature Inspector: LEXUS Independent Historian Clinical information obtained from an independent historian. History obtained from or confirmed by: Spouse External Record Review External record reviewed: Office record, Prior outpatient labs and Prior outpatient radiology Prescription Management I considered prescription management with: Pain Medication and Antibiotic Chronic Conditions Patient?s care impacted by: Diabetes, Hypertension and Other (CAD, ILD, CKD, CHF) Medications Administered Generic Name Dose Route Start Last Admin Trade Name Freq PRN Reason Stop Dose Admin Empagliflozin 10 mg 05/24/24 09:00 05/24/24 12:11 Empagliflozin 10 Mg Tablet PO 10 mg DAILY AMBER Administration Lactic Acid 1 appl 05/24/24 09:00 05/24/24 12:11 Ammonium Lactate 12 % Cream 140 Gm Tube TOPICAL 1 appl BID AMBER Administration Protocol Metoprolol Succinate 12.5 mg 05/24/24 09:00 05/24/24 12:12 Metoprolol Succinate Er 12.5 Mg Halftab.Er.24h PO 12.5 mg BID AMBER Administration Protocol Oxycodone HCl 5 mg 05/23/24 21:22 05/24/24 04:23 Oxycodone Hcl Immed Release 5 Mg Tablet PO 5 mg Q6H PRN Administration Pain, Severe (Pain Scale 7-10) Sodium Chloride 3 ml 05/24/24 00:00 05/24/24 09:16 0.9 % Sodium Chloride Flush 3 Ml Syringe IVFLUSH 3 ml QSHIFT AMBER Administration Discontinued Medications Generic Name Dose Route Start Last Admin Trade Name Freq PRN Reason Stop Dose Admin Hydromorphone HCl 0.5 mg 05/23/24 14:39 05/23/24 15:02 Hydromorphone Hcl 0.5 Mg/0.5 Ml Syringe IVPUSH 05/23/24 14:40 0.5 mg ONCE ONE Administration Protocol Hydromorphone HCl 1 mg 05/23/24 16:35 05/23/24 16:38 Hydromorphone Hcl 1 Mg/Ml Syringe IVPUSH 05/23/24 16:36 1 mg ONCE ONE Administration Protocol Sodium Chloride 500 mls @ 500 mls/hr 05/23/24 15:30 05/23/24 17:22 Ns IV 05/23/24 16:29 Infused .Q1H AMBER Infusion Sodium Chloride 1,000 mls @ 80 mls/hr 05/23/24 17:39 05/24/24 02:26 Ns IV 05/24/24 06:08 Infused .[id number] STA Infusion Ondansetron HCl 4 mg 05/23/24 14:39 05/23/24 15:02 Ondansetron Hcl 4 Mg/2 Ml Vial IVPUSH 05/23/24 14:40 4 mg ONCE ONE Administration Pantoprazole Sodium 40 mg 05/23/24 21:44 05/23/24 21:54 Pantoprazole Sodium 40 Mg/10 Ml Vial IVPUSH 05/23/24 21:45 40 mg ONCE ONE Administration Sodium Bicarbonate 650 mg 05/23/24 21:09 05/23/24 21:55 Sodium Bicarbonate 650 Mg Tablet PO 05/23/24 21:10 650 mg ONCE STA Administration Sodium Zirconium Cyclosilicate 10 gm 05/23/24 21:09 05/23/24 21:55 Sodium Zirconium Cyclosilicate 10 Gm Powd.Pack PO 05/23/24 21:10 10 gm ONCE STA Administration Sodium Zirconium Cyclosilicate 10 gm 05/24/24 08:06 05/24/24 09:16 Sodium Zirconium Cyclosilicate 10 Gm Powd.Pack PO 05/24/24 08:07 10 gm ONCE ONE Administration Critical Care Time Critical Care Time Critical Care Time: Yes Total Critical Care Time: 39 Attestation: I have personally provided critical care time exclusive of time spent on separately billable procedures. Time includes review of lab data, radiology results, discussion with consultants, and monitoring for potential decompensation. Intervention performed as documented. Discharge Plan Discharge Clinical Impression: Hernia, inguinal, left, Acute kidney injury superimposed on CKD Patient Disposition: Admitted As Inpatient Interventions: Admission Worksheet (ED) Last Done: 05/23/24 23:49 Discharge Date/Time: 05/24/24 00:25
[2024-05-23] MEDS: HYDROmorphone HCl 0.5 MG/0.5 ML SYRINGE IVPUSH (15:02)
[2024-05-23] MEDS: ondansetron HCL 4 MG/2 ML VIAL IVPUSH (15:02)
[2024-05-23 15:26] LABS: Alanine Aminotransferase 9 U/L (0-40); Albumin Level 3.4 g/dL (3.5-5.0); Alkaline Phosphatase 89 U/L (39-117); Anion Gap 15 (12-20); Aspartate Amino Transferase 23 U/L (5-37); Bilirubin Direct 0.1 mg/dL (0.0-0.5); Bilirubin Total 0.3 mg/dL (0.0-1.0); Blood Urea Nitrogen 72 mg/dL (9-16); Calcium 8.4 mg/dL (8.4-10.2); Carbon Dioxide 20 mmol/L (22-29); Chloride 104 mmol/L (96-108); Creatinine Clr Calc Pharmacy 17.7; Estimated Glomerular Filt Rate 17; Glucose Random 114 mg/dL (60-115); Magnesium 1.8 mg/dL (1.6-2.6); Potassium 5.5 mmol/L (3.3-5.1); Sodium 133 mmol/L (135-145); Total Protein 7.8 g/dL (6.5-8.0)
[2024-05-23] MEDS: HYDROmorphone HCl 1 MG/ML SYRINGE IVPUSH (16:38)
[2024-05-23] MEDS: 0.9 % Sodium Chloride 500 ML IV (16:39)
[2024-05-23] MEDS: 0.9 % Sodium Chloride 1,000 ML 125 ML IV (17:55)
[2024-05-23 18:09] LABS: Appearance Urine Clear; Color Urine Yellow; Glucose Urine UA Negative (Negative); Leukocyte Esterase Urine Negative (Negative); Nitrite Urine Negative (Negative); PH 5.5 (5.0-9.0); Urine Blood Negative (Negative); Urine Ketones Negative (Negative); Urine Protein Negative (Neg-Trace)
--- NOTE | 2024-05-23 19:53 | PM.IMHP ---
History of Present Illness Date of Service: 05/23/24 Attending physician on admission: Laura Ma Chief Complaint: Abdominal pain Pt is an 79-year-old male with a PMH significant for?COPD, ILD on p.r.n. home O2, HFrEF (20%), ischemic cardiomyopathy with biventricular pacemaker in place, aortic stenosis, NSVT, and CKD 3 who presents to the ED with?sudden onset lower left quadrant abdominal pain. Patient reports he was in his normal state of health earlier this morning. Patient had a normal bowel movement and then sat down to eat lunch when he immediately had an upset stomach with nausea, vomiting, and sudden onset severe lower left quadrant abdominal pain. Reports had at least 5-6 episodes of vomiting before he began to do dry heave. Patient called EMS who brought him to the emergency department where imaging showed he had an incarcerated left inguinal hernia without obstruction, which was reduced in the ED without incident. Patient currently is seen resting comfortably in bed without any acute medical complaints. Currently denies nausea or vomiting, and without LLQ abdominal pain at rest. Denies any other acute medical concerns at this time: No chest pain/pressure, palpitations. Shortness of breath at baseline. No fever, chills. In the ED pt was mildly tachycardic up to 91 with soft BP of 107/53. Labs were significant for H&H 12.6/38.0, INR 3.8, sodium 133, potassium 5.5, bicarb 20, BUN 72, and creatinine 3.47. No leukocytosis. CT?of abdomen and pelvis found incarcerated left inguinal hernia without obstruction. 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 EKG demonstrated atrial sensed ventricular paced rhythm similar to previous. Pt was treated with ondansetron, hydromorphone, and IVF. Pt will be admitted to the hospital for treatment and further evaluation of DEISY and hyperkalemia in the setting of incarcerated inguinal hernia. Review of Systems Review of Systems: Sudden onset LLQ severe pain Nausea, vomiting Denies chest pain/pressure, palpitations Chronic shortness of breath at baseline No fever, chills PMFSH Medical History Biventricular ICD (implantable cardioverter-defibrillator) in place Aortic stenosis CKD (chronic kidney disease) Diabetes mellitus CAD (coronary artery disease) Chronic HFrEF (heart failure with reduced ejection fraction) Ischemic cardiomyopathy Family History Father Colon cancer Mother No problems noted. Surgical History S/P CABG x 1 Hx of tonsillectomy Hx of CABG History of appendectomy Hx of knee surgery Social History Alcohol intake: never Patient Tobacco Use Status: Former Tobacco user Tobacco use type: Cigar Smoked in Last 30 Days: No Advance Directives: No Advance Directives Information Provided: No Do you have a plan to hurt others: No Plan Current occupational status: retired [employer] Allergies Allergy/AdvReac Type Severity Reaction Status Date / Time indomethacin [From INDOCIN] Allergy Mild HEADACHES Verified 05/23/24 14:23 Active Medications: Current Medications Sodium Chloride (Ns) 1,000 mls @ 125 mls/hr IV .Q8H STA Stop: 05/24/24 01:38 Last Admin: 05/23/24 17:55 Dose: 125 mls/hr Home Medications ?Medication ?Instructions ?Recorded ?Confirmed ?Last Taken ?Type ammonium lactate 12 % topical cream 1 appl topical BID 07/17/22 05/23/24 05/23/24 History albuterol sulfate 2.5 mg/3 mL 2.5 mg inhalation BID PRN wheezing 02/14/24 05/23/24 Unknown History (0.083 %) solution for nebulization umeclidinium 62.5 mcg-vilanterol 1 ea inhalation DAILY 02/14/24 05/23/24 05/23/24 History 25 mcg/actuation powdr for inhalation (Anoro Ellipta) warfarin 2.5 mg tablet 1.25 mg PO DARLING 05/23/24 05/23/24 05/18/24 History warfarin 2.5 mg tablet 2.5 mg PO MOTUWETHFRSA 05/23/24 05/23/24 05/23/24 History Physical Exam Vital Signs and Narrative: Vital Signs: Last Vital Signs Temp 97.9 F 05/23/24 18:00 Pulse 91 05/23/24 18:00 Resp 17 05/23/24 18:00 BP 107/62 05/23/24 18:00 Pulse Ox 95 05/23/24 18:00 O2 Del Method Nasal Cannula 05/23/24 18:00 O2 Flow Rate 4 05/23/24 18:00 Oxygen Flow Rate 4 05/23/24 14:18 BMI result Body Mass Index 29.5 General: AOx3, no acute distress Resp: CTA bilaterally CVS: S1, S2, RRR GI: +BS, no distention. Mild LLQ tenderness. Skin: Warm, dry Neuro: Cranial nerves II-XII grossly intact bilaterally. Motor grossly intact bilaterally Extremities: No edema Psych: Appropriate affect Results Labs 05/23/24 14:33 05/23/24 20:03 Labs: Laboratory Results - last 24 hr 05/23/24 05/23/24 05/23/24 14:33 15:03 17:43 MCV 86.2 MCH 28.6 MCHC 33.2 RDW 15.1 Plt Count 177 MPV 9.6 Immature Gran % (Auto) 0.3 Neut % (Auto) 83.9 H Lymph % (Auto) 6.4 L [place] % (Auto) 5.2 Eos % (Auto) 3.7 Baso % (Auto) 0.5 Lymph # (Auto) 0.6 L [place] # (Auto) 0.5 Eos # (Auto) 0.3 Baso # (Auto) 0.0 Abs Immat Gran (auto) 0.03 Absolute Neuts (auto) 7.2 Absolute Nucleated RBC 0.000 Nucleated RBC % (auto) 0.0 Anion Gap 15 Estim Creat Clear Calc 17.7 Estimated GFR 17 Random Glucose 114 Lactic Acid 1.2 Calcium 8.4 D Magnesium 1.8 Total Bilirubin 0.3 Direct Bilirubin 0.1 AST 23 ALT 9 Alkaline Phosphatase 89 Total Protein 7.8 Albumin 3.4 L Urine Color Urine Appearance Urine pH Ur Specific [place] Urine Protein Urine Glucose (UA) Urine Ketones Urine Blood Urine Nitrite Ur Leukocyte Esterase Blood Type A Positive Antibody Screen NEGATIVE 05/23/24 17:56 MCV MCH MCHC RDW Plt Count MPV Immature Gran % (Auto) Neut % (Auto) Lymph % (Auto) [place] % (Auto) Eos % (Auto) Baso % (Auto) Lymph # (Auto) [place] # (Auto) Eos # (Auto) Baso # (Auto) Abs Immat Gran (auto) Absolute Neuts (auto) Absolute Nucleated RBC Nucleated RBC % (auto) Anion Gap Estim Creat Clear Calc Estimated GFR Random Glucose Lactic Acid Calcium Magnesium Total Bilirubin Direct Bilirubin AST ALT Alkaline Phosphatase Total Protein Albumin Urine Color Yellow Urine Appearance Clear Urine pH 5.5 Ur Specific [place] 1.010 Urine Protein Negative Urine Glucose (UA) Negative Urine Ketones Negative Urine Blood Negative Urine Nitrite Negative Ur Leukocyte Esterase Negative Blood Type Antibody Screen Imaging Radiologist's Impressions: Impressions Abdomen/Pelvis CT 05/23/24 15:58 IMPRESSION: 1. Incarcerated left inguinal hernia partially imaged. No obstruction. This likely corresponds to the clinical finding. Surgical assessment recommended. 2. Incidental gallstones. 3. Severe atherosclerosis. 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 Recommend follow-up every 3 years. 4. L4 compression fracture as above. Fleischner guidelines were followed. Electronically signed by: Virgil Alanis MD 05/23/2024 06:11 PM EDT RP Assessment and Plan (1) Acute kidney injury superimposed on CKD: Status: Acute (2) Incarcerated left inguinal hernia: Status: Acute (3) Hyperkalemia: Status: Acute Plan Pt is an 79-year-old male with a PMH significant for?COPD, ILD on p.r.n. home O2, HFrEF (20%), ischemic cardiomyopathy with biventricular pacemaker in place, aortic stenosis, NSVT, and CKD 3 who presents to the ED with?sudden onset lower left quadrant abdominal pain. Pt will be admitted to the hospital for treatment and further evaluation of DEISY and hyperkalemia in the setting of incarcerated inguinal hernia. Incarcerated left inguinal hernia Patient with sudden onset LLQ severe pain, nausea, vomiting CT of abdomen showing incarcerated left inguinal hernia without obstruction Reduced in the ED without incident Patient currently resting comfortable without significant discomfort Analgesics, antiemetics p.r.n. General surgery consult Pt with significant comorbidities, would be high risk candidate for surgical procedure DEISY Initial BUN 75 and creatinine 3.47, elevated from 30/ and 2.11 on 03/04 In the setting of above with nausea and vomiting Patient received 500 ml IVF bolus, placed on 80mls/hr maintenance fluids x1 bag Nephrology consult Follow BMP Hyperkalemia Initial potassium 5.5 with repeat 6.1 In the setting of above with nausea and vomiting We will give Lokelma 10 mg Follow potassium closely Infrarenal abdominal aorta aneurysm Measuring up to 2.7 cm Recommendation is for follow-up every 3 years Supratherapeutic INR INR 3.8 earlier today Patient on anticoagulation for CAD Hold warfarin for now, follow INR daily with goal of 2.0-3.0 CAD/HLD hold valsartan due to DEISY HFrEF Not in acute exacerbation Hold bumetanide due to DEISY Continue Jardiance, metoprolol COPD/ILD Not in acute exacerbation Continue home inhalers Patient on DuoNebs b.i.d. Supplemental O2 2 L p.r.n. Chronic venous stasis dermatitis Continue ammonium lactate lotion b.i.d. DNR/DNI, verified with pt and HCP who is at bedside Attending:?Dr. Kaur DVT Prophylaxis: On Warfarin Pt will require a hospitalization of at least two nights for treatment of?DEISY and hyperkalemia in the setting of nausea and vomiting from incarcerated left inguinal hernia. Patient will require close monitoring of labs and cardiac function, administration of IV fluids, and specialist consultation with General surgery and Nephrology. Quality Stroke Does the patient have a stroke diagnosis?: No VTE Prior VTE?: No VTE Risk Level:: Medical - moderate - high VTE Device Contraindication: Treatment Not Indicated VTE Drug Contraindication: N/A - Med Ordered
--- NOTE | 2024-05-23 20:08 | PHA.MEDREC ---
Addendum entered by Sarmad Borges RPh 05/23/24 21:05: Med rec was reviewed by [facility]. Original Note: Pharmacy Consult ? Medication Reconciliation Pharmacy has completed the medication reconciliation. Spoke to patient to confirm med list. Patient states he takes Warfarin 2.5 every day except Sundays he takes 1/2 tablet. Patient says he is on Empagliflezin 10 mg , however there are no claims.
--- NOTE | 2024-05-23 20:14 | MHC.EDTECH ---
THIS PCT ASSUMED CARE OF PATIENT AT 1900 ,VITALS TAKEN,PATIENT BELONGING LIST DONE ,REPEATED LABS DONE AND SENT TO LAB ,PATIENT COMFORTABLE ,WATCHING TELEVISION ,PT AT BEDSIDE ,CALL HERR WITHIN PT REACH .
--- NOTE | 2024-05-23 20:14 | PC.NURSE ---
this rn assumed care of pt, pt a&ox4, respirations even and unlabored. pt denies pain at this time.
[2024-05-23 20:36] LABS: Anion Gap 15 (12-20); Blood Urea Nitrogen 69 mg/dL (9-16); Calcium 8.4 mg/dL (8.4-10.2); Carbon Dioxide 19 mmol/L (22-29); Chloride 105 mmol/L (96-108); Creatinine Clr Calc Pharmacy 18.9; Estimated Glomerular Filt Rate 18; Glucose Random 85 mg/dL (60-115); Potassium 6.1 mmol/L (3.3-5.1); Sodium 133 mmol/L (135-145)
[2024-05-23] MEDS: Pantoprazole Sodium 40 MG/10 ML VIAL IVPUSH (21:54)
[2024-05-23] MEDS: Sodium Bicarbonate 650 MG TABLET PO (21:55)
[2024-05-23] MEDS: Sodium Zirconium Cyclosilicate 10 GM POWD.PACK PO (21:55)
--- NOTE | 2024-05-23 21:56 | PC.NURSE ---
pt medicated per mar, tolerated well with water.
--- NOTE | 2024-05-23 22:24 | MHC.EDTECH ---
2200 ROUNDING DONE ,VITALS TAKEN ,PATIENT AWAKE ,COMFORTABLE WATCHING TELEVISION ,URINAL EMPTY ,CALL HERR WITHIN PT REACH .
--- NOTE | 2024-05-23 23:00 | PC.NURSE ---
pt noted to be hypotensive, aware, fluids administered.
--- NOTE | 2024-05-23 23:50 | MHC.EDTECH ---
0000 rounding done ,vitals taken ,Patient was assisted to stand at the side of bed to void ,550 ml empty from urinal ,Pt back in bed .
[2024-05-24] VITALS (9 sets, daily range): BP systolic 84–121; BP diastolic 40–75; PULSE 72–93; RESP 16–23; TEMP 36.1–37.1; O2SAT 94–98; BMI 26.4
[2024-05-24] MEDS: 0.9 % Sodium Chloride Flush 3 ML SYRINGE IVFLUSH ×4 (00:30→23:07)
[2024-05-24] MEDS: oxyCODONE HCl Immed Release 5 MG TABLET PO (04:23)
[2024-05-24 04:28] LABS: Anion Gap 12 (12-20); Blood Urea Nitrogen 64 mg/dL (9-16); Calcium 8.5 mg/dL (8.4-10.2); Carbon Dioxide 23 mmol/L (22-29); Chloride 106 mmol/L (96-108); Creatinine Clr Calc Pharmacy 20.5; Estimated Glomerular Filt Rate 20; Glucose Random 93 mg/dL (60-115); Potassium 5.3 mmol/L (3.3-5.1); Sodium 136 mmol/L (135-145)
[2024-05-24 07:02] LABS: INTERNATIONAL NORM RATIO 3.7 (0.9-1.1); Prothrombin Time 45.5 SEC (11.1-13.3)
[2024-05-24 07:24] LABS: Anion Gap 13 (12-20); Blood Urea Nitrogen 62 mg/dL (9-16); Calcium 8.1 mg/dL (8.4-10.2); Carbon Dioxide 20 mmol/L (22-29); Chloride 107 mmol/L (96-108); Creatinine Clr Calc Pharmacy 21.3; Estimated Glomerular Filt Rate 21; Glucose Random 77 mg/dL (60-115); Potassium 5.6 mmol/L (3.3-5.1); Sodium 134 mmol/L (135-145)
[2024-05-24] MEDS: Sodium Zirconium Cyclosilicate 10 GM POWD.PACK PO (09:16)
--- NOTE | 2024-05-24 10:24 | MHC.CM.PN ---
IMM 05/24/24, pt lives with his , no HCP on file, CM to check back with pt. when is here later today. Pt does not use home care at this time, he used [facility] in the past. He has been to [facility] in the past for STR. He has DME at home of walker, w/c, does not use them at this time, he does use home O2 from [facility]. PCP confirmed: Dr. Macdonald. Family to transport home at DC. DCP: home with services, or STR. CM to follow and assist with DC plan.
--- NOTE | 2024-05-24 12:04 | P.PNIM_ITS ---
Subjective Subjective Date of Service: 05/24/24 Interval History: f/u on incarcerated abd her, anil, hyperkalemia feels better, no abdominal pain Physical Exam 2 Vital Signs: Vital Signs: Last Vital Signs Temp 97.9 F 05/24/24 07:39 Pulse 72 05/24/24 07:39 Resp 20 05/24/24 07:39 BP 97/55 L 05/24/24 07:39 Pulse Ox 96 05/24/24 07:39 O2 Del Method Nasal Cannula 05/24/24 07:39 O2 Flow Rate 3 05/24/24 07:39 Oxygen Flow Rate 4 05/23/24 14:18 BMI result Body Mass Index 29.5 Const: Other: General: AO X 3, no acute distress Resp: CTA bilateral CVS: S1,S2,RRR GI: +BS, NT, no distention Skin: No rash Neuro: motor grossly intact Psych: appropriate affect Objective Data Active Medications Acetaminophen (Acetaminophen 325 Mg Tablet) 650 mg PO Q6H PRN PRN Reason: Pain, Mild (Pain Scale 1-3), fever or headache Albuterol Sulfate (Albuterol Sulfate (0.083%) 2.5 Mg/3 Ml Vial.Neb) 2.5 mg INHALE BID PRN PRN Reason: wheezing Benzonatate (Benzonatate 100 Mg Capsule) 100 mg PO TID PRN PRN Reason: Cough Calcium Carbonate (Calcium Carbonate 750 Mg Tab.Chew) 750 mg PO Q4H PRN PRN Reason: Heartburn Empagliflozin (Empagliflozin 10 Mg Tablet) 10 mg PO DAILY AMBER Lactic Acid (Ammonium Lactate 12 % Cream 140 Gm Tube) 1 appl TOPICAL BID AMBER; Protocol Magnesium Hydroxide (Milk Of Magnesia 30 Ml Oral.Susp) 30 ml PO DAILY PRN PRN Reason: Constipation Melatonin (Melatonin 3 Mg Tablet) 6 mg PO BEDTIME PRN PRN Reason: Insomnia Metoprolol Succinate (Metoprolol Succinate Er 12.5 Mg Halftab.Er.24h) 12.5 mg PO BID AMBER; Protocol Non-Formulary Medication (Umeclidinium-Vilanterol [Anoro Ellipta]) 1 each INHALE DAILY AMBER Ondansetron HCl (Ondansetron Hcl 4 Mg/2 Ml Vial) 4 mg IVPUSH Q8H PRN PRN Reason: Nausea and Vomiting Oxycodone HCl (Oxycodone Hcl Immed Release 5 Mg Tablet) 5 mg PO Q6H PRN PRN Reason: Pain, Severe (Pain Scale 7-10) Last Admin: 05/24/24 04:23 Dose: 5 mg Documented By: MARIO Sodium Chloride (0.9 % Sodium Chloride Flush 3 Ml Syringe) [address] [facility] Last Admin: 05/24/24 09:16 Dose: 3 ml Documented By: ARMSTRH Labs 05/23/24 14:33 05/24/24 06:39 Labs: Laboratory Results - last 24 hr 05/23/24 05/23/24 05/23/24 14:33 15:03 17:43 MCV 86.2 MCH 28.6 MCHC 33.2 RDW 15.1 Plt Count 177 MPV 9.6 Immature Gran % (Auto) 0.3 Neut % (Auto) 83.9 H Lymph % (Auto) 6.4 L [place] % (Auto) 5.2 Eos % (Auto) 3.7 Baso % (Auto) 0.5 Lymph # (Auto) 0.6 L [place] # (Auto) 0.5 Eos # (Auto) 0.3 Baso # (Auto) 0.0 Abs Immat Gran (auto) 0.03 Absolute Neuts (auto) 7.2 Absolute Nucleated RBC 0.000 Nucleated RBC % (auto) 0.0 PT INR Anion Gap 15 Estim Creat Clear Calc 17.7 Estimated GFR 17 Random Glucose 114 Lactic Acid 1.2 Calcium 8.4 D Magnesium 1.8 Total Bilirubin 0.3 Direct Bilirubin 0.1 AST 23 ALT 9 Alkaline Phosphatase 89 Total Protein 7.8 Albumin 3.4 L Urine Color Urine Appearance Urine pH Ur Specific [place] Urine Protein Urine Glucose (UA) Urine Ketones Urine Blood Urine Nitrite Ur Leukocyte Esterase Blood Type A Positive Antibody Screen NEGATIVE 05/23/24 05/23/24 05/24/24 17:56 20:03 03:50 MCV MCH MCHC RDW Plt Count MPV Immature Gran % (Auto) Neut % (Auto) Lymph % (Auto) [place] % (Auto) Eos % (Auto) Baso % (Auto) Lymph # (Auto) [place] # (Auto) Eos # (Auto) Baso # (Auto) Abs Immat Gran (auto) Absolute Neuts (auto) Absolute Nucleated RBC Nucleated RBC % (auto) PT INR Anion Gap 15 12 Estim Creat Clear Calc 18.9 20.5 Estimated GFR 18 20 Random Glucose 85 93 Lactic Acid 1.0 Calcium 8.4 8.5 Magnesium Total Bilirubin Direct Bilirubin AST ALT Alkaline Phosphatase Total Protein Albumin Urine Color Yellow Urine Appearance Clear Urine pH 5.5 Ur Specific [place] 1.010 Urine Protein Negative Urine Glucose (UA) Negative Urine Ketones Negative Urine Blood Negative Urine Nitrite Negative Ur Leukocyte Esterase Negative Blood Type Antibody Screen 05/24/24 06:39 MCV MCH MCHC RDW Plt Count MPV Immature Gran % (Auto) Neut % (Auto) Lymph % (Auto) [place] % (Auto) Eos % (Auto) Baso % (Auto) Lymph # (Auto) [place] # (Auto) Eos # (Auto) Baso # (Auto) Abs Immat Gran (auto) Absolute Neuts (auto) Absolute Nucleated RBC Nucleated RBC % (auto) PT 45.5 H INR 3.7 H D Anion Gap 13 Estim Creat Clear Calc 21.3 Estimated GFR 21 Random Glucose 77 Lactic Acid Calcium 8.1 L Magnesium Total Bilirubin Direct Bilirubin AST ALT Alkaline Phosphatase Total Protein Albumin Urine Color Urine Appearance Urine pH Ur Specific [place] Urine Protein Urine Glucose (UA) Urine Ketones Urine Blood Urine Nitrite Ur Leukocyte Esterase Blood Type Antibody Screen Assessment and Plan (1) Hyperkalemia: Status: Acute (2) Incarcerated left inguinal hernia: Status: Acute Plan 79-year-old male with a PMH significant for?COPD, ILD on p.r.n. home O2, HFrEF (20%), ischemic cardiomyopathy with biventricular pacemaker in place, aortic stenosis, NSVT, and CKD 3 who presents to the ED with?sudden onset lower left quadrant abdominal pain. Pt will be admitted to the hospital for treatment and further evaluation of ANIL and hyperkalemia in the setting of incarcerated inguinal hernia. Incarcerated left inguinal hernia--reduced in the ED, presently assymptomatic -surgery consult -pain management PRN e ANIL on ckd 4, improved, Creatine is now near baseline -nephro consult Hyperkalemia d/t ckd, improved but still, lokelma and repeat later mild metabolic acidosis--d/t renal failure, monitor Infrarenal abdominal aorta aneurysm Measuring up to 2.7 cm Recommendation is for follow-up every 3 years Paroxysmal AFIB Supratherapeutic INR INR 3.8 earlier today Hold warfarin for now, follow INR daily with goal of 2.0-3.0 CAD/HLD hold valsartan due to ANIL HFrEF Not in acute exacerbation Hold bumetanide due to ANIL Continue Jardiance, metoprolol COPD/ILD Not in acute exacerbation Continue home inhalers Patient on DuoNebs b.i.d. Supplemental O2 2 L p.r.n. Chronic venous stasis dermatitis Continue ammonium lactate lotion b.i.d. DNR/DNI, verified with pt and HCP who is at bedside DVT Prophylaxis: On Warfarin Pt will require a hospitalization of at least two nights for treatment of?ANIL and hyperkalemia in the setting of nausea and vomiting from incarcerated left inguinal hernia. Patient will require close monitoring of labs and cardiac function, administration of IV fluids, and specialist consultation with General surgery and Nephrology. Quality Stroke Does the patient have a stroke diagnosis?: No VTE Prior VTE?: No VTE Risk Level:: Medical - moderate - high VTE Device Contraindication: Treatment Not Indicated VTE Drug Contraindication: N/A - Med Ordered
[2024-05-24] MEDS: Ammonium Lactate 12 % Cream 140 GM TUBE 1 APPL TOPICAL (12:11)
[2024-05-24] MEDS: Empagliflozin 10 MG TABLET PO (12:11)
[2024-05-24] MEDS: Metoprolol Succinate ER 12.5 MG HALFTAB.ER.24H PO ×2 (12:12→23:06)
--- NOTE | 2024-05-24 14:54 | PM.CNGS ---
History of Present Illness Consult details Consult date: 05/24/24 Reason for consult: abdominal pain Requesting physician: José Miguel Perez Narrative: We are being asked to see the patient for left inguinal hernia. Pt is an 79-year-old male with a PMH significant for?COPD, ILD on p.r.n. home O2, HFrEF (20%), ischemic cardiomyopathy with biventricular pacemaker in place, aortic stenosis, NSVT, and CKD 3 who presents to the ED with?sudden onset lower left quadrant abdominal pain. Patient reports he was in his normal state of health earlier this morning. Patient had a normal bowel movement and then sat down to eat lunch when he immediately had an upset stomach with nausea, vomiting, and sudden onset severe lower left quadrant abdominal pain. Reports had at least 5-6 episodes of vomiting before he began to do dry heave. Patient called EMS who brought him to the emergency department where imaging showed he had an incarcerated left inguinal hernia without obstruction, which was reduced in the ED without incident. Here the patient is doing better now but says that when he walked to the bathroom he felt like it maybe popping back out so he pushed it back in Review of Systems Review of Systems: Yes all other systems are reviewed and are negative PMF Past Medical History Medical History Biventricular ICD (implantable cardioverter-defibrillator) in place Aortic stenosis CKD (chronic kidney disease) Diabetes mellitus CAD (coronary artery disease) Chronic HFrEF (heart failure with reduced ejection fraction) Ischemic cardiomyopathy Family History Family History Father Colon cancer Mother No problems noted. Surgical History Surgical History S/P CABG x 1 Hx of tonsillectomy Hx of CABG History of appendectomy Hx of knee surgery Social History Social History Household Members: Spouse Do you presently have visiting nurse or other home services: No Alcohol intake: never Patient Tobacco Use Status: Former Tobacco user Tobacco use type: Cigar Smoked in Last 30 Days: No Use of substances other than those prescribed or required for medical reasons: No Currently Displaying Signs/Symptoms of Drug Intoxication Withdrawal: No Do you feel safe in your current relationship?: Yes Advance Directives: No Advance Directives Information Provided: No Do you have a plan to hurt others: No Plan Nutrition Risks: No Nutritional Risk service: Yes Current occupational status: retired Meds Allergies Allergy/AdvReac Type Severity Reaction Status Date / Time indomethacin [From INDOCIN] Allergy Mild HEADACHES Verified 05/23/24 14:23 Active Medications: Current Medications Acetaminophen (Acetaminophen 325 Mg Tablet) 650 mg PO Q6H PRN PRN Reason: Pain, Mild (Pain Scale 1-3), fever or headache Albuterol Sulfate (Albuterol Sulfate (0.083%) 2.5 Mg/3 Ml Vial.Neb) 2.5 mg INHALE BID PRN PRN Reason: wheezing Benzonatate (Benzonatate 100 Mg Capsule) 100 mg PO TID PRN PRN Reason: Cough Calcium Carbonate (Calcium Carbonate 750 Mg Tab.Chew) 750 mg PO Q4H PRN PRN Reason: Heartburn Empagliflozin (Empagliflozin 10 Mg Tablet) 10 mg PO DAILY [facility] Last Admin: 05/24/24 12:11 Dose: 10 mg Lactic Acid (Ammonium Lactate 12 % Cream 140 Gm Tube) 1 appl TOPICAL BID [facility]; Protocol Last Admin: 05/24/24 12:11 Dose: 1 appl Magnesium Hydroxide (Milk Of Magnesia 30 Ml Oral.Susp) 30 ml PO DAILY PRN PRN Reason: Constipation Melatonin (Melatonin 3 Mg Tablet) 6 mg PO BEDTIME PRN PRN Reason: Insomnia Metoprolol Succinate (Metoprolol Succinate Er 12.5 Mg Halftab.Er.24h) 12.5 mg PO BID [facility]; Protocol Last Admin: 05/24/24 12:12 Dose: 12.5 mg Non-Formulary Medication (Umeclidinium-Vilanterol [Anoro Ellipta]) 1 each INHALE DAILY [facility] Ondansetron HCl (Ondansetron Hcl 4 Mg/2 Ml Vial) 4 mg IVPUSH Q8H PRN PRN Reason: Nausea and Vomiting Oxycodone HCl (Oxycodone Hcl Immed Release 5 Mg Tablet) 5 mg PO Q6H PRN PRN Reason: Pain, Severe (Pain Scale 7-10) Last Admin: 05/24/24 04:23 Dose: 5 mg Sodium Chloride (0.9 % Sodium Chloride Flush 3 Ml Syringe) 3 ml IVFLUSH QSHIFT [facility] Last Admin: 05/24/24 09:16 Dose: 3 ml Home Medications ?Medication ?Instructions ?Recorded ?Confirmed ?Last Taken ?Type ammonium lactate 12 % topical cream 1 appl topical BID 07/17/22 05/23/24 05/23/24 History albuterol sulfate 2.5 mg/3 mL 2.5 mg inhalation BID PRN wheezing 02/14/24 05/23/24 Unknown History (0.083 %) solution for nebulization umeclidinium 62.5 mcg-vilanterol 1 ea inhalation DAILY 02/14/24 05/23/24 05/23/24 History 25 mcg/actuation powdr for inhalation (Anoro Ellipta) warfarin 2.5 mg tablet 1.25 mg PO DARLING 05/23/24 05/23/24 05/18/24 History warfarin 2.5 mg tablet 2.5 mg PO MOTUWETHFRSA 05/23/24 05/23/24 05/23/24 History Physical Exam Vital Signs: Vital Signs: Last Vital Signs Temp 98.8 F 05/24/24 12:00 Pulse 72 05/24/24 12:00 Resp 20 05/24/24 12:00 BP 101/53 L 05/24/24 12:00 Pulse Ox 95 05/24/24 12:00 O2 Del Method Nasal Cannula 05/24/24 12:00 O2 Flow Rate 3 05/24/24 12:00 Oxygen Flow Rate 4 05/23/24 14:18 BMI result Body Mass Index 29.5 Const: General: cooperative, healthy appearing, comfortable and no acute distress Resp: Effort & Inspection: normal respiratory effort Auscultation: clear to auscultation bilaterally Cardio: Rate: regular rate Rhythm: regular rhythm GI: Other: Abdomen is soft nondistended nontender. The left groin area there is some fullness and the patient is tender to palpation here. No true firm masses noted the. Results Labs 05/25/24 06:59 05/25/24 Unknown Labs: Abnormal lab results 05/23/24 05/23/24 05/24/24 Range/Units 15:03 20:03 03:50 PT (11.1-13.3) SEC INR (0.9-1.1) Sodium 133 L 133 L (135-145) mmol/L Potassium 5.5 H D 6.1 H* 5.3 H (3.3-5.1) mmol/L Carbon Dioxide 20 L 19 L (22-29) mmol/L BUN 72 H 69 H 64 H (9-16) mg/dL Creatinine 3.47 H 3.25 H 2.99 H (0.5-1.4) mg/dL Calcium (8.4-10.2) mg/dL Albumin 3.4 L (3.5-5.0) g/dL 05/24/24 Range/Units 06:39 PT 45.5 H (11.1-13.3) SEC INR 3.7 H D (0.9-1.1) Sodium 134 L (135-145) mmol/L Potassium 5.6 H (3.3-5.1) mmol/L Carbon Dioxide 20 L (22-29) mmol/L BUN 62 H (9-16) mg/dL Creatinine 2.88 H (0.5-1.4) mg/dL Calcium 8.1 L (8.4-10.2) mg/dL Albumin (3.5-5.0) g/dL BMP 05/23/24 05/23/24 05/24/24 15:03 20:03 03:50 Sodium 133 L 133 L 136 Potassium 5.5 H D 6.1 H* 5.3 H Chloride 104 105 106 Carbon Dioxide 20 L 19 L 23 BUN 72 H 69 H 64 H Creatinine 3.47 H 3.25 H 2.99 H Calcium 8.4 D 8.4 8.5 05/24/24 06:39 Sodium 134 L Potassium 5.6 H Chloride 107 Carbon Dioxide 20 L BUN 62 H Creatinine 2.88 H Calcium 8.1 L Liver Function 05/23/24 Range/Units 15:03 Total Bilirubin 0.3 (0.0-1.0) mg/dL Direct Bilirubin 0.1 (0.0-0.5) mg/dL AST 23 (5-37) U/L ALT 9 (0-40) U/L Alkaline Phosphatase 89 (39-117) U/L Albumin 3.4 L (3.5-5.0) g/dL Urine 05/23/24 Range/Units 17:56 Urine Color Yellow Urine Appearance Clear Urine pH 5.5 (5.0-9.0) Ur Specific [place] 1.010 (1.005-1.025) Urine Protein Negative (Neg-Trace) mg/dL Urine Glucose (UA) Negative (Negative) mg/dL All other labs normal. Assessment and Plan (1) Incarcerated left inguinal hernia: Status: Acute Plan Incarcerated left inguinal hernia reduced patient doing okay. Still little concerning these is tender but the exam is not as bad and improved compared to yesterday. He has some moderate risks for any surgical intervention from a pulmonary as well as cardiac perspective. It would be good to operate on this hernia as he still is a little active with getting up and moving and this could cause it to pop back out and incarcerated again. I think right now continue treatment and mainly some bed rest with light walking around and have Cardiology and respiratory clearance carried out 1st. Anesthesia the eventually evaluate the patient and determine best anesthesia option. It could be best to avoid general anesthesia. At this point no need for any acute intervention. Procedures Date of Service Date of Service: 05/25/24
--- NOTE | 2024-05-24 18:34 | PC.NURSE ---
Pt noted to have low bp at 4pm vitals. This RN rechecked manually and BP was 84/52. Pt denied any complaints or symptoms of low bp. Dr. Perez paged and covering Dr. Gaspar both aware. A few minutes later Pt insisted on getting up to the bathroom. He was warned about low bp and potential for lower w/standing and that he needed O2. A commode was procured and at bedside. Pt refused. He stated he wants to feel human. Pt pulled off his O2 and pressed by this RN to go to BR. Assistance was called to get O2 to the BR while pt safety maintained. Pt noted to be satting 74% before O2 could be reapplied. Pt symptomatic of hypoxia but recovered quickly once O2 restored. He ambulated back to bed without incident. BP was rechecked once settled and noted to be 99/52. MD Gaspar/Ana aware. No further orders at this time.
[2024-05-24] MEDS: Melatonin 3 MG TABLET 6 MG PO (23:07)
[2024-05-25] VITALS (17 sets, daily range): BP systolic 68–108; BP diastolic 38–63; PULSE 68–96; RESP 18–20; TEMP 36.3–37.2; O2SAT 93–100
--- NOTE | 2024-05-25 04:54 | PC.NURSE ---
0445 manual bp 82/42. pt asymptomatic, md aware with no interventions at this time, to be rechecked in 30 mins.
[2024-05-25] MEDS: 0.9 % Sodium Chloride 250 ML IV (06:47)
[2024-05-25 07:40] LABS: INTERNATIONAL NORM RATIO 3.3 (0.9-1.1); Prothrombin Time 39.6 SEC (11.1-13.3)
[2024-05-25] MEDS: 0.9 % Sodium Chloride 500 ML IV (07:55)
[2024-05-25 08:04] LABS: Anion Gap 13 (12-20); Blood Urea Nitrogen 59 mg/dL (9-16); Calcium 8.2 mg/dL (8.4-10.2); Carbon Dioxide 22 mmol/L (22-29); Chloride 106 mmol/L (96-108); Creatinine Clr Calc Pharmacy 20.1; Estimated Glomerular Filt Rate 23; Glucose Random 79 mg/dL (60-115); Sodium 136 mmol/L (135-145)
[2024-05-25] MEDS: Empagliflozin 10 MG TABLET PO (08:31)
[2024-05-25] MEDS: Ammonium Lactate 12 % Cream 140 GM TUBE 1 APPL TOPICAL ×2 (08:31→21:02)
[2024-05-25 08:41] LABS: MANUAL DIFF FLAG NO
[2024-05-25] MEDS: Albumin Human 25 % 100 ML IV ×2 (08:41→09:58)
[2024-05-25 08:53] LABS: Basophils Percent Auto 0.5 % (0-2); Eosinophils Absolute Auto 0.4 X10*3/uL (0.0-0.4); Hemoglobin 9.8 g/dl (14.0-18.0); Imm Gran Abs Auto 0.06 X10*3/uL (0.00-0.03); Lymphocytes Absolute Auto 0.9 X10*3/uL (1.2-4.9); Lymphocytes Percent Auto 15.7 % (20-40); Mean Corpuscular HGB Conc 31.6 g/dl (31.0-36.0); Mean Corpuscular Hemoglobin 28.5 pg (27.0-33.0); Mean Corpuscular Volume 90.1 fL (80.0-98.0); Mean Platelet Volume 10.3 fL (9.4-12.4); Monocytes Absolute Auto 0.5 X10*3/uL (0.1-1.2); Monocytes Percent Auto 8.9 % (2-11); Neutrophils Absolute Auto 3.9 x10*3/uL (2.0-8.3); Neutrophils Percent Auto 66.9 % (45-73); Platelet Count 158 X10*3/uL (160-400); Red Blood Count 3.44 X10*6/uL (4.60-5.80); Red Cell Distribution Width 14.8 % (11.0-16.0); White Blood Count 5.9 X10*3/uL (4.8-10.8)
[2024-05-25] MEDS: Midodrine HCl 5 MG TABLET PO (10:00)
--- NOTE | 2024-05-25 10:46 | P.PNIM_ITS ---
Subjective Subjective Date of Service: 05/25/24 Interval History: f/u on incarcerated abd her, deisy, hyperkalemia No abdominal pain, but blood pressure have been on the low side with SBP ranging from 60s to 80, he's completly assymptomatic, aler and oriented x 3, no dizziness or sob, warm and peripheral pulses palpable he has been given IVF, albumin and midodrine, sepsi work up negative, lactic acid normal, and renal function has improved since yesterday Physical Exam 2 Vital Signs: Vital Signs: Last Vital Signs Temp 97.3 F 05/25/24 07:20 Pulse 71 05/25/24 07:20 Resp 18 05/25/24 07:20 BP 68/45 L 05/25/24 07:45 Pulse Ox 98 05/25/24 07:20 O2 Del Method Nasal Cannula 05/25/24 07:20 O2 Flow Rate 4 05/25/24 07:20 Oxygen Flow Rate 4 05/23/24 14:18 BMI result Body Mass Index 26.4 Const: Other: General: AO X 3, no acute distress Resp: CTA bilateral CVS: S1,S2,RRR GI: +BS, NT, no distention Skin: No rash Neuro: motor grossly intact Psych: appropriate affect Objective Data Active Medications Acetaminophen (Acetaminophen 325 Mg Tablet) 650 mg PO Q6H PRN PRN Reason: Pain, Mild (Pain Scale 1-3), fever or headache Albuterol Sulfate (Albuterol Sulfate (0.083%) 2.5 Mg/3 Ml Vial.Neb) 2.5 mg INHALE BID PRN PRN Reason: wheezing Benzonatate (Benzonatate 100 Mg Capsule) 100 mg PO TID PRN PRN Reason: Cough Calcium Carbonate (Calcium Carbonate 750 Mg Tab.Chew) 750 mg PO Q4H PRN PRN Reason: Heartburn Empagliflozin (Empagliflozin 10 Mg Tablet) 10 mg PO DAILY [facility] Last Admin: 05/25/24 08:31 Dose: 10 mg Documented By: PANCHO Albumin Human (Kedbumin 25 %) 100 mls @ 100 mls/hr IV ONCE ONE Stop: 05/25/24 10:49 Last Admin: 05/25/24 09:58 Dose: 100 mls/hr Documented By: PANCHO Sodium Chloride (Ns) 1,000 mls @ 100 mls/hr IVCONT .Q10H [facility] Lactic Acid (Ammonium Lactate 12 % Cream 140 Gm Tube) 1 appl TOPICAL BID [facility]; Protocol Last Admin: 05/25/24 08:31 Dose: 1 appl Documented By: PANCHO Magnesium Hydroxide (Milk Of Magnesia 30 Ml Oral.Susp) 30 ml PO DAILY PRN PRN Reason: Constipation Melatonin (Melatonin 3 Mg Tablet) 6 mg PO BEDTIME PRN PRN Reason: Insomnia Last Admin: 05/24/24 23:07 Dose: 6 mg Documented By: DANNY Metoprolol Succinate (Metoprolol Succinate Er 12.5 Mg Halftab.Er.24h) 12.5 mg PO BID [facility]; Protocol Last Admin: 05/25/24 07:28 Dose: Not Given Documented By: PNACHO Non-Admin Reason: Physician Held Med Comments: per Dr. Vincent Ma Non-Formulary Medication (Umeclidinium-Vilanterol [Anoro Ellipta]) 1 each INHALE DAILY [facility] Ondansetron HCl (Ondansetron Hcl 4 Mg/2 Ml Vial) 4 mg IVPUSH Q8H PRN PRN Reason: Nausea and Vomiting Oxycodone HCl (Oxycodone Hcl Immed Release 5 Mg Tablet) 5 mg PO Q6H PRN PRN Reason: Pain, Severe (Pain Scale 7-10) Last Admin: 05/24/24 04:23 Dose: 5 mg Documented By: ANTROBIN Sodium Chloride (0.9 % Sodium Chloride Flush 3 Ml Syringe) 3 ml IVFLUSH QSHIFT [facility] Last Admin: 05/25/24 07:55 Dose: Not Given Documented By: PANCHO Non-Admin Reason: IV Running Labs 05/25/24 06:59 05/25/24 Unknown Labs: Laboratory Results - last 24 hr 05/25/24 05/25/24 06:59 Unknown MCV 90.1 MCH 28.5 MCHC 31.6 RDW 14.8 Plt Count 158 L MPV 10.3 Immature Gran % (Auto) 1.0 H Neut % (Auto) 66.9 Lymph % (Auto) 15.7 L [place] % (Auto) 8.9 Eos % (Auto) 7.0 H Baso % (Auto) 0.5 Lymph # (Auto) 0.9 L [place] # (Auto) 0.5 Eos # (Auto) 0.4 Baso # (Auto) 0.0 Abs Immat Gran (auto) 0.06 H Absolute Neuts (auto) 3.9 Absolute Nucleated RBC 0.000 Nucleated RBC % (auto) 0.0 Hold Purple Top SEE NOTE PT 39.6 H INR 3.3 H Anion Gap 13 Estim Creat Clear Calc 20.1 Estimated GFR 23 Random Glucose 79 Calcium 8.2 L Assessment and Plan (1) Hyperkalemia: Status: Acute (2) Incarcerated left inguinal hernia: Status: Acute Plan 79-year-old male with a PMH significant for?COPD, ILD on p.r.n. home O2, HFrEF (20%), ischemic cardiomyopathy with biventricular pacemaker in place, aortic stenosis, NSVT, and CKD 3 who presents to the ED with?sudden onset lower left quadrant abdominal pain. Pt will be admitted to the hospital for treatment and further evaluation of DEISY and hyperkalemia in the setting of incarcerated inguinal hernia. Hypotension--no evidence of speis, nl lactic, warm, assymptomatic, given ivf, albumin and midodrine, blood cultures requested but no bottles available, -hold bp meds, hold diuretics, ivf and if not improving then ICU for vasopressors, check random cortisol, tsh. Low BP not due to sepsis. Elevated Incarcerated left inguinal hernia--reduced in the ED, presently assymptomatic -surgery consult--not yet seen -pain management PRN DEISY on ckd 4, improved, Creatine is now near baseline -nephro consult Hyperkalemia d/t ckd, resolved with lokelma mild metabolic acidosis--d/t renal failure, resolved. Infrarenal abdominal aorta aneurysm Measuring up to 2.7 cm Recommendation is for follow-up every 3 years Paroxysmal AFIB Supratherapeutic INR INR 3.8 earlier today Hold warfarin for now, follow INR daily with goal of 2.0-3.0 CAD/HLD hold valsartan due to DEISY HFrEF Not in acute exacerbation Hold bumetanide due to DEISY Continue Jardiance, metoprolol COPD/ILD Not in acute exacerbation Continue home inhalers Patient on DuoNebs b.i.d. Supplemental O2 2 L p.r.n. Chronic venous stasis dermatitis Continue ammonium lactate lotion b.i.d. DNR/DNI, verified with pt and HCP who is at bedside DVT Prophylaxis: On Warfarin Pt will require a hospitalization of at least two nights for treatment of?DEISY and hyperkalemia in the setting of nausea and vomiting from incarcerated left inguinal hernia. Patient will require close monitoring of labs and cardiac function, administration of IV fluids, and specialist consultation with General surgery and Nephrology. Quality Stroke Does the patient have a stroke diagnosis?: No VTE Prior VTE?: No VTE Risk Level:: Medical - moderate - high VTE Device Contraindication: Treatment Not Indicated VTE Drug Contraindication: N/A - Med Ordered
[2024-05-25] MEDS: 0.9 % Sodium Chloride 1,000 ML 100 ML IVCONT (10:58)
[2024-05-25 14:01] LABS: Reflex Lactate? Lactic Acid Added
--- NOTE | 2024-05-25 14:17 | PC.NURSE ---
Pt this am was receiving 250cc bolus for low BP. He was alert and oriented x4, He was afebrile and vitals otherwise good. He denied any dizziness, lightheadedness, presyncope or other s/s hypotension. No new weakness. Dr. Perez aware and down to see pt. BP's were taken in bilateral upper arms and R lower arm by 3 different caregivers with a combination of 2 dynamaps and manual machines. All were consistant at the times taken. Pt received total of 750cc NS bolus, 2 bags albumin, 5 mg midodrine then NS started at 100cc/hr. Pt states he is agreeable to pressors if necessary and MD Perez aware. Labs taken and MD aware of elevated Lactate 2.1. At 1228 pt had BP 94/49. It was rechecked a short while later as noted in vitals and was 108/63. Fluids maintained. Pt assessed for mental status and s/s hypotension with each BP check and pt asymptomatic/denied throughout. Plan of care progressing.....
[2024-05-25 14:35] LABS: ~Lactic Acid-LAB USE ONLY 1.1 mmol/L (0.5-2.0)
[2024-05-25] MEDS: Albuterol Sulfate (0.083%) 2.5 MG/3 ML VIAL.NEB INHALE (14:59)
[2024-05-25] MEDS: Lactated Ringers 1,000 ML 50 ML IVCONT (19:01)
[2024-05-25] MEDS: Melatonin 3 MG TABLET 6 MG PO (21:15)
[2024-05-26] VITALS (9 sets, daily range): BP systolic 94–116; BP diastolic 54–62; PULSE 73–88; RESP 15–20; TEMP 36.3–37.3; O2SAT 94–98
[2024-05-26] MEDS: 0.9 % Sodium Chloride Flush 3 ML SYRINGE IVFLUSH ×3 (00:35→15:41)
[2024-05-26 06:40] LABS: INTERNATIONAL NORM RATIO 2.2 (0.9-1.1); Prothrombin Time 26.2 SEC (11.1-13.3)
[2024-05-26 06:50] LABS: Anion Gap 13 (12-20); Blood Urea Nitrogen 50 mg/dL (9-16); Calcium 8.5 mg/dL (8.4-10.2); Carbon Dioxide 19 mmol/L (22-29); Chloride 109 mmol/L (96-108); Creatinine Clr Calc Pharmacy 22.5; Estimated Glomerular Filt Rate 26; Glucose Random 65 mg/dL (60-115); Potassium 5.2 mmol/L (3.3-5.1); Sodium 136 mmol/L (135-145)
--- NOTE | 2024-05-26 06:56 | P.PNGS_ITS ---
Subjective Subjective Date of Service: 05/26/24 Interval history: Patient has no acute issues or complaints regarding hernia. He is tolerating his diet. He is having regular bowel habits. Would like to have his hernia repaired but requires medical clearance and cardiology clearance and holding of anticoagulation. Patient has a plethora of comorbidities and intercurrent medical problems. Physical Exam 2 Vital Signs: Vital Signs: Last Vital Signs Temp 97.8 F 05/26/24 03:40 Pulse 88 05/26/24 03:40 Resp 20 05/26/24 03:40 BP 116/59 L 05/26/24 03:40 Pulse Ox 97 05/26/24 03:40 O2 Del Method Nasal Cannula 05/26/24 03:40 O2 Flow Rate 3 05/26/24 03:40 Oxygen Flow Rate 4 05/23/24 14:18 BMI result Body Mass Index 26.4 GI: Other: Abdomen is soft, benign. Left inguinal hernia is reduced. Objective Data Active Medications Acetaminophen (Acetaminophen 325 Mg Tablet) 650 mg PO Q6H PRN PRN Reason: Pain, Mild (Pain Scale 1-3), fever or headache Albuterol Sulfate (Albuterol Sulfate (0.083%) 2.5 Mg/3 Ml Vial.Neb) 2.5 mg INHALE BID PRN PRN Reason: wheezing Last Admin: 05/25/24 14:59 Dose: 2.5 mg Documented By: VARGHESE Benzonatate (Benzonatate 100 Mg Capsule) 100 mg PO TID PRN PRN Reason: Cough Calcium Carbonate (Calcium Carbonate 750 Mg Tab.Chew) 750 mg PO Q4H PRN PRN Reason: Heartburn Empagliflozin (Empagliflozin 10 Mg Tablet) 10 mg PO DAILY [facility] Last Admin: 05/25/24 08:31 Dose: 10 mg Documented By: PANCHO Lactated Ringer's (Lr) 1,000 mls @ 50 mls/hr IVCONT .Q20H [facility] Last Admin: 05/25/24 19:01 Dose: 50 mls/hr Documented By: PANCHO Lactic Acid (Ammonium Lactate 12 % Cream 140 Gm Tube) 1 appl TOPICAL BID [facility]; Protocol Last Admin: 05/25/24 21:02 Dose: 1 appl Documented By: CINDY Magnesium Hydroxide (Milk Of Magnesia 30 Ml Oral.Susp) 30 ml PO DAILY PRN PRN Reason: Constipation Melatonin (Melatonin 3 Mg Tablet) 6 mg PO BEDTIME PRN PRN Reason: Insomnia Last Admin: 05/25/24 21:15 Dose: 6 mg Documented By: CINDY Metoprolol Succinate (Metoprolol Succinate Er 12.5 Mg Halftab.Er.24h) 12.5 mg PO BID [facility]; Protocol Last Admin: 05/25/24 21:08 Dose: Not Given Documented By: CINDY Non-Admin Reason: Patient Refused Pt Own (Umeclidinium -Vilanterol [Anoro Ellipta] 62.5-25 Mcg /Actuation Bl 1 each INHALE RDAILY [facility] Ondansetron HCl (Ondansetron Hcl 4 Mg/2 Ml Vial) 4 mg IVPUSH Q8H PRN PRN Reason: Nausea and Vomiting Oxycodone HCl (Oxycodone Hcl Immed Release 5 Mg Tablet) 5 mg PO Q6H PRN PRN Reason: Pain, Severe (Pain Scale 7-10) Last Admin: 05/24/24 04:23 Dose: 5 mg Documented By: ANTOIC Sodium Chloride (0.9 % Sodium Chloride Flush 3 Ml Syringe) [facility] Last Admin: 05/26/24 00:35 Dose: 3 ml Documented By: CINDY Labs 05/25/24 06:59 05/26/24 06:09 Labs: Laboratory Results - last 24 hr 05/25/24 05/25/24 05/25/24 06:59 11:44 11:50 MCV 90.1 MCH 28.5 MCHC 31.6 RDW 14.8 Plt Count 158 L MPV 10.3 Immature Gran % (Auto) 1.0 H Neut % (Auto) 66.9 Lymph % (Auto) 15.7 L [place] % (Auto) 8.9 Eos % (Auto) 7.0 H Baso % (Auto) 0.5 Lymph # (Auto) 0.9 L [place] # (Auto) 0.5 Eos # (Auto) 0.4 Baso # (Auto) 0.0 Abs Immat Gran (auto) 0.06 H Absolute Neuts (auto) 3.9 Absolute Nucleated RBC 0.000 Nucleated RBC % (auto) 0.0 Hold Purple Top SEE NOTE PT INR Anion Gap Estim Creat Clear Calc Estimated GFR Random Glucose Lactic Acid 2.1 H* Lactic Acid F/U @ 2Hr Calcium Random Cortisol 11.0 05/25/24 05/25/24 05/26/24 14:18 Unknown 06:09 MCV MCH MCHC RDW Plt Count MPV Immature Gran % (Auto) Neut % (Auto) Lymph % (Auto) [place] % (Auto) Eos % (Auto) Baso % (Auto) Lymph # (Auto) [place] # (Auto) Eos # (Auto) Baso # (Auto) Abs Immat Gran (auto) Absolute Neuts (auto) Absolute Nucleated RBC Nucleated RBC % (auto) Hold Purple Top SEE NOTE PT 39.6 H INR 3.3 H Anion Gap 13 13 Estim Creat Clear Calc 20.1 22.5 Estimated GFR 23 26 Random Glucose 79 65 Lactic Acid Lactic Acid F/U @ 2Hr 1.1 Calcium 8.2 L 8.5 Random Cortisol Procedures Date of Service Date of Service: 05/26/24 Progress Note: A&P Assessment and plan (1) Incarcerated left inguinal hernia: Status: Acute (2) Hernia, inguinal, left: Status: Acute (3) Current use of anticoagulant therapy: Status: Acute Plan At present, no immediatcy for hernia repair. As noted above, patient needs to be medically and cardiologically cleared and anticoagulation held. Consider outpatient hernia repair Time Spent With Patient Time: Total time managing care of this patient today ____ minutes. Quality Stroke Does the patient have a stroke diagnosis?: No VTE Prior VTE?: No VTE Risk Level:: Medical - moderate - high VTE Device Contraindication: Treatment Not Indicated VTE Drug Contraindication: N/A - Med Ordered
[2024-05-26] MEDS: Ammonium Lactate 12 % Cream 140 GM TUBE 1 APPL TOPICAL ×2 (08:09→20:03)
[2024-05-26] MEDS: Sodium Zirconium Cyclosilicate 10 GM POWD.PACK PO (08:09)
[2024-05-26] MEDS: Empagliflozin 10 MG TABLET PO (08:09)
[2024-05-26] MEDS: PT OWN (Umeclidinium-Vilanterol [Anoro Ellipta] 62.5-25 mcg/actuation bl 1 EACH INHALE (08:10)
--- NOTE | 2024-05-26 09:55 | PM.CNCAR ---
History of Present Illness History of Present Illness Date of Service: 05/26/24 Requesting physician: José Miguel [facility] Consult reason: pre-op evaluation Chief complaint: Incarcerated hernia, hyperkalemia, DEISY Narrative: I was consulted to see Shabbir in cardiology consultation today for preoperative cardiovascular risk stratification given his prior extensive cardiovascular history. Patient is 79-year-old male well known to me with prior history of CAD status post undergoing open-heart surgery in the past for ischemic cardiomyopathy and constrictive pericarditis. He underwent pericardial stripping which was associated with large anterior wall myocardial infarction and then a single-vessel bypass to RCA which was already his infarcted territory. This led to significant worsening in his LV ejection fraction in the past with LVEF of 10-15% and ended up getting complete heart block requiring pacemaker therapy. Subsequently developed heart failure syndrome and underwent LV epicardial lead placement in [place] for Bi V ICD, [email or web address]. Since then he had done well but had continued progressive symptoms of exertional shortness of breath. Poor blood pressure and has not been able to tolerate much neurohormonal modulation. Subsequently developed aortic stenosis and was re-referred to [place] for consideration of TAVR but was not consider a candidate for TAVR due to poor LV function as well as possible moderate aortic stenosis. Clinically was difficult to assess at that time. Has continued to remain NYHA class 3 but without any hospitalization for decompensated congestive heart failure. Has been tolerating his medications well. Came to the hospital severe abdominal pain with incarcerated inguinal hernia. This was reduced manually although he said he had mild recurrence again while he was walking to the bathroom and he had to push it again. He has tenderness in that area. Plan for possible open surgery to prevent strangulation Review of Systems Constitutional: Constitutional: Reports fatigue and Reports weakness Cardiovascular: Cardiovascular: Denies chest pain, Denies lightheadedness, Denies Loss of Consciousness, Denies palpitations and Reports dyspnea on exertion Respiratory: Respiratory: Reports dyspnea on exertion and Reports wheezing Gastrointestinal: Gastrointestinal: Reports abdominal pain Integumentary/Breasts: Skin/Breast: Reports system reviewed and no additional complaints, except as docu Neurologic: Reports system reviewed and no additional complaints, except as documented and Reports weakness Endocrine: Endocrine: Reports fatigue and Denies palpitations Allergic/Immunologic: Allergic/Immunologic: Reports wheezing PMFSH Past Medical History Medical History Biventricular ICD (implantable cardioverter-defibrillator) in place Aortic stenosis CKD (chronic kidney disease) Diabetes mellitus CAD (coronary artery disease) Chronic HFrEF (heart failure with reduced ejection fraction) Ischemic cardiomyopathy Family History Family History Father Colon cancer Mother No problems noted. Surgical History Surgical History S/P CABG x 1 Hx of tonsillectomy Hx of CABG History of appendectomy Hx of knee surgery Social History Social History Household Members: Spouse Do you presently have visiting nurse or other home services: No Alcohol intake: never Patient Tobacco Use Status: Former Tobacco user Tobacco use type: Cigar Smoked in Last 30 Days: No Use of substances other than those prescribed or required for medical reasons: No Currently Displaying Signs/Symptoms of Drug Intoxication Withdrawal: No Do you feel safe in your current relationship?: Yes Advance Directives: No Advance Directives Information Provided: No Do you have a plan to hurt others: No Plan Nutrition Risks: No Nutritional Risk service: Yes Current occupational status: retired [employer] Allergies Allergy/AdvReac Type Severity Reaction Status Date / Time indomethacin [From INDOCIN] Allergy Mild HEADACHES Verified 05/23/24 14:23 Active Medications: Current Medications Acetaminophen (Acetaminophen 325 Mg Tablet) 650 mg PO Q6H PRN PRN Reason: Pain, Mild (Pain Scale 1-3), fever or headache Albuterol Sulfate (Albuterol Sulfate (0.083%) 2.5 Mg/3 Ml Vial.Neb) 2.5 mg INHALE BID PRN PRN Reason: wheezing Last Admin: 05/25/24 14:59 Dose: 2.5 mg Benzonatate (Benzonatate 100 Mg Capsule) 100 mg PO TID PRN PRN Reason: Cough Calcium Carbonate (Calcium Carbonate 750 Mg Tab.Chew) 750 mg PO Q4H PRN PRN Reason: Heartburn Empagliflozin (Empagliflozin 10 Mg Tablet) 10 mg PO DAILY AMBER Last Admin: 05/26/24 08:09 Dose: 10 mg Lactic Acid (Ammonium Lactate 12 % Cream 140 Gm Tube) 1 appl TOPICAL BID AMBER; Protocol Last Admin: 05/26/24 08:09 Dose: 1 appl Magnesium Hydroxide (Milk Of Magnesia 30 Ml Oral.Susp) 30 ml PO DAILY PRN PRN Reason: Constipation Melatonin (Melatonin 3 Mg Tablet) 6 mg PO BEDTIME PRN PRN Reason: Insomnia Last Admin: 05/25/24 21:15 Dose: 6 mg Metoprolol Succinate (Metoprolol Succinate Er 12.5 Mg Halftab.Er.24h) 12.5 mg PO BID [facility]; Protocol Last Admin: 05/26/24 08:13 Dose: Not Given Pt Own (Umeclidinium -Vilanterol [Anoro Ellipta] 62.5-25 Mcg /Actuation Bl 1 each INHALE RDAILY [facility] Last Admin: 05/26/24 08:10 Dose: 1 each Ondansetron HCl (Ondansetron Hcl 4 Mg/2 Ml Vial) 4 mg IVPUSH Q8H PRN PRN Reason: Nausea and Vomiting Oxycodone HCl (Oxycodone Hcl Immed Release 5 Mg Tablet) 5 mg PO Q6H PRN PRN Reason: Pain, Severe (Pain Scale 7-10) Last Admin: 05/24/24 04:23 Dose: 5 mg Sodium Chloride (0.9 % Sodium Chloride Flush 3 Ml Syringe) 3 ml IVFLUSH [facility] Last Admin: 05/26/24 08:10 Dose: 3 ml Home Medications ?Medication ?Instructions ?Recorded ?Confirmed ?Last Taken ?Type ammonium lactate 12 % topical cream 1 appl topical BID 07/17/22 05/23/24 05/23/24 History albuterol sulfate 2.5 mg/3 mL 2.5 mg inhalation BID PRN wheezing 02/14/24 05/23/24 Unknown History (0.083 %) solution for nebulization umeclidinium 62.5 mcg-vilanterol 1 ea inhalation DAILY 02/14/24 05/23/24 05/23/24 History 25 mcg/actuation powdr for inhalation (Anoro Ellipta) warfarin 2.5 mg tablet 1.25 mg PO DARLING 05/23/24 05/23/24 05/18/24 History warfarin 2.5 mg tablet 2.5 mg PO MOTUWETHFRSA 05/23/24 05/23/24 05/23/24 History Physical Exam Vital Signs: Vital Signs: Last Vital Signs Temp 97.4 F 05/26/24 07:52 Pulse 88 05/26/24 07:52 Resp 18 05/26/24 07:52 BP 99/59 L 05/26/24 07:52 Pulse Ox 94 05/26/24 07:52 O2 Del Method Nasal Cannula 05/26/24 07:52 O2 Flow Rate 3.0 05/26/24 07:52 Oxygen Flow Rate 4 05/23/24 14:18 BMI result Body Mass Index 26.4 Const: General: cooperative, alert, awake, in distress mild and respiratory and tired appearing Nutritional Appearance: overweight Limitations: no limitations HEENT: Head: Yes normocephalic and Yes atraumatic Neck: Neck: Yes trachea midline, Yes supple and Yes no JVD Resp: Effort & Inspection: normal respiratory effort Auscultation: wheezes and diminished lung sounds Cardio: Jugular venous distension: no JVD Palpation: abnormal PMI displaced PMI Rate: regular rate Rhythm: regular rhythm Heart sounds: S1 normal heart sound present, S2 normal heart sound present, no click, no gallops and Murmur heart sound present systolic GI: Auscultation: normal bowel sounds Skin: General skin exam: no rashes or lesions noted and ecchymosis Neuro: General: no focal motor deficits Extrem: General: Yes no clubbing, cyanosis or edema Objective Labs and Meds 05/25/24 06:59 05/26/24 06:09 Lab results: Laboratory Results - last 24 hr 05/25/24 05/25/24 05/25/24 11:44 11:50 14:18 Hold Purple Top PT INR Sodium Potassium Chloride Carbon Dioxide Anion Gap BUN Creatinine Estim Creat Clear Calc Estimated GFR Random Glucose Lactic Acid 2.1 H* Lactic Acid F/U @ 2Hr 1.1 Calcium Random Cortisol 11.0 05/26/24 06:09 Hold Purple Top SEE NOTE PT 26.2 H D INR 2.2 H Sodium 136 Potassium 5.2 H Chloride 109 H Carbon Dioxide 19 L Anion Gap 13 BUN 50 H Creatinine 2.44 H Estim Creat Clear Calc 22.5 Estimated GFR 26 Random Glucose 65 Lactic Acid Lactic Acid F/U @ 2Hr Calcium 8.5 Random Cortisol EKG shows atrially sensed, ventricularly paced rhythm Assessment and Plan (1) Preoperative cardiovascular examination: Status: Acute Preoperative cardiovascular risk stratification in this elderly gentleman who has advanced cardiopulmonary issues. He has significant severe LV systolic dysfunction with aortic stenosis with advanced heart failure syndrome as well as underlying coronary artery disease. Clinically he is currently not having any overt signs of congestive heart failure although he was low blood pressure and present with acute kidney injury most likely due to poor oral intake and acute medical/surgical illness. Blood pressure is on the lower side. I would hold his valsartan therapy given his acute kidney injury as well as low blood pressure. Continue metoprolol therapy. Also hold off on his diuretic regimen at this point time. He is at high risk for perioperative cardiovascular morbidity mortality especially if use general anesthesia. Close hemodynamic monitoring in the perioperative time and use of vasopressors as needed for significant hypotension. Replace blood loss actively. Close attention to intake and output chart needs to be pursued. Will sign of the case unless there issues and please consult us if need be. Thank you for allowing me to partake in his care Procedures Date of Service Date of Service: 05/26/24
--- NOTE | 2024-05-26 11:39 | MHC.CM.PN ---
EMR REVIEWED, PET W/INCARCERATED HERNIA AWAITING CARDIOLOGY CLEAREANCE FOR SURGERY, PER HOSPITALIST PT MAY HAVE PROCEDURE TOMORROW 05/27, CM WILL CONT TO FOLLOW DC NEEDS.
[2024-05-26 14:13] LABS: MANUAL DIFF FLAG NO
[2024-05-26 14:16] LABS: Basophils Percent Auto 0.5 % (0-2); Eosinophils Absolute Auto 0.4 X10*3/uL (0.0-0.4); Eosinophils Percent Auto 6.3 % (0-4); Hematocrit 30.8 % (42.0-52.0); Hemoglobin 9.9 g/dl (14.0-18.0); Imm Gran Abs Auto 0.01 X10*3/uL (0.00-0.03); Imm Gran Pct Auto 0.2 % (0.0-0.4); Lymphocytes Absolute Auto 0.8 X10*3/uL (1.2-4.9); Mean Corpuscular HGB Conc 32.1 g/dl (31.0-36.0); Mean Corpuscular Hemoglobin 29.2 pg (27.0-33.0); Mean Corpuscular Volume 90.9 fL (80.0-98.0); Mean Platelet Volume 10.2 fL (9.4-12.4); Monocytes Absolute Auto 0.5 X10*3/uL (0.1-1.2); Monocytes Percent Auto 8.9 % (2-11); Neutrophils Percent Auto 70.1 % (45-73); Platelet Count 145 X10*3/uL (160-400); Red Blood Count 3.39 X10*6/uL (4.60-5.80); Red Cell Distribution Width 14.8 % (11.0-16.0); White Blood Count 5.7 X10*3/uL (4.8-10.8)
--- NOTE | 2024-05-26 15:24 | PM.CNNEP ---
History of Present Illness Reason for Consult Consult date: 05/26/24 Chief Complaint Chief complaint: Incarcerated hernia, hyperkalemia, DEISY History of Present Illness Narrative: RTANE CONSULTED for DEISY/CKD in setting of ischemic CM now adm with L inguinal hernai that is reducible but painful and being eval for poss surgery. FUll consulted dictated DEISY resolved with IVF and close to BSL WIll follow with team Case D/W Dr Perez [facility] Past Medical History Medical History Biventricular ICD (implantable cardioverter-defibrillator) in place Aortic stenosis CKD (chronic kidney disease) Diabetes mellitus CAD (coronary artery disease) Chronic HFrEF (heart failure with reduced ejection fraction) Ischemic cardiomyopathy Family History Family History Father Colon cancer Mother No problems noted. Surgical History Surgical History S/P CABG x 1 Hx of tonsillectomy Hx of CABG History of appendectomy Hx of knee surgery Social History Social History Household Members: Spouse Do you presently have visiting nurse or other home services: No Alcohol intake: never Patient Tobacco Use Status: Former Tobacco user Tobacco use type: Cigar service: Yes Current occupational status: retired [employer] Allergies Allergy/AdvReac Type Severity Reaction Status Date / Time indomethacin [From INDOCIN] Allergy Mild HEADACHES Verified 05/23/24 14:23 Active Medications: Current Medications Acetaminophen (Acetaminophen 325 Mg Tablet) 650 mg PO Q6H PRN PRN Reason: Pain, Mild (Pain Scale 1-3), fever or headache Albuterol Sulfate (Albuterol Sulfate (0.083%) 2.5 Mg/3 Ml Vial.Neb) 2.5 mg INHALE BID PRN PRN Reason: wheezing Last Admin: 05/25/24 14:59 Dose: 2.5 mg Benzonatate (Benzonatate 100 Mg Capsule) 100 mg PO TID PRN PRN Reason: Cough Calcium Carbonate (Calcium Carbonate 750 Mg Tab.Chew) 750 mg PO Q4H PRN PRN Reason: Heartburn Empagliflozin (Empagliflozin 10 Mg Tablet) 10 mg PO DAILY AMBER Last Admin: 05/26/24 08:09 Dose: 10 mg Lactic Acid (Ammonium Lactate 12 % Cream 140 Gm Tube) 1 appl TOPICAL BID [facility]; Protocol Last Admin: 05/26/24 08:09 Dose: 1 appl Magnesium Hydroxide (Milk Of Magnesia 30 Ml Oral.Susp) 30 ml PO DAILY PRN PRN Reason: Constipation Melatonin (Melatonin 3 Mg Tablet) 6 mg PO BEDTIME PRN PRN Reason: Insomnia Last Admin: 05/25/24 21:15 Dose: 6 mg Metoprolol Succinate (Metoprolol Succinate Er 12.5 Mg Halftab.Er.24h) 12.5 mg PO BID [facility]; Protocol Last Admin: 05/26/24 08:13 Dose: Not Given Pt Own (Umeclidinium -Vilanterol [Anoro Ellipta] 62.5-25 Mcg /Actuation Bl 1 each INHALE RDAILY [facility] Last Admin: 05/26/24 08:10 Dose: 1 each Ondansetron HCl (Ondansetron Hcl 4 Mg/2 Ml Vial) 4 mg IVPUSH Q8H PRN PRN Reason: Nausea and Vomiting Oxycodone HCl (Oxycodone Hcl Immed Release 5 Mg Tablet) 5 mg PO Q6H PRN PRN Reason: Pain, Severe (Pain Scale 7-10) Last Admin: 05/24/24 04:23 Dose: 5 mg Sodium Chloride (0.9 % Sodium Chloride Flush 3 Ml Syringe) [facility] Last Admin: 05/26/24 08:10 Dose: 3 ml Home Medications ?Medication ?Instructions ?Recorded ?Confirmed ?Last Taken ?Type ammonium lactate 12 % topical cream 1 appl topical BID 07/17/22 05/23/24 05/23/24 History albuterol sulfate 2.5 mg/3 mL 2.5 mg inhalation BID PRN wheezing 02/14/24 05/23/24 Unknown History (0.083 %) solution for nebulization umeclidinium 62.5 mcg-vilanterol 1 ea inhalation DAILY 02/14/24 05/23/24 05/23/24 History 25 mcg/actuation powdr for inhalation (Anoro Ellipta) warfarin 2.5 mg tablet 1.25 mg PO DARLING 05/23/24 05/23/24 05/18/24 History warfarin 2.5 mg tablet 2.5 mg PO MOTUWETHFRSA 05/23/24 05/23/24 05/23/24 History Physical Exam Vital Signs: Last Vital Signs Temp 97.7 F 05/26/24 11:55 Pulse 73 05/26/24 11:55 Resp 20 05/26/24 11:55 BP 104/57 L 05/26/24 11:55 Pulse Ox 94 05/26/24 11:55 O2 Del Method Nasal Cannula 05/26/24 11:55 O2 Flow Rate 3.0 05/26/24 11:55 Oxygen Flow Rate 4 05/23/24 14:18 BMI result Body Mass Index 26.4 Results Lab Results 05/26/24 06:09 05/26/24 06:09 Lab results: Chemistry 05/23/24 05/23/24 05/24/24 15:03 20:03 03:50 Sodium 133 L 133 L 136 Potassium 5.5 H D 6.1 H* 5.3 H Carbon Dioxide 20 L 19 L 23 BUN 72 H 69 H 64 H Creatinine 3.47 H 3.25 H 2.99 H Calcium 8.4 D 8.4 8.5 05/24/24 05/25/24 05/26/24 06:39 Unknown 06:09 Sodium 134 L 136 136 Potassium 5.6 H 5.0 5.2 H Carbon Dioxide 20 L 22 19 L BUN 62 H 59 H 50 H Creatinine 2.88 H 2.73 H 2.44 H Calcium 8.1 L 8.2 L 8.5 Hematology 05/25/24 05/26/24 06:59 06:09 WBC 5.9 5.7 Hgb 9.8 L D 9.9 L Plt Count 158 L 145 L Urinalysis 05/23/24 17:56 Urine Color Yellow Urine Appearance Clear Urine pH 5.5 Ur Specific [place] 1.010 Urine Protein Negative Urine Glucose (UA) Negative Urine Ketones Negative Urine Blood Negative Urine Nitrite Negative Ur Leukocyte Esterase Negative Procedures Date of Service Date of Service: 05/26/24
--- NOTE | 2024-05-26 15:26 | HO.PM.IMPN ---
Subjective Subjective Date of Service: 05/26/24 Interval History: f/u on incarcerated abd her, deisy, hyperkalemia episodes of hypotension yesterday resolved with IVF there was no evidence of sepsis bp remains stable. Physical Exam Vital Signs: Vital Signs: Last Vital Signs Temp 97.7 F 05/26/24 11:55 Pulse 73 05/26/24 11:55 Resp 20 05/26/24 11:55 BP 104/57 L 05/26/24 11:55 Pulse Ox 94 05/26/24 11:55 O2 Del Method Nasal Cannula 05/26/24 11:55 O2 Flow Rate 3.0 05/26/24 11:55 Oxygen Flow Rate 4 05/23/24 14:18 BMI result Body Mass Index 26.4 Const: Other: General: AO X 3, no acute distress Resp: CTA bilateral CVS: S1,S2,RRR GI: +BS, NT, no distention Skin: No rash Neuro: motor grossly intact Psych: appropriate affect Objective Data Active Medications Acetaminophen (Acetaminophen 325 Mg Tablet) 650 mg PO Q6H PRN PRN Reason: Pain, Mild (Pain Scale 1-3), fever or headache Albuterol Sulfate (Albuterol Sulfate (0.083%) 2.5 Mg/3 Ml Vial.Neb) 2.5 mg INHALE BID PRN PRN Reason: wheezing Last Admin: 05/25/24 14:59 Dose: 2.5 mg Documented By: VARGHESE Benzonatate (Benzonatate 100 Mg Capsule) 100 mg PO TID PRN PRN Reason: Cough Calcium Carbonate (Calcium Carbonate 750 Mg Tab.Chew) 750 mg PO Q4H PRN PRN Reason: Heartburn Empagliflozin (Empagliflozin 10 Mg Tablet) 10 mg PO DAILY AMBER Last Admin: 05/26/24 08:09 Dose: 10 mg Documented By: CHRISTOPHER Lactic Acid (Ammonium Lactate 12 % Cream 140 Gm Tube) 1 appl TOPICAL BID [facility]; Protocol Last Admin: 05/26/24 08:09 Dose: 1 appl Documented By: CHRISTOPHER Magnesium Hydroxide (Milk Of Magnesia 30 Ml Oral.Susp) 30 ml PO DAILY PRN PRN Reason: Constipation Melatonin (Melatonin 3 Mg Tablet) 6 mg PO BEDTIME PRN PRN Reason: Insomnia Last Admin: 05/25/24 21:15 Dose: 6 mg Documented By: HO.FENELOJ Metoprolol Succinate (Metoprolol Succinate Er 12.5 Mg Halftab.Er.24h) 12.5 mg PO BID [facility]; Protocol Last Admin: 05/26/24 08:13 Dose: Not Given Documented By: CHRISTOPHER Non-Admin Reason: Physician Held Med Comments: soft BP Pt Own (Umeclidinium -Vilanterol [Anoro Ellipta] 62.5-25 Mcg /Actuation Bl 1 each INHALE RDAILY [facility] Last Admin: 05/26/24 08:10 Dose: 1 each Documented By: CHRISTOPHER Ondansetron HCl (Ondansetron Hcl 4 Mg/2 Ml Vial) 4 mg IVPUSH Q8H PRN PRN Reason: Nausea and Vomiting Oxycodone HCl (Oxycodone Hcl Immed Release 5 Mg Tablet) 5 mg PO Q6H PRN PRN Reason: Pain, Severe (Pain Scale 7-10) Last Admin: 05/24/24 04:23 Dose: 5 mg Documented By: ANTOIC Sodium Chloride (0.9 % Sodium Chloride Flush 3 Ml Syringe) [facility] Last Admin: 05/26/24 08:10 Dose: 3 ml Documented By: CHRISTOPHER Labs 05/26/24 06:09 05/26/24 06:09 Labs: Laboratory Results - last 24 hr 05/26/24 06:09 MCV 90.9 MCH 29.2 MCHC 32.1 RDW 14.8 Plt Count 145 L MPV 10.2 Immature Gran % (Auto) 0.2 Neut % (Auto) 70.1 Lymph % (Auto) 14.0 L Turner % (Auto) 8.9 Eos % (Auto) 6.3 H Baso % (Auto) 0.5 Lymph # (Auto) 0.8 L Turner # (Auto) 0.5 Eos # (Auto) 0.4 Baso # (Auto) 0.0 Abs Immat Gran (auto) 0.01 Absolute Neuts (auto) 4.0 Absolute Nucleated RBC 0.000 Nucleated RBC % (auto) 0.0 Hold Purple Top SEE NOTE PT 26.2 H D INR 2.2 H Anion Gap 13 Estim Creat Clear Calc 22.5 Estimated GFR 26 Random Glucose 65 Calcium 8.5 Microbiology Microbiology Results: Microbiology 05/25/24 11:44 Blood Culture - Preliminary Blood - Venous No growth after 24 hours. 05/25/24 11:42 Blood Culture - Preliminary Blood - Venous No growth after 24 hours. Assessment and Plan (1) Hyperkalemia: Status: Acute (2) Incarcerated left inguinal hernia: Status: Acute Plan 79-year-old male with a PMH significant for?COPD, ILD on p.r.n. home O2, HFrEF (20%), ischemic cardiomyopathy with biventricular pacemaker in place, aortic stenosis, NSVT, and CKD 3 who presents to the ED with?sudden onset lower left quadrant abdominal pain. Pt will be admitted to the hospital for treatment and further evaluation of DEISY and hyperkalemia in the setting of incarcerated inguinal hernia. Hypotension--likely from diuretics, bp meds, was assymptomatic, no evidence of sepsis, BP ultimately improved with ivf and one those of of midodrine. -IVF stopped, continue bp meds and diuretics Incarcerated left inguinal hernia--reduced in the ED, presently assymptomatic -surgery consult--not yet seen -pain management PRN -surgery is planning repair DEISY on ckd 4, improved, Creatine is now near baseline -nephro consult Hyperkalemia d/t ckd. Lokelma mild metabolic acidosis--d/t renal failure, resolved. Infrarenal abdominal aorta aneurysm Measuring up to 2.7 cm Recommendation is for follow-up every 3 years Paroxysmal AFIB Supratherapeutic INR INR 3.8 earlier today Hold warfarin for now, follow INR daily with goal of 2.0-3.0 CAD/HLD hold valsartan due to DEISY HFrEF Not in acute exacerbation Hold bumetanide due to DEISY Continue metoprolol, hold COPD/ILD Not in acute exacerbation Continue home inhalers Patient on DuoNebs b.i.d. Supplemental O2 2 L p.r.n. Chronic venous stasis dermatitis Continue ammonium lactate lotion b.i.d. DNR/DNI, verified with pt and HCP who is at bedside DVT Prophylaxis: On Warfarin Pt will require a hospitalization of at least two nights for treatment of?DEISY and hyperkalemia in the setting of nausea and vomiting from incarcerated left inguinal hernia. Patient will require close monitoring of labs and cardiac function, administration of IV fluids, and specialist consultation with General surgery and Nephrology. Quality Stroke Does the patient have a stroke diagnosis?: No VTE Prior VTE?: No VTE Risk Level:: Medical - moderate - high VTE Device Contraindication: Treatment Not Indicated VTE Drug Contraindication: N/A - Med Ordered
[2024-05-26] MEDS: Albuterol Sulfate (0.083%) 2.5 MG/3 ML VIAL.NEB INHALE (15:45)
[2024-05-26] MEDS: Metoprolol Succinate ER 12.5 MG HALFTAB.ER.24H PO (20:04)
[2024-05-26] MEDS: Melatonin 3 MG TABLET 6 MG PO (22:19)
[2024-05-27] VITALS (8 sets, daily range): BP systolic 93–105; BP diastolic 50–68; PULSE 80–91; RESP 18–20; TEMP 36.3–37.1; O2SAT 96–100
[2024-05-27] MEDS: 0.9 % Sodium Chloride Flush 3 ML SYRINGE IVFLUSH ×3 (02:06→17:16)
[2024-05-27] MEDS: Albuterol Sulfate (0.083%) 2.5 MG/3 ML VIAL.NEB INHALE (02:25)
[2024-05-27 06:22] LABS: INTERNATIONAL NORM RATIO 1.6 (0.9-1.1); Prothrombin Time 19.6 SEC (11.1-13.3)
--- NOTE | 2024-05-27 08:02 | PM.PNGS ---
Subjective Subjective Date of Service: 05/27/24 Interval history: Patient has no recurrence of his left inguinal hernia symptoms. He is tolerating a diet. Having regular bowel habits. Physical Exam Vital Signs: Vital Signs: Last Vital Signs Temp 97.6 F 05/27/24 07:30 Pulse 86 05/27/24 07:30 Resp 20 05/27/24 07:30 BP 102/56 L 05/27/24 07:30 Pulse Ox 96 05/27/24 07:30 O2 Del Method Nasal Cannula 05/27/24 07:30 O2 Flow Rate 2 05/27/24 07:30 Oxygen Flow Rate 4 05/23/24 14:18 BMI result Body Mass Index 26.4 GI: Other: Abdomen is soft. Reduced left inguinal hernia. Benign abdomen. Objective Data Active Medications Acetaminophen (Acetaminophen 325 Mg Tablet) 650 mg PO Q6H PRN PRN Reason: Pain, Mild (Pain Scale 1-3), fever or headache Albuterol Sulfate (Albuterol Sulfate (0.083%) 2.5 Mg/3 Ml Vial.Neb) 2.5 mg INHALE BID PRN PRN Reason: wheezing Last Admin: 05/27/24 02:25 Dose: 2.5 mg Documented By: JOHNLA Benzonatate (Benzonatate 100 Mg Capsule) 100 mg PO TID PRN PRN Reason: Cough Calcium Carbonate (Calcium Carbonate 750 Mg Tab.Chew) 750 mg PO Q4H PRN PRN Reason: Heartburn Lactic Acid (Ammonium Lactate 12 % Cream 140 Gm Tube) 1 appl TOPICAL BID AMBER; Protocol Last Admin: 05/26/24 20:03 Dose: 1 appl Documented By: YANNA Magnesium Hydroxide (Milk Of Magnesia 30 Ml Oral.Susp) 30 ml PO DAILY PRN PRN Reason: Constipation Melatonin (Melatonin 3 Mg Tablet) 6 mg PO BEDTIME PRN PRN Reason: Insomnia Last Admin: 05/26/24 22:19 Dose: 6 mg Documented By: YANNA Metoprolol Succinate (Metoprolol Succinate Er 12.5 Mg Halftab.Er.24h) 12.5 mg PO BID AMBER; Protocol Last Admin: 05/26/24 20:04 Dose: 12.5 mg Documented By: YANNA Pt Own (Umeclidinium -Vilanterol [Anoro Ellipta] 62.5-25 Mcg /Actuation Bl 1 each INHALE RDAILY [facility] Last Admin: 05/26/24 08:10 Dose: 1 each Documented By: CHRISTOPHER Ondansetron HCl (Ondansetron Hcl 4 Mg/2 Ml Vial) 4 mg IVPUSH Q8H PRN PRN Reason: Nausea and Vomiting Oxycodone HCl (Oxycodone Hcl Immed Release 5 Mg Tablet) 5 mg PO Q6H PRN PRN Reason: Pain, Severe (Pain Scale 7-10) Last Admin: 05/24/24 04:23 Dose: 5 mg Documented By: ANTOIC Sodium Chloride (0.9 % Sodium Chloride Flush 3 Ml Syringe) 3 ml IVFLUSH QSHIFT [facility] Last Admin: 05/27/24 02:06 Dose: 3 ml Documented By: LETA-RIVLA Labs 05/26/24 06:09 05/26/24 06:09 Labs: Laboratory Results - last 24 hr 05/26/24 05/27/24 06:09 05:56 MCV 90.9 MCH 29.2 MCHC 32.1 RDW 14.8 Plt Count 145 L MPV 10.2 Immature Gran % (Auto) 0.2 Neut % (Auto) 70.1 Lymph % (Auto) 14.0 L Karnes % (Auto) 8.9 Eos % (Auto) 6.3 H Baso % (Auto) 0.5 Lymph # (Auto) 0.8 L Karnes # (Auto) 0.5 Eos # (Auto) 0.4 Baso # (Auto) 0.0 Abs Immat Gran (auto) 0.01 Absolute Neuts (auto) 4.0 Absolute Nucleated RBC 0.000 Nucleated RBC % (auto) 0.0 Hold Purple Top SEE NOTE PT 19.6 H D INR 1.6 H Microbiology Microbiology Results: Microbiology 05/25/24 11:44 Blood Culture - Preliminary Blood - Venous No growth after 24 hours. 05/25/24 11:42 Blood Culture - Preliminary Blood - Venous No growth after 24 hours. Procedures Date of Service Date of Service: 05/27/24 Progress Note: A&P Assessment and plan (1) Incarcerated left inguinal hernia: Status: Acute (2) Pulmonary emphysema: Status: Acute (3) Supplemental oxygen dependent: Status: Acute (4) ILD (interstitial lung disease): Status: Acute Plan As noted yesterday, consider outpatient surgical repair of left inguinal hernia when patient optimized medically. We will otherwise follow-up p.r.n.. Time Spent With Patient Time: Total time managing care of this patient today ____ minutes. Quality Stroke Does the patient have a stroke diagnosis?: No VTE Prior VTE?: No VTE Risk Level:: Medical - moderate - high VTE Device Contraindication: Treatment Not Indicated VTE Drug Contraindication: N/A - Med Ordered
[2024-05-27] MEDS: Ammonium Lactate 12 % Cream 140 GM TUBE 1 APPL TOPICAL ×2 (09:04→21:55)
--- NOTE | 2024-05-27 11:56 | CONS_ITS ---
DATE OF SERVICE: 05/26/2024 REASON FOR CONSULTATION: I was asked to see the patient to assist in evaluation and management of patient's acute kidney injury on chronic kidney disease as reflected by a creatinine that was 3.47 on admission, whereas his baseline creatinine seems to be in the 1.5 to 2.5 range going back over the past year. He is also noted to have hyperkalemia with potassium 6.1 on admission on the . HISTORY OF PRESENT ILLNESS: In summary, patient is an 79-year-old gentleman with a history significant for COPD, interstitial lung disease on oxygen p.r.n., heart failure with reduced ejection fraction around 20%, followed by Dr. Nelson. He has biventricular heart failure and an AICD in place. There is mention made of aortic stenosis and he was evaluated in [place] for TAVR and felt not to be a good candidate for this. On the backup of all these medical problems, he presented to the hospital with left lower quadrant abdominal pain consistent with a hernia. In the ER, they were able to reduce it. He continues to have pain in the left lower quadrant. He has been seen by Surgery, and there was discussion being had about possibly doing surgery, but need to get cardiac and medical clearance. His acute kidney injury responded to IV fluids with his creatinine back down close to his baseline, admitted as high as 3.5, now down to 2.44 today. Also, his hyperkalemia responded to medical management being 6.1 on admission, now 5.2. In reviewing his records, he did have a relatively prolonged episode of hypotension with systolic blood pressure in the 80s, which responded to IV fluids and dose of midodrine. Presently, his is at the bedside. He is overall doing reasonably well, although continues with the left lower quadrant discomfort from the hernia. This seems to be worse when he is walking. PAST MEDICAL HISTORY: As mentioned above. Also includes history of diabetes. SURGICAL HISTORY: Includes a CABG in the past as well as knee surgery. MEDICATIONS: His medications on admission are as noted in the records. ALLERGIES: HE HAS ALLERGY TO INDOCIN.??? He denies taking NSAIDs. FAMILY HISTORY: Notable for colon cancer. SOCIAL HISTORY: He smokes cigars, but no cigarette history. REVIEW OF SYSTEMS: As noted above. He gets short of breath quite easily at home and uses his oxygen p.r.n. He denies any gross hematuria, dysuria, or problems voiding. PHYSICAL EXAMINATION: VITAL SIGNS: Blood pressure now 104/60 with a heart rate in the 70s. He is afebrile. He is on 3 L of oxygen. LUNGS: Some rhonchi and rales. CARDIAC: Regular rate and rhythm with systolic murmur. ABDOMEN: Soft, nontender. Left lower quadrant tender to palpation. EXTREMITIES: Shows chronic venous stasis changes and trace edema. LABORATORY DATA: Labs from today show sodium 136, potassium 5.2, chloride 109, bicarb 19, BUN 50, creatinine 2.44. As mentioned, his creatinine was 3.47 on admission. His baseline creatinine seems to range in the 1.5 to 2.5 range. Calcium 8.5. Hemoglobin 9.9, hematocrit 30.8, white blood cell count 5.7, platelet count 145. Urine studies essentially negative on admission. He had a CAT scan on admission, which showed multiple renal cortical cysts. No hydronephrosis noted. IMPRESSION: Acute kidney injury on advanced chronic kidney disease in a patient with a heart failure, reduced EF, now admitted with left inguinal hernia. 1. Acute kidney injury. Patient responded well with IV fluids. Renal function is approaching his baseline. This would be most consistent with renal hypoperfusion. He had low blood pressures noted and this would also be consistent with this. He is at risk for developing ischemic acute tubular necrosis. a. His urinalysis is benign, which would go against an acute interstitial nephritis or acute glomerulonephritis. b. CAT scan did not show any evidence of obstruction, which would rule out obstructive uropathy. 1. Stage 3B chronic kidney disease. Baseline creatinine 1.5 to 2.5. I suspect this is due to underlying cardiorenal syndrome given his significant cardiac dysfunction history. He could have a small vessel renal vascular disease playing a role. 2. Anemia. 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 3. 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 We will check intact PTH as he may be a candidate for calcitriol in the future. 4. Left inguinal hernia. He is being evaluated by Surgery for possible intervention. 5. Volume status. His volume status actually looks pretty good now. I suspect he had some component of hypovolemia and responded to IV fluids. Given his tenuous cardiac status, his volume status is hard to manage and we will need to monitor this closely. RECOMMENDATIONS: At this time include continue monitoring his renal function and urine output. Avoid hypotension. We will send spot urine studies. We will check intact PTH. We will follow with the team. MD HO Rojas/JOSE / [phone]
--- NOTE | 2024-05-27 14:56 | P.PNIM_ITS ---
Subjective Subjective Date of Service: 05/27/24 Interval History: f/u on incarcerated abd her, deisy, hyperkalemia Review of Systems cough nonproductive no abd pain no fevers Physical Exam 2 Vital Signs: Vital Signs: Last Vital Signs Temp 97.6 F 05/27/24 11:06 Pulse 90 05/27/24 11:06 Resp 18 05/27/24 11:06 BP 101/55 L 05/27/24 11:06 Pulse Ox 99 05/27/24 11:06 O2 Del Method Nasal Cannula 05/27/24 11:06 O2 Flow Rate 3 05/27/24 11:06 Oxygen Flow Rate 4 05/23/24 14:18 BMI result Body Mass Index 26.4 General: AO X 3, no acute distress Resp: CTA bilateral CVS: S1,S2,RRR GI: +BS, NT, no distention Skin: No rash Neuro: motor grossly intact Psych: appropriate affect Objective Data Active Medications Acetaminophen (Acetaminophen 325 Mg Tablet) 650 mg PO Q6H PRN PRN Reason: Pain, Mild (Pain Scale 1-3), fever or headache Albuterol Sulfate (Albuterol Sulfate (0.083%) 2.5 Mg/3 Ml Vial.Neb) 2.5 mg INHALE BID PRN PRN Reason: wheezing Last Admin: 05/27/24 02:25 Dose: 2.5 mg Documented By: LETA-RIVLA Benzonatate (Benzonatate 100 Mg Capsule) 100 mg PO TID PRN PRN Reason: Cough Calcium Carbonate (Calcium Carbonate 750 Mg Tab.Chew) 750 mg PO Q4H PRN PRN Reason: Heartburn Lactic Acid (Ammonium Lactate 12 % Cream 140 Gm Tube) 1 appl TOPICAL BID AMBER; Protocol Last Admin: 05/27/24 09:04 Dose: 1 appl Documented By: VALERIA Magnesium Hydroxide (Milk Of Magnesia 30 Ml Oral.Susp) 30 ml PO DAILY PRN PRN Reason: Constipation Melatonin (Melatonin 3 Mg Tablet) 6 mg PO BEDTIME PRN PRN Reason: Insomnia Last Admin: 05/26/24 22:19 Dose: 6 mg Documented By: YANNA Metoprolol Succinate (Metoprolol Succinate Er 12.5 Mg Halftab.Er.24h) 12.5 mg PO BID AMBER; Protocol Last Admin: 05/27/24 09:04 Dose: Not Given Documented By: VALERIA Non-Admin Reason: Decreased Blood Pressure Pt Own (Umeclidinium -Vilanterol [Anoro Ellipta] 62.5-25 Mcg /Actuation Bl 1 each INHALE RDAILY [facility] Last Admin: 05/26/24 08:10 Dose: 1 each Documented By: CHRISTOPHER Ondansetron HCl (Ondansetron Hcl 4 Mg/2 Ml Vial) 4 mg IVPUSH Q8H PRN PRN Reason: Nausea and Vomiting Oxycodone HCl (Oxycodone Hcl Immed Release 5 Mg Tablet) 5 mg PO Q6H PRN PRN Reason: Pain, Severe (Pain Scale 7-10) Last Admin: 05/24/24 04:23 Dose: 5 mg Documented By: ANTOIC Sodium Chloride (0.9 % Sodium Chloride Flush 3 Ml Syringe) [facility] Last Admin: 05/27/24 09:04 Dose: 3 ml Documented By: VALERIA Labs 05/26/24 06:09 05/26/24 06:09 Labs: Laboratory Results - last 24 hr 05/27/24 05:56 Hold Purple Top SEE NOTE PT 19.6 H D INR 1.6 H Microbiology Microbiology Results: Microbiology 05/25/24 11:42 Blood Culture - Preliminary Blood - Venous No growth after 48 hours. 05/25/24 11:44 Blood Culture - Preliminary Blood - Venous No growth after 48 hours. Assessment and Plan (1) Hyperkalemia: Status: Acute (2) Incarcerated left inguinal hernia: Status: Acute Plan 79-year-old male with a PMH significant for?COPD, ILD on p.r.n. home O2, HFrEF (20%), ischemic cardiomyopathy with biventricular pacemaker in place, aortic stenosis, NSVT, and CKD 3 who presents to the ED with?sudden onset lower left quadrant abdominal pain. Pt will be admitted to the hospital for treatment and further evaluation of DEISY and hyperkalemia in the setting of incarcerated inguinal hernia. DEISY on ckd 4, improved, Creatine is now near baseline cr improving near baseline avoid nephrotoxic meds Incarcerated left inguinal hernia--reduced in the ED, presently assymptomatic -surgery -pain management PRN -surgery is planning repair Hypotension--likely from diuretics, bp meds, was asymptomatic, no evidence of sepsis recived ivf as per chart review,hold bp meds and diuretics Hyperkalemia d/t ckd. Lokelma. low potassium diet moniter renal function and electrolytes mild metabolic acidosis--d/t renal failure, resolved. Infrarenal abdominal aorta aneurysm Measuring up to 2.7 cm Recommendation is for follow-up every 3 years. Paroxysmal AFIB Supratherapeutic INR INR 1.6 will check with surgery-seem plan for hernia surgery outpatient -may need to start warfarin for now, follow INR daily with goal of 2.0-3.0 CAD/HLD hold valsartan due to DEISY HFrEF Not in acute exacerbation Hold bumetanide due to DEISY Continue metoprolol. COPD/ILd: possibly requring oxygen due to above,uses home oxygen prn, try to taper down may need home oxygen eval upon discharge continue DuoNebs , home inhalers Supplemental O2 2 L p.r.n. Chronic venous stasis dermatitis Continue ammonium lactate lotion b.i.d. DNR/DNI, verified with pt and HCP who is at bedside DVT Prophylaxis: On Warfarin ongoing need for hospitalization for treatment of?DEISY and hyperkalemia -close monitoring of labs and cardiac function, administration of IV fluids, and specialist consultation with General surgery and Nephrology. Quality Stroke Does the patient have a stroke diagnosis?: No VTE Prior VTE?: No VTE Risk Level:: Medical - moderate - high VTE Device Contraindication: Treatment Not Indicated VTE Drug Contraindication: N/A - Med Ordered
[2024-05-27] MEDS: Albuterol/Iprat 2.5/0.5MG 3 ML AMPUL.NEB INHALE ×2 (15:26→23:52)
[2024-05-27 16:39] LABS: Potassium 5.1 mmol/L (3.3-5.1)
[2024-05-27] MEDS: Warfarin Sodium 2.5 MG TABLET PO (17:16)
[2024-05-27] MEDS: PT OWN (Umeclidinium-Vilanterol [Anoro Ellipta] 62.5-25 mcg/actuation bl 1 EACH INHALE (18:33)
[2024-05-27] MEDS: Metoprolol Succinate ER 12.5 MG HALFTAB.ER.24H PO (21:55)
[2024-05-27] MEDS: Melatonin 3 MG TABLET 6 MG PO (22:09)
[2024-05-27] MEDS: Benzonatate 100 MG CAPSULE PO (22:09)
[2024-05-28] VITALS (13 sets, daily range): BP systolic 90–117; BP diastolic 52–67; PULSE 86–119; RESP 18–20; TEMP 36.1–36.7; O2SAT 94–100
[2024-05-28 07:10] LABS: INTERNATIONAL NORM RATIO 1.4 (0.9-1.1); Prothrombin Time 17.3 SEC (11.1-13.3)
[2024-05-28] MEDS: Albuterol/Iprat 2.5/0.5MG 3 ML AMPUL.NEB INHALE ×4 (08:43→18:43)
[2024-05-28] MEDS: Metoprolol Succinate ER 12.5 MG HALFTAB.ER.24H PO ×2 (09:21→19:49)
[2024-05-28] MEDS: 0.9 % Sodium Chloride Flush 3 ML SYRINGE IVFLUSH (09:22)
[2024-05-28] MEDS: Ammonium Lactate 12 % Cream 140 GM TUBE 1 APPL TOPICAL ×2 (09:22→20:01)
[2024-05-28] MEDS: Heparin Sodium,Porcine 5,000 UNIT/ML VIAL 5000 UNIT SUBCUT ×2 (09:23→19:43)
--- NOTE | 2024-05-28 13:58 | MHC.CM.PN ---
per rounds, EMR review, pt. is improving, may consider surgery as outpt. PT eval complete, rec is pulmonary rehab. CM met with pt. to discuss his choice for STR. Pt. said that he wants to do surgery here. CM reached out to MD, they will discuss with pt. referrals placed for pulm. rehab.
--- NOTE | 2024-05-28 17:06 | P.PNIM_ITS ---
Subjective Subjective Date of Service: 05/28/24 Interval History: f/u on incarcerated abd her, deisy, hyperkalemia Review of Systems Cough improving, his sats fluctuates especially when with exertion Patient says that he used 3-4 L oxygen at home No fever Physical Exam 2 Vital Signs: Vital Signs: Last Vital Signs Temp 98.0 F 05/28/24 11:56 Pulse 96 05/28/24 15:18 Resp 19 05/28/24 15:18 BP 90/54 L 05/28/24 16:18 Pulse Ox 100 05/28/24 11:56 O2 Del Method Room Air 05/28/24 11:56 O2 Flow Rate 3 05/28/24 04:00 Oxygen Flow Rate 4 05/23/24 14:18 BMI result Body Mass Index 26.4 General: AO X 3, no acute distress Resp: CTA bilateral CVS: S1,S2,RRR GI: +BS, NT, no distention Skin: No rash Neuro: motor grossly intact Psych: appropriate affect Objective Data Active Medications Acetaminophen (Acetaminophen 325 Mg Tablet) 650 mg PO Q6H PRN PRN Reason: Pain, Mild (Pain Scale 1-3), fever or headache Albuterol/Ipratropium (Albuterol/Iprat 2.5/0.5mg 3 Ml Ampul.Neb) 3 ml INHALE RQ4H WHILE AWAKE [facility] Last Admin: 05/28/24 15:15 Dose: 3 ml Documented By: GIACOMO Benzonatate (Benzonatate 100 Mg Capsule) 100 mg PO TID PRN PRN Reason: Cough Last Admin: 05/27/24 22:09 Dose: 100 mg Documented By: CINDY Calcium Carbonate (Calcium Carbonate 750 Mg Tab.Chew) 750 mg PO Q4H PRN PRN Reason: Heartburn Heparin Sodium (Porcine) (Heparin Sodium,Porcine 5,000 Unit/Ml Vial) 5,000 unit SUBCUT Q12H [facility] Last Admin: 05/28/24 09:23 Dose: 5,000 unit Documented By: MIHAI Lactic Acid (Ammonium Lactate 12 % Cream 140 Gm Tube) 1 appl TOPICAL BID AMBER; Protocol Last Admin: 05/28/24 09:22 Dose: 1 appl Documented By: MIHAI Magnesium Hydroxide (Milk Of Magnesia 30 Ml Oral.Susp) 30 ml PO DAILY PRN PRN Reason: Constipation Melatonin (Melatonin 3 Mg Tablet) 6 mg PO BEDTIME PRN PRN Reason: Insomnia Last Admin: 05/27/24 22:09 Dose: 6 mg Documented By: CINDY Metoprolol Succinate (Metoprolol Succinate Er 12.5 Mg Halftab.Er.24h) 12.5 mg PO BID [facility]; Protocol Last Admin: 05/28/24 09:21 Dose: 12.5 mg Documented By: MIHAI Pt Own (Umeclidinium -Vilanterol [Anoro Ellipta] 62.5-25 Mcg /Actuation Bl 1 each INHALE RDAILY [facility] Last Admin: 05/27/24 18:33 Dose: 1 each Documented By: VALERIA Ondansetron HCl (Ondansetron Hcl 4 Mg/2 Ml Vial) 4 mg IVPUSH Q8H PRN PRN Reason: Nausea and Vomiting Oxycodone HCl (Oxycodone Hcl Immed Release 5 Mg Tablet) 5 mg PO Q6H PRN PRN Reason: Pain, Severe (Pain Scale 7-10) Last Admin: 05/24/24 04:23 Dose: 5 mg Documented By: ANTOIC Sodium Chloride (0.9 % Sodium Chloride Flush 3 Ml Syringe) [facility] Last Admin: 05/28/24 15:50 Dose: Not Given Documented By: MIHAI Non-Admin Reason: Previously Administered Labs 05/26/24 06:09 05/27/24 16:16 Labs: Laboratory Results - last 24 hr 05/28/24 05:55 Hold Purple Top SEE NOTE PT 17.3 H INR 1.4 H Microbiology Microbiology Results: Microbiology 05/25/24 11:42 Blood Culture - Preliminary Blood - Venous No growth after 48 hours. 05/25/24 11:44 Blood Culture - Preliminary Blood - Venous No growth after 48 hours. Assessment and Plan (1) Hyperkalemia: Status: Acute (2) Incarcerated left inguinal hernia: Status: Acute Plan 79-year-old male with a PMH significant for?COPD, ILD on p.r.n. home O2, HFrEF (20%), ischemic cardiomyopathy with biventricular pacemaker in place, aortic stenosis, NSVT, and CKD 3 who presents to the ED with?sudden onset lower left quadrant abdominal pain. Pt will be admitted to the hospital for treatment and further evaluation of DEISY and hyperkalemia in the setting of incarcerated inguinal hernia. DEISY on ckd 4, improved, Creatine is now near baseline cr improving near baseline avoid nephrotoxic meds Incarcerated left inguinal hernia--reduced in the ED, presently assymptomatic -surgery -pain management PRN -surgery is planning repair Hypotension--likely from diuretics, bp meds, was asymptomatic, no evidence of sepsis recived ivf as per chart review,hold bp meds and diuretics Hyperkalemia d/t ckd. Lokelma. low potassium diet moniter renal function and electrolytes mild metabolic acidosis--d/t renal failure, resolved. Infrarenal abdominal aorta aneurysm Measuring up to 2.7 cm Recommendation is for follow-up every 3 years. Paroxysmal AFIB Supratherapeutic INR INR 1.4 surgery-seen plan for hernia surgery outpatient -may need to start warfarin for now, follow INR daily with goal of 2.0-3.0 adjusted warfarin CAD/HLD hold valsartan due to DEISY HFrEF Not in acute exacerbation Hold bumetanide due to DEISY Continue metoprolol. COPD/ILd: possibly requring oxygen due to above,uses home oxygen prn, try to taper down may need home oxygen eval upon discharge continue DuoNebs , home inhalers Supplemental O2 2 L p.r.n. Chronic venous stasis dermatitis Continue ammonium lactate lotion b.i.d. DNR/DNI, verified with pt and HCP who is at bedside DVT Prophylaxis: On Warfarin ongoing need for hospitalization -awaitin placement Quality Stroke Does the patient have a stroke diagnosis?: No VTE Prior VTE?: No VTE Risk Level:: Medical - moderate - high VTE Device Contraindication: Treatment Not Indicated VTE Drug Contraindication: N/A - Med Ordered
--- NOTE | 2024-05-28 17:07 | P.CDIM_ITS ---
PROVIDER RESPONSE TEXT: To clarify, the appropriate diagnosis supported by the clinical indicators: CKD, stage 4 QUERY TEXT: PHYSICIAN'S DOCUMENTATION REQUEST Date of Query: 05/28/2024 10:52 AM EDT Patient Name: Eddie Mullen Admit Date: 05/24/2024 Dear Tyshawn De La Vega MD, A review of the medical record indicates additional documentation may be needed. Please review below and update the documentation accordingly. Clinical Indicators: On 05/26/24: BUN 50, Creatinine 2.44, Est GFR 26 Per Hospitalist Progress Note 05/27/24: DEISY on CKD 4 Per Nephrology Consult 05/27/24: DEISY, Stage 3B chronic kidney disease. Baseline creatinine 1.5 to 2.5 Please clarify which of the following accurately represents the patient's CKD renal status stage: CKD, stage 3b CKD, stage 4 Other (explain) Clinically unable to determine (explain) Thank you, Patricia Velasquez RN Use of terms such as suspected, likely, concern for, or probable (associated with a specific diagnosi s that is being evaluated, monitored, or treated as if it exists) are acceptable and can be coded in the inpatient se tting, when documented at the time of discharge. Please use your independent medical judgment in providing your response. THIS QUERY IS PART OF THE PERMANENT MEDICAL RECORD
--- NOTE | 2024-05-28 17:39 | P.PNGS_ITS ---
Subjective Subjective Date of Service: 05/29/24 Interval history: A very lengthy discussion was had with pt. and his re; elective/out- patient LIH repair. At present, patient is hernia has been reduced for a few days. He is tolerating a diet. He is having regular bowel habits. He has no left groin pain or discomfort. Because of the significant intercurrent medical problems and comorbidities, the patient in my opinion along with his consulting in treating physicians would be to have the patient medically optimized and as an outpatient schedule him for elective left inguinal hernia repair. Patient will need to discuss with his polisher sand regarding holding or bridging his anticoagulation prior to surgery. It would be optimal to perform the procedure under MAC and avoid any general anesthetics. This will be reviewed with the anesthesia during his PAT evaluation when surgery is eventually scheduled. Patient and understand and agreed to the current plan. Patient will see me as an outpatient and coordination will be undertaken regarding hernia repair. All questions answered. Physical Exam 2 Vital Signs: Vital Signs: Last Vital Signs Temp 98.0 F 05/28/24 11:56 Pulse 96 05/28/24 15:18 Resp 19 05/28/24 15:18 BP 90/54 L 05/28/24 16:18 Pulse Ox 100 05/28/24 11:56 O2 Del Method Room Air 05/28/24 11:56 O2 Flow Rate 3 05/28/24 04:00 Oxygen Flow Rate 4 05/23/24 14:18 BMI result Body Mass Index 26.4 Objective Data Active Medications Acetaminophen (Acetaminophen 325 Mg Tablet) 650 mg PO Q6H PRN PRN Reason: Pain, Mild (Pain Scale 1-3), fever or headache Albuterol/Ipratropium (Albuterol/Iprat 2.5/0.5mg 3 Ml Ampul.Neb) 3 ml INHALE RQ4H WHILE AWAKE [facility] Last Admin: 05/28/24 15:15 Dose: 3 ml Documented By: GIACOMO Benzonatate (Benzonatate 100 Mg Capsule) 100 mg PO TID PRN PRN Reason: Cough Last Admin: 05/27/24 22:09 Dose: 100 mg Documented By: CINDY Calcium Carbonate (Calcium Carbonate 750 Mg Tab.Chew) 750 mg PO Q4H PRN PRN Reason: Heartburn Heparin Sodium (Porcine) (Heparin Sodium,Porcine 5,000 Unit/Ml Vial) 5,000 unit SUBCUT Q12H [facility] Last Admin: 05/28/24 09:23 Dose: 5,000 unit Documented By: MIHAI Lactic Acid (Ammonium Lactate 12 % Cream 140 Gm Tube) 1 appl TOPICAL BID [facility]; Protocol Last Admin: 05/28/24 09:22 Dose: 1 appl Documented By: MIHAI Magnesium Hydroxide (Milk Of Magnesia 30 Ml Oral.Susp) 30 ml PO DAILY PRN PRN Reason: Constipation Melatonin (Melatonin 3 Mg Tablet) 6 mg PO BEDTIME PRN PRN Reason: Insomnia Last Admin: 05/27/24 22:09 Dose: 6 mg Documented By: CINDY Metoprolol Succinate (Metoprolol Succinate Er 12.5 Mg Halftab.Er.24h) 12.5 mg PO BID [facility]; Protocol Last Admin: 05/28/24 09:21 Dose: 12.5 mg Documented By: MIHAI Pt Own (Umeclidinium -Vilanterol [Anoro Ellipta] 62.5-25 Mcg /Actuation Bl 1 each INHALE RDAILY [facility] Last Admin: 05/27/24 18:33 Dose: 1 each Documented By: VALERIA Ondansetron HCl (Ondansetron Hcl 4 Mg/2 Ml Vial) 4 mg IVPUSH Q8H PRN PRN Reason: Nausea and Vomiting Oxycodone HCl (Oxycodone Hcl Immed Release 5 Mg Tablet) 5 mg PO Q6H PRN PRN Reason: Pain, Severe (Pain Scale 7-10) Last Admin: 05/24/24 04:23 Dose: 5 mg Documented By: ANTOIC Sodium Chloride (0.9 % Sodium Chloride Flush 3 Ml Syringe) 3 ml IVFLUSH QSHIFT [facility] Last Admin: 05/28/24 15:50 Dose: Not Given Documented By: MIHAI Non-Admin Reason: Previously Administered Warfarin Sodium (Warfarin Sodium 2.5 Mg Tablet) 2.5 mg PO MoTuWeThFrSa@1800 [facility] Warfarin Sodium (Warfarin Sodium 1.25 Mg Halftab) 1.25 mg PO Miller@1800 [facility] Warfarin Sodium (Warfarin Sodium 5 Mg Tablet) 5 mg PO ONCE@1800 ONE Stop: 05/28/24 18:01 Labs 05/26/24 06:09 05/29/24 06:21 Labs: Laboratory Results - last 24 hr 05/28/24 05:55 Hold Purple Top SEE NOTE PT 17.3 H INR 1.4 H Microbiology Microbiology Results: Microbiology 05/25/24 11:42 Blood Culture - Preliminary Blood - Venous No growth after 48 hours. 05/25/24 11:44 Blood Culture - Preliminary Blood - Venous No growth after 48 hours. Procedures Date of Service Date of Service: 05/29/24 Progress Note: A&P Assessment and plan (1) Incarcerated left inguinal hernia: Status: Acute (2) Preoperative cardiovascular examination: Status: Acute (3) Pulmonary emphysema: Status: Acute (4) Hernia, inguinal, left: Status: Acute (5) Aortic stenosis: Status: Acute (6) Diabetes mellitus: Status: Acute Plan See above Time Spent With Patient Time: Total time managing care of this patient today ____ minutes. Quality Stroke Does the patient have a stroke diagnosis?: No VTE Prior VTE?: No VTE Risk Level:: Medical - moderate - high VTE Device Contraindication: Treatment Not Indicated VTE Drug Contraindication: N/A - Med Ordered
[2024-05-29] VITALS (13 sets, daily range): BP systolic 92–116; BP diastolic 52–68; PULSE 67–103; RESP 16–20; TEMP 36–37.2; O2SAT 91–99
[2024-05-29] MEDS: 0.9 % Sodium Chloride Flush 3 ML SYRINGE IVFLUSH ×4 (00:21→22:21)
--- NOTE | 2024-05-29 00:42 | P.PNNP_ITS ---
Subjective Subjective Date of Service: 05/28/24 Interval history: Seen and examined, events noted C/O wheezing-- I need my respp treatment Physical Exam 2 Vital Signs: Vital Signs: Last Vital Signs Temp 96.9 F 05/29/24 00:00 Pulse 99 05/29/24 00:00 Resp 20 05/29/24 00:00 BP 92/56 L 05/29/24 00:00 Pulse Ox 99 05/29/24 00:00 O2 Del Method Nasal Cannula 05/29/24 00:00 O2 Flow Rate 2 05/29/24 00:00 Oxygen Flow Rate 4 05/23/24 14:18 BMI result Body Mass Index 26.4 Const: Other: General: AO X 3, no acute distress Resp: CTA bilateral CVS: S1,S2,RRR GI: +BS, NT, no distention Skin: No rash Neuro: motor grossly intact Psych: appropriate affect General: cooperative, healthy appearing, comfortable, no acute distress, alert, awake, in distress mild and respiratory and tired appearing N utritional Appearance: overweight Limitations: no limitations HEENT: Head: Yes normocephalic and Yes atraumatic Neck: Neck: Yes trachea midline, Yes supple and Yes no JVD Resp: Effort & Inspection: normal respiratory effort Auscultation: clear to auscultation bilaterally, wheezes and diminished lung sounds Cardio: Jugular venous distension: no JVD Palpation: abnormal PMI displaced PMI Rate: regular rate Rhythm: regular rhythm Heart sounds: S1 normal heart sound present, S2 normal heart sound present, no click, no gallops and Murmur heart sound present systolic GI: Other: Abdomen is soft. Reduced left inguinal hernia. Benign abdomen. Auscultation: normal bowel sounds Skin: General skin exam: no rashes or lesions noted and ecchymosis Neuro: General: no focal motor deficits Extrem: General: Yes no clubbing, cyanosis or edema Objective Data Labs 05/26/24 06:09 05/27/24 16:16 Labs: Laboratory Results - last 24 hr 05/28/24 05:55 Hold Purple Top SEE NOTE PT 17.3 H INR 1.4 H Microbiology Microbiology Results: Microbiology 05/25/24 11:42 Blood - Venous Blood Culture - Preliminary No growth after 48 hours. 05/25/24 11:44 Blood - Venous Blood Culture - Preliminary No growth after 48 hours. Procedures Date of Service Date of Service: 05/29/24 Assessment & Plan Assessment and plan (1) Hyperkalemia: Status: Acute (2) Incarcerated left inguinal hernia: Status: Acute Plan DEISY: resolving with IVF c/w epsiode of vol depletion CKD 3b: BSL SCr 2..0 range; suspect CRSyndrome but furhter w/u as mnoted with sero as ordered HyperK: resolved Vol status: looks ok at this time; h/o HFrEF REC: avoid Ntoxins; adjust meds for low GFR; avoid vol depletion; cont t o hold ARB/diurteics for now Time Spent With Patient Time: Total time managing care of this patient today ____ minutes. Progress Note: Quality Stroke Does the patient have a stroke diagnosis?: No
[2024-05-29 06:52] LABS: Creatinine Urine 120.35 mg/dL; Total Protein Urine Random 25 mg/dL (<12)
[2024-05-29 07:10] LABS: INTERNATIONAL NORM RATIO 1.5 (0.9-1.1); Prothrombin Time 17.6 SEC (11.1-13.3)
[2024-05-29 07:14] LABS: Anion Gap 9 (12-20); Blood Urea Nitrogen 37 mg/dL (9-16); Calcium 8.7 mg/dL (8.4-10.2); Carbon Dioxide 23 mmol/L (22-29); Chloride 111 mmol/L (96-108); Creatinine Clr Calc Pharmacy 30.9; Estimated Glomerular Filt Rate 37; Glucose Random 76 mg/dL (60-115); Phosphorus 3.7 mg/dL (2.7-4.5); Potassium 5.2 mmol/L (3.3-5.1); Sodium 138 mmol/L (135-145)
[2024-05-29 07:16] LABS: Parathyroid Hormone Intact 172.5 pg/mL (8.7-77.1)
[2024-05-29] MEDS: Albuterol/Iprat 2.5/0.5MG 3 ML AMPUL.NEB INHALE ×3 (07:55→15:34)
[2024-05-29] MEDS: PT OWN (Umeclidinium-Vilanterol [Anoro Ellipta] 62.5-25 mcg/actuation bl 1 EACH INHALE (08:04)
[2024-05-29] MEDS: Metoprolol Succinate ER 12.5 MG HALFTAB.ER.24H PO ×2 (09:32→22:20)
[2024-05-29] MEDS: Heparin Sodium,Porcine 5,000 UNIT/ML VIAL 5000 UNIT SUBCUT ×2 (09:32→22:20)
[2024-05-29] MEDS: Sodium Zirconium Cyclosilicate 5 GM POWD.PACK PO (09:33)
[2024-05-29] MEDS: Ammonium Lactate 12 % Cream 140 GM TUBE 1 APPL TOPICAL ×2 (09:40→22:21)
--- NOTE | 2024-05-29 13:45 | P.PNNP_ITS ---
Subjective Subjective Date of Service: 05/29/24 Interval history: Seen and examined, events noted Physical Exam 2 Vital Signs: Vital Signs: Last Vital Signs Temp 97.1 F 05/29/24 12:00 Pulse 100 05/29/24 12:00 Resp 18 05/29/24 12:00 BP 107/56 L 05/29/24 12:00 Pulse Ox 93 05/29/24 12:00 O2 Del Method Nasal Cannula 05/29/24 12:00 O2 Flow Rate 2 05/29/24 12:00 Oxygen Flow Rate 4 05/23/24 14:18 BMI result Body Mass Index 26.4 cvs: s1s2, jvp + RS;b/l scattered wheezing Abd; soft Objective Data Labs 05/26/24 06:09 05/29/24 06:21 Labs: Laboratory Results - last 24 hr 05/29/24 05/29/24 06:21 06:30 PT 17.6 H INR 1.5 H Sodium 138 Potassium 5.2 H Chloride 111 H Carbon Dioxide 23 Anion Gap 9 L BUN 37 H Creatinine 1.78 H Estim Creat Clear Calc 30.9 Estimated GFR 37 Random Glucose 76 Calcium 8.7 Phosphorus 3.7 PTH Intact 172.5 H U Random Total Protein 25 H Urine Creatinine 120.35 Microbiology Microbiology Results: Microbiology 05/25/24 11:42 Blood - Venous Blood Culture - Preliminary No growth after 48 hours. 05/25/24 11:44 Blood - Venous Blood Culture - Preliminary No growth after 48 hours. Procedures Date of Service Date of Service: 05/29/24 Assessment & Plan Assessment and plan (1) Hyperkalemia: Status: Acute (2) Incarcerated left inguinal hernia: Status: Acute (3) CKD (chronic kidney disease): Status: Acute (4) Chronic HFrEF (heart failure with reduced ejection fraction): Status: Acute Plan 79/m with pmh of?COPD, ILD on p.r.n. home O2, HFrEF (20%), ischemic cardiomyopathy with biventricular pacemaker,, aortic stenosis, NSVT, and CKD 3 - now with DEISY and hyperkalemia in the setting of incarcerated inguinal hernia planned repair by surgery. DEISY: resolving with IVF c/w episode of vol depletion CKD 3b/ 4 : BSL SCr 2..0 range; suspect CRSyndrome but further w/u as mentioed with sero as ordered- pending FLC HyperK: resolved CHF- ef 20%- Vol status: looks ok at this time; h/o HFrEF REC: ont to hold ARB- bp soft ok to start bumex 2mg po daily as he is euvolemic to hypervolemic bladder scan q shift Time Spent With Patient Time: Total time managing care of this patient today ____ minutes. Progress Note: Quality Stroke Does the patient have a stroke diagnosis?: No
--- NOTE | 2024-05-29 14:56 | MHC.CM.PN ---
IMM 05/24/24 PT rec is Pulmonary STR. A bed offer from [facility] has been accepted. The bed is available tomorrow 05/30. Patient will DC to [facility] for Pulmonary rehab via BLS.
--- NOTE | 2024-05-29 16:12 | HO.PM.IMPN ---
Subjective Subjective Date of Service: 05/29/24 Interval History: f/u on deisy, hyperkalemia Review of Systems Cough improving tolerating diet Patient says that he used 3-4 L oxygen at home No fever Physical Exam Vital Signs: Vital Signs: Last Vital Signs Temp 97.4 F 05/29/24 15:14 Pulse 88 05/29/24 15:35 Resp 18 05/29/24 15:35 BP 101/58 L 05/29/24 15:14 Pulse Ox 96 05/29/24 15:14 O2 Del Method Nasal Cannula 05/29/24 15:14 O2 Flow Rate 2 05/29/24 15:14 Oxygen Flow Rate 4 05/23/24 14:18 BMI result Body Mass Index 26.4 General: AO X 3, no acute distress Resp: CTA bilateral CVS: S1,S2,RRR GI: +BS, NT, no distention Skin: No rash Neuro: motor grossly intact Psych: appropriate affect Objective Data Active Medications Acetaminophen (Acetaminophen 325 Mg Tablet) 650 mg PO Q6H PRN PRN Reason: Pain, Mild (Pain Scale 1-3), fever or headache Albuterol/Ipratropium (Albuterol/Iprat 2.5/0.5mg 3 Ml Ampul.Neb) 3 ml INHALE RQ4H WHILE AWAKE [facility] Last Admin: 05/29/24 15:34 Dose: 3 ml Documented By: SHADE Benzonatate (Benzonatate 100 Mg Capsule) 100 mg PO TID PRN PRN Reason: Cough Last Admin: 05/27/24 22:09 Dose: 100 mg Documented By: CINDY Calcium Carbonate (Calcium Carbonate 750 Mg Tab.Chew) 750 mg PO Q4H PRN PRN Reason: Heartburn Heparin Sodium (Porcine) (Heparin Sodium,Porcine 5,000 Unit/Ml Vial) 5,000 unit SUBCUT Q12H [facility] Last Admin: 05/29/24 09:32 Dose: 5,000 unit Documented By: MIHAI Lactic Acid (Ammonium Lactate 12 % Cream 140 Gm Tube) 1 appl TOPICAL BID [facility]; Protocol Last Admin: 05/29/24 09:40 Dose: 1 appl Documented By: MIHAI Magnesium Hydroxide (Milk Of Magnesia 30 Ml Oral.Susp) 30 ml PO DAILY PRN PRN Reason: Constipation Melatonin (Melatonin 3 Mg Tablet) 6 mg PO BEDTIME PRN PRN Reason: Insomnia Last Admin: 05/27/24 22:09 Dose: 6 mg Documented By: CINDY Metoprolol Succinate (Metoprolol Succinate Er 12.5 Mg Halftab.Er.24h) 12.5 mg PO BID [facility]; Protocol Last Admin: 05/29/24 09:32 Dose: 12.5 mg Documented By: MIHAI Pt Own (Umeclidinium -Vilanterol [Anoro Ellipta] 62.5-25 Mcg /Actuation Bl 1 each INHALE RDAILY [facility] Last Admin: 05/29/24 10:17 Dose: Not Given Documented By: ERICA Non-Admin Reason: See Note Ondansetron HCl (Ondansetron Hcl 4 Mg/2 Ml Vial) 4 mg IVPUSH Q8H PRN PRN Reason: Nausea and Vomiting Sodium Chloride (0.9 % Sodium Chloride Flush 3 Ml Syringe) 3 ml IVFLUSH QSHIFT [facility] Last Admin: 05/29/24 15:40 Dose: 3 ml Documented By: MIHAI Warfarin Sodium (Warfarin Sodium 2.5 Mg Tablet) 2.5 mg PO MoTuWeThFrSa@1800 [facility] Warfarin Sodium (Warfarin Sodium 1.25 Mg Halftab) 1.25 mg PO Miller@1800 [facility] Warfarin Sodium (Warfarin Sodium 2 Mg Tablet) 2 mg PO ONCE ONE Stop: 05/29/24 18:01 Labs 05/26/24 06:09 05/29/24 06:21 Labs: Laboratory Results - last 24 hr 05/29/24 05/29/24 06:21 06:30 PT 17.6 H INR 1.5 H Anion Gap 9 L Estim Creat Clear Calc 30.9 Estimated GFR 37 Random Glucose 76 Calcium 8.7 Phosphorus 3.7 PTH Intact 172.5 H U Random Total Protein 25 H Urine Creatinine 120.35 Assessment and Plan (1) Hyperkalemia: Status: Acute (2) Incarcerated left inguinal hernia: Status: Acute Plan 79-year-old male with a PMH significant for?COPD, ILD on p.r.n. home O2, HFrEF (20%), ischemic cardiomyopathy with biventricular pacemaker in place, aortic stenosis, NSVT, and CKD 3 who presents to the ED with?sudden onset lower left quadrant abdominal pain. Pt will be admitted to the hospital for treatment and further evaluation of DEISY and hyperkalemia in the setting of incarcerated inguinal hernia. DEISY on ckd 4, improved, Creatine is now near baseline cr improving near baseline avoid nephrotoxic meds Incarcerated left inguinal hernia--reduced in the ED, presently assymptomatic -surgery -pain management PRN -surgery is planning repair Hypotension--likely from diuretics, bp meds, was asymptomatic, no evidence of sepsis recived ivf as per chart review,hold bp meds and diuretics Hyperkalemia d/t ckd. Lokelma. low potassium diet moniter renal function and electrolytes mild metabolic acidosis--d/t renal failure, resolved. Infrarenal abdominal aorta aneurysm Measuring up to 2.7 cm Recommendation is for follow-up every 3 years. Paroxysmal AFIB Supratherapeutic INR INR 1.5 surgery-seen plan for hernia surgery outpatient -may need to start warfarin for now, follow INR daily with goal of 2.0-3.0 adjusted warfarin CAD/HLD hold valsartan due to DEISY HFrEF Not in acute exacerbation Hold bumetanide due to DEISY Continue metoprolol. COPD/ILd: possibly requring oxygen due to above,uses home oxygen prn, try to taper down may need home oxygen eval upon discharge continue DuoNebs , home inhalers Supplemental O2 2 L p.r.n. Chronic venous stasis dermatitis Continue ammonium lactate lotion b.i.d. DNR/DNI, verified with pt and HCP who is at bedside DVT Prophylaxis: On Warfarin ongoing need for hospitalization -awaitin placement Quality Stroke Does the patient have a stroke diagnosis?: No VTE Prior VTE?: No VTE Risk Level:: Medical - moderate - high VTE Device Contraindication: Treatment Not Indicated VTE Drug Contraindication: N/A - Med Ordered
[2024-05-29] MEDS: Warfarin Sodium 2.5 MG TABLET PO (17:58)
[2024-05-30] VITALS (10 sets, daily range): BP systolic 85–106; BP diastolic 51–56; PULSE 88–100; RESP 20; TEMP 36–37.2; O2SAT 93–98
[2024-05-30] MEDS: Melatonin 3 MG TABLET 6 MG PO (01:23)
[2024-05-30 07:03] LABS: INTERNATIONAL NORM RATIO 1.5 (0.9-1.1); Prothrombin Time 17.4 SEC (10.9-12.4)
--- NOTE | 2024-05-30 07:07 | PC.NURSE ---
pt voided at approximately at 03:30. PVR 244mls.
[2024-05-30] MEDS: Albuterol/Iprat 2.5/0.5MG 3 ML AMPUL.NEB INHALE ×3 (07:58→15:06)
[2024-05-30] MEDS: PT OWN (Umeclidinium-Vilanterol [Anoro Ellipta] 62.5-25 mcg/actuation bl 1 EACH INHALE ×2 (08:02→08:03)
--- NOTE | 2024-05-30 08:06 | P.PNIM_ITS ---
Subjective Subjective Date of Service: 05/30/24 Interval History: follow up Physical Exam 2 Vital Signs: Vital Signs: Last Vital Signs Temp 98.9 F 05/30/24 07:01 Pulse 93 05/30/24 07:58 Resp 20 05/30/24 07:58 BP 91/55 L 05/30/24 07:50 Pulse Ox 97 05/30/24 07:50 O2 Del Method Nasal Cannula 05/30/24 07:01 O2 Flow Rate 2 05/30/24 07:01 Oxygen Flow Rate 4 05/23/24 14:18 BMI result Body Mass Index 26.4 Objective Data Active Medications Acetaminophen (Acetaminophen 325 Mg Tablet) 650 mg PO Q6H PRN PRN Reason: Pain, Mild (Pain Scale 1-3), fever or headache Albuterol/Ipratropium (Albuterol/Iprat 2.5/0.5mg 3 Ml Ampul.Neb) 3 ml INHALE RQ4H WHILE AWAKE [facility] Last Admin: 05/30/24 07:58 Dose: 3 ml Documented By: CECILIA Benzonatate (Benzonatate 100 Mg Capsule) 100 mg PO TID PRN PRN Reason: Cough Last Admin: 05/27/24 22:09 Dose: 100 mg Documented By: CINDY Calcium Carbonate (Calcium Carbonate 750 Mg Tab.Chew) 750 mg PO Q4H PRN PRN Reason: Heartburn Heparin Sodium (Porcine) (Heparin Sodium,Porcine 5,000 Unit/Ml Vial) 5,000 unit SUBCUT Q12H [facility] Last Admin: 05/29/24 22:20 Dose: 5,000 unit Documented By: MAYRA Lactic Acid (Ammonium Lactate 12 % Cream 140 Gm Tube) 1 appl TOPICAL BID [facility]; Protocol Last Admin: 05/29/24 22:21 Dose: 1 appl Documented By: MAYRA Magnesium Hydroxide (Milk Of Magnesia 30 Ml Oral.Susp) 30 ml PO DAILY PRN PRN Reason: Constipation Melatonin (Melatonin 3 Mg Tablet) 6 mg PO BEDTIME PRN PRN Reason: Insomnia Last Admin: 05/30/24 01:23 Dose: 6 mg Documented By: MAYRA Metoprolol Succinate (Metoprolol Succinate Er 12.5 Mg Halftab.Er.24h) 12.5 mg PO BID [facility]; Protocol Last Admin: 05/29/24 22:20 Dose: 12.5 mg Documented By: MAYRA Pt Own (Umeclidinium -Vilanterol [Anoro Ellipta] 62.5-25 Mcg /Actuation Bl 1 each INHALE RDAILY [facility] Last Admin: 05/29/24 10:17 Dose: Not Given Documented By: ERICA Non-Admin Reason: See Note Ondansetron HCl (Ondansetron Hcl 4 Mg/2 Ml Vial) 4 mg IVPUSH Q8H PRN PRN Reason: Nausea and Vomiting Sodium Chloride (0.9 % Sodium Chloride Flush 3 Ml Syringe) 3 ml IVFLUSH QSHIFT [facility] Last Admin: 05/29/24 22:21 Dose: 3 ml Documented By: MAYRA Warfarin Sodium (Warfarin Sodium 2.5 Mg Tablet) 2.5 mg PO MoTuWeThFrSa@1800 [facility] Last Admin: 05/29/24 17:58 Dose: 2.5 mg Documented By: MIHAI Warfarin Sodium (Warfarin Sodium 1.25 Mg Halftab) 1.25 mg PO Miller@1800 [facility] Labs 05/26/24 06:09 05/29/24 06:21 Labs: Laboratory Results - last 24 hr 05/30/24 06:10 Hold Purple Top SEE NOTE PT 17.4 H INR 1.5 H Assessment and Plan (1) Hyperkalemia: Status: Acute (2) Incarcerated left inguinal hernia: Status: Acute Plan 79-year-old male with a PMH significant for?COPD, ILD on p.r.n. home O2, HFrEF (20%), ischemic cardiomyopathy with biventricular pacemaker in place, aortic stenosis, NSVT, and CKD 3 who presents to the ED with?sudden onset lower left quadrant abdominal pain. Pt will be admitted to the hospital for treatment and further evaluation of DEISY and hyperkalemia in the setting of incarcerated inguinal hernia. DEISY on ckd 4, improved, Creatine is now near baseline cr improving near baseline avoid nephrotoxic meds Incarcerated left inguinal hernia--reduced in the ED, presently assymptomatic -surgery -pain management PRN -surgery is planning repair Hypotension--likely from diuretics, bp meds, was asymptomatic, no evidence of sepsis recived ivf as per chart review,hold bp meds and diuretics Hyperkalemia d/t ckd. Lokelma. low potassium diet moniter renal function and electrolytes mild metabolic acidosis--d/t renal failure, resolved. Infrarenal abdominal aorta aneurysm Measuring up to 2.7 cm Recommendation is for follow-up every 3 years. Paroxysmal AFIB Supratherapeutic INR INR 1.5 surgery-seen plan for hernia surgery outpatient -may need to start warfarin for now, follow INR daily with goal of 2.0-3.0 adjusted warfarin CAD/HLD hold valsartan due to DEISY HFrEF Not in acute exacerbation Hold bumetanide due to DEISY Continue metoprolol. COPD/ILd: possibly requring oxygen due to above,uses home oxygen prn, try to taper down may need home oxygen eval upon discharge continue DuoNebs , home inhalers Supplemental O2 2 L p.r.n. Chronic venous stasis dermatitis Continue ammonium lactate lotion b.i.d. DNR/DNI, verified with pt and HCP who is at bedside DVT Prophylaxis: On Warfarin ongoing need for hospitalization -awaitin placement Quality Stroke Does the patient have a stroke diagnosis?: No VTE Prior VTE?: No VTE Risk Level:: Medical - moderate - high VTE Device Contraindication: Treatment Not Indicated VTE Drug Contraindication: N/A - Med Ordered
[2024-05-30] MEDS: 0.9 % Sodium Chloride Flush 3 ML SYRINGE IVFLUSH (09:12)
[2024-05-30] MEDS: Heparin Sodium,Porcine 5,000 UNIT/ML VIAL 5000 UNIT SUBCUT (09:12)
[2024-05-30] MEDS: Ammonium Lactate 12 % Cream 140 GM TUBE 1 APPL TOPICAL (09:16)
--- NOTE | 2024-05-30 11:21 | MHC.CM.PN ---
IMM 05/30/24 Patient is discharged today to [facility] via [facility]. He will return next week for surgery. [facility] will provide STR and manage kapil-op AC therapy. The patient will return to [facility] to resume STR after the surgery. [facility]
--- NOTE | 2024-05-30 13:00 | PM.DS ---
DS: Providers Provider Date of Service: 05/30/24 Date of admission: 05/23/24 21:22 Date of discharge: 05/30/24 Primary care physician: Sundeep Macdonald MD Consults: 05/23/24 21:22 Consult to Nephrology Routine Consulting Provider: Alex Gale Reason for consultation: DEISY on CKD 05/23/24 21:42 Consult to General Surgery Routine Consulting Provider: [facility] Sur[facility] Reason for consultation: Incarcerated left inguinal hernia reduced in ED 05/25/24 21:35 Consult to Cardiology Routine Consulting Provider: [facility] Reason for consultation: pre-op eval for hernia repair 05/30/24 10:16 Consult to Anesthesiology Routine Consulting Provider: Pooja Hahn Reason for consultation: Surgery requested for hernia elective Has provider been notified: No Attending physician on discharge: Tyshawn De La Vega Discharging clinician: Tyshawn De La Vega DS: Diagnosis Discharge Diagnosis (1) Hyperkalemia: Status: Acute (2) Incarcerated left inguinal hernia: Status: Acute DS: Summary Hospital Course Hospital Course: 79-year-old male with a PMH significant for?COPD, ILD on p.r.n. home O2, HFrEF (20%), ischemic cardiomyopathy with biventricular pacemaker in place, aortic stenosis, NSVT, and CKD 3 who presents to the ED with?sudden onset lower left quadrant abdominal pain. Patient reports he was in his normal state of health earlier this morning. Patient had a normal bowel movement and then sat down to eat lunch when he immediately had an upset stomach with nausea, vomiting, and sudden onset severe lower left quadrant abdominal pain. Reports had at least 5-6 episodes of vomiting before he began to do dry heave. Patient called EMS who brought him to the emergency department where imaging showed he had an incarcerated left inguinal hernia without obstruction, which was reduced in the ED without incident. Patient currently is seen resting comfortably in bed without any acute medical complaints. Currently denies nausea or vomiting, and without LLQ abdominal pain at rest. Denies any other acute medical concerns at this time: No chest pain/pressure, palpitations. Shortness of breath at baseline. No fever, chills. In the ED pt was mildly tachycardic up to 91 with soft BP of 107/53. Labs were significant for H&H 12.6/38.0, INR 3.8, sodium 133, potassium 5.5, bicarb 20, BUN 72, and creatinine 3.47. No leukocytosis. CT?of abdomen and pelvis found incarcerated left inguinal hernia without obstruction. 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 EKG demonstrated atrial sensed ventricular paced rhythm similar to previous. Pt was treated with ondansetron, hydromorphone, and IVF. Pt will be admitted to the hospital for treatment and further evaluation of DEISY and hyperkalemia in the setting of incarcerated inguinal hernia. Hospital course: 79-year-old male with a PMH significant for?COPD, ILD on p.r.n. home O2, HFrEF (20%), ischemic cardiomyopathy with biventricular pacemaker in place, aortic stenosis, NSVT, and CKD 3 who presents to the ED with?sudden onset lower left quadrant abdominal pain-patient was admitted for DEISY on CKD, also incarcerated left inguinal hernia, episode of hypotension, hyperkalemia: Subsequently patient has diuretics and valsartan placed on hold, initially also received IV fluid in ED. patient hypotension was thought to be related to diuretics, blood pressure medication -which seems to be resolved. 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 In addition with above conservative measures patient DEISY also improved to baseline creatinine. Hyperkalemia figueroa received Lokelma, low-potassium diet. inaddition patient warfarin was initially placed on hold due to possible hernia surgery but since the patient's hernia is reduced and patient is asymptomatic currently, tolerating diet-surgery did not recommend inpatient surgery currently hence Patient will follow-up out patiently with surgery for further management ,when that decide- consider holding warfarin 5 days before surgery. copd stable ,he uses 3-4 liter oxygen at home prn -please consider home oxygen eval before discharge from rehab. plan: moniter renal function and electrolytes monitering, low potassium diet,stop valsartan . moniter inr Above management discussed with the patient and his in detail length they both understand and in agreement with the above plan, time spent 40 minute. Time Attestation Total time managing care of this patient today: 40 mintues. Discharge Coordination Time (in mins): 40min Quality: Safe Use of Opioids Does Pt have an Active Cancer Diagnosis on the Problem List?: No Quality: Stroke Does the patient have a stroke diagnosis?: No Physical Exam Vital Signs: Vital Signs: Last Vital Signs Temp 97.6 F 05/30/24 10:53 Pulse 88 05/30/24 11:29 Resp 20 05/30/24 11:29 BP 105/56 L 05/30/24 10:53 Pulse Ox 98 05/30/24 10:53 O2 Del Method Nasal Cannula 05/30/24 10:53 O2 Flow Rate 2 05/30/24 10:53 Oxygen Flow Rate 4 05/23/24 14:18 BMI result Body Mass Index 26.4 General: AO X 3, no acute distress Resp: CTA bilateral CVS: S1,S2,RRR GI: +BS, NT, no distention Skin: No rash Neuro: motor grossly intact Psych: appropriate affect DS: Data Data Completed and Pending Labs on day of discharge: Laboratory Results - last 24 hr 05/30/24 06:10 Hold Purple Top SEE NOTE PT 17.4 H INR 1.5 H Preliminary micro results at discharge 05/25/24 11:42 Blood Culture - Preliminary Blood - Venous No growth after 48 hours. 05/25/24 11:44 Blood Culture - Preliminary Blood - Venous No growth after 48 hours. Imaging Chest x-ray: Radiologist's impression: ITS Impressions Abdomen/Pelvis CT 05/23/24 15:58 IMPRESSION: 1. Incarcerated left inguinal hernia partially imaged. No obstruction. This likely corresponds to the clinical finding. Surgical assessment recommended. 2. Incidental gallstones. 3. Severe atherosclerosis. 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 Recommend follow-up every 3 years. 4. L4 compression fracture as above. Fleischner guidelines were followed. Electronically signed by: Virgil Alanis MD 05/23/2024 06:11 PM EDT RP Discharge Plan Discharge Anticipated Discharge Date/Time: 05/30/24 12:38 Patient Disposition: Xfer SNF Discharge Diagnosis: deisy on ckd4 , left inguinal hernia ,hyperkalemia Referrals: [facility] [Outside] - 1 Week Sundeep Macdonald MD [Primary Care Provider] - 1 Week Gamal Marshall MD [Physician] - 1 Week Discharge Medications: Continued metoprolol succinate 25 mg tablet extended release 24 hr 12.5 mg PO BID Qty: 90 3RF bumetanide 2 mg tablet See Rx Instructions PO DAILY Qty: 90 2RF Patient Comments: i take 3mg daily now Rx Instructions: 3mg daily orally daily; This is a pill to prevent fluid retention and congestive heart failure exacerbation. warfarin 2.5 mg tablet 2.5 mg PO CARRI Protocol: Dose Management Condition: Sunday (Week One) Dose/Route: 1.25 mg Instruction: 0.5 x 2.5 mg tablets Condition: Sunday Dose/Route: 2.5 mg Instruction: 1 x 2.5 mg tablet Condition: Sunday Dose/Route: 2.5 mg Instruction: 1 x 2.5 mg tablet Condition: Sunday Dose/Route: 2.5 mg Instruction: 1 x 2.5 mg tablet Condition: Dose/Route: 2.5 mg Instruction: 1 x 2.5 mg tablet Condition: Sunday Dose/Route: 0 mg Instruction: 0 tablets Condition: Sunday Dose/Route: 2.5 mg Instruction: 1 x 2.5 mg tablet Condition: Sunday (Week Two) Dose/Route: 1.25 mg Instruction: 0.5 x 2.5 mg tablets Condition: Sunday Dose/Route: 2.5 mg Instruction: 1 x 2.5 mg tablet Condition: Sunday Dose/Route: 2.5 mg Instruction: 1 x 2.5 mg tablet Condition: Sunday Dose/Route: 2.5 mg Instruction: 1 x 2.5 mg tablet Condition: Dose/Route: 2.5 mg Instruction: 1 x 2.5 mg tablet Condition: Sunday Dose/Route: 2.5 mg Instruction: 1 x 2.5 mg tablet Condition: Sunday Dose/Route: 2.5 mg Instruction: 1 x 2.5 mg tablet Protocol Text: Adjustment Start Date: Sunday05/23/24 INR Value: 3.8 INR Date: 05/23/24 Recheck Date: 06/06/24 Additional Instructions: REVIEW FOOD LIST - EAT A MIX OF FRUITS AND VEGETABLES warfarin 2.5 mg Tablet 1.25 mg PO DARLING Jardiance 10 mg tablet 10 mg PO DAILY Qty: 30 1RF ammonium lactate 12 % cream 1 appl topical BID albuterol sulfate 2.5 mg /3 mL (0.083 %) solution for nebulization 2.5 mg inhalation BID PRN (Reason: wheezing) Anoro Ellipta 62.5-25 mcg/actuation blister with device 1 ea inhalation DAILY Discontinued valsartan 40 mg tablet 40 mg PO BID Qty: 180 3RF bumetanide 1 mg tablet 1 mg PO DAILY PRN (Reason: edema) Qty: 30 2RF Rx Instructions: TAKE ONE TABLET IN ADDITION TO 2MG NEEDED FOR FLUID RETENTION Discharge Orders: Discharge Order (Routine); Ordered 05/30/24 Ordered By: Tyshawn De La Vega Diet: Advance to usual diet Activity on Discharge: As tolerated Stand Alone Forms: Patient Portal Discharge page Print Language: Malay Care Plan Goals: 79-year-old male with a PMH significant for?COPD, ILD on p.r.n. home O2, HFrEF (20%), ischemic cardiomyopathy with biventricular pacemaker in place, aortic stenosis, NSVT, and CKD 3 who presents to the ED with?sudden onset lower left quadrant abdominal pain-patient was admitted for DEISY on CKD, also incarcerated left inguinal hernia, episode of hypotension, hyperkalemia: Subsequently patient has diuretics and valsartan placed on hold, initially also received IV fluid in ED. patient hypotension was thought to be related to diuretics, blood pressure medication -which seems to be resolved. 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 In addition with above conservative measures patient DEISY also improved to baseline creatinine. Hyperkalemia figueroa received Lokelma, low-potassium diet. inaddition patient wwarfarin was initially placed on hold due to possible hernia surgery but since the patient's hernia is reduced and patient is asymptomatic currently-surgery did not recommend inpatient surgery currently hence Patient will follow-up out patiently with surgery for further management ,when that decide-warfarin can be hold 5 days before surgery. Health Concerns: As above. Plan of Treatment: As above. Assessment: As above.
--- NOTE | 2024-05-30 13:48 | P.PNNP_ITS ---
Subjective Subjective Date of Service: 05/30/24 Interval history: pt seen and examined Physical Exam 2 Vital Signs: Vital Signs: Last Vital Signs Temp 97.6 F 05/30/24 10:53 Pulse 88 05/30/24 11:29 Resp 20 05/30/24 11:29 BP 105/56 L 05/30/24 10:53 Pulse Ox 98 05/30/24 10:53 O2 Del Method Nasal Cannula 05/30/24 10:53 O2 Flow Rate 2 05/30/24 10:53 Oxygen Flow Rate 4 05/23/24 14:18 BMI result Body Mass Index 26.4 cvs: s1s2, jvp + RS;b/l scattered wheezing Abd; soft Objective Data Labs 05/26/24 06:09 05/29/24 06:21 Labs: Laboratory Results - last 24 hr 05/30/24 06:10 Hold Purple Top SEE NOTE PT 17.4 H INR 1.5 H Microbiology Microbiology Results: Microbiology 05/25/24 11:42 Blood - Venous Blood Culture - Preliminary No growth after 48 hours. 05/25/24 11:44 Blood - Venous Blood Culture - Preliminary No growth after 48 hours. Procedures Date of Service Date of Service: 05/30/24 Assessment & Plan Assessment and plan (1) Incarcerated left inguinal hernia: Status: Acute (2) Acute kidney injury superimposed on CKD: Status: Acute (3) Chronic HFrEF (heart failure with reduced ejection fraction): Status: Acute Plan 79/m with pmh of?COPD, ILD on p.r.n. home O2, HFrEF (20%), ischemic cardiomyopathy with biventricular pacemaker,, aortic stenosis, NSVT, and CKD 3 - now with DEISY and hyperkalemia in the setting of incarcerated inguinal hernia planned repair by surgery. DEISY: resolving with IVF c/w episode of vol depletion CKD 3b/ 4 : BSL SCr 2..0 range; suspect CRSyndrome but further w/u as mentioed with sero as ordered- pending FLC HyperK: resolved CHF- ef 20%- Vol status: looks ok at this time; h/o HFrEF REC: Cont to hold ARB- bp soft ok to start bumex 2mg po daily as he is euvolemic to hypervolemic - cr lower than his baseline likely due to hemodilution - labs pending today midodrine 5mg tid as bp soft - unable to give diuretics bladder scan q shift Time Spent With Patient Time: Total time managing care of this patient today ____ minutes. Progress Note: Quality Stroke Does the patient have a stroke diagnosis?: No
[2024-05-31 07:27] LABS: Lactic Acid 2.1 mmol/L (0.5-2.0)
[2024-06-02 10:22] LABS: Kappa Light Chain, Free Serum 145.4 mg/L (3.3-19.4); Kappa/Lambda Lt Ch Free Ratio 1.49 (0.26-1.65); Lambda Light Chain, Free Serum 97.6 mg/L (5.7-26.3)
--- NOTE | 2024-06-05 15:37 | P.CDIM_ITS ---
PROVIDER RESPONSE TEXT: To clarify, the appropriate diagnosis supported by the clinical indicators: Acute QUERY TEXT: PHYSICIAN'S DOCUMENTATION REQUEST Date of Query: 05/26/2024 08:15 AM EDT Patient Name: Eddie Mullen Admit Date: 05/24/2024 Dear José Miguel Perez MD, A review of the medical record indicates additional documentation may be needed. Please review below and update the documentation accordingly. Clinical Indicators: Per Hospitalist Progress Note 05/25/24: Mild metabolic acidosis due to renal failure Clarify which of the following accurately represents the acuity of the metabolic acidosis. Possible options might include: Acute Acute on chronic Compensated Chronic stable condition Remission Other (explain) Clinically unable to determine (explain) Thank you, Patricia Velasquez RN Use of terms such as suspected, likely, concern for, or probable (associated with a specific diagnosi s that is being evaluated, monitored, or treated as if it exists) are acceptable and can be coded in the inpatient se tting, when documented at the time of discharge. Please use your independent medical judgment in providing your response. THIS QUERY IS PART OF THE PERMANENT MEDICAL RECORD
== END 2024-05-30 17:27 | disposition skilled nursing facility (03) | DRG 394 ==
LOC: HO.ED 17:18 → HO.EDOVER 21:35 → HO.IMC 23:29
PROVIDERS: Internal Medicine; Internal Medicine Nephrology; Physician Assistant; Admitting Provider Student in an Organized Health Care Education/Training Program; Emergency Provider Emergency Medicine Emergency Medical Services; PCP Internal Medicine; Visit Provider Internal Medicine
DX: K40.30 Unilateral inguinal hernia, with obstruction, without gangrene, not specified as recurrent (principal); E87.21 Acute metabolic acidosis; I50.22 Chronic systolic (congestive) heart failure; N17.9 Acute kidney failure, unspecified; J84.9 Interstitial pulmonary disease, unspecified; E87.5 Hyperkalemia; Z66 Do not resuscitate; I25.10 Atherosclerotic heart disease of native coronary artery without angina pectoris; E11.22 Type 2 diabetes mellitus with diabetic chronic kidney disease; I87.2 Venous insufficiency (chronic) (peripheral); I95.9 Hypotension, unspecified; I48.0 Paroxysmal atrial fibrillation; J44.9 Chronic obstructive pulmonary disease, unspecified; D63.1 Anemia in chronic kidney disease; I25.5 Ischemic cardiomyopathy; I71.43 Infrarenal abdominal aortic aneurysm, without rupture; R79.1 Abnormal coagulation profile; E78.5 Hyperlipidemia, unspecified; Z95.1 Presence of aortocoronary bypass graft; Z99.81 Dependence on supplemental oxygen; Z95.810 Presence of automatic (implantable) cardiac defibrillator; Z87.891 Personal history of nicotine dependence; Z79.01 Long term (current) use of anticoagulants; Z79.899 Other long term (current) drug therapy
CPT/HCPCS: 36415; 74176; 80048; 80076; 81003; 82533; 82570; 83521; 83605; 83735; 83970; 84100; 84132; 84156; 85025; 85610; 86850; 86900; 86901; 87040; 93005; 97110; 97162; 99211; 99285; J1170; J1644; J2405; J2470; J7120; P9047

== ENCOUNTER → 2024-05-23 21:22 | Outpatient (BNV) | payer MEDICARE, BC, SELFPAY ==
[2024-04-28 13:10] VITALS: BP 110/58; BP 128/72; BP 90/52; BMI 33.4
== END ==
PROVIDERS: Admitting Provider Student in an Organized Health Care Education/Training Program; Emergency Provider Emergency Medicine Emergency Medical Services; PCP Internal Medicine; Visit Provider Internal Medicine Cardiovascular Disease
DX: Z01.810 Encounter for preprocedural cardiovascular examination (principal)
CPT/HCPCS: 99222

== ENCOUNTER → 2024-05-23 21:22 | Outpatient (BNV) | payer MEDICARE, BC, SELFPAY ==
[2024-04-28 13:10] VITALS: BP 110/58; BP 128/72; BP 90/52; BMI 33.4
== END ==
PROVIDERS: Admitting Provider Student in an Organized Health Care Education/Training Program; Emergency Provider Emergency Medicine Emergency Medical Services; PCP Internal Medicine; Visit Provider Surgery
DX: K40.30 Unilateral inguinal hernia, with obstruction, without gangrene, not specified as recurrent (principal)
CPT/HCPCS: 99222; 99231; 99232

== ENCOUNTER → 2024-05-23 21:22 | Outpatient (BNV) | payer MEDICARE, BC, SELFPAY ==
[2024-04-28 13:10] VITALS: BP 110/58; BP 128/72; BP 90/52; BMI 33.4
== END ==
PROVIDERS: Admitting Provider Student in an Organized Health Care Education/Training Program; Emergency Provider Emergency Medicine Emergency Medical Services; PCP Internal Medicine; Visit Provider Internal Medicine
DX: E87.5 Hyperkalemia (principal); K40.30 Unilateral inguinal hernia, with obstruction, without gangrene, not specified as recurrent
CPT/HCPCS: 99223; 99231; 99232; 99239

== ENCOUNTER 2024-06-04 06:06 | Outpatient (REF) | payer SELFPAY ==
[2024-04-28 13:10] VITALS: BP 110/58; BP 128/72; BP 90/52; BMI 33.4
[2024-06-04 06:25] LABS: INTERNATIONAL NORM RATIO 2.1 (0.9-1.1); Prothrombin Time 24.5 SEC (10.9-12.4)
== END 2024-06-04 06:07 | disposition home or self-care (01) ==
LOC: HO.MMNH1L 06:06
PROVIDERS: Visit Provider Internal Medicine
DX: I48.0 Paroxysmal atrial fibrillation (principal)
CPT/HCPCS: 36415; 85610

== ENCOUNTER → 2024-06-30 12:10 | Outpatient (BNVA) | payer SELFPAY ==
[2024-04-28 13:10] VITALS: BP 110/58; BP 128/72; BP 90/52; BMI 33.4
== END ==
PROVIDERS: PCP Internal Medicine; Visit Provider Internal Medicine

== ENCOUNTER → 2024-07-07 16:16 | Outpatient (BNVA) | payer SELFPAY ==
[2024-04-28 13:10] VITALS: BP 110/58; BP 128/72; BP 90/52; BMI 33.4
== END ==
PROVIDERS: PCP Internal Medicine; Visit Provider Internal Medicine

== ENCOUNTER → 2024-07-14 14:21 | Outpatient (BNVA) | payer SELFPAY ==
[2024-04-28 13:10] VITALS: BP 110/58; BP 128/72; BP 90/52; BMI 33.4
== END ==
PROVIDERS: PCP Internal Medicine; Visit Provider Internal Medicine

== ENCOUNTER 2024-07-21 13:04 | Outpatient (AMB) | payer SELFPAY ==
[2024-04-28 13:10] VITALS: BP 110/58; BP 128/72; BP 90/52; BMI 33.4
--- NOTE | 2024-07-21 13:10 | MHC.OFFVISCO ---
Intake Intake Visit Reasons: Anticoagulation Allergies indomethacin [From INDOCIN] Allergy (Mild, Verified 07/14/24 14:22) HEADACHES Nursing Note INR received from [facility] nurse Bianka, INR today is 3.1, Spoke to nurse Bianka who was with pt Patient status: no changes Denies any signs and symptoms of any unusual bruising, bleeding or clotting Medication or supplements: no changes Diet: appetite fair Activity: as tolerated Dose : decrease today's dose to 1.25mg (2.5mg) then weekly dose decreased to 2.5mg X 5 days (instead of 6 days) and 1.25mg X 2 days Dosing and diet instructions given with next retest date of 07/28/24, Nurse and patient verbalizes understanding of instructions given with accurate read back Anti-Coag Initial Assessment Social Hx Patient Tobacco Use Status: Former Tobacco user Tobacco use type: Cigar alcohol intake: never Coding Level of Care Code Est Patient Level 1 Diagnoses Current use of anticoagulant therapy Z79.01 Results AMB INR Fingerstick AMB INR Fingerstick 3.1 Last Edit by Jeanine Anderson RN on 07/21/24 13:08 interface delay Assessment & Plan Assessment & Plan (1) Current use of anticoagulant therapy: Code(s): 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
== END 2024-07-21 13:15 | disposition home or self-care (01) ==
LOC: HO.ACS 13:04
PROVIDERS: PCP Internal Medicine; Visit Provider Internal Medicine
DX: Z79.01 Long term (current) use of anticoagulants (principal)

== ENCOUNTER → 2024-07-21 13:04 | Outpatient (BNVA) | payer MEDICARE, BC, SELFPAY ==
[2024-04-28 13:10] VITALS: BP 110/58; BP 128/72; BP 90/52; BMI 33.4
== END ==
PROVIDERS: PCP Internal Medicine; Visit Provider Internal Medicine
DX: Z95.2 Presence of prosthetic heart valve (principal); Z79.01 Long term (current) use of anticoagulants; Z51.81 Encounter for therapeutic drug level monitoring
CPT/HCPCS: 99211

== ENCOUNTER 2024-07-29 13:02 | Inpatient (IN) | payer MEDICARE, BC, SELFPAY ==
[2024-04-28 13:10] VITALS: BP 110/58; BP 128/72; BP 90/52; BMI 33.4
[2024-07-29] VITALS (9 sets, daily range): BP systolic 101–128; BP diastolic 50–70; PULSE 87–94; RESP 12–40; TEMP 36.4–36.6; O2SAT 98–100; BMI 27.9
--- NOTE | ~2024-07-29 | XR_ITS ---
EXAMINATION: XR CHEST CLINICAL INFORMATION: dyspnea COMPARISON: X-ray dated March 04, 2024 TECHNIQUE: Frontal view of the chest was obtained. FINDINGS: Indistinct margins in the perihilar regions and cardiomediastinal silhouette. Prominence of the interstitial markings. Opacities in both lower hemithoraces with and excretion shaped opacity on the right. No pneumothorax. Sternal wires. Left-sided pacemaker with 2 electrode leads in the right heart chambers. XR/XR chest 1V IMPRESSION: Pulmonary edema and bilateral pleural effusions, moderate volume. Cardiomegaly versus pericardial effusion. Electronically signed by: Terry Bennett MD 07/29/2024 02:30 PM EST
--- NOTE | 2024-07-29 13:12 | ECG_ITS ---
Test Reason : SOB Blood Pressure : / mmHG Vent. Rate : 092 BPM Atrial Rate : 092 BPM P-R Int : 000 ms QRS Dur : 192 ms QT Int : 472 ms P-R-T Axes : 117 -41 -01 degrees QTc Int : 583 ms Ventricular-paced rhythm Abnormal ECG When compared with ECG of 23-MAY-2024 14:33, Vent. rate has increased BY 14 BPM Referred By: Maris Kennedy Electronically Signed By:VANDANA PAYAN MD
--- NOTE | 2024-07-29 13:22 | ED.SOB ---
HPI - SOB/Dyspnea General Chief Complaint: Dyspnea Stated Complaint: RESP DISTRESS, ON CPAP PER EMS Source: patient, EMS and old records reviewed Mode of arrival: EMS Limitations: no limitations History of Present Illness ED Provider: SHELLEY HPI Narrative: 79 yo male with PMH of CKD, emphysema on 3L NC, severe aortic stenosis not a candidate for open or TAVR - rejected by KAYA Carson on coumadin, NSVT, ishcemic cardiomyopathy EF 20% has biventricular ICD, DM, CAD who reports leg swelling, orthopnea, dyspnea since yesterday. He denies cough, fevers. He was found by home visiting RN to be in 50s at baseline. He was found by EMS to have sats in 60s placed on CPAP. On arrival to ED he states he wants to be DNR/DNI MD elicited complaint: shortness of breath Pertinent past history: COPD, congestive heart failure and diabetes Onset (ago): day(s) (1) Context: occurred during exertion Timing: progressively worsening Severity: severe Exacerbating factors: lying flat and exertion Relieving factors: oxygen and upright position Known history of: COPD and congestive heart failure Associated symptoms: cough and orthopnea Treatment prior to arrival: oxygen and bronchodilator Related Data Home Medications ?Medication ?Instructions ?Recorded ?Confirmed ammonium lactate 12 % topical cream 1 appl topical BID 07/17/22 07/14/24 albuterol sulfate 2.5 mg/3 mL 2.5 mg inhalation BID PRN wheezing 02/14/24 07/14/24 (0.083 %) solution for nebulization umeclidinium 62.5 mcg-vilanterol 1 ea inhalation DAILY 02/14/24 07/28/24 25 mcg/actuation powdr for inhalation (Anoro Ellipta) guaifenesin 600 mg tablet, 600 mg PO DAILY 06/30/24 07/28/24 extended release 12 hr (Mucinex) Previous Rx's ?Medication ?Instructions ?Recorded empagliflozin 10 mg tablet 10 mg PO DAILY #30 tabs 03/29/22 (Jardiance) warfarin 2.5 mg tablet 2.5 - 5 mg PO DAILY #180 tabs 06/27/24 bumetanide 2 mg tablet 2 mg PO DAILY #90 tabs 06/30/24 midodrine 10 mg tablet 10 mg PO TID boderline bp #60 tabs 06/30/24 Allergies Allergy/AdvReac Type Severity Reaction Status Date / Time indomethacin [From INDOCIN] Allergy Mild HEADACHES Verified 07/29/24 13:12 Review of Systems Review of Systems: Constitutional : No Fever, No Chills ENT/Mouth : No sore throat, No Rhinorrhea, No Swallowing Difficulty Eyes: No Eye Pain, No Swelling, No Redness Cardiovascular : No Chest Pain, positive SOB, pos Orthopnea, positive Edema Respiratory : pos Cough, No Sputum, No Wheezing, positive dyspnea Gastrointestinal : No Nausea, No Vomiting, No Diarrhea, No abdominal Pain, No Hematochezia, No Melena Genitourinary : No Dysuria, No Urinary Frequency, No Hematuria Musculoskeletal : No joint pain, No Myalgias Skin : No Skin Lesions, No rash Neuro : No Weakness, No Numbness, No Dizziness, No Headache Psych : No Anxiety/Panic, No Depression All other systems reviewed and are negative [facility] Past Medical History Attestation statement: The following information was validated with the patient. Source: old records reviewed Medical History Biventricular ICD (implantable cardioverter-defibrillator) in place Aortic stenosis CKD (chronic kidney disease) Diabetes mellitus CAD (coronary artery disease) Chronic HFrEF (heart failure with reduced ejection fraction) Ischemic cardiomyopathy Surgical History S/P CABG x 1 Hx of tonsillectomy Hx of CABG History of appendectomy Hx of knee surgery Family History Family History Father Colon cancer Mother No problems noted. Social History Social History Household Members: Spouse Do you presently have visiting nurse or other home services: No Alcohol intake: never Patient Tobacco Use Status: Former Tobacco user Tobacco use type: Cigar Smoked in Last 30 Days: No Use of substances other than those prescribed or required for medical reasons: No Advance Directives: Yes Advance Directives on File: Yes Advance Directives Date on File: 07/29/24 service: Yes Current occupational status: retired Physical Exam Vital Signs: Vital Signs: Last Vital Signs Temp 98 F 07/29/24 13:25 Pulse 87 07/29/24 14:47 Resp 18 07/29/24 14:47 BP 109/52 L 07/29/24 14:47 Pulse Ox 100 07/29/24 14:47 O2 Del Method Oxymask 07/29/24 14:47 O2 Flow Rate 7 07/29/24 14:47 BMI result Body Mass Index 27.9 Appearance: Alert. Oriented X3. No acute distress. Eyes: Pupils equal, round and reactive to light. ENT: Pharynx normal. Neck: Normal inspection. Neck supple. CVS: Normal heart rate and rhythm. Pulses diminished cool fingers Respiratory: Mild respiratory distress. Breath sounds diffusely severely diminished crackles heard at base Abdomen: Soft and nontender. Skin: Skin warm and dry. pale and dusky skin color. Extremities: 2+ pitting edema with dusky hyperpigmented appearance, no warmth Neuro: Oriented X 3. No motor deficit. No sensory deficit. Course Course Course Narrative: trop at his baseline Reevaluation(s) Reevaluation #1: stable on oxymask at this time Reevaluation #2: did discuss hospice with family that they might want to consider this - they are open but not 100% yet. they would like to talk to someone while he is here. Medications Administered Discontinued Medications Generic Name Dose Route Start Last Admin Trade Name Freq PRN Reason Stop Dose Admin Cefepime HCl 1 gm/ Sodium 50 mls @ 100 mls/hr 07/29/24 13:12 07/29/24 14:42 Chloride IV 07/29/24 13:41 100 mls/hr ONCE ONE Administration Methylprednisolone Sodium Succinate 60 mg 07/29/24 14:03 07/29/24 14:42 Methylprednisolone Sod Succ 125 Mg/2 Ml Vial IVPUSH 07/29/24 14:04 60 mg ONCE ONE Administration Medical Decision Making Medical Decision Making MDM Narrative: 79 yo male with PMH of CKD, emphysema on 3L NC, severe aortic stenosis not a candidate for open or TAVR - rejected by KAYA Carson on coumadin, NSVT, ishcemic cardiomyopathy EF 20% has biventricular ICD, DM, CAD now here with hypoxia increased work of breathing and leg edema he is off NIPPV and on oxymask on arrival I have ordered basic labs, EKG, CXR, empiric antibiotics, IV steroids he confirms he is DNR/DNI I also spoke to Dr. Nelson on arrival he is not a candidate for TAVR or aortic stenosis treatment Differential Diagnosis Differential Diagnoses: The differential diagnosis associated with the presentation includes COPD, CHF, severe worsening Admission/Observation Consideration of admission/observation: Escalation of care including admission/observation considered given increased O2 demands will admit for diuresis seems more CHF Consult Healthcare Provider Management of the patient was discussed with: Event Marketing Representative Lab Data MDM Lab Attestation statement: I reviewed the patient's lab results. 07/29/24 14:16 07/29/24 14:16 Labs: Lab Results 07/29/24 07/29/24 07/29/24 Range/Units 14:16 14:17 14:22 WBC 8.1 (4.8-10.8) X10*3/uL RBC 4.29 L (4.60-5.80) X10*6/uL Hgb 11.8 L (14.0-18.0) g/dl Hct 39.8 L (42.0-52.0) % MCV 92.8 (80.0-98.0) fL MCH 27.5 (27.0-33.0) pg MCHC 29.6 L (31.0-36.0) g/dl RDW 18.7 H (11.0-16.0) % Plt Count 192 (160-400) X10*3/uL MPV 10.7 (9.4-12.4) fL Immature Gran % (Auto) 0.5 H (0.0-0.4) % Neut % (Auto) 86.5 H (45-73) % Lymph % (Auto) 6.2 L (20-40) % [place] % (Auto) 6.5 (2-11) % Eos % (Auto) 0.1 (0-4) % Baso % (Auto) 0.2 (0-2) % Lymph # (Auto) 0.5 L (1.2-4.9) X10*3/uL [place] # (Auto) 0.5 (0.1-1.2) X10*3/uL Eos # (Auto) 0.0 (0.0-0.4) X10*3/uL Baso # (Auto) 0.0 (0.0-0.2) X10*3/uL Abs Immat Gran (auto) 0.04 H (0.00-0.03) X10*3/uL Absolute Neuts (auto) 7.0 (2.0-8.3) x10*3/uL Absolute Nucleated RBC 0.000 (0.0-0.012) X10*3/uL Nucleated RBC % (auto) 0.0 (0.0-0.2) /100WBC PT (10.9-12.4) SEC INR (0.9-1.1) VBG pH 7.35 (7.32-7.43) VBG pCO2 66 mmHg VBG pO2 43 mmHg VBG HCO3 37 H (22-26) mmol/L VBG O2 Saturation 64.0 % VBG Base Excess 8.9 mmol/L Sodium 137 (135-145) mmol/L Potassium 4.8 (3.3-5.1) mmol/L Chloride 95 L (96-108) mmol/L Carbon Dioxide 34 H (22-29) mmol/L Anion Gap 13 (12-20) BUN 63 H (9-16) mg/dL Creatinine 2.42 H (0.5-1.4) mg/dL Estim Creat Clear Calc 25.5 Estimated GFR 26 Random Glucose 167 H (60-115) mg/dL Lactic Acid 2.5 H* (0.5-2.0) mmol/L Calcium 9.1 (8.4-10.2) mg/dL Magnesium 3.0 H (1.6-2.6) mg/dL Total Bilirubin 1.0 (0.0-1.0) mg/dL Direct Bilirubin 0.5 (0.0-0.5) mg/dL AST 44 H (5-37) U/L ALT 49 H (0-40) U/L Alkaline Phosphatase 147 H (39-117) U/L Troponin I High Sens 60.4 H D (<3.5-35.0) ng/L Total Protein 8.0 (6.5-8.0) g/dL Albumin 3.3 L (3.5-5.0) g/dL Lipase 25 (8-78) U/L 07/29/24 Range/Units 14:35 WBC (4.8-10.8) X10*3/uL RBC (4.60-5.80) X10*6/uL Hgb (14.0-18.0) g/dl Hct (42.0-52.0) % MCV (80.0-98.0) fL MCH (27.0-33.0) pg MCHC (31.0-36.0) g/dl RDW (11.0-16.0) % Plt Count (160-400) X10*3/uL MPV (9.4-12.4) fL Immature Gran % (Auto) (0.0-0.4) % Neut % (Auto) (45-73) % Lymph % (Auto) (20-40) % [place] % (Auto) (2-11) % Eos % (Auto) (0-4) % Baso % (Auto) (0-2) % Lymph # (Auto) (1.2-4.9) X10*3/uL [place] # (Auto) (0.1-1.2) X10*3/uL Eos # (Auto) (0.0-0.4) X10*3/uL Baso # (Auto) (0.0-0.2) X10*3/uL Abs Immat Gran (auto) (0.00-0.03) X10*3/uL Absolute Neuts (auto) (2.0-8.3) x10*3/uL Absolute Nucleated RBC (0.0-0.012) X10*3/uL Nucleated RBC % (auto) (0.0-0.2) /100WBC PT 44.5 H (10.9-12.4) SEC INR 3.8 H (0.9-1.1) VBG pH (7.32-7.43) VBG pCO2 mmHg VBG pO2 mmHg VBG HCO3 (22-26) mmol/L VBG O2 Saturation % VBG Base Excess mmol/L Sodium (135-145) mmol/L Potassium (3.3-5.1) mmol/L Chloride (96-108) mmol/L Carbon Dioxide (22-29) mmol/L Anion Gap (12-20) BUN (9-16) mg/dL Creatinine (0.5-1.4) mg/dL Estim Creat Clear Calc Estimated GFR Random Glucose (60-115) mg/dL Lactic Acid (0.5-2.0) mmol/L Calcium (8.4-10.2) mg/dL Magnesium (1.6-2.6) mg/dL Total Bilirubin (0.0-1.0) mg/dL Direct Bilirubin (0.0-0.5) mg/dL AST (5-37) U/L ALT (0-40) U/L Alkaline Phosphatase (39-117) U/L Troponin I High Sens (<3.5-35.0) ng/L Total Protein (6.5-8.0) g/dL Albumin (3.5-5.0) g/dL Lipase (8-78) U/L Independent Interpretation I performed an independent interpretation of an: EKG and Plain X-Ray (edema) Interpretation: Rate: 92 Rhythm: paced [place]: normal Normal QRS complex. ST T wave : no oSTE, inverted t waves III, V1 qTC: 583 prior studies: paced The study has been interpreted contemporaneously by me. . Radiology Impression Discussion of test interpretation with radiology: I have reviewed the radiologist's reading. Independent Historian Clinical information obtained from an independent historian. History obtained from or confirmed by: EMS External Record Review External record reviewed: Inpatient record and Outpatient record Procedures Procedure Narrative Procedure Narrative: bedside US limited parasternal long, apical, subxiphoid very limited I do not see tamponade but there is moderate effusion noted. Discharge Plan Discharge Clinical Impression: Acute exacerbation of chronic obstructive airways disease, Congestive heart failure Patient Disposition: Admitted As Inpatient Print Language: Mauritanian
--- NOTE | 2024-07-29 13:47 | PC.NURSE ---
Pt presents to ED from home via EMS, found to be 58% on his baseline 3L O2 by [employer] OPER[employer]. Pale and pitt. EMS found him to be 60%, placed him on CPAP with improvements. Alert and oriented, breathing labored and tachypneic. Skin warm and dry. Reports feeling unwell for a couple of days. Paced rhythm on child monitor. 100% on oxy mask placed by RT. Pt very hard stick, RN attempting US guided at this time. No rectal temp noted. Reports only chronic pain in left leg. Edema noted to all extremities.
[2024-07-29 14:22] LABS: MANUAL DIFF FLAG NO
[2024-07-29 14:26] LABS: Venous Blood Gas Refer to POC result
[2024-07-29 14:27] LABS: Basophils Percent Auto 0.2 % (0-2); Eosinophils Percent Auto 0.1 % (0-4); Hematocrit 39.8 % (42.0-52.0); Hemoglobin 11.8 g/dl (14.0-18.0); Imm Gran Abs Auto 0.04 X10*3/uL (0.00-0.03); Imm Gran Pct Auto 0.5 % (0.0-0.4); Lymphocytes Absolute Auto 0.5 X10*3/uL (1.2-4.9); Lymphocytes Percent Auto 6.2 % (20-40); Mean Corpuscular HGB Conc 29.6 g/dl (31.0-36.0); Mean Corpuscular Hemoglobin 27.5 pg (27.0-33.0); Mean Corpuscular Volume 92.8 fL (80.0-98.0); Mean Platelet Volume 10.7 fL (9.4-12.4); Monocytes Absolute Auto 0.5 X10*3/uL (0.1-1.2); Monocytes Percent Auto 6.5 % (2-11); Neutrophils Percent Auto 86.5 % (45-73); Platelet Count 192 X10*3/uL (160-400); Red Blood Count 4.29 X10*6/uL (4.60-5.80); Red Cell Distribution Width 18.7 % (11.0-16.0); White Blood Count 8.1 X10*3/uL (4.8-10.8)
[2024-07-29 14:27] LABS: VBG Base Excess 8.9 mmol/L; VBG HCO3 37 mmol/L (22-26); VBG pCO2 66 mmHg; VBG pH 7.35 (7.32-7.43); VBG pO2 43 mmHg
[2024-07-29] MEDS: cefEPime HCl 1 GM in 0.9 % Sodium Chloride 50 ML IV (14:42)
[2024-07-29] MEDS: methylPREDNISolone Sod Succ 125 MG/2 ML VIAL 60 MG IVPUSH (14:42)
[2024-07-29 14:44] LABS: Alanine Aminotransferase 49 U/L (0-40); Albumin Level 3.3 g/dL (3.5-5.0); Alkaline Phosphatase 147 U/L (39-117); Anion Gap 13 (12-20); Aspartate Amino Transferase 44 U/L (5-37); Bilirubin Direct 0.5 mg/dL (0.0-0.5); Blood Urea Nitrogen 63 mg/dL (9-16); Calcium 9.1 mg/dL (8.4-10.2); Carbon Dioxide 34 mmol/L (22-29); Chloride 95 mmol/L (96-108); Creatinine Clr Calc Pharmacy 25.5; Estimated Glomerular Filt Rate 26; Glucose Random 167 mg/dL (60-115); Lipase 25 U/L (8-78); Potassium 4.8 mmol/L (3.3-5.1); Sodium 137 mmol/L (135-145)
[2024-07-29 14:48] LABS: Troponin-I High Sensitivity 60.4 ng/L (<3.5-35.0)
[2024-07-29 14:52] LABS: Lactic Acid 2.5 mmol/L (0.5-2.0)
[2024-07-29 14:53] LABS: INTERNATIONAL NORM RATIO 3.8 (0.9-1.1); Prothrombin Time 44.5 SEC (10.9-12.4)
[2024-07-29] MEDS: Furosemide 20 MG/2 ML VIAL IVPUSH (15:36)
[2024-07-29] MEDS: 0.9 % Sodium Chloride 250 ML 100 ML IV (15:37)
[2024-07-29 16:24] LABS: Reflex Lactate? Lactic Acid Added
[2024-07-29 16:53] LABS: Appearance Urine Clear; Color Urine Dark Yellow; Glucose Urine UA Negative (Negative); Leukocyte Esterase Urine Trace (Negative); Nitrite Urine Negative (Negative); Specific Gravity - Urine 1.015 (1.005-1.025); UMIC TRIGGER UACC YES; Urine Blood Negative (Negative); Urine Ketones Trace mg/dL (Negative); Urine Protein 30 (1+) mg/dL (Neg-Trace)
--- NOTE | 2024-07-29 16:56 | PHA.MEDREC ---
Addendum entered by Kamila Quiñones RPh 07/29/24 18:03: Reviewed by [facility]. Claims show midodrine bid, but pt confirm they are taking this TID. Pt confirmed they are no longer on Metoprolol or Valsartan. Original Note: Pharmacy Consult ? Medication Reconciliation Pharmacy has completed the medication reconciliation. Confirmed medications with patients spouse at bedside. She confirmed the Warfarin stating her is taking 2.5mg on MOTUWETHFR@1700 and 1.25mg on Sundays@1700. She stated as of yesterday her had an appointment here for his INR levels and they were a bit high so the Dr. changed it up to 2.5mg on MOTUWEFRSA and 1.25mg on SUTH for a week until his next INR tests. She states he took the 1.25mg on Sunday afternoon and took a 2.5mg tab yesterday. She also confirmed her took all his morning medications this morning.
[2024-07-29 16:58] LABS: B Type Natriuretic Peptide 8985 pg/mL (<100)
[2024-07-29 17:04] LABS: Bacteria Urine None Seen (None Seen); Hyaline Casts Urine >20 /LPF (0-2); RBC Urine 0-2 /HPF (0-2); Squamous Epithelial Cell Urine 0-2 /HPF (0-2); WBC Urine 0-5 /HPF (0-5)
[2024-07-29 17:10] LABS: ~Lactic Acid-LAB USE ONLY 1.9 mmol/L (0.5-2.0)
--- NOTE | 2024-07-29 17:14 | PM.IMHP ---
History of Present Illness Date of Service: 07/29/24 Chief Complaint: Shortness of breath 79-year-old gentleman with past medical history significant for COPD, ILD on home oxygen 4 L continuous, ischemic cardiomyopathy with biventricular pacemaker in place, aortic stenosis, and SVT and chronic kidney disease was recently discharged from [facility] on 06/07/2024 after requiring hospitalization for DEISY on chronic kidney disease, left inguinal hernia, hypotension, hyperkalemia, patient did not require surgery since hernia was reduced patient was discharged to rehab facility and was recently sent home on June 24, since discharge patient has been short of breath on and off that has worsened in last few days , he has significant dyspnea on exertion, worsening lower extremity edema, yesterday his oxygenation was in 60s, family contacted patient primary architecture internship in dose of Bumex was increased from 2 mg to 4 mg but patient has no significant urine output overnight and since patient remained short of breath this morning with hypoxia and soft blood pressures family called 911, EMS noted patient oxygenation to be 58% was placed on CPAP briefly, in ED CPAP weaned off currently oxygenation is maintained on 5 L, patient treated in the emergency room with IV steroids, IV Lasix and IV fluids, patient VBG is stable, lactic acid is 2.5, INR is 3.8, magnesium is 3, creatinine is 2.42 at baseline but noted to have significantly elevated bnp 8985, blood sugar 167, chest x-ray showed pulmonary edema and bilateral pleural effusions, moderate volume, cardiomegaly versus pericardial effusion, bedside ultrasound of hard as per ED physician showed [id number] pericardial effusion patient is now being admitted to [facility] for acute on chronic congestive heart failure due to ischemic cardiomyopathy, at present patient feels better than arrival with less shortness of breath denies chest pain, no cough, no sputum production, denies fever, no chills, no nausea, no vomiting abdominal pain or diarrhea. Review of Systems Review of Systems: General no headache no dizziness no fever chills. CVS no chest pain, no palpitation. Respiratory shortness of breath, chronic cough, no chest tightness Gastrointestinal no nausea no vomiting, no abdominal pain Musculoskeletal no pain no urgency, no frequency All other system reviewed and are negative. [facility] Medical History Biventricular ICD (implantable cardioverter-defibrillator) in place Aortic stenosis CKD (chronic kidney disease) Diabetes mellitus CAD (coronary artery disease) Chronic HFrEF (heart failure with reduced ejection fraction) Ischemic cardiomyopathy Family History Father Colon cancer Mother No problems noted. Surgical History S/P CABG x 1 Hx of tonsillectomy Hx of CABG History of appendectomy Hx of knee surgery Social History Household Members: Spouse Do you presently have visiting nurse or other home services: No Alcohol intake: never Patient Tobacco Use Status: Former Tobacco user Tobacco use type: Cigar Smoked in Last 30 Days: No Use of substances other than those prescribed or required for medical reasons: No Advance Directives: Yes Advance Directives on File: Yes Advance Directives Date on File: 07/29/24 service: Yes Current occupational status: retired [employer] Allergies Allergy/AdvReac Type Severity Reaction Status Date / Time indomethacin [From INDOCIN] Allergy Mild HEADACHES Verified 07/29/24 13:12 Active Medications: Current Medications Acetaminophen (Acetaminophen 325 Mg Tablet) 650 mg PO Q6H PRN PRN Reason: Pain, Mild (Pain Scale 1-3), fever or headache Albuterol Sulfate (Albuterol Sulfate (0.083%) 2.5 Mg/3 Ml Vial.Neb) 2.5 mg INHALE Q4H PRN PRN Reason: wheezing Calcium Carbonate (Calcium Carbonate 750 Mg Tab.Chew) 750 mg PO Q4H PRN PRN Reason: Heartburn Empagliflozin (Empagliflozin 10 Mg Tablet) 10 mg PO DAILY AMBER Fluticasone/Umeclidinium/Vilanterol (Fluticasone/Umeclidinium/Vilanterol 100/62.5/25 Blst.W.Dev) 1 puff INHALE RDAILY AMBER Guaifenesin (Guaifenesin La 600 Mg Tab.Er.12h) 600 mg PO DAILY AMBER Furosemide 200 mg/ Sodium (Chloride) 100 mls @ 2.5 mls/hr IVCONT .Q24H AMBER Magnesium Hydroxide (Milk Of Magnesia 30 Ml Oral.Susp) 30 ml PO DAILY PRN PRN Reason: Constipation Melatonin (Melatonin 3 Mg Tablet) 6 mg PO BEDTIME PRN PRN Reason: Insomnia Midodrine (Midodrine Hcl 10 Mg Tablet) 10 mg PO TID [facility] Ondansetron HCl (Ondansetron Hcl 4 Mg/2 Ml Vial) 4 mg IVPUSH Q8H PRN PRN Reason: Nausea and Vomiting Sodium Chloride (0.9 % Sodium Chloride Flush 3 Ml Syringe) 3 ml IVFLUSH QSHIFT [facility] Home Medications ?Medication ?Instructions ?Recorded ?Confirmed ?Last Taken ?Type ammonium lactate 12 % topical cream 1 appl topical DAILY 07/17/22 07/29/24 07/29/24 History albuterol sulfate 2.5 mg/3 mL 2.5 mg inhalation Q4H PRN wheezing 02/14/24 07/29/24 07/29/24 History (0.083 %) solution for nebulization umeclidinium 62.5 mcg-vilanterol 1 ea inhalation DAILY 02/14/24 07/29/24 07/29/24 History 25 mcg/actuation powdr for inhalation (Anoro Ellipta) guaifenesin 600 mg tablet, 600 mg PO DAILY 06/30/24 07/29/24 07/29/24 History extended release 12 hr (Mucinex) [id number] 300 mcg-K 60 1 tab PO DAILY 07/29/24 07/29/24 07/29/24 History mcg-lycop 600 mcg-lutein 300 mcg tablet (Centrum Silver Ultra Men's) warfarin 2.5 mg tablet 2.5 mg PO MOTUWETHFRSA@1700 07/29/24 07/29/24 07/28/24 17:00 History warfarin 3 mg tablet 1.25 mg PO DARLING@1700 07/29/24 07/29/24 07/27/24 History Physical Exam Vital Signs and Narrative: Vital Signs: Last Vital Signs Temp 98 F 07/29/24 13:25 Pulse 91 07/29/24 16:31 Resp 40 H 07/29/24 16:31 BP 116/55 L 07/29/24 16:31 Pulse Ox 100 07/29/24 16:31 O2 Del Method Nasal Cannula 07/29/24 16:31 O2 Flow Rate 5 07/29/24 16:31 BMI result Body Mass Index 27.9 Const: Other: General awake alert x3 resting comfortably in no acute distress. Anicteric sclera/moist mucous membranes Neck no JVD. CVS regular rate rhythm, systolic murmur Respiratory lungs bilateral crackles Gastrointestinal abdomen soft, non tender, bowel sounds audible, Extremities bilateral pitting edema. Neuro non focal Psych appropriate affect Results Labs 07/29/24 14:16 07/29/24 14:16 Labs: Laboratory Results - last 24 hr 07/29/24 07/29/24 07/29/24 14:16 14:17 14:22 MCV 92.8 MCH 27.5 MCHC 29.6 L RDW 18.7 H Plt Count 192 MPV 10.7 Immature Gran % (Auto) 0.5 H Neut % (Auto) 86.5 H Lymph % (Auto) 6.2 L [place] % (Auto) 6.5 Eos % (Auto) 0.1 Baso % (Auto) 0.2 Lymph # (Auto) 0.5 L [place] # (Auto) 0.5 Eos # (Auto) 0.0 Baso # (Auto) 0.0 Abs Immat Gran (auto) 0.04 H Absolute Neuts (auto) 7.0 Absolute Nucleated RBC 0.000 Nucleated RBC % (auto) 0.0 PT INR VBG pH 7.35 VBG pCO2 66 VBG pO2 43 VBG HCO3 37 H VBG O2 Saturation 64.0 VBG Base Excess 8.9 Anion Gap 13 Estim Creat Clear Calc 25.5 Estimated GFR 26 Random Glucose 167 H Lactic Acid 2.5 H* Lactic Acid F/U @ 2Hr Calcium 9.1 Magnesium 3.0 H Total Bilirubin 1.0 Direct Bilirubin 0.5 AST 44 H ALT 49 H Alkaline Phosphatase 147 H Troponin I High Sens 60.4 H D B-Natriuretic Peptide 8985 H Total Protein 8.0 Albumin 3.3 L Lipase 25 Urine Color Urine Appearance Urine pH Ur Specific [place] Urine Protein Urine Glucose (UA) Urine Ketones Urine Blood Urine Nitrite Ur Leukocyte Esterase Urine RBC Urine WBC Ur Squamous Epith Cells Urine Bacteria Hyaline Casts 07/29/24 07/29/24 14:35 16:45 MCV MCH MCHC RDW Plt Count MPV Immature Gran % (Auto) Neut % (Auto) Lymph % (Auto) [place] % (Auto) Eos % (Auto) Baso % (Auto) Lymph # (Auto) [place] # (Auto) Eos # (Auto) Baso # (Auto) Abs Immat Gran (auto) Absolute Neuts (auto) Absolute Nucleated RBC Nucleated RBC % (auto) PT 44.5 H INR 3.8 H VBG pH VBG pCO2 VBG pO2 VBG HCO3 VBG O2 Saturation VBG Base Excess Anion Gap Estim Creat Clear Calc Estimated GFR Random Glucose Lactic Acid Lactic Acid F/U @ 2Hr 1.9 Calcium Magnesium Total Bilirubin Direct Bilirubin AST ALT Alkaline Phosphatase Troponin I High Sens B-Natriuretic Peptide Total Protein Albumin Lipase Urine Color Dark Yellow Urine Appearance Clear Urine pH 5.0 Ur Specific [place] 1.015 Urine Protein 30 (1+) H Urine Glucose (UA) Negative Urine Ketones Trace Urine Blood Negative Urine Nitrite Negative Ur Leukocyte Esterase Trace H Urine RBC 0-2 Urine WBC 0-5 Ur Squamous Epith Cells 0-2 Urine Bacteria None Seen Hyaline Casts >20 Imaging Radiologist's Impressions: Impressions Chest X-Ray 07/29/24 13:25 IMPRESSION: Pulmonary edema and bilateral pleural effusions, moderate volume. Cardiomegaly versus pericardial effusion. Electronically signed by: Terry Bennett MD 07/29/2024 02:30 PM [facility] Assessment and Plan (1) Supplemental oxygen dependent: Status: Acute (2) ILD (interstitial lung disease): Status: Acute (3) Biventricular ICD (implantable cardioverter-defibrillator) in place: Status: Acute (4) Aortic stenosis: Qualifiers: Cardiac valve disease etiology: nonrheumatic Qualified Code(s): I35.0 - Nonrheumatic aortic (valve) stenosis Status: Acute (5) Chronic HFrEF (heart failure with reduced ejection fraction): Status: Acute (6) CKD (chronic kidney disease): Status: Acute (7) Congestive heart failure: Qualifiers: Heart failure chronicity: acute on chronic Heart failure type: systolic Qualified Code(s): I50.23 - Acute on chronic systolic (congestive) heart failure Status: Acute Plan 79-year-old gentleman with past medical history significant for coronary artery disease status post open heart surgery for ischemic cardiomyopathy and constrictive pericarditis, 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 Acute on chronic decompensated CHF with reduced EF IV Lasix drip 5 milligram/hours, hold Bumex Continue Jardiance Follow BMP/BMP while being diuresed Bedside cardiac ultrasound showed [id number] pericardial effusion, no tamponade continue diuretics. Cardiology consult Strict I's and O's/daily weight Hypotension Soft blood pressure continue midodrine Paroxysmal atrial fibrillation supratherapeutic INR 3.8 hold warfarin follow INR closely COPD/ILD No acute exacerbation noted continue home inhalers and supplemental oxygen 4 L CKD stage 3 creatinine close to baseline. DNR DNI DVT prophylaxis with warfarin Patient will require 2 night inpatient hospitalization for management of acute decompensated congestive heart failure requiring IV diuretics and expert consultation. Quality Stroke Does the patient have a stroke diagnosis?: No VTE Prior VTE?: No VTE Risk Level:: Medical - moderate - high VTE Device Contraindication: Treatment Not Indicated VTE Drug Contraindication: N/A - Med Ordered
--- NOTE | 2024-07-29 17:48 | MHC.EDTECH ---
[place] cath applied patent tolerated well.
--- NOTE | 2024-07-29 17:53 | PC.NURSE ---
Pt breathing unlabored, remaining >94% on oxy mask. [place] cath placed to try and help incontinence with lasix drip starting.
[2024-07-29] MEDS: Furosemide 200 MG in 0.9 % Sodium Chloride 80 ML IVCONT (18:01)
[2024-07-29 18:56] LABS: Influenza A PCR NEGATIVE (Negative); Influenza B PCR NEGATIVE (Negative); Resp Syncy Virus RNA Qual PCR NEGATIVE (Negative); SARS COV2 PCR INHOUSE NEGATIVE (Negative)
[2024-07-29] MEDS: Midodrine HCl 10 MG TABLET PO (21:43)
--- NOTE | 2024-07-29 22:04 | PC.NURSE ---
pt verbalized being uncomfortable in ed stretcher and ed room 5 d/t noise. per charge attendant approval hospital bed obtained and pt moved to ed room 7 to provide more privacy. bed alarm on for precaution. pt is axox4 and able to make needs known. call garcia within reach, currently watching tv. vss resp even and unlabored.
[2024-07-30] VITALS (22 sets, daily range): BP systolic 70–109; BP diastolic 35–63; PULSE 74–102; RESP 12–22; TEMP 36.4–36.8; O2SAT 95–100; BMI 28.3
[2024-07-30 06:08] LABS: Prothrombin Time 35.4 SEC (10.9-12.4)
[2024-07-30 06:54] LABS: B Type Natriuretic Peptide 8163 pg/mL (<100)
--- NOTE | 2024-07-30 08:00 | PC.NURSE ---
Addendum entered by Gely Heaton 07/30/24 08:02: V paced on tele rate 80s Original Note: Pt is alert/oriented. Sleeping but awakes easily, 99% on 3lpm with humidified 02. Breathing is non labored and even. Drainage bag from external cath noted with approx 250ml of dark urine. BP soft, Dr Izquierdo aware. Midodrine to be given with AM meds. Lasix gtt continues at 5mg/hr at this time.
[2024-07-30] MEDS: Midodrine HCl 10 MG TABLET PO ×3 (08:03→20:59)
[2024-07-30] MEDS: guaiFENesin LA 600 MG TAB.ER.12H PO (08:03)
[2024-07-30] MEDS: Empagliflozin 10 MG TABLET PO (08:03)
--- NOTE | 2024-07-30 09:17 | PM.CNCAR ---
History of Present Illness History of Present Illness Date of Service: 07/30/24 Requesting physician: Jaun Izquierdo Consult reason: congestive heart failure Chief complaint: Acute CHF exacerbation Narrative: I was consulted to see Shabbir in cardiology consultation today for worsening heart failure syndrome. Patient came to the hospital worsening shortness of breath and leg edema and weight gain. Noted to be in respiratory distress and decompensated congestive heart failure with BNP in the 8000 range. His baseline BNP is in the 400 range. 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 Was evaluated by [facility] team and was felt not to be a candidate for aortic valve replacement. Patient has been doing well however over the last few weeks has been deteriorating with worsening leg swelling and worsening shortness of breath. Patient came to the emergency room and noted to be in severe congestive heart failure with borderline blood pressure with slightly advanced kidney disease suggestive of poor stroke volume. Patient continues to be short of breath. Has been started on Lasix drip 5 mg an hour with inadequate diuresis. Remain short of breath. Feels fatigued and tired with no chest pain. Review of Systems Constitutional: Constitutional: Reports fatigue and Reports weakness Eyes: Eyes: Reports no additional eye complaints Cardiovascular: Cardiovascular: Denies chest pain, Denies rapid heart rate, Reports leg edema, Reports dyspnea and Reports orthopnea Respiratory: Respiratory: Reports dyspnea and Denies wheezing Gastrointestinal: Gastrointestinal: Reports no additional gastrointestinal complaints Genitourinary: Genitourinary: Reports no additional male genitourinary complaints Musculoskeletal: Musculoskeletal: Reports no additional musculoskeletal complaints Neurologic: Reports system reviewed and no additional complaints, except as documented and Reports weakness Endocrine: Endocrine: Reports no additional endocrine complaints and Reports fatigue Allergic/Immunologic: Allergic/Immunologic: Denies wheezing [facility] Past Medical History Medical History Biventricular ICD (implantable cardioverter-defibrillator) in place Aortic stenosis CKD (chronic kidney disease) Diabetes mellitus CAD (coronary artery disease) Chronic HFrEF (heart failure with reduced ejection fraction) Ischemic cardiomyopathy Family History Family History Father Colon cancer Mother No problems noted. Surgical History Surgical History S/P CABG x 1 Hx of tonsillectomy Hx of CABG History of appendectomy Hx of knee surgery Social History Social History Household Members: Spouse Do you presently have visiting nurse or other home services: No Alcohol intake: never Patient Tobacco Use Status: Former Tobacco user Tobacco use type: Cigar Smoked in Last 30 Days: No Use of substances other than those prescribed or required for medical reasons: No Advance Directives: Yes Advance Directives on File: Yes Advance Directives Date on File: 07/29/24 Nutrition Risks: No Nutritional Risk service: Yes Current occupational status: retired Meds Allergies Allergy/AdvReac Type Severity Reaction Status Date / Time indomethacin [From INDOCIN] Allergy Mild HEADACHES Verified 07/29/24 13:12 Active Medications: Current Medications Acetaminophen (Acetaminophen 325 Mg Tablet) 650 mg PO Q6H PRN PRN Reason: Pain, Mild (Pain Scale 1-3), fever or headache Albuterol Sulfate (Albuterol Sulfate (0.083%) 2.5 Mg/3 Ml Vial.Neb) 2.5 mg INHALE Q4H PRN PRN Reason: wheezing Calcium Carbonate (Calcium Carbonate 750 Mg Tab.Chew) 750 mg PO Q4H PRN PRN Reason: Heartburn Empagliflozin (Empagliflozin 10 Mg Tablet) 10 mg PO DAILY [facility] Last Admin: 07/30/24 08:03 Dose: 10 mg Guaifenesin (Guaifenesin La 600 Mg Tab.Er.12h) 600 mg PO DAILY [facility] Last Admin: 07/30/24 08:03 Dose: 600 mg Furosemide 200 mg/ Sodium (Chloride) 100 mls @ 2.5 mls/hr IVCONT .Q24H [facility] Last Admin: 07/29/24 18:01 Dose: 5 mg/hr, 2.5 mls/hr Levalbuterol HCl (Levalbuterol Hcl 1.25 Mg/3 Ml Vial.Neb) 1.25 mg INHALE Q4H PRN PRN Reason: sob Magnesium Hydroxide (Milk Of Magnesia 30 Ml Oral.Susp) 30 ml PO DAILY PRN PRN Reason: Constipation Melatonin (Melatonin 3 Mg Tablet) 6 mg PO BEDTIME PRN PRN Reason: Insomnia Midodrine (Midodrine Hcl 10 Mg Tablet) 10 mg PO TID [facility] Last Admin: 07/30/24 08:03 Dose: 10 mg Non-Formulary Medication (Umeclidinium-Vilanterol [Anoro Ellipta]) 1 each INHALE RDAILY [facility] Ondansetron HCl (Ondansetron Hcl 4 Mg/2 Ml Vial) 4 mg IVPUSH Q8H PRN PRN Reason: Nausea and Vomiting Sodium Chloride (0.9 % Sodium Chloride Flush 3 Ml Syringe) 3 ml IVFLUSH QSHIFT [facility] Last Admin: 07/30/24 07:59 Dose: Not Given Home Medications ?Medication ?Instructions ?Recorded ?Confirmed ?Last Taken ?Type ammonium lactate 12 % topical cream 1 appl topical DAILY 07/17/22 07/29/24 07/29/24 History albuterol sulfate 2.5 mg/3 mL 2.5 mg inhalation Q4H PRN wheezing 02/14/24 07/29/24 07/29/24 History (0.083 %) solution for nebulization umeclidinium 62.5 mcg-vilanterol 1 ea inhalation DAILY 02/14/24 07/29/24 07/29/24 History 25 mcg/actuation powdr for inhalation (Anoro Ellipta) guaifenesin 600 mg tablet, 600 mg PO DAILY 06/30/24 07/29/24 07/29/24 History extended release 12 hr (Mucinex) [id number]-[id number] 300 mcg-K 60 1 tab PO DAILY 07/29/24 07/29/24 07/29/24 History mcg-lycop 600 mcg-lutein 300 mcg tablet (Centrum Silver Ultra Men's) warfarin 2.5 mg tablet 1.25 mg PO SUTH@1800 07/29/24 07/29/24 07/27/24 History warfarin 2.5 mg tablet 2.5 mg PO MOTUWEFRSA@1800 07/29/24 07/29/24 07/28/24 17:00 History Physical Exam Vital Signs: Vital Signs: Last Vital Signs Temp 97.7 F 07/30/24 06:45 Pulse 90 07/30/24 08:22 Resp 19 07/30/24 08:22 BP 109/61 07/30/24 08:22 Pulse Ox 98 07/30/24 08:22 O2 Del Method Humidified O2, Ox ymask 07/30/24 08:22 O2 Flow Rate 3 07/30/24 08:22 BMI result Body Mass Index 27.9 Const: General: cooperative, in distress moderate and respiratory, ill appearing, tired appearing and other Nutritional Appearance: overweight Orientation/consciousness: patient oriented x3 HEENT: Head: Yes normocephalic and Yes atraumatic Neck: Neck: Yes trachea midline, Yes supple and Yes JVD Resp: Effort & Inspection: normal respiratory effort Auscultation: rales bilateral 2/[address] Cardio: Jugular venous distension: JVD Rate: regular rate Rhythm: regular rhythm Heart sounds: S1 normal heart sound present, S2 normal heart sound present, no click, no gallops and Murmur heart sound present systolic late and soft GI: Auscultation: normal bowel sounds Skin: General skin exam: no rashes or lesions noted and ecchymosis Neuro: General: patient oriented x3 and no focal motor deficits Extrem: General: No clubbing, No cyanosis, Yes edema and Yes venous stasis dermatitis Psych: Appearance: grossly normal Objective Labs and Meds 07/29/24 14:16 07/29/24 14:16 Lab results: Laboratory Results - last 24 hr 07/29/24 07/29/24 07/29/24 14:16 14:17 14:22 WBC 8.1 RBC 4.29 L Hgb 11.8 L Hct 39.8 L MCV 92.8 MCH 27.5 MCHC 29.6 L RDW 18.7 H Plt Count 192 MPV 10.7 Immature Gran % (Auto) 0.5 H Neut % (Auto) 86.5 H Lymph % (Auto) 6.2 L [place] % (Auto) 6.5 Eos % (Auto) 0.1 Baso % (Auto) 0.2 Lymph # (Auto) 0.5 L [place] # (Auto) 0.5 Eos # (Auto) 0.0 Baso # (Auto) 0.0 Abs Immat Gran (auto) 0.04 H Absolute Neuts (auto) 7.0 Absolute Nucleated RBC 0.000 Nucleated RBC % (auto) 0.0 PT INR VBG pH 7.35 VBG pCO2 66 VBG pO2 43 VBG HCO3 37 H VBG O2 Saturation 64.0 VBG Base Excess 8.9 Sodium 137 Potassium 4.8 Chloride 95 L Carbon Dioxide 34 H Anion Gap 13 BUN 63 H Creatinine 2.42 H Estim Creat Clear Calc 25.5 Estimated GFR 26 Random Glucose 167 H Lactic Acid 2.5 H* Lactic Acid F/U @ 2Hr Calcium 9.1 Magnesium 3.0 H Total Bilirubin 1.0 Direct Bilirubin 0.5 AST 44 H ALT 49 H Alkaline Phosphatase 147 H Troponin I High Sens 60.4 H D B-Natriuretic Peptide 8985 H Total Protein 8.0 Albumin 3.3 L Lipase 25 Urine Color Urine Appearance Urine pH Ur Specific [place] Urine Protein Urine Glucose (UA) Urine Ketones Urine Blood Urine Nitrite Ur Leukocyte Esterase Urine RBC Urine WBC Ur Squamous Epith Cells Urine Bacteria Hyaline Casts Influenza Type A (PCR) Influenza Type B (PCR) RSV RNA Qual (PCR) SARS-CoV-2 RNA (RT-PCR) 07/29/24 07/29/24 07/29/24 14:35 16:45 17:54 WBC RBC Hgb Hct MCV MCH MCHC RDW Plt Count MPV Immature Gran % (Auto) Neut % (Auto) Lymph % (Auto) [place] % (Auto) Eos % (Auto) Baso % (Auto) Lymph # (Auto) [place] # (Auto) Eos # (Auto) Baso # (Auto) Abs Immat Gran (auto) Absolute Neuts (auto) Absolute Nucleated RBC Nucleated RBC % (auto) PT 44.5 H INR 3.8 H VBG pH VBG pCO2 VBG pO2 VBG HCO3 VBG O2 Saturation VBG Base Excess Sodium Potassium Chloride Carbon Dioxide Anion Gap BUN Creatinine Estim Creat Clear Calc Estimated GFR Random Glucose Lactic Acid Lactic Acid F/U @ 2Hr 1.9 Calcium Magnesium Total Bilirubin Direct Bilirubin AST ALT Alkaline Phosphatase Troponin I High Sens B-Natriuretic Peptide Total Protein Albumin Lipase Urine Color Dark Yellow Urine Appearance Clear Urine pH 5.0 Ur Specific [place] 1.015 Urine Protein 30 (1+) H Urine Glucose (UA) Negative Urine Ketones Trace Urine Blood Negative Urine Nitrite Negative Ur Leukocyte Esterase Trace H Urine RBC 0-2 Urine WBC 0-5 Ur Squamous Epith Cells 0-2 Urine Bacteria None Seen Hyaline Casts >20 Influenza Type A (PCR) NEGATIVE Influenza Type B (PCR) NEGATIVE RSV RNA Qual (PCR) NEGATIVE SARS-CoV-2 RNA (RT-PCR) NEGATIVE 07/30/24 05:50 WBC RBC Hgb Hct MCV MCH MCHC RDW Plt Count MPV Immature Gran % (Auto) Neut % (Auto) Lymph % (Auto) [place] % (Auto) Eos % (Auto) Baso % (Auto) Lymph # (Auto) [place] # (Auto) Eos # (Auto) Baso # (Auto) Abs Immat Gran (auto) Absolute Neuts (auto) Absolute Nucleated RBC Nucleated RBC % (auto) PT 35.4 H D INR 3.0 H VBG pH VBG pCO2 VBG pO2 VBG HCO3 VBG O2 Saturation VBG Base Excess Sodium Potassium Chloride Carbon Dioxide Anion Gap BUN Creatinine Estim Creat Clear Calc Estimated GFR Random Glucose Lactic Acid Lactic Acid F/U @ 2Hr Calcium Magnesium Total Bilirubin Direct Bilirubin AST ALT Alkaline Phosphatase Troponin I High Sens B-Natriuretic Peptide 8163 H Total Protein Albumin Lipase Urine Color Urine Appearance Urine pH Ur Specific [place] Urine Protein Urine Glucose (UA) Urine Ketones Urine Blood Urine Nitrite Ur Leukocyte Esterase Urine RBC Urine WBC Ur Squamous Epith Cells Urine Bacteria Hyaline Casts Influenza Type A (PCR) Influenza Type B (PCR) RSV RNA Qual (PCR) SARS-CoV-2 RNA (RT-PCR) Imaging Radiologist's impression: Impressions Chest X-Ray 07/29/24 13:25 IMPRESSION: Pulmonary edema and bilateral pleural effusions, moderate volume. Cardiomegaly versus pericardial effusion. Electronically signed by: Terry Bennett MD 07/29/2024 02:30 PM [facility] Assessment and Plan (1) Acute decompensated heart failure: Status: Acute Acute decompensated congestive heart failure, advanced and possibly end-stage in this elderly man with known severe ischemic cardiomyopathy with underlying aortic stenosis with poor cardiac reserve. Patient has worsening renal function as well as continues to have congestion consistent with poor stroke volume along with heart failure. Has had poor response to IV Lasix drip. Will increase it to 10 mg an hour. Continue midodrine for blood pressure control although this may worsen in his overall heart failure syndrome given increase in afterload. Has not tolerated any other neurohormonal modulation in the past. Continue warfarin therapy. May consider I had inotropic support with dobutamine to improve his stroke volume and help with management of his heart failure. Overall prognosis is guarded. The subjective palliative/hospice care was brought up yesterday although patient was not ready to discussed. He is currently do not resuscitate and [id number]. His Bi V ICD is working well at this point time. Overall prognosis is grim. Will follow with you Procedures Date of Service Date of Service: 07/30/24
--- NOTE | 2024-07-30 09:40 | HO.PM.IMPN ---
Subjective Subjective Date of Service: 07/30/24 Interval History: Complaining of lack of sleep , remains in ED, complaining of persistent shortness of breath denies chest pain, remains positive, no acute events overnight. Review of Systems All other system reviewed and are negative Physical Exam Vital Signs: Vital Signs: Last Vital Signs Temp 97.7 F 07/30/24 06:45 Pulse 90 07/30/24 08:22 Resp 19 07/30/24 08:22 BP 109/61 07/30/24 08:22 Pulse Ox 98 07/30/24 08:22 O2 Del Method Humidified O2, Ox ymask 07/30/24 08:22 O2 Flow Rate 3 07/30/24 08:22 BMI result Body Mass Index 27.9 Const: Other: General awake alert x3 appears tired in mild respiratory distress. Anicteric sclera/moist mucous membranes Neck + JVD. CVS regular rate rhythm, systolic murmur Respiratory lungs bilateral crackles 2/3 Gastrointestinal abdomen soft, non tender, bowel sounds audible, Extremities bilateral pitting edema. Neuro non focal Psych appropriate affect Objective Data Active Medications Acetaminophen (Acetaminophen 325 Mg Tablet) 650 mg PO Q6H PRN PRN Reason: Pain, Mild (Pain Scale 1-3), fever or headache Albuterol Sulfate (Albuterol Sulfate (0.083%) 2.5 Mg/3 Ml Vial.Neb) 2.5 mg INHALE Q4H PRN PRN Reason: wheezing Calcium Carbonate (Calcium Carbonate 750 Mg Tab.Chew) 750 mg PO Q4H PRN PRN Reason: Heartburn Empagliflozin (Empagliflozin 10 Mg Tablet) 10 mg PO DAILY [facility] Last Admin: 07/30/24 08:03 Dose: 10 mg Documented By: MAT Guaifenesin (Guaifenesin La 600 Mg Tab.Er.12h) 600 mg PO DAILY [facility] Last Admin: 07/30/24 08:03 Dose: 600 mg Documented By: MAT Furosemide 200 mg/ Sodium (Chloride) 100 mls @ 2.5 mls/hr IVCONT .Q24H [facility] Last Admin: 07/29/24 18:01 Dose: 5 mg/hr, 2.5 mls/hr Documented By: CORNELIA Levalbuterol HCl (Levalbuterol Hcl 1.25 Mg/3 Ml Vial.Neb) 1.25 mg INHALE Q4H PRN PRN Reason: sob Magnesium Hydroxide (Milk Of Magnesia 30 Ml Oral.Susp) 30 ml PO DAILY PRN PRN Reason: Constipation Melatonin (Melatonin 3 Mg Tablet) 6 mg PO BEDTIME PRN PRN Reason: Insomnia Midodrine (Midodrine Hcl 10 Mg Tablet) 10 mg PO TID [facility] Last Admin: 07/30/24 08:03 Dose: 10 mg Documented By: MAT Non-Formulary Medication (Umeclidinium-Vilanterol [Anoro Ellipta]) 1 each INHALE RDAILY [facility] Ondansetron HCl (Ondansetron Hcl 4 Mg/2 Ml Vial) 4 mg IVPUSH Q8H PRN PRN Reason: Nausea and Vomiting Sodium Chloride (0.9 % Sodium Chloride Flush 3 Ml Syringe) 3 ml IVFLUSH QSHIFT [facility] Last Admin: 07/30/24 07:59 Dose: Not Given Documented By: MAT Non-Admin Reason: IV Running Labs 07/29/24 14:16 07/29/24 14:16 Labs: Laboratory Results - last 24 hr 07/29/24 07/29/24 07/29/24 14:16 14:17 14:22 MCV 92.8 MCH 27.5 MCHC 29.6 L RDW 18.7 H Plt Count 192 MPV 10.7 Immature Gran % (Auto) 0.5 H Neut % (Auto) 86.5 H Lymph % (Auto) 6.2 L [place] % (Auto) 6.5 Eos % (Auto) 0.1 Baso % (Auto) 0.2 Lymph # (Auto) 0.5 L [place] # (Auto) 0.5 Eos # (Auto) 0.0 Baso # (Auto) 0.0 Abs Immat Gran (auto) 0.04 H Absolute Neuts (auto) 7.0 Absolute Nucleated RBC 0.000 Nucleated RBC % (auto) 0.0 PT INR VBG pH 7.35 VBG pCO2 66 VBG pO2 43 VBG HCO3 37 H VBG O2 Saturation 64.0 VBG Base Excess 8.9 Anion Gap 13 Estim Creat Clear Calc 25.5 Estimated GFR 26 Random Glucose 167 H Lactic Acid 2.5 H* Lactic Acid F/U @ 2Hr Calcium 9.1 Magnesium 3.0 H Total Bilirubin 1.0 Direct Bilirubin 0.5 AST 44 H ALT 49 H Alkaline Phosphatase 147 H Troponin I High Sens 60.4 H D B-Natriuretic Peptide 8985 H Total Protein 8.0 Albumin 3.3 L Lipase 25 Urine Color Urine Appearance Urine pH Ur Specific [place] Urine Protein Urine Glucose (UA) Urine Ketones Urine Blood Urine Nitrite Ur Leukocyte Esterase Urine RBC Urine WBC Ur Squamous Epith Cells Urine Bacteria Hyaline Casts Influenza Type A (PCR) Influenza Type B (PCR) RSV RNA Qual (PCR) SARS-CoV-2 RNA (RT-PCR) 07/29/24 07/29/24 07/29/24 14:35 16:45 17:54 MCV MCH MCHC RDW Plt Count MPV Immature Gran % (Auto) Neut % (Auto) Lymph % (Auto) [place] % (Auto) Eos % (Auto) Baso % (Auto) Lymph # (Auto) [place] # (Auto) Eos # (Auto) Baso # (Auto) Abs Immat Gran (auto) Absolute Neuts (auto) Absolute Nucleated RBC Nucleated RBC % (auto) PT 44.5 H INR 3.8 H VBG pH VBG pCO2 VBG pO2 VBG HCO3 VBG O2 Saturation VBG Base Excess Anion Gap Estim Creat Clear Calc Estimated GFR Random Glucose Lactic Acid Lactic Acid F/U @ 2Hr 1.9 Calcium Magnesium Total Bilirubin Direct Bilirubin AST ALT Alkaline Phosphatase Troponin I High Sens B-Natriuretic Peptide Total Protein Albumin Lipase Urine Color Dark Yellow Urine Appearance Clear Urine pH 5.0 Ur Specific [place] 1.015 Urine Protein 30 (1+) H Urine Glucose (UA) Negative Urine Ketones Trace Urine Blood Negative Urine Nitrite Negative Ur Leukocyte Esterase Trace H Urine RBC 0-2 Urine WBC 0-5 Ur Squamous Epith Cells 0-2 Urine Bacteria None Seen Hyaline Casts >20 Influenza Type A (PCR) NEGATIVE Influenza Type B (PCR) NEGATIVE RSV RNA Qual (PCR) NEGATIVE SARS-CoV-2 RNA (RT-PCR) NEGATIVE 07/30/24 05:50 MCV MCH MCHC RDW Plt Count MPV Immature Gran % (Auto) Neut % (Auto) Lymph % (Auto) [place] % (Auto) Eos % (Auto) Baso % (Auto) Lymph # (Auto) [place] # (Auto) Eos # (Auto) Baso # (Auto) Abs Immat Gran (auto) Absolute Neuts (auto) Absolute Nucleated RBC Nucleated RBC % (auto) PT 35.4 H D INR 3.0 H VBG pH VBG pCO2 VBG pO2 VBG HCO3 VBG O2 Saturation VBG Base Excess Anion Gap Estim Creat Clear Calc Estimated GFR Random Glucose Lactic Acid Lactic Acid F/U @ 2Hr Calcium Magnesium Total Bilirubin Direct Bilirubin AST ALT Alkaline Phosphatase Troponin I High Sens B-Natriuretic Peptide 8163 H Total Protein Albumin Lipase Urine Color Urine Appearance Urine pH Ur Specific [place] Urine Protein Urine Glucose (UA) Urine Ketones Urine Blood Urine Nitrite Ur Leukocyte Esterase Urine RBC Urine WBC Ur Squamous Epith Cells Urine Bacteria Hyaline Casts Influenza Type A (PCR) Influenza Type B (PCR) RSV RNA Qual (PCR) SARS-CoV-2 RNA (RT-PCR) Assessment and Plan (1) Acute decompensated heart failure: Status: Acute Plan 79-year-old gentleman with past medical history significant for coronary artery disease status post open heart surgery for ischemic cardiomyopathy and constrictive pericarditis, 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 Acute on chronic decompensated CHF with reduced EF w severe ischemic cardiomyopathy Persistent shortness of breath no significant output on IV Lasix drip 5 milligram/hours,, will increase drip to 10 milligram/hours,Continue Jardiance Follow BMP/BMP while being diuresed Bedside cardiac ultrasound showed [id number] pericardial effusion, no tamponade continue diuretics. Strict I's and O's/daily weight Being followed with Cardiology they will consider dopamine dopamine to improve stroke volume, guarded prognosis Last echocardiogram December 31 showed EF 20-25%, regional wall motion abnormality Hypotension Soft blood pressure continue midodrine Paroxysmal atrial fibrillation supratherapeutic INR 3.8 on admission improved to 3 will resume warfarin COPD/ILD No acute exacerbation noted, continue home inhalers and supplemental oxygen 4 L CKD stage 3 creatinine close to baseline. DNR DNI DVT prophylaxis with warfarin Patient will require continued inpatient hospitalization for management of acute decompensated congestive heart failure requiring IV diuretics and expert consultation. Quality Stroke Does the patient have a stroke diagnosis?: No VTE Prior VTE?: No VTE Risk Level:: Medical - moderate - high VTE Device Contraindication: Treatment Not Indicated VTE Drug Contraindication: N/A - Med Ordered
--- NOTE | 2024-07-30 10:16 | P.CDIM_ITS ---
PROVIDER RESPONSE TEXT: To clarify, the appropriate diagnosis supported by the clinical indicators: Acute on chronic respiratory failure: . QUERY TEXT: PHYSICIAN'S DOCUMENTATION REQUEST Date of Query: 07/30/2024 08:09 AM EST Patient Name: Eddie Mullen Admit Date: 07/29/2024 Dear Jaun Izquierdo MD, A review of the medical record indicates additional documentation may be needed. Please review below and update the documentation accordingly. Clinical Indicators: SAT 60% CPAP LA 2.5 respiratory rate 40 Please clarify which of the following accurately represents the patient's respiratory status: Acute respiratory failure Please specify if Hypoxic, Hypercapnic, or Hypoxic and hypercapnic Acute on chronic respiratory failure Please specify if Hypoxic, Hypercapnic, or Hypoxic and hypercapnic Chronic respiratory failure Please specify if Hypoxic, Hypercapnic, or Hypoxic and hypercapnic COPD exacerbation COPD with acute lower respiratory infection COPD - stable chronic disease Acute respiratory distress Hypoxia Other (explain) Clinically unable to determine (explain) Thank you, Patricia Velasquez RN Use of terms such as suspected, likely, concern for, or probable (associated with a specific diagnosi s that is being evaluated, monitored, or treated as if it exists) are acceptable and can be coded in the inpatient se tting, when documented at the time of discharge. Please use your independent medical judgment in providing your response. THIS QUERY IS PART OF THE PERMANENT MEDICAL RECORD
--- NOTE | 2024-07-30 10:30 | PC.NURSE ---
Pt repositioned in cleaned for urine incontinence as external cath was accidentally removed. Moderate amt of urine on incontinent pad. Pt declines donohue, new external cath placed. Lasix gt increased to 10mg/hr as ordered.VSS. Family at bedside.
--- NOTE | 2024-07-30 12:08 | MHC.CM.PN ---
IMM 07/30/24, Pt lives with his , had home care services from [facility]. He was in the hosp in May,'d to [facility] for STR, both pt and family report that this was not a good experience for him at all. For DME, he has home O2 from [employer], and a walker. transport home at DC will be family, DCP: home with services. CM to follow and assist with DC needs.
--- NOTE | 2024-07-30 12:52 | PC.NURSE ---
Pt asleep, remains at bedside. No more urine output noted in donohue bag since this AM of 200-250ml (external cath remains intact), Dr Izquierdo aware, will continue to monitor with additional meds to be given if no output continues
[2024-07-30 15:07] LABS: Anion Gap 16 (12-20); Blood Urea Nitrogen 79 mg/dL (9-16); Calcium 8.3 mg/dL (8.4-10.2); Carbon Dioxide 29 mmol/L (22-29); Chloride 94 mmol/L (96-108); Creatinine Clr Calc Pharmacy 26.1; Estimated Glomerular Filt Rate 27; Glucose Random 206 mg/dL (60-115); Potassium 5.7 mmol/L (3.3-5.1); Sodium 133 mmol/L (135-145)
[2024-07-30] MEDS: Acetaminophen 325 MG TABLET 650 MG PO (15:23)
--- NOTE | 2024-07-30 15:28 | PC.NURSE ---
Pt c/o 04/19 low back pain, Dr Kennedy to order additional pain meds with Tylenol. Pt repositioned again. Meds given as ordered. Drainage bag emptied for 250ml of dark urine.
[2024-07-30] MEDS: oxyCODONE HCl Immed Release 5 MG TABLET PO ×2 (16:21→21:00)
[2024-07-30] MEDS: Warfarin Sodium 1.25 MG HALFTAB PO (17:16)
[2024-07-30] MEDS: Furosemide 200 MG in 0.9 % Sodium Chloride 80 ML IVCONT (17:20)
--- NOTE | 2024-07-30 17:46 | P.CONCC_ITS ---
History of Present Illness Data of Consult Service Date: 07/30/24 Primary Care Provider: Sundeep Macdonald MD HPI Reason for consult: Decompensated heart failure 79-year-old male with past medical history of COPD, interstitial lung disease on home oxygen, ischemic cardiomyopathy, developed after pericardiectomy with inadvertent LAD territory myocardial infarction, s/p Bi V ICD, severe aortic stenosis presented to the hospital with decompensated heart failure. He was started on IV Lasix without much improvement in his symptoms so he is being transferred to medical ICU for ionotropic support to improve renal perfusion and thereby better diuresis and allievate the symptoms of heart failure Review of Systems 2 Constitutional: Constitutional: Reports body ache(s), Denies chills, Reports daytime sleepiness, Reports difficulty sleeping and Reports fatigue Eyes: Eyes: Denies blurry vision and Denies exophthalmos ENT: Denies Normal hearing present and Denies bleeding gums Cardiovascular: Cardiovascular: Denies Abdominal Distension, Denies painful fingertips, Denies chest pain, Denies chest pain at rest, Denies diaphoresis, Denies syncope, Reports pedal edema, Reports edema and Reports dyspnea Respiratory: Respiratory: Denies chest congestion, Reports cough and Reports dyspnea Gastrointestinal: Gastrointestinal: Reports no additional gastrointestinal complaints, Denies abdominal pain, Denies belching and Denies melena Genitourinary: Genitourinary: Denies hematospermia and Denies change in libido Musculoskeletal: Musculoskeletal: Denies abnormal gait and Denies back pain Neurologic: Denies Normal hearing present, Denies abnormal gait, Denies behavioral changes and Denies syncope Psychiatric: Psychiatric: Denies behavioral changes, Reports change in appetite and Denies change in libido Endocrine: Endocrine: Denies change in libido and Reports fatigue PMFSH Past Medical History Medical History Biventricular ICD (implantable cardioverter-defibrillator) in place Aortic stenosis CKD (chronic kidney disease) Diabetes mellitus CAD (coronary artery disease) Chronic HFrEF (heart failure with reduced ejection fraction) Ischemic cardiomyopathy Family History Family History Father Colon cancer Mother No problems noted. Surgical History Surgical History S/P CABG x 1 Hx of tonsillectomy Hx of CABG History of appendectomy Hx of knee surgery Social History Social History Household Members: Spouse Housing: House Do you presently have visiting nurse or other home services: No Alcohol intake: never Patient Tobacco Use Status: Former Tobacco user Tobacco use type: Cigarette Advance Directives Date on File: 07/29/24 service: No Current occupational status: retired Meds Allergies Allergy/AdvReac Type Severity Reaction Status Date / Time indomethacin [From INDOCIN] Allergy Mild HEADACHES Verified 07/29/24 13:12 Active Medications: Current Medications Acetaminophen (Acetaminophen 325 Mg Tablet) 650 mg PO Q6H PRN PRN Reason: Pain, Mild (Pain Scale 1-3), fever or headache Last Admin: 07/30/24 15:23 Dose: 650 mg Albuterol Sulfate (Albuterol Sulfate (0.083%) 2.5 Mg/3 Ml Vial.Neb) 2.5 mg INHALE Q4H PRN PRN Reason: wheezing Calcium Carbonate (Calcium Carbonate 750 Mg Tab.Chew) 750 mg PO Q4H PRN PRN Reason: Heartburn Empagliflozin (Empagliflozin 10 Mg Tablet) 10 mg PO DAILY [facility] Last Admin: 07/30/24 08:03 Dose: 10 mg Guaifenesin (Guaifenesin La 600 Mg Tab.Er.12h) 600 mg PO DAILY [facility] Last Admin: 07/30/24 08:03 Dose: 600 mg Furosemide 200 mg/ Sodium (Chloride) 100 mls @ 5 mls/hr IVCONT .Q20H [facility] Last Admin: 07/30/24 17:20 Dose: 10 mg/hr, 5 mls/hr Levalbuterol HCl (Levalbuterol Hcl 1.25 Mg/3 Ml Vial.Neb) 1.25 mg INHALE Q4H PRN PRN Reason: sob Magnesium Hydroxide (Milk Of Magnesia 30 Ml Oral.Susp) 30 ml PO DAILY PRN PRN Reason: Constipation Melatonin (Melatonin 3 Mg Tablet) 6 mg PO BEDTIME PRN PRN Reason: Insomnia Midodrine (Midodrine Hcl 10 Mg Tablet) 10 mg PO TID [facility] Last Admin: 07/30/24 15:23 Dose: 10 mg Non-Formulary Medication (Umeclidinium-Vilanterol [Anoro Ellipta]) 1 each INHALE RDAILY [facility] Ondansetron HCl (Ondansetron Hcl 4 Mg/2 Ml Vial) 4 mg IVPUSH Q8H PRN PRN Reason: Nausea and Vomiting Oxycodone HCl (Oxycodone Hcl Immed Release 5 Mg Tablet) 5 mg PO Q6H PRN PRN Reason: Pain, Moderate(Pain Scale 4-6) Sodium Chloride (0.9 % Sodium Chloride Flush 3 Ml Syringe) 3 ml IVFLUSH QSHIFT [facility] Last Admin: 07/30/24 16:22 Dose: Not Given Warfarin Sodium (Warfarin Sodium 1.25 Mg Halftab) 1.25 mg PO DAILY [facility] Last Admin: 07/30/24 17:16 Dose: 1.25 mg Home Medications ?Medication ?Instructions ?Recorded ?Confirmed ?Last Taken ?Type ammonium lactate 12 % topical cream 1 appl topical DAILY 07/17/22 07/29/24 07/29/24 History albuterol sulfate 2.5 mg/3 mL 2.5 mg inhalation Q4H PRN wheezing 02/14/24 07/29/24 07/29/24 History (0.083 %) solution for nebulization umeclidinium 62.5 mcg-vilanterol 1 ea inhalation DAILY 02/14/24 07/29/24 07/29/24 History 25 mcg/actuation powdr for inhalation (Anoro Ellipta) guaifenesin 600 mg tablet, 600 mg PO DAILY 06/30/24 07/29/24 07/29/24 History extended release 12 hr (Mucinex) juufiumt-pl-bccrd 300 mcg-K 60 1 tab PO DAILY 07/29/24 07/29/24 07/29/24 History mcg-lycop 600 mcg-lutein 300 mcg tablet (Centrum Silver Ultra Men's) warfarin 2.5 mg tablet 1.25 mg PO SUTH@1800 07/29/24 07/29/24 07/27/24 History warfarin 2.5 mg tablet 2.5 mg PO MOTUWEFRSA@1800 07/29/24 07/29/24 07/28/24 17:00 History Physical Exam 2 Vital Signs: Vital Signs: Last Vital Signs Temp 97.5 F 07/30/24 17:17 Pulse 74 07/30/24 17:17 Resp 20 07/30/24 17:17 BP 90/45 L 07/30/24 17:17 Pulse Ox 97 07/30/24 17:17 O2 Del Method Oxymask 07/30/24 17:17 O2 Flow Rate 3 07/30/24 17:17 BMI result Body Mass Index 27.9 General: acute distress, ill appearing and tired appearing Nutritional Appearance: Poorly nourished and normal weight Eyes: appearance normal, both eyes and all related structures; Alignment and Position: alignment normal and position normal Neck: No lymphadenopathy, no thyromegaly Resp: bilateral air entry equal, bilateral basal crackles heard Cardio: Regular rate, regular rhythm; Heart sounds: S1 normal heart sound present and S2 normal heart sound present, edema present GI: soft, nontender, no guarding, no hepatosplenomegaly : bladder normal to inspection, bladder normal to palpation, no renal angle tenderness Skin: no rashes or lesions noted and elasticity normal Neuro: oriented to person, oriented to place, oriented to time and moves all extremities Neuro: Cranial nerves: No Normal hearing present Results Labs 07/31/24 04:41 07/31/24 04:41 Labs: BMP 07/30/24 14:41 Sodium 133 L Potassium 5.7 H Chloride 94 L Carbon Dioxide 29 BUN 79 H Creatinine 2.37 H Calcium 8.3 L D Microbiology Microbiology Results: Microbiology 07/29/24 14:35 Blood - Venous Blood Culture - Preliminary No growth after 24 hours. 07/29/24 14:17 Blood - Venous Blood Culture - Preliminary No growth after 24 hours. Assessment and Plan (1) Chronic HFrEF (heart failure with reduced ejection fraction): Status: Acute (2) Congestive heart failure: Qualifiers: Heart failure chronicity: acute on chronic Heart failure type: systolic Qualified Code(s): I50.23 - Acute on chronic systolic (congestive) heart failure Status: Acute (3) Acute decompensated heart failure: Status: Acute (4) CAD (coronary artery disease): Status: Acute (5) NSVT (nonsustained ventricular tachycardia): Status: Acute (6) Biventricular ICD (implantable cardioverter-defibrillator) in place: Status: Acute (7) Current use of anticoagulant therapy: Status: Acute (8) CKD (chronic kidney disease): Status: Acute (9) ILD (interstitial lung disease): Status: Acute (10) Acute exacerbation of chronic obstructive airways disease: Status: Acute Plan Decompensated heart failure: Patient has underlying ischemic cardiomyopathy secondary to after pericardiectomy with inadvertent LAD territory myocardial infarction, s/p Bi V ICD placement Last echocardiogram December 31 showed EF 20-25%, regional wall motion abnormality Poor response to Lasix drip, we will add dobutamine for ionotropic support. We will start at 2.5 micrograms/kg and up titrate based on the urine output. Continue Lasix drip at 10 mg per hour Acute on chronic kidney disease: Baseline creatinine around 2, this morning around 2.4 secondary to cardiorenal syndrome We will see if it improves with ionotropic support Closely monitor I's and O's Avoid nephrotoxic medications COPD, interstitial lung disease: Currently stable on nasal cannula oxygen, we will titrate to keep the saturations above 88 Prophylaxis: warfarin, ppi Total time managing care of this patient today: 40 minutes.
[2024-07-30] MEDS: DOBUTamine HCL/D5W 500 MG/250 ML IV.SOLN 6.23 MG IVCONT (19:33)
[2024-07-30] MEDS: Albumin Human 25 % 100 ML IV (22:43)
[2024-07-30] MEDS: 0.9 % Sodium Chloride Flush 3 ML SYRINGE IVFLUSH (22:45)
--- NOTE | 2024-07-30 22:52 | HO.SKINPHOTO ---
Location:Bilateral buttocks Category:Pressure Injury Stage: R buttocks DTI/ L buttocks Stage 2 Length: Width: Depth: cm
[2024-07-30 23:30] LABS: Alanine Aminotransferase 51 U/L (0-40); Albumin Level 3.2 g/dL (3.5-5.0); Alkaline Phosphatase 126 U/L (39-117); Anion Gap 20 (12-20); Aspartate Amino Transferase 34 U/L (5-37); Bilirubin Total 0.7 mg/dL (0.0-1.0); Blood Urea Nitrogen 81 mg/dL (9-16); Calcium 8.3 mg/dL (8.4-10.2); Carbon Dioxide 29 mmol/L (22-29); Chloride 92 mmol/L (96-108); Creatinine Clr Calc Pharmacy 24.1; Estimated Glomerular Filt Rate 24; Glucose Random 128 mg/dL (60-115); Magnesium 3.1 mg/dL (1.6-2.6); Phosphorus 5.5 mg/dL (2.7-4.5); Potassium 5.4 mmol/L (3.3-5.1); Sodium 136 mmol/L (135-145); Total Protein 7.6 g/dL (6.5-8.0)
[2024-07-30] MEDS: Albumin Human 25 % 100 ML 500 ML IV (23:46)
[2024-07-31] VITALS (24 sets, daily range): BP systolic 69–94; BP diastolic 35–49; PULSE 86–114; RESP 12–22; TEMP 36.1–36.9; O2SAT 90–100; BMI 28.3
[2024-07-31] MEDS: Albumin Human 25 % 100 ML 999 ML IV ×2 (00:21→00:34)
[2024-07-31] MEDS: Norepinephrine Bitartrate/D5W 8 MG/250 ML PLAST..BAG 7.92 MG IVCONT (01:28)
[2024-07-31 04:48] LABS: VBG Base Excess 1.3 mmol/L; VBG HCO3 27 mmol/L (22-26); VBG pCO2 49 mmHg; VBG pH 7.34 (7.32-7.43); VBG pO2 64 mmHg
[2024-07-31 04:55] LABS: Venous Blood Gas Refer to POC result
[2024-07-31 05:10] LABS: Basophils Percent Auto 0.1 % (0-2); Eosinophils Percent Auto 0.1 % (0-4); Hematocrit 35.1 % (42.0-52.0); Hemoglobin 10.3 g/dl (14.0-18.0); Imm Gran Abs Auto 0.05 X10*3/uL (0.00-0.03); Imm Gran Pct Auto 0.5 % (0.0-0.4); Lymphocytes Absolute Auto 0.4 X10*3/uL (1.2-4.9); Lymphocytes Percent Auto 3.7 % (20-40); MANUAL DIFF FLAG NO; Mean Corpuscular HGB Conc 29.3 g/dl (31.0-36.0); Mean Corpuscular Hemoglobin 27.8 pg (27.0-33.0); Mean Corpuscular Volume 94.9 fL (80.0-98.0); Mean Platelet Volume 10.6 fL (9.4-12.4); Monocytes Absolute Auto 0.8 X10*3/uL (0.1-1.2); Monocytes Percent Auto 7.7 % (2-11); Neutrophils Absolute Auto 8.7 x10*3/uL (2.0-8.3); Neutrophils Percent Auto 87.9 % (45-73); Platelet Count 138 X10*3/uL (160-400); White Blood Count 9.9 X10*3/uL (4.8-10.8)
[2024-07-31 05:20] LABS: INTERNATIONAL NORM RATIO 3.9 (0.9-1.1)
[2024-07-31 05:33] LABS: Alanine Aminotransferase 36 U/L (0-40); Albumin Level 4.3 g/dL (3.5-5.0); Alkaline Phosphatase 100 U/L (39-117); Anion Gap 19 (12-20); Aspartate Amino Transferase 25 U/L (5-37); Bilirubin Total 0.8 mg/dL (0.0-1.0); Blood Urea Nitrogen 81 mg/dL (9-16); Calcium 9.2 mg/dL (8.4-10.2); Carbon Dioxide 27 mmol/L (22-29); Chloride 92 mmol/L (96-108); Creatinine Clr Calc Pharmacy 20.6; Estimated Glomerular Filt Rate 20; Glucose Random 203 mg/dL (60-115); Phosphorus 5.4 mg/dL (2.7-4.5); Potassium 5.1 mmol/L (3.3-5.1); Sodium 133 mmol/L (135-145); Total Protein 7.7 g/dL (6.5-8.0)
[2024-07-31] MEDS: HYDROmorphone HCl 0.5 MG/0.5 ML SYRINGE IVPUSH (06:10)
--- NOTE | 2024-07-31 06:29 | PC.NURSE ---
Patient started on dobutamine drip at 1930 and Levophed drip was started at 0130, drips were titrated through the shift based on input from YESSY Javed. Order for discontinuation of lasix drip was placed at 0130 and bumex drip was ordered, it was later decided to continue with lasix drip and forgo the bumex. Lasix drip was stopped at 0300 per Sonia Boyd. Patient's was contacted at approximately 5:00 am with concern for decreased blood pressure and at the request of the patient. Upon family's arrival both this RN and Sonia Boyd updated on the events of the night and concern for decreased cardiac perfusion. Family will update MD on the direction of care.
[2024-07-31] MEDS: 0.9 % Sodium Chloride Flush 3 ML SYRINGE IVFLUSH ×3 (08:18→20:54)
--- NOTE | 2024-07-31 09:09 | PM.PNCARD ---
Subjective Subjective Date of Service: 07/31/24 Principal diagnosis: End-stage heart failure Interval history: Patient has not responded to high inotropic support with dobutamine. Continues to be short of breath. Renal function is deteriorating with poor urine output. Blood pressure being supported by norepinephrine despite that blood pressure is on the lower side. No lightheadedness, palpitations. Family at bedside Review of Systems Constitutional: Reports weakness Cardiovascular: Denies chest pain, Denies leg edema, Denies lightheadedness, Denies Loss of Consciousness and Reports dyspnea Respiratory: Reports dyspnea Gastrointestinal: Reports no additional gastrointestinal complaints Skin/Breast: Reports system reviewed and no additional complaints, except as docu Reports weakness Endocrine: Reports no additional endocrine complaints Physical Exam Vital Signs: Last Vital Signs Temp 98.5 F 07/31/24 08:00 Pulse 105 H 07/31/24 08:19 Resp 18 07/31/24 08:00 BP 86/45 L 07/31/24 08:19 Pulse Ox 95 07/31/24 08:00 O2 Del Method Oxymask 07/31/24 08:00 O2 Flow Rate 2 07/31/24 08:00 BMI result Body Mass Index 28.3 Const General: ill appearing, lethargic and tired appearing Nutritional Appearance: average body habitus Orientation/consciousness: patient oriented x3 and lethargic Neck Neck: Yes trachea midline, Yes supple and Yes JVD Resp Effort & Inspection: respiratory distress Auscultation: rales Cardio Rate: tachycardic Rhythm: regular rhythm Heart sounds: S1 normal heart sound present, no click, no gallops and Murmur heart sound present systolic Skin General skin exam: no rashes or lesions noted Neuro General: patient oriented x3 Objective Labs and Meds 07/31/24 04:41 07/31/24 04:41 Lab results: Laboratory Results - last 24 hr 07/30/24 07/30/24 07/31/24 14:41 23:07 04:38 WBC RBC Hgb Hct MCV MCH MCHC RDW Plt Count MPV Immature Gran % (Auto) Neut % (Auto) Lymph % (Auto) [place] % (Auto) Eos % (Auto) Baso % (Auto) Lymph # (Auto) [place] # (Auto) Eos # (Auto) Baso # (Auto) Abs Immat Gran (auto) Absolute Neuts (auto) Absolute Nucleated RBC Nucleated RBC % (auto) PT INR VBG pH 7.34 VBG pCO2 49 VBG pO2 64 VBG HCO3 27 H VBG O2 Saturation 91.0 VBG Base Excess 1.3 Sodium 133 L 136 Potassium 5.7 H 5.4 H Chloride 94 L 92 L Carbon Dioxide 29 29 Anion Gap 16 20 BUN 79 H 81 H Creatinine 2.37 H 2.58 H Estim Creat Clear Calc 26.1 24.1 Estimated GFR 27 24 Random Glucose 206 H 128 H Calcium 8.3 L D 8.3 L Phosphorus 5.5 H Magnesium 3.1 H Total Bilirubin 0.7 AST 34 ALT 51 H Alkaline Phosphatase 126 H Total Protein 7.6 Albumin 3.2 L 07/31/24 04:41 WBC 9.9 RBC 3.70 L Hgb 10.3 L Hct 35.1 L MCV 94.9 MCH 27.8 MCHC 29.3 L RDW 18.0 H Plt Count 138 L D MPV 10.6 Immature Gran % (Auto) 0.5 H Neut % (Auto) 87.9 H Lymph % (Auto) 3.7 L [place] % (Auto) 7.7 Eos % (Auto) 0.1 Baso % (Auto) 0.1 Lymph # (Auto) 0.4 L [place] # (Auto) 0.8 Eos # (Auto) 0.0 Baso # (Auto) 0.0 Abs Immat Gran (auto) 0.05 H Absolute Neuts (auto) 8.7 H Absolute Nucleated RBC 0.000 Nucleated RBC % (auto) 0.0 PT 46.0 H D INR 3.9 H VBG pH VBG pCO2 VBG pO2 VBG HCO3 VBG O2 Saturation VBG Base Excess Sodium 133 L Potassium 5.1 Chloride 92 L Carbon Dioxide 27 Anion Gap 19 BUN 81 H Creatinine 3.02 H Estim Creat Clear Calc 20.6 Estimated GFR 20 Random Glucose 203 H Calcium 9.2 D Phosphorus 5.4 H Magnesium 3.0 H Total Bilirubin 0.8 AST 25 ALT 36 Alkaline Phosphatase 100 Total Protein 7.7 Albumin 4.3 Progress Note: A&P Assessment and plan (1) End stage heart failure: Status: Acute Assessment and Plan: Patient with very advanced heart failure, end-stage heart failure with poor response to inotropic support with poor kidney function low blood pressure. Discussed with the patient about futility of care at this point in time. Discussed about comfort measures and palliative care. Patient and patient's family agree. Will transition him to comfort care only and once in place will discontinue his I inotropic and vasopressor support. Will sign of the case Time Spent With Patient Time: Total time managing care of this patient today ____ minutes. Progress Note: Quality Stroke Does the patient have a stroke diagnosis?: No Procedures Date of Service Date of Service: 07/31/24
[2024-07-31] MEDS: Scopolamine 1.5 MG PATCH.TD.3 TRANSDERMA (09:57)
[2024-07-31] MEDS: Morphine Sulfate/NS 100 MG/100 ML PLAST..BAG IVCONT (09:57)
--- NOTE | 2024-07-31 11:07 | MHC.CLN ---
PT WITH INCREASED NUTRITION RISK R/T PRESSURE INJURY DIET RX: CARDIAC-APPROPRIATE RECOMMEND ADDING ENSURE CLEAR TID TO PROMOTE WOUND HEALING SUPPLEMENT TO PROVIDE 720KCALS, 24G PROTEIN (SUPPLEMENT IS RENAL FRIENDLY) MONITOR PO INTAKE AND ENCOURAGE SUPPLEMENTS SEE ALSO FULL CLINICAL NUTRITION ASSESSMENT
--- NOTE | 2024-07-31 12:39 | P.PNCC_ITS ---
Subjective Subjective Date of Service: 07/31/24 Critical Care Time (minutes): 35 Comment: last night patient was transferred to medical ICU for ionotropic support but despite increase in the ionotropic support to the maximum patient did not have any improvement in his renal perfusion or urinary output. Later on his blood pressures dropped needing additional support with Levophed. We had a detailed discussions about his current clinical condition and poor response to medications with the patient. understanding his comorbidity, current condition patient stated he wanted transition to comfort care so comfort measures are initiated. Physical Exam 2 Vital Signs: Vital Signs: Last Vital Signs Temp 98.5 F 07/31/24 08:00 Pulse 86 07/31/24 11:00 Resp 18 07/31/24 09:00 BP 94/47 L 07/31/24 09:00 Pulse Ox 90 L 07/31/24 09:00 O2 Del Method Oxymask 07/31/24 09:00 O2 Flow Rate 2 07/31/24 09:00 BMI result Body Mass Index 28.3 General: ill appearing and tired appearing Nutritional Appearance: well nourished and overweight Eyes: appearance normal, both eyes and all related structures; Alignment and Position: alignment normal and position normal Neck: No lymphadenopathy, no thyromegaly Resp: bilateral air entry equal, Crackles heard bilaterally Cardio: Regular rate, regular rhythm; Heart sounds: S1 normal heart sound present and S2 normal heart sound present, significant pitting edema present GI: soft, nontender, no guarding, no hepatosplenomegaly : bladder normal to inspection, bladder normal to palpation, no renal angle tenderness Skin: no rashes or lesions noted and elasticity normal Neuro: oriented to person, oriented to place, oriented to time and moves all extremities Objective Data Labs 07/31/24 04:41 07/31/24 04:41 Labs: Laboratory Results - last 24 hr 07/30/24 07/30/24 07/31/24 14:41 23:07 04:38 WBC RBC Hgb Hct MCV MCH MCHC RDW Plt Count MPV Immature Gran % (Auto) Neut % (Auto) Lymph % (Auto) [place] % (Auto) Eos % (Auto) Baso % (Auto) Lymph # (Auto) [place] # (Auto) Eos # (Auto) Baso # (Auto) Abs Immat Gran (auto) Absolute Neuts (auto) Absolute Nucleated RBC Nucleated RBC % (auto) PT INR VBG pH 7.34 VBG pCO2 49 VBG pO2 64 VBG HCO3 27 H VBG O2 Saturation 91.0 VBG Base Excess 1.3 Sodium 133 L 136 Potassium 5.7 H 5.4 H Chloride 94 L 92 L Carbon Dioxide 29 29 Anion Gap 16 20 BUN 79 H 81 H Creatinine 2.37 H 2.58 H Estim Creat Clear Calc 26.1 24.1 Estimated GFR 27 24 Random Glucose 206 H 128 H Calcium 8.3 L D 8.3 L Phosphorus 5.5 H Magnesium 3.1 H Total Bilirubin 0.7 AST 34 ALT 51 H Alkaline Phosphatase 126 H Total Protein 7.6 Albumin 3.2 L 07/31/24 04:41 WBC 9.9 RBC 3.70 L Hgb 10.3 L Hct 35.1 L MCV 94.9 MCH 27.8 MCHC 29.3 L RDW 18.0 H Plt Count 138 L D MPV 10.6 Immature Gran % (Auto) 0.5 H Neut % (Auto) 87.9 H Lymph % (Auto) 3.7 L [place] % (Auto) 7.7 Eos % (Auto) 0.1 Baso % (Auto) 0.1 Lymph # (Auto) 0.4 L [place] # (Auto) 0.8 Eos # (Auto) 0.0 Baso # (Auto) 0.0 Abs Immat Gran (auto) 0.05 H Absolute Neuts (auto) 8.7 H Absolute Nucleated RBC 0.000 Nucleated RBC % (auto) 0.0 PT 46.0 H D INR 3.9 H VBG pH VBG pCO2 VBG pO2 VBG HCO3 VBG O2 Saturation VBG Base Excess Sodium 133 L Potassium 5.1 Chloride 92 L Carbon Dioxide 27 Anion Gap 19 BUN 81 H Creatinine 3.02 H Estim Creat Clear Calc 20.6 Estimated GFR 20 Random Glucose 203 H Calcium 9.2 D Phosphorus 5.4 H Magnesium 3.0 H Total Bilirubin 0.8 AST 25 ALT 36 Alkaline Phosphatase 100 Total Protein 7.7 Albumin 4.3 Microbiology Microbiology Results: Microbiology 07/29/24 14:35 Blood - Venous Blood Culture - Preliminary No growth after 24 hours. 07/29/24 14:17 Blood - Venous Blood Culture - Preliminary No growth after 24 hours. Progress Note: A&P Assessment and plan (1) Congestive heart failure: Status: Acute (2) Acute decompensated heart failure: Status: Acute (3) End stage heart failure: Status: Acute (4) Chronic HFrEF (heart failure with reduced ejection fraction): Status: Acute (5) Aortic stenosis: Status: Acute (6) Biventricular ICD (implantable cardioverter-defibrillator) in place: Status: Acute (7) NSVT (nonsustained ventricular tachycardia): Status: Acute Plan Last night patient was transferred to medical ICU for ionotropic support but despite increase in the ionotropic support to the maximum patient did not have any improvement in his renal perfusion or urinary output. Later on his blood pressures dropped needing additional support with Levophed. his renal function continued to worsen, he did not have any improvement in his symptoms despite being on dobutamine and Levophed for vasopressor support. So this morning we had a detailed discussions about his current clinical condition and poor response to medications with the patient. understanding his comorbidity, current condition patient stated he wanted transition to comfort care so comfort measures are initiated. he is being transferred to the floor to continue comfort measures. Quality Stroke Does the patient have a stroke diagnosis?: No VTE Prior VTE?: No VTE Risk Level:: Medical - moderate - high VTE Device Contraindication: Treatment Not Indicated VTE Drug Contraindication: N/A - Med Ordered
--- NOTE | 2024-07-31 13:13 | P.CDIM_ITS ---
PROVIDER RESPONSE TEXT: To clarify, the appropriate diagnosis supported by the clinical indicators: Other (explain): septic shock QUERY TEXT: PHYSICIAN'S DOCUMENTATION REQUEST Date of Query: 07/31/2024 01:00 PM EST Patient Name: Eddie Mullen Admit Date: 07/29/2024 Dear Thomas Echols MD, A review of the medical record indicates additional documentation may be needed. Please review below and update the documentation accordingly. Documentation in the medical record includes administration of Dobutamine and Levophed for vasopresso r support. Clinical Indicators: Per Critical Care Progress Note 07/31/24: patient was transferred to medical ICU for ionotropic support but despite increase in the ionotropic support to the maximum patient did not have any improvement in his renal perfusion or urinary output. Later on his blood pre ssures dropped needing additional support with Levophed. Please provide the diagnosis(es) associated with the medication listed above Cardiogenic Shock Hypovolemic Shock Other (explain) Clinically unable to determine (explain) Thank you, Patricia Velasquez RN Use of terms such as suspected, likely, concern for, or probable (associated with a specific diagnosi s that is being evaluated, monitored, or treated as if it exists) are acceptable and can be coded in the inpatient se tting, when documented at the time of discharge. Please use your independent medical judgment in providing your response. THIS QUERY IS PART OF THE PERMANENT MEDICAL RECORD
--- NOTE | 2024-07-31 13:16 | PM.EVENT ---
Event Note Date of Service: 07/31/24 Event Note: Hospitalist accept note. 79yo M with advanced/end-stage HF who went to ICU for inotropic support but did not respond despite maximum dose of dobumtamine and norepinephrine. Persistently hypotensive and with worsening renal failure. At pt's request, he was transitioned to [facility]. Appears comfortable currently on morphine IV gtt 2 mg/hr. Family at bedside. Time Spent With Patient Time: Total time managing care of this patient today ____ minutes.
--- NOTE | 2024-07-31 13:56 | HO.WOUND ---
Wound Consult: Initial 79yr old? male admitted to [facility] [place] on 07/29/24 - See progress notes and H&P for detailed history.? Wound consult placed for sacral wound POA .? Chart review and photo review completed. Bilateral Sacrum Etiology: ??Deep Tissue injury Present on Admission Wound Bed: central open wound bed with red pink moist wound bed surrounded by dark purple nonblanchable tissue Edges: ? irregular and macerated Rabia wound: MASD? - and pink red erythema- mirrored pink pigmentation noted? Goals of Treatment: ? Barrier cream to protect from moisture and friction and allow for moist wound healing.? Foam dressing to aid in pressure redistribution Recommendations: 1. Turn and Reposition every 2 hours and as needed for patient comfort.? Use pillows or wedges to support off loading positions. 2. Off Load all bony prominences with use of pillows and heel boots if needed.? Apply Preventative foams where needed. ? 3. Monitor for incontinence and moisture control, use barrier creams when needed for prevention and treatment. 4. Provide adequate and supplemental nutrition.? 5. Order? low air loss mattress. 6. When applicable maintain blood glucose levels per Providers order. 7. Sacrum - Cleanse with PH balanced wipes, spray.? Pat dry.? Apply triad cream to wound bed, apply foam dressing to aid in pressure redistribution.? Change every 3 days and PRN. Off Load pressure with Q2hr turns. Re-consult wound care Nurse for wound deterioration or wound changes.
--- NOTE | 2024-07-31 18:37 | PC.NURSE ---
Pt transfered from ICU @ 1230. Alert but somnolent. Oriented x2. Denies pain. Morphine drip infusing with basal rate 2mg/hr. o2 @6L oxymizer placed by RT for comfort. Coccyx dressing c/d/i. Repositioned for comfort q2h. Rep from [employer] in to deactivate ICD. Family at bedside. reports she has contacted [facility] and would like pts remains to go there.
--- NOTE | 2024-08-01 01:54 | PC.NURSE ---
2114-ICU PA to unit and checked in on his patient that he cared for in the ICU setting. He spoke with the and family at bedside as he noticed patients respirations were appearing somewhat more labored, therefore, he notified the Hospitalist on duty to make changes to the Morphine drip in use. Currently patient at 2mg/HR, now entered with titration orders, see MAR. Patient was repositioned, pillows, and wedges adjusted, skin warm and dry, no urinary output at this time. After conversation with the family, Morphine drip was increased to 4mg/HR at 2140, RR16. second RN CB witnessed dose rate change with this brief writer. No noted acute distress and will continue to monitor closely. Patient is End of Life care and family at bedside
--- NOTE | 2024-08-01 02:03 | PC.NURSE ---
0000- Family remains at bedside, Morphine infusing at 4mg/HR, repositioned every 2 hours and PRN, RR shallow at times, 12-16, HOB up, Oxygen at 6 liters via Oxy Mask. scopolamine patch behind left ear, Family comfort provided. will continue to monitor closely.
--- NOTE | 2024-08-01 02:20 | PC.NURSE ---
0200-continued to check patient status frequently, family at bedside, patient showing no s/sx respiratory distress, Morphine infusing at 4mg/HR. declined a full reposition as pt appears comfortable, therefore adjusted pillows and such. will continue to monitor closely.
--- NOTE | 2024-08-01 03:42 | PC.NURSE ---
0330- no significant status changes, patient resting with no s/sx acute resp distress, oxygen at 6 liters via oxy mask, morphine drip at 4mg/hr, RR between 12-18. family members at bedside, will continue to check frequently.
--- NOTE | 2024-08-01 04:47 | PC.NURSE ---
8035- No significant status changes, family members resting at bedside
--- NOTE | 2024-08-01 06:27 | PC.NURSE ---
0600-resting with no distress, family at bedside, no significant changes, cont to monitor
--- NOTE | 2024-08-01 06:50 | PC.NURSE ---
0650-family remains at bedside, no significant change to patient status, no noted s/sx resp distress, morphine at 4mg/HR as ordered, RR14-16. report to day RN.
--- NOTE | 2024-08-01 08:27 | PM.DDS ---
Discharge Sum: Prov Provider Primary care physician: Sundeep Macdonald MD Admitting clinician: Jaun Izquierdo Attending physician on admission: Jaun Izquierdo Consults: 07/31/24 08:46 Consult to Hospice Routine Comment: Pronouncing clinician: Erin Sequeira Discharge Sum: Diag Contributing Factors (1) Congestive heart failure: (2) Acute decompensated heart failure: (3) End stage heart failure: (4) Aortic stenosis: (5) Biventricular ICD (implantable cardioverter-defibrillator) in place: (6) NSVT (nonsustained ventricular tachycardia): (7) Cardiogenic shock: (8) Ischemic cardiomyopathy: Discharge Sum: Summary Date and Time Date of admission: 07/29/24 17:03 Date of : 08/01/24 Time of : 08:17 Summary Details: From the history and physical by the admitting hospitalist, Jaun Izquierdo, 07/29/24: 79-year-old gentleman with past medical history significant for COPD, ILD on home oxygen 4 L continuous, ischemic cardiomyopathy with biventricular pacemaker in place, aortic stenosis, and SVT and chronic kidney disease was recently discharged from [facility] on 06/07/2024 after requiring hospitalization for DEISY on chronic kidney disease, left inguinal hernia, hypotension, hyperkalemia, patient did not require surgery since hernia was reduced patient was discharged to rehab facility and was recently sent home on June 24, since discharge patient has been short of breath on and off that has worsened in last few days , he has significant dyspnea on exertion, worsening lower extremity edema, yesterday his oxygenation was in 60s, family contacted patient primary electroencephalograph technologist in dose of Bumex was increased from 2 mg to 4 mg but patient has no significant urine output overnight and since patient remained short of breath this morning with hypoxia and soft blood pressures family called 911, EMS noted patient oxygenation to be 58% was placed on CPAP briefly, in ED CPAP weaned off currently oxygenation is maintained on 5 L, patient treated in the emergency room with IV steroids, IV Lasix and IV fluids, patient VBG is stable, lactic acid is 2.5, INR is 3.8, magnesium is 3, creatinine is 2.42 at baseline but noted to have significantly elevated bnp 8985, blood sugar 167, chest x-ray showed pulmonary edema and bilateral pleural effusions, moderate volume, cardiomegaly versus pericardial effusion, bedside ultrasound of hard as per ED physician showed [id number] pericardial effusion patient is now being admitted to [facility] for acute on chronic congestive heart failure due to ischemic cardiomyopathy, at present patient feels better than arrival with less shortness of breath denies chest pain, no cough, no sputum production, denies fever, no chills, no nausea, no vomiting abdominal pain or diarrhea. He was initially admitted to the hospitalist service with Cardiology consultation but developed significant hypotension and charly cardiogenic shock. He was sent to the ICU for inotropic support but did not respond despite maximum dose of dobumtamine and norepinephrine. He was persistently hypotensive and developed worsening renal failure. 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 He was placed on IV morphine infusion for management of pain and dyspnea. He on 08/01/24 at 08:17 without apparent distress. Additional Data Confirmation of as documented by pronouncing clinician: no pulse, no respirations, no heart sounds and pupils fixed and dilated Family: at bedside Attending physician: Erin Sequeira MD Was code activated?: No Autopsy requested?: No medical claims examiner notified?: No Organ bank notified?: No Advance directives: Yes Hospice patient?: Yes
--- NOTE | 2024-08-01 09:48 | PC.NURSE ---
This RN came in to check on patient @ 0800. Found with no respirations. No pulse or heart sounds found. Family at bedside. Dr. Sequeira notified to pronounce patient. Organ bank called. Emotional support provided to family.
== END 2024-08-01 08:05 | disposition expired | DRG 291 ==
LOC: HO.ED 15:06 → HO.EDOVER 17:14 → HO.ICU 07-30 16:57 → HO.S3 07-31 09:48
PROVIDERS: Internal Medicine Critical Care Medicine; Physician Assistant Medical; Admitting Provider Hospitalist; Emergency Provider Emergency Medicine; PCP Internal Medicine; Visit Provider Family Medicine
DX: I50.23 Acute on chronic systolic (congestive) heart failure (principal); J96.21 Acute and chronic respiratory failure with hypoxia; I47.20 Ventricular tachycardia, unspecified; J43.9 Emphysema, unspecified; I48.0 Paroxysmal atrial fibrillation; I50.84 End stage heart failure; Z66 Do not resuscitate; I25.10 Atherosclerotic heart disease of native coronary artery without angina pectoris; E11.22 Type 2 diabetes mellitus with diabetic chronic kidney disease; R79.1 Abnormal coagulation profile; R57.0 Cardiogenic shock; I35.0 Nonrheumatic aortic (valve) stenosis; Z95.810 Presence of automatic (implantable) cardiac defibrillator; N18.30 Chronic kidney disease, stage 3 unspecified; Z95.1 Presence of aortocoronary bypass graft; I25.5 Ischemic cardiomyopathy; Z20.822 Contact with and (suspected) exposure to COVID-19; Z79.01 Long term (current) use of anticoagulants; Z79.899 Other long term (current) drug therapy
CPT/HCPCS: 0241U; 36415; 71045; 80048; 80053; 80076; 81001; 82803; 83605; 83690; 83735; 83880; 84100; 84484; 85025; 85610; 87040; 93005; 99285; C1758; J0692; J1171; J1250; J1940; J2270; J2919; P9047

== ENCOUNTER → 2024-07-29 13:12 | Outpatient (BNV) | payer MEDICARE, BC, SELFPAY ==
[2024-04-28 13:10] VITALS: BP 110/58; BP 128/72; BP 90/52; BMI 33.4
== END ==
PROVIDERS: Emergency Provider Emergency Medicine; PCP Internal Medicine; Visit Provider Radiology Diagnostic Radiology
DX: J90 Pleural effusion, not elsewhere classified (principal)
CPT/HCPCS: 71045

== ENCOUNTER → 2024-07-29 17:03 | Outpatient (BNV) | payer MEDICARE, BC, SELFPAY ==
[2024-04-28 13:10] VITALS: BP 110/58; BP 128/72; BP 90/52; BMI 33.4
== END ==
PROVIDERS: Admitting Provider Hospitalist; Emergency Provider Emergency Medicine; PCP Internal Medicine; Visit Provider Internal Medicine Critical Care Medicine
DX: I47.20 Ventricular tachycardia, unspecified (principal); I50.22 Chronic systolic (congestive) heart failure; I50.23 Acute on chronic systolic (congestive) heart failure; I50.9 Heart failure, unspecified; I25.10 Atherosclerotic heart disease of native coronary artery without angina pectoris
CPT/HCPCS: 99291

== ENCOUNTER → 2024-07-29 17:03 | Outpatient (BNV) | payer MEDICARE, BC, SELFPAY ==
[2024-04-28 13:10] VITALS: BP 110/58; BP 128/72; BP 90/52; BMI 33.4
== END ==
PROVIDERS: Admitting Provider Hospitalist; Emergency Provider Emergency Medicine; PCP Internal Medicine; Visit Provider Hospitalist
DX: I50.23 Acute on chronic systolic (congestive) heart failure (principal); I50.84 End stage heart failure; R57.0 Cardiogenic shock
CPT/HCPCS: 99223; 99233; 99238; 99499

== ENCOUNTER → 2024-07-29 17:03 | Outpatient (BNV) | payer MEDICARE, BC, SELFPAY ==
[2024-04-28 13:10] VITALS: BP 110/58; BP 128/72; BP 90/52; BMI 33.4
== END ==
PROVIDERS: Admitting Provider Hospitalist; Emergency Provider Emergency Medicine; PCP Internal Medicine; Visit Provider Internal Medicine Cardiovascular Disease
DX: I50.9 Heart failure, unspecified (principal)
CPT/HCPCS: 93010; 99223; 99233